=== PATIENT | male | born 1950 | race African-American/Black ===

== ENCOUNTER 2016-12-09 23:00 | Inpatient (IN) | payer MEDICARE, OTHER ==
[~2016-12-09] VITALS: Ht 175.3 cm; Wt 68.0 kg
[~2016-12-09 23:00] MED LIST: ATENOLOL50 MG PO; ATHLETIC FOOT C30 GM TOPIC; CARVEDILOL6.25 MG ORAL; CATAPRES0.1 MG ORAL; CATAPRES0.1 MG PO; CLOTRIMAZOLE15 GM TOP; COREG6.25 MG ORAL; DIOVAN80 MG ORAL; DOCUSATE SODIU100 MG ORAL; FUROSEMIDE40 MG ORAL; FUROSEMIDE40 MG PO; HYDROCODON-ACE1 EA15 ORAL; LISINOPRIL10 MG PO; LORAZEPAM1 MG ORAL; MOM30 ML ORAL; POTASSIUM CHLO10 ME2 PO; POTASSIUM CHLO10 ME3 PO; POTASSIUM CHLO10 MEQ ORAL; PROAIR HFA8.5 GM; VALSARTAN-HCTZ1 EACH ORAL
[2016-12-09] MEDS ORDERED: Albuterol ud Inhalation HHN ONE (23:30)
[2016-12-09 23:39] LABS: BASOPHILS % (AUTO) 1.8 % (0.0-2.0); EOSINOPHILS % (AUTO) 0.1 % (0.0-3.0); LYMPHOCYTES % (AUTO) 12.5 % (20.0-45.0); MEAN CORPUSCULAR HGB CONC 29.8 G/DL (32.0-36.0); MEAN CORPUSCULAR VOLUME 101 FL (80-99); MEAN PLATELET VOLUME 8.7 FL (6.5-10.1); MONOCYTES % (AUTO) 5.6 % (1.0-10.0); NEUTROPHILS % (AUTO) 80.1 % (45.0-75.0); PLATELET COUNT 154 K/UL (150-450); RED BLOOD COUNT 3.88 M/UL (4.70-6.10); RED CELL DISTRIBUTION WIDTH 16.3 % (11.6-14.8)
[2016-12-09 23:47] LABS: INR 1.1 (0.9-1.1); PROTHROMBIN TIME 11.2 SEC (9.30-11.50)
[2016-12-09 23:51] LABS: TROPONIN I < 0.30 ng/mL (<=0.30)
[2016-12-09 23:54] LABS: ALBUMIN/GLOBULIN RATIO 0.6 (1.0-2.7); CALCIUM 8.1 mg/dL (8.6-10.2); CREATININE 1.7 mg/dL (0.7-1.2); GLOMERULAR FILTRATION RATE 49.3 mL/min (>60); POTASSIUM 5.2 mEQ/L (3.4-4.9); TOTAL PROTEIN 7.4 g/dL (6.6-8.7)
[2016-12-10] VITALS (14 sets, daily range): BP systolic 106–153; BP diastolic 59–99
[2016-12-10 00:04] LABS: CKMB 15.4 ng/mL (< 6.7)
--- NOTE | 2016-12-10 00:39 | Emergency Room Report ---
History of Present Illness General Chief Complaint: Dyspnea/Respdistress Source: Patient, Medical Record, EMS Present Illness HPI This is a 66-year-old male coming from [facility]. He has a history of cardiomyopathy, hepatitis, toxic metabolic encephalopathy. He presents with chief complaint of severe rest or distress. Unknown onset. Unable to get history from the patient because of his condition. Denies any fever or chills. No nausea no vomiting. EMS put him on oxygen and brought him here. Allergies: Coded Allergies: No Known Allergies (Unverified , 04/29/13) Patient History Past Medical History: see triage record, old chart reviewed Past Surgical History: other Pertinent Family History: none Social History: Denies: drug use Immunizations: other Reviewed Nursing Documentation: PMH: Agreed, PSxH: Agreed Nursing Documentation-PMH Hx Cardiac Problems: Yes - CHF, CKD stage III, HEP C, thrombocytopenia, Anemia Hx Hypertension: Yes Hx Asthma: Yes Hx Cancer: No Hx Gastrointestinal Problems: Yes - LIVER FAILURE Hx Neurological Problems: No Review of Systems Eye: Denies: blurred vision, eye pain ENT: Denies: ear pain, nose congestion, throat swelling Respiratory: Reports: cough, shortness of breath Cardiovascular: Denies: chest pain, palpitations Gastrointestinal: Denies: abdominal pain, diarrhea, nausea, vomiting Musculoskeletal: Denies: back pain, joint pain Skin: Denies: rash Neurological: Denies: headache, numbness Endocrine: Denies: increased thirst, increased urine Hematologic/Lymphatic: Denies: easy bruising All Other Systems: negative except mentioned in HPI Physical Exam Vital Signs Date Time Temp Pulse Resp B/P Pulse Ox O2 Delivery O2 Flow Rate FiO2 12/09/16 22:54 74 30 160/124 98 12/09/16 23:49 Venturi Mask 12/09/16 23:51 10.0 vitals with hypoxia and hypertension Sp02 EP Interpretation: reviewed, abnormal General Appearance: alert, moderate distress, lethargic, Chronically Ill Head: normocephalic, atraumatic Eyes: bilateral eye EOMI, bilateral eye PERRL ENT: hearing grossly normal, normal pharynx Neck: full range of motion, supple, no meningismus Respiratory: chest non-tender, decreased breath sounds, accessory muscle use, rales Cardiovascular #1: regular rate, rhythm, no murmur Gastrointestinal: normal bowel sounds, non tender, no mass, no organomegaly, no bruit, non-distended Musculoskeletal: back normal, normal range of motion, swelling - 2+ pitting edema Psychiatric: mood/affect normal Skin: warm/dry Procedures Critical Care Time Critical Care Time Critical care is mandated in this patient who presented with respiratory distress secondary to CHF. Patient require my urgent intervention to attenuate the risks of respiratory collapse which may lead to cardiovascular collapse and . Critical care time is 35 minutes excluding any reportable procedure. Critical care time included evaluation, multiple reevaluation, looking at old charts, interpreting laboratory and diagnostic data, discussing case with patient and family and consultants, and charting. Medical Decision Making Diagnostic Impression: Primary Impression: Acute respiratory failure with hypoxia Additional Impressions: Accelerated hypertension CHF exacerbation Qualified Codes: I50.9 - Heart failure, unspecified Pulmonary edema Qualified Codes: J81.0 - Acute pulmonary edema Acute on chronic kidney failure Anemia Qualified Codes: D64.9 - Anemia, unspecified ER Course Patient presents with respiratory distress secondary to vomiting edema from CHF. Lasix given here. Patient has not made any urine so far. Kidney function is worse from couple years ago. He does look more comfortable with oxygen. Troponin negative. Will admit for further workup. I discussed the case with Dr. Capone who will cover for Dr. Hawkins. Lab Results Impression labs with elevated BNP EKG Diagnostic Results Rate: normal Rhythm: NSR ST Segments: no acute changes Rhythm Strip Diag. Results EP Interpretation: yes Rate: 70 Rhythm: NSR, no PVC's, no ectopy Chest X-Ray Diagnostic Results EP Interpretation: Yes Findings: no consolidation, no pneumothorax, other - effusion with chf Number of Views: 1 Last Vital Signs Date Time Temp Pulse Resp B/P Pulse Ox O2 Delivery O2 Flow Rate FiO2 12/09/16 23:51 64 18 98 Venturi Mask 10.0 12/09/16 22:54 160/124 Status: improved Disposition: ADMITTED INPATIENT Condition: Serious Referrals: Wild Hawkins MD (PCP) MELODIE DAIGLE M.D. Dec 10, 2016 00:39
[2016-12-10] MEDS ORDERED: DuoNeb 0.5-3(2.5)mg/3ml neb HHN PRN ×2 (00:45→16:45)
[2016-12-10] MEDS ORDERED: Miralax 17gm pkt ORAL PRN (00:45)
[2016-12-10] MEDS ORDERED: Norco 5mg/325mg tab ORAL PRN (00:45)
[2016-12-10] MEDS ORDERED: AMLODIPINE BESY10 MG ORAL (01:04)
[2016-12-10] MEDS ORDERED: ISORDIL40 MG ORAL (01:04)
[2016-12-10 03:18] LABS: ABG ALLEN TEST POSITIVE; ABG BASE EXCESS 0.3; ABG PCO2 71.7 mmHg (35.0-45.0)
--- NOTE | 2016-12-10 07:44 | Cardiology Progress Note ---
Assessment/Plan Assessment/Plan altered mentation acute on chronic systolic failrue cm er 28% MR mod to severe hx of amphetamin abue hs of hep c with cirrhosis renal insuf repirtory acidossi neeed to repeat abg will need afterload reduction acei vs other meds is nto able to take meds by mouth at thsi time will used ntp diruesis echo at [facility] noted watch crefully [id number] Objective Last 24 Hour Vital Signs Date Time Temp Pulse Resp B/P Pulse Ox O2 Delivery O2 Flow Rate FiO2 12/10/16 05:30 64 18 100 Full Face 100 12/10/16 04:14 97.0 67 24 127/80 100 Non-Rebreather 12/10/16 04:00 100 12/10/16 04:00 67 12/10/16 03:25 69 24 100 Facial 100 12/10/16 02:17 97.0 57 24 153/98 95 Non-Rebreather 12/10/16 01:00 78 29 129/99 100 Venturi Mask 15.0 12/10/16 00:45 78 29 129/99 100 Venturi Mask 15.0 12/09/16 23:51 64 18 98 Venturi Mask 10.0 12/09/16 23:51 61 18 99 Venturi Mask 12/09/16 23:50 79 32 Venturi Mask 15.0 12/09/16 23:49 63 18 Venturi Mask 12/09/16 22:54 74 30 160/124 98 Laboratory Tests Test 12/09/16 23:15 12/10/16 03:09 White Blood Count 5.0 K/UL (4.8-10.8) Red Blood Count 3.88 M/UL (4.70-6.10) L Hemoglobin 11.6 G/DL (14.2-18.0) L Hematocrit 39.1 % (42.0-52.0) L Mean Corpuscular Volume 101 FL (80-99) H Mean Corpuscular Hemoglobin 30.0 PG (27.0-31.0) Mean Corpuscular Hemoglobin Concent 29.8 G/DL (32.0-36.0) L Red Cell Distribution Width 16.3 % (11.6-14.8) H Platelet Count 154 K/UL (150-450) Mean Platelet Volume 8.7 FL (6.5-10.1) Neutrophils (%) (Auto) 80.1 % (45.0-75.0) H Lymphocytes (%) (Auto) 12.5 % (20.0-45.0) L Monocytes (%) (Auto) 5.6 % (1.0-10.0) Eosinophils (%) (Auto) 0.1 % (0.0-3.0) Basophils (%) (Auto) 1.8 % (0.0-2.0) Prothrombin Time 11.2 SEC (9.30-11.50) Prothromb Time International Ratio 1.1 (0.9-1.1) Activated Partial Thromboplast Time 34 SEC (23-33) H Sodium Level 147 mEQ/L (135-145) H Potassium Level 5.2 mEQ/L (3.4-4.9) H Chloride Level 109 mEQ/L (98-107) H Carbon Dioxide Level 25 mEQ/L (20-30) Anion Gap 13 (5-15) Blood Urea Nitrogen 39 mg/dL (7-23) H Creatinine 1.7 mg/dL (0.7-1.2) H Estimat Glomerular Filtration Rate 49.3 mL/min (>60) Glucose Level 141 mg/dL (74-106) H Calcium Level 8.1 mg/dL (8.6-10.2) L Total Bilirubin 0.3 mg/dL (0.0-1.2) Aspartate Amino Transf (AST/SGOT) 49 U/L (5-40) H Alanine Aminotransferase (ALT/SGPT) 45 U/L (3-41) H Alkaline Phosphatase 103 U/L (40-129) Total Creatine Kinase 127 U/L (38-174) Creatine Kinase MB 15.4 ng/mL (< 6.7) H Creatine Kinase MB Relative Index 12.1 Troponin I < 0.30 ng/mL (<=0.30) Pro-B-Type Natriuretic Peptide 37910 pg/mL (0-125) H Total Protein 7.4 g/dL (6.6-8.7) Albumin 2.8 g/dL (3.5-5.2) L Globulin 4.6 g/dL Albumin/Globulin Ratio 0.6 (1.0-2.7) L Arterial Blood pH 7.230 (7.350-7.450) Arterial Blood Partial Pressure CO2 71.7 mmHg (35.0-45.0) *H Arterial Blood Partial Pressure O2 57.1 mmHg (75.0-100.0) L Arterial Blood HCO3 29.4 mmol/L (22.0-26.0) H Arterial Blood Oxygen Saturation 87.0 % (92.0-98.0) L Arterial Blood Base Excess 0.3 Adrian Test Positive STEPHEN LONDON Dec 10, 2016 07:44
[2016-12-10 08:34] LABS: ABG ALLEN TEST POSITIVE; ABG BASE EXCESS -0.5; ABG PCO2 80.9 mmHg (35.0-45.0)
[2016-12-10] MEDS ORDERED: Heparin 5000 units/ml inj SUBQ SCH (09:00)
[2016-12-10] MEDS: Nitroglycerin 2% oint pkt TOPIC SCH ×3 (09:23→18:17)
[2016-12-10 09:39] LABS: TROPONIN I < 0.30 ng/mL (<=0.30)
--- NOTE | 2016-12-10 12:54 | History and Physical ---
History of Present Illness General Date patient seen: Dec 10, 2016 Reason for Hospitalization: Dyspnea/Respdistress Present Illness HPI 66-year-old male coming from [facility] with hx of cardiomyopathy, hepatitis, toxic metabolic encephalopathy. Patient was brought in by paramedics with chief complaint of severe respiratory distress. Patient was unable to give any history. He was diagnosed to have pneumonia and respiratory failure and transferred to telemetry. Currently pt is awake, looks somewhat comfortable on bipap. Looks cachectic and chronically ill. Allergies: Coded Allergies: No Known Allergies (Unverified , 04/29/13) Medication History Scheduled Amlodipine Besylate* (Amlodipine Besylate*), 10 MG ORAL DAILY, (Reported) Atenolol* (Tenormin*), 50 PO DAILY, (Reported) Carvedilol (Coreg), 6.25 MG ORAL EVERY 12 HOURS Clonidine Hcl* (Catapres*), 0.1 MG ORAL TID, (Reported) Furosemide* (Lasix*), 40 MG ORAL DAILY, (Reported) Lisinopril* (Lisinopril*), 10 PO DAILY, (Reported) Potassium Chloride (Potassium Chloride), 10 MEQ PO DAILY, (Reported) Valsartan (Diovan), 80 MG ORAL Q12HR, (Reported) Valsartan/Hydrochlorothiazide 80-12.5MG (Valsartan-Hctz 80-12.5 Mg Tab), 1 TAB ORAL DAILY Scheduled PRN Hydrocodone/Acetaminophen 5-325* (Hydrocodone/Acetaminophen 5-325*), 1 TAB ORAL Q6H PRN, (Reported) Lorazepam* (Lorazepam*), 1 MG ORAL Q6HR PRN, (Reported) Miscellaneous Medications Albuterol Sulfate* (Proair Hfa*), (Reported) Isosorbide Dinitrate (Isordil*), 40 MG ORAL, (Reported) Patient History Healthcare decision maker Resuscitation status Full Code Advanced Directive on File Social History Social History: (1) Hepatitis C (2) Cardiomyopathy (3) Anemia (4) CHF (congestive heart failure) Physical Exam General Appearance: WD/WN Lines, tubes and drains: peripheral, PICC HEENT: normocephalic, atraumatic Neck: non-tender, normal alignment Respiratory/Chest: chest wall non-tender, lungs clear Breasts: no masses Cardiovascular/Chest: normal peripheral pulses, normal rate Abdomen: normal bowel sounds, non tender Genitourinary/Rectal: normal prostate exam Extremities: normal range of motion, non-tender Last 24 Hour Vital Signs Date Time Temp Pulse Resp B/P Pulse Ox O2 Delivery O2 Flow Rate FiO2 12/10/16 12:37 111/61 12/10/16 12:00 96.9 77 21 110/68 99 Bi-pap 100 74 12/10/16 12:00 100 12/10/16 11:29 63 26 100 Full Face 100 12/10/16 09:24 61 39 100 Full Face 100 12/10/16 09:23 106/59 12/10/16 09:00 106/59 12/10/16 08:00 96.9 73 19 106/59 100 Bi-pap 100 80 12/10/16 08:00 100 12/10/16 08:00 82 12/10/16 07:27 63 27 100 Full Face 100 12/10/16 05:30 64 18 100 Full Face 100 12/10/16 04:15 97.0 67 24 127/80 100 Bi-pap 12/10/16 04:14 97.0 67 24 127/80 100 Non-Rebreather 12/10/16 04:00 100 12/10/16 04:00 67 12/10/16 03:25 69 24 100 Facial 100 12/10/16 02:17 97.0 57 24 153/98 95 Non-Rebreather 12/10/16 01:00 78 29 129/99 100 Venturi Mask 15.0 12/10/16 00:45 78 29 129/99 100 Venturi Mask 15.0 12/09/16 23:51 64 18 98 Venturi Mask 10.0 12/09/16 23:51 61 18 99 Venturi Mask 12/09/16 23:50 79 32 Venturi Mask 15.0 12/09/16 23:49 63 18 Venturi Mask 12/09/16 22:54 74 30 160/124 98 Laboratory Tests Test 12/09/16 23:15 12/10/16 03:09 12/10/16 08:10 12/10/16 08:40 White Blood Count 5.0 K/UL (4.8-10.8) Red Blood Count 3.88 M/UL (4.70-6.10) L Hemoglobin 11.6 G/DL (14.2-18.0) L Hematocrit 39.1 % (42.0-52.0) L Mean Corpuscular Volume 101 FL (80-99) H Mean Corpuscular Hemoglobin 30.0 PG (27.0-31.0) Mean Corpuscular Hemoglobin Concent 29.8 G/DL (32.0-36.0) L Red Cell Distribution Width 16.3 % (11.6-14.8) H Platelet Count 154 K/UL (150-450) Mean Platelet Volume 8.7 FL (6.5-10.1) Neutrophils (%) (Auto) 80.1 % (45.0-75.0) H Lymphocytes (%) (Auto) 12.5 % (20.0-45.0) L Monocytes (%) (Auto) 5.6 % (1.0-10.0) Eosinophils (%) (Auto) 0.1 % (0.0-3.0) Basophils (%) (Auto) 1.8 % (0.0-2.0) Prothrombin Time 11.2 SEC (9.30-11.50) Prothromb Time International Ratio 1.1 (0.9-1.1) Activated Partial Thromboplast Time 34 SEC (23-33) H Sodium Level 147 mEQ/L (135-145) H Potassium Level 5.2 mEQ/L (3.4-4.9) H Chloride Level 109 mEQ/L (98-107) H Carbon Dioxide Level 25 mEQ/L (20-30) Anion Gap 13 (5-15) Blood Urea Nitrogen 39 mg/dL (7-23) H Creatinine 1.7 mg/dL (0.7-1.2) H Estimat Glomerular Filtration Rate 49.3 mL/min (>60) Glucose Level 141 mg/dL (74-106) H Calcium Level 8.1 mg/dL (8.6-10.2) L Total Bilirubin 0.3 mg/dL (0.0-1.2) Aspartate Amino Transf (AST/SGOT) 49 U/L (5-40) H Alanine Aminotransferase (ALT/SGPT) 45 U/L (3-41) H Alkaline Phosphatase 103 U/L (40-129) Total Creatine Kinase 127 U/L (38-174) Creatine Kinase MB 15.4 ng/mL (< 6.7) H Creatine Kinase MB Relative Index 12.1 Troponin I < 0.30 ng/mL (<=0.30) < 0.30 ng/mL (<=0.30) Pro-B-Type Natriuretic Peptide 40500 pg/mL (0-125) H Total Protein 7.4 g/dL (6.6-8.7) Albumin 2.8 g/dL (3.5-5.2) L Globulin 4.6 g/dL Albumin/Globulin Ratio 0.6 (1.0-2.7) L Arterial Blood pH 7.230 (7.350-7.450) 7.180 (7.350-7.450) Arterial Blood Partial Pressure CO2 71.7 mmHg (35.0-45.0) *H 80.9 mmHg (35.0-45.0) *H Arterial Blood Partial Pressure O2 57.1 mmHg (75.0-100.0) L 73.5 mmHg (75.0-100.0) L Arterial Blood HCO3 29.4 mmol/L (22.0-26.0) H 29.5 mmol/L (22.0-26.0) H Arterial Blood Oxygen Saturation 87.0 % (92.0-98.0) L 92.8 % (92.0-98.0) Arterial Blood Base Excess 0.3 -0.5 Adrian Test Positive Positive Height (Feet): 5 Height (Inches): 9.00 Weight (Pounds): 150 Medications Current Medications Medications (Trade) Dose Ordered Sig/Melania Route PRN Reason Start Time Stop Time Status Last Admin Dose Admin Acetaminophen (Tylenol) 650 mg Q4H PRN ORAL Fever 12/10/16 00:45 01/09/17 00:44 Acetaminophen/ Hydrocodone Bitart ([place] 5/325) 1 tab Q6H PRN ORAL severe pain 12/10/16 00:45 12/17/16 00:44 Albuterol/ Ipratropium (DuoNeb 0.5-3(2.5)mg/3ml) 3 ml Q4H PRN HHN Shortness of Breath 12/10/16 00:45 12/15/16 00:44 Clonidine HCl (Catapres) 0.1 mg TID ORAL 12/10/16 09:00 01/09/17 08:59 Dextrose (Dextrose 50%) STAT PRN IV Hypoglycemia 12/10/16 00:45 01/09/17 00:44 Furosemide (Lasix) 40 mg EVERY 8 HOURS IV 12/10/16 06:00 01/09/17 05:59 12/10/16 06:19 Heparin Sodium (Porcine) (Heparin 5000 units/ml) 5,000 units EVERY 12 HOURS SUBQ 12/10/16 09:00 01/09/17 08:59 12/10/16 09:24 Nitroglycerin (Nitro-Bid) 1 inch EVERY 6 HOURS TOPIC 12/10/16 08:00 01/09/17 07:59 12/10/16 12:37 Ondansetron HCl (Zofran) 4 mg Q6H PRN IVP Nausea & Vomiting 12/10/16 00:45 01/09/17 00:44 Polyethylene Glycol (Miralax) 17 gm DAILYPRN PRN ORAL Constipation 12/10/16 00:45 01/09/17 00:44 Temazepam (Restoril) 15 mg HSPRN PRN ORAL Insomnia 12/10/16 00:45 12/17/16 00:44 Assessment/Plan Problem List: (1) Acute respiratory failure with hypoxia ICD Codes: J96.01 - Acute respiratory failure with hypoxia SNOMED: 10746784, 543041044 (2) Aspiration pneumonia ICD Codes: J69.0 - Pneumonitis due to inhalation of food and vomit SNOMED: 198546770 (3) Pulmonary edema ICD Codes: J81.1 - Chronic pulmonary edema SNOMED: 71868303, 617392609 Qualifiers: Qualified Codes: J81.0 - Acute pulmonary edema (4) At high risk for aspiration ICD Codes: Z91.89 - Other specified personal risk factors, not elsewhere classified SNOMED: 102745201 Assessment/Plan transfer to [facility] or [facility] titrate bipap IV antibiotics sputum c/s chest pt YAMILET DIOR Dec 10, 2016 12:54
--- NOTE | 2016-12-10 13:24 | Wound Care Consultation ---
Wound Assessment Wound Assessment #1: Wound Present on Admission: Yes New Wound: No Status Change of Wound: No Wound Location Body Site Modif: mid Wound Location Body Site: sacral Wound Type: pressure ulcer Gómez Test: Does not Gómez Pressure Ulcer Stage: IV/unstageable Wound Thickness: Full Thickness Wound Length: 4.0 Wound Width: 3.0 Percent of Wound Bed Yellow/Wh: 100 Wound Drainage Description: Serosanguineous Wound Drainage Amount: Moderate Wound Drainage Odor: None/Absent Tissue Surrounding Wound: Macerated Wound General Appearance: Draining, Necrotic Wound Assessment #2: Wound Number: #2 Wound Present on Admission: Yes New Wound: No Status Change of Wound: No Wound Location Body Site Modif: right Wound Location Body Site: heel Wound Type: pressure ulcer Gómez Test: Does not Gómez Pressure Ulcer Stage: deep tissue injury Wound Thickness: Full Thickness Wound Length: 3.5 Wound Width: 3.5 Wound Depth: utd Percent of Wound Black/Brown: 100 Wound Drainage Amount: None Wound Drainage Odor: None/Absent Tissue Surrounding Wound: Indurated Wound General Appearance: Blackened Wound Assessment #3: Wound Number: #3 Wound Present on Admission: Yes New Wound: No Status Change of Wound: No Wound Location Body Site Modif: right Wound Location Body Site: metatarsal head - 5th Wound Type: pressure ulcer Gómez Test: Does not Gómez Pressure Ulcer Stage: deep tissue injury Wound Thickness: Full Thickness Wound Length: 0.5 Wound Width: 2.5 Wound Depth: utd Percent of Wound Black/Brown: 100 Wound Drainage Amount: None Wound Drainage Odor: None/Absent Tissue Surrounding Wound: Indurated Wound General Appearance: Blackened Wound Assessment #4: Wound Number: #4 Wound Present on Admission: Yes New Wound: No Status Change of Wound: No Wound Location Body Site Modif: right, medial, dorsal Wound Location Body Site: foot Wound Type: scab Gómez Test: Does not Gómez Wound Thickness: Full Thickness Wound Length: 0.5 Wound Width: 2.5 Wound Depth: utd Wound Drainage Amount: None Wound Drainage Odor: None/Absent Tissue Surrounding Wound: Intact Wound General Appearance: Asymptomatic Wound Assessment #5: Wound Number: #5 Wound Present on Admission: Yes New Wound: No Status Change of Wound: No Wound Location Body Site Modif: left Wound Location Body Site: heel Wound Type: pressure ulcer Gómez Test: Does not Gómez Pressure Ulcer Stage: deep tissue injury Wound Thickness: Full Thickness Wound Length: 2.5 Wound Width: 2.5 Wound Depth: utd Percent of Wound Black/Brown: 100 Wound Drainage Amount: None Wound Drainage Odor: None/Absent Tissue Surrounding Wound: Indurated Wound General Appearance: Asymptomatic, Blackened Wound Assessment #6: Wound Number: #6 Wound Present on Admission: Yes New Wound: No Status Change of Wound: No Wound Location Body Site Modif: left, dorsal Wound Location Body Site: foot Wound Type: lesion-etiology unknown Vascular Issues: edema Edema Degree: 2+ indent readily Wound Thickness: Full Thickness Wound Length: 7.0 Wound Width: 5.5 Wound Depth: utd Percent of Wound [place]/Red: 70 Percent of Wound Bed Yellow/Wh: 30 Wound Drainage Description: Serosanguineous Wound Drainage Amount: Moderate Wound Drainage Odor: None/Absent Tissue Surrounding Wound: Macerated Wound General Appearance: Draining Wound Assessment #7: Wound Number: #7 Wound Present on Admission: Yes New Wound: No Status Change of Wound: No Wound Location Body Site Modif: right Wound Location Body Site: knee Wound Type: pressure ulcer Gómez Test: Does not Gómez Pressure Ulcer Stage: IV/unstageable Wound Thickness: Full Thickness Wound Length: 1.0 Wound Width: 1.0 Wound Depth: utd Percent of Wound Bed Yellow/Wh: 100 Wound Drainage Description: Serosanguineous Wound Drainage Amount: Scant Wound Drainage Odor: None/Absent Tissue Surrounding Wound: Macerated Wound General Appearance: Draining Wound Assessment #8: Wound Number: #8 Wound Location Body Site Modif: right Wound Location Body Site: knee Wound Type: scar Gómez Test: Does not Gómez Wound Thickness: Full Thickness Wound Length: 2.0 Wound Width: 0.5 Percent of Wound [place]/Red: 100 Wound Drainage Amount: None Wound Drainage Odor: None/Absent Tissue Surrounding Wound: Intact Wound General Appearance: Asymptomatic, Open to air Wound Comment #1 Sacral stage IV/unstagable pressure ulcer #2 Right heel DTI pressure ulcer #3 Right 5th metatarsal head DTI pressure ulcer #4 Right lateral dorsal foot with dry scab adhered to wound bed #5 Right knee small stage IV/unstageable pressure ulcer #6 Left heel DTI pressure ulcer #7 Left dorsal foot open wound etiology unknown #8 Left knee with full thickness scar tissue Recommendation Right knee and sacral pressure ulcers -Cleanse with saline pat dry apply Therahoney gel to wound bed and cover with bordered gauze daily and PRN soiled/dislodged Right 5th metatarsal head, Right and Left heel DTI -Local wound care per protocol for intact DTI Left dorsal foot -Cleanse with saline pat dry apply hydrogel to wound bed cover with 4x4 wrap with kerlix daily and PRN soiled/dislodged -Turn and reposition -Keep clean and dry -Optimize nutrition -Offload both heels -Heel protector on both heels -Low air loss overlay mattress -Assess and f/u accordingly for any changes LIZETTE HORNER RN Dec 10, 2016 13:24
[2016-12-10 16:25] LABS: TROPONIN I < 0.30 ng/mL (<=0.30)
--- NOTE | 2016-12-10 19:07 | History and Physical Report ---
DATE OF ADMISSION: 12/10/2016 CHIEF COMPLAINT: The patient is a 66-year-old male who presents with complaint of altered mental status and shortness of breath. HISTORY OF PRESENT ILLNESS: The patient is a resident of [facility]. Much of the history and physical was obtained from the patient's chart due to patient's altered mental status. According to staff at [facility], the patient became acutely short of breath. The patient was in respiratory failure. EMS was called. The patient was transported to [facility]. [place] [address]. The patient's respiratory status declined. The patient is currently on BiPAP. The patient is admitted for altered mental status, shortness of breath, acute on chronic congestive heart failure. REVIEW OF SYSTEMS: Unable to assess secondary to patient's altered mental status. PAST MEDICAL HISTORY: Significant. 1. Congestive heart failure. 2. Renal failure. 3. Hypertension. 4. Coronary artery disease, status post myocardial infarction. 5. Hepatitis C. 6. History of gastrointestinal hemorrhage. 7. History of cirrhosis of the liver. PAST SURGICAL HISTORY: Significant for spinal fusion. CURRENT MEDICATIONS: 1. Albuterol metered-dose inhaler two puffs p.o. q.i.d. as needed. 2. Amlodipine 10 mg one tablet p.o. daily. 3. Atenolol 50 mg one tablet p.o. daily. 4. Coreg 6.25 mg one tablet p.o. twice daily. 5. Clonidine 0.1 mg one tablet p.o. three time a day. 6. Lasix 40 mg one tablet p.o. daily. 7. [place] 5/325 mg one tablet p.o. every 6 hours as needed. 8. Isordil 40 mg one tablet p.o. daily. 9. Lisinopril 10 mg one tablet p.o. daily. 10. Ativan 1 mg one tablet p.o. every 6 hours as needed. 11. Potassium chloride 10 mEq one tablet p.o. daily. 12. Diovan 80 mg one tablet p.o. twice daily. 13. Hydrochlorothiazide 12.5 mg one tablet p.o. daily. ALLERGIES: No known drug allergies. SOCIAL HISTORY: The patient is a resident of [facility]. The patient has a history of methamphetamine use in the past. The patient denies current tobacco or alcohol use. PHYSICAL EXAMINATION: VITAL SIGNS: Temperature 96.9, respirations 19, pulse 70 to 80, and blood pressure 106/59, oxygen saturation 100% on BiPAP. GENERAL: The patient is thin-appearing male, who is somnolent but arousable. HEENT: Eyes, pupils are equal and responsive to light and accommodation. Extraocular movements are intact. NECK: Supple without lymphadenopathy. LUNGS: Decreased breath sounds bilateral bases with crackles [address] on each side. Expiratory wheezes heard throughout the bilateral lung [place]. No rhonchi present. CARDIOVASCULAR: Regular rhythm and rate S1-S2 are normal with a 2/6 systolic ejection murmur. ABDOMEN: Soft, nontender, and nondistended. Positive bowel sounds. No evidence of hepatosplenomegaly. Currently no rebound or guarding noted. EXTREMITIES: No clubbing, cyanosis, edema. RECTAL: Refused. GENITAL: Refused. NEUROLOGICAL: The patient is obtunded. LABORATORY STUDIES: WBC 5.0, hemoglobin 11.6, hematocrit 39.1, platelets 154,000. Sodium 147, potassium elevated at 5.2, chloride 109, CO2 25, BUN 39, creatinine 1.7, glucose 141. Troponin less than 0[place] [address]. Chest x-ray is pending. ASSESSMENT: This is a 66-year-old male. 1. Altered mental status. 2. Shortness of breath. 3. Respiratory failure. 4. Congestive heart failure. 5. Renal failure. 6. . 7. Coronary artery disease. 8. Hepatitis C. 9. Chronic anemia. 10. History of gastrointestinal bleed. TREATMENT: 1. Altered mental status is probably secondary to hypoxemia secondary to congestive heart failure and respiratory failure. 2. Shortness of breath/respiratory failure. Pulmonary consultation obtained with Dr. Malathi Capone. The patient is currently on BiPAP. The patient will be transferred to [facility] or intensive care unit for higher level of care. . The patient may require intubation. We will follow recommendations of Pulmonary 3. Congestive heart failure. Cardiology consultation has been obtained with Dr. Tanmay Rizzo. The patient is currently receiving intravenous Lasix. An echocardiogram is pending. We will follow recommendations of Cardiology. 4. Renal failure. This may be secondary to dehydration. The patient is currently receiving intravenous fluids. 5. Hypertension, the patient is currently hypotensive. Suspend antihypertensive medication as above for now. 6. Coronary artery disease. The patient is status post myocardial infarction. We will follow recommendations of Cardiology, Dr. Tanmay Rizzo. 7. Hepatitis C. 8. History of gastrointestinal. 9. History of chronic anemia. Reed Perkins M.D. DR: Reuben JOB#: [id number] CC:
--- NOTE | 2016-12-10 20:27 | Consultation ---
DATE OF CONSULTATION: CARDIOLOGY CONSULTATION CONSULTING PHYSICIAN: Tanmay Rizzo M.D. REFERRING PHYSICIAN: Wild Hawkins M.D. REASON FOR REFERRAL: Congestive heart failure. HISTORY OF PRESENT ILLNESS: This is an elderly gentleman, resident of [facility] who apparently was transferred from the [facility] facility. According to the field superintendent run sheet having been found low oxygen saturation by the nursing staff at the facility, his saturations dropped in the 50s despite being on two liters nasal cannula. The patient was placed on nonrebreather mask with improvement and was felt to be working to breathe using accessory muscles with more dyspnea and diminished breath sounds were noted. Paramedics were summoned and the patient was given albuterol treatment and placed on CPAP. There was some improvement and was transferred to the emergency room at [facility] where he has been admitted. I was asked to see him in conjunction with the diagnosis of congestive heart failure. The patient at this time is on BiPAP and is really is not able to provide much in terms of history at all at the present time. There are some data in the chart indicating that the patient had a history of hospitalization previously at [facility]. PAST MEDICAL HISTORY: He has a past medical history of polysubstance abuse, renal insufficiency acute on chronic with stage 3, history of acute cardiac dysfunction, atherosclerotic disease, history of hepatitis C virus with liver cirrhosis, hematochezia, gastrointestinal bleed secondary to ischemic colitis, hypertension, hypercalemia, paroxysmal episodes atrial fibrillation, metabolic acidosis, anemia, cognitive dysfunction, respiratory failure, hypoxemia, thrombocytopenia, and hypoxic metabolic encephalopathy. PAST SURGICAL HISTORY: Positive for fibular tibial fracture for which he was treated. MEDICATIONS: Medications at the [facility] facility are listed as amlodipine 10 mg on a daily basis, vitamin D2 50,000, 40 mg three times a day, lisinopril 10 mg once a day. He is on multivitamins, Senna, thiamine, [place], clonidine on a p.r.n. basis. ALLERGIES: His allergies are reported to be none. SOCIAL HISTORY: He has a prior history of amphetamine use as much as I could tell. Apparently, he is a former smoker. He quit in July of 2015. REVIEW OF SYSTEMS: Really unable to obtain at present time on BiPAP and really noncommunicative. PHYSICAL EXAMINATION: VITAL SIGNS: Blood pressure pressure initially 160/124 most recently down to 127/82. NECK: Supple. No jugular venous distention. LUNGS: Appeared to have some basilar crackles on the right side. Decreased breath sounds are noted. CARDIAC: Regular rhythm. Holosystolic regurgitant murmur noted at the apex. ABDOMEN: Soft and nontender. Positive bowel sounds. EXTREMITIES: There is edema of the lower extremities bilaterally. NEUROLOGIC: The patient is arousable, but really not communicative or following any commands. LABORATORY AND DIAGNOSTIC DATA: Laboratory values, he had an electrocardiogram that shows a lot of motion artifact appears to have some voltage criteria for left ventricular hypertrophy and direct comparison with his prior EKG at [facility] in April of 2016. He did have at that time biphasic T-waves and T-wave inversion in multiple leads, but he seems to have some indication of biphasic T-waves in V5 and V6. The rest of the EKG needs to be repeated as it is poor quality, but there was some T-wave inversions on the EKG that was performed by the field superintendent staff. Other labs, sodium 147, potassium 5.2, chloride 109, bicarbonate 25, BUN of 39, creatinine 1.7, glucose of 141, and calcium is 8.1. AST and ALT minimally elevated at 49 and 45 respectively. CK of 127. Troponin of less than 0.3. ProBNP of 18,000 with albumin of 2.8. INR is 1.1 and PTT of 34. Chest x-ray, I am unable to pull up the study to review here and no reports in the system, however, our emergency room physician whose interpreted study indicates no no pneumothorax. There is effusion with congestive heart failure being noted on the EKG. His creatinine previously at [facility] as been as high as 2.37 so his level was probably lower than his usual with his hemoglobin at that time of 8.3, as well and at this time his hemoglobin is higher than it has been on prior occasions. His ABG shows a pH is 7.2, pCO2 of 71, pO2 of 57, and bicarbonate of 29. ASSESSMENT AND PLAN: 1. Abnormal mentation. 2. Respiratory acidosis. 3. Congestive heart failure with pleural effusion, 4. Mitral regurgitation. 5. Cardiomyopathy. 6. History of amphetamine abuse. 7. History of paroxysmal episodes of atrial fibrillation per report. 8. Renal insufficiency. 9. Hepatitis C virus with cirrhosis. This patient has been admitted and has been on BiPAP, his mentation is quite abnormal still. We will consider neurological evaluation, blood gases should be probably repeated, he should be continued on course of diuretics to help him with his congestive heart failure. He is already getting 40 mg q.8 hours. His blood pressure appears to be much better controlled. He would be on afterload reduction with possibly some JEANNETTE inhibitors and/or nitrates for the time being. Creatinine to be monitored carefully. Will order an EKG and set of cardiac enzyme as well as BNP. His echocardiogram had shown an ejection fraction in the 20s recently at [facility]. Tanmay Rizzo M.D. DR: Larisa JOB#: [id number] CC:
[2016-12-10] MEDS: Vitamin A&D Oint 2oz Tube TOPIC SCH (20:45)
[2016-12-10] MEDS: Heparin 5000 units/ml inj SUBQ SCH (20:47)
[2016-12-10] MEDS ORDERED: Vitamin A&D Oint 2oz Tube TOPIC SCH (21:00)
[2016-12-11] VITALS (28 sets, daily range): BP systolic 93–170; BP diastolic 66–116
[2016-12-11] MEDS: Nitroglycerin 2% oint pkt TOPIC SCH ×4 (00:32→17:39)
[2016-12-11] MEDS ORDERED: Miralax 17gm pkt ORAL PRN (00:45)
[2016-12-11] MEDS: Norco 5mg/325mg tab ORAL PRN (00:55)
[2016-12-11 05:11] LABS: BASOPHILS % (AUTO) 0.7 % (0.0-2.0); LYMPHOCYTES % (AUTO) 10.2 % (20.0-45.0); MEAN CORPUSCULAR HEMOGLOBIN 29.9 PG (27.0-31.0); MEAN CORPUSCULAR HGB CONC 29.9 G/DL (32.0-36.0); MEAN CORPUSCULAR VOLUME 100 FL (80-99); MEAN PLATELET VOLUME 10.9 FL (6.5-10.1); MONOCYTES % (AUTO) 6.3 % (1.0-10.0); NEUTROPHILS % (AUTO) 82.9 % (45.0-75.0); PLATELET COUNT 104 K/UL (150-450); RED BLOOD COUNT 3.09 M/UL (4.70-6.10); RED CELL DISTRIBUTION WIDTH 16.6 % (11.6-14.8); WHITE BLOOD COUNT 5.6 K/UL (4.8-10.8)
[2016-12-11 05:35] LABS: CALCIUM 8.3 mg/dL (8.6-10.2); CREATININE 2.5 mg/dL (0.7-1.2); GLOMERULAR FILTRATION RATE 31.5 mL/min (>60); PHOSPHORUS 5.9 mg/dL (2.5-4.8)
[2016-12-11 05:37] LABS: POTASSIUM 6.2 mEQ/L (3.4-4.9)
[2016-12-11] MEDS ORDERED: Sodium Polystyrene Sulfonate 15gm Powder ORAL ONE ×2 (06:30→06:45)
[2016-12-11 06:39] LABS: TROPONIN I < 0.30 ng/mL (<=0.30)
[2016-12-11] MEDS ORDERED: Calcium Gluconate 1gm/10ml vial IVP ONE (06:45)
[2016-12-11 07:59] LABS: ABG ALLEN TEST POSITIVE; ABG BASE EXCESS -1.1
--- NOTE | 2016-12-11 08:41 | Diagnostic Imaging Report ---
Indication: SOB Technique: One view of the chest Comparison: 10/09/2013 Findings: There are large bilateral pleural effusions. There is mild interstitial edema. The heart is obscured by the surrounding pleural opacities, size difficult to estimate, suspect slightly enlarged Impression: Bilateral large pleural effusions Suspect mild interstitial congestive changes
--- NOTE | 2016-12-11 08:54 | Emergency Room Report ---
History of Present Illness General Chief Complaint: Dyspnea/Respdistress Source: Medical Record, EMS Present Illness Allergies: Coded Allergies: No Known Allergies (Unverified , 04/29/13) Nursing Documentation-[facility] Past Medical History: No History, Except For Hx Cardiac Problems: Yes - A-Fib Hx Hypertension: Yes Hx Asthma: Yes Hx Cancer: No Hx Gastrointestinal Problems: Yes Hx Neurological Problems: No Physical Exam Vital Signs Date Time Temp Pulse Resp B/P Pulse Ox O2 Delivery O2 Flow Rate FiO2 12/09/16 22:54 74 30 160/124 98 12/09/16 23:49 Venturi Mask 12/09/16 23:50 15.0 12/10/16 02:17 97.0 12/10/16 03:25 100 Procedures Critical Care Time Critical Care Time 30 minutes of CC time for this 66 YOM admitted to ICU for respiratory distress Review of EMR indicates history of CHF Last ABG shows respiratory acidosis pH 7.1 and CO2 80 On exam, patient tachypnic, requiring FiO2 80 to maintain oxygenation Lungs tight, rhoncerous Patient requested to be intubated by Dr Capone Total CC time includes review of chart, labs, discussion with admitting hospitalist. Intubation Intubation : Consent: Emergent Intubation Method: orotracheal Tube Size (cm): 7.5 Medications: Etomidate, Rocuronium Breath Sounds after Intubation: equal Intubation Complications: no complications Post Intubation Xray: Yes Attempts: One Patient Tolerated: Well Complications: None Medical Decision Making Diagnostic Impression: Primary Impression: Acute respiratory failure with hypoxia Additional Impressions: Accelerated hypertension Anemia Pulmonary edema Qualified Codes: J81.0 - Acute pulmonary edema Acute on chronic kidney failure CHF exacerbation Qualified Codes: I50.9 - Heart failure, unspecified ER Course Called to ICU by hospitalist Dr Capone for intubation for impending respiratory arrest. See CC time and procedure note. Last Vital Signs Date Time Temp Pulse Resp B/P Pulse Ox O2 Delivery O2 Flow Rate FiO2 12/11/16 07:11 74 17 82 Full Face 80 12/11/16 06:09 112/72 12/11/16 04:00 97.8 12/10/16 01:00 15.0 Disposition: ADMITTED INPATIENT Condition: Critical Referrals: Wild Hawkins MD (PCP) MELODY NELSON M.D. Dec 11, 2016 08:54
[2016-12-11] MEDS: Vitamin A&D Oint 2oz Tube TOPIC SCH ×2 (09:00→20:58)
[2016-12-11] MEDS: Heparin 5000 units/ml inj SUBQ SCH ×2 (09:03→20:59)
[2016-12-11 09:58] LABS: ABG ALLEN TEST POSITIVE; ABG BASE EXCESS 1.5
--- NOTE | 2016-12-11 10:08 | Pulmonology Progress Note ---
Assessment/Plan Problems: (1) Acute respiratory failure with hypoxia (2) Aspiration pneumonia (3) Pulmonary edema (4) At high risk for aspiration (5) ATN (acute tubular necrosis) (6) Hepatitis C Respiratory: monitor respiratory rate Cardiac: start pressors, continue pressors Renal: F/U I&O, keep IV fluid, check electrolytes Infectious Disease: check cultures, continue antibiotics Gastrointestinal: continue feedings/current rate Endocrine: monitor blood sugar, continue sliding scale insulin Hematologic: monitor H/H, transfuse if hgb<8.5 Neurologic: PRN Ativan, keep patient comfortable Disposition: keep in ICU Notes Reviewed: cardio Discussed with: consultants, manager rn case Subjective ROS Limited/Unobtainable: Yes Interval Events: was in respiratory failure earlier this morning, needed to be intubaed Allergies: Coded Allergies: No Known Allergies (Unverified , 04/29/13) Objective Last 24 Hour Vital Signs Date Time Temp Pulse Resp B/P Pulse Ox O2 Delivery O2 Flow Rate FiO2 12/11/16 10:00 40 12/11/16 10:00 49 21 142/102 100 Mechanical Ventilator 40 12/11/16 09:00 117/73 12/11/16 09:00 51 21 117/73 100 Mechanical Ventilator 100 12/11/16 08:45 100 12/11/16 08:45 53 16 100 12/11/16 08:00 80 12/11/16 08:00 97.4 60 20 117/73 100 Bi-pap 80 12/11/16 07:30 80 12/11/16 07:11 74 17 82 Full Face 80 12/11/16 07:00 60 20 143/87 100 Bi-pap 40 12/11/16 06:09 112/72 12/11/16 06:00 74 29 112/72 100 Bi-pap 40 12/11/16 05:01 89 31 100 Full Face 40 12/11/16 05:00 73 29 124/87 100 Bi-pap 40 12/11/16 04:00 64 12/11/16 04:00 97.8 64 22 126/83 100 Bi-pap 40 12/11/16 03:00 71 24 100/67 100 Bi-pap 40 12/11/16 02:52 75 16 100 Full Face 40 12/11/16 02:00 40 12/11/16 02:00 77 22 93/66 100 Bi-pap 40 12/11/16 01:55 97.4 12/11/16 01:54 97.4 12/11/16 01:30 40 12/11/16 01:22 84 21 99 Full Face 40 12/11/16 01:00 81 33 130/93 96 Bi-pap 40 12/11/16 00:32 116/86 12/11/16 00:00 97.4 79 27 116/86 100 Bi-pap 40 12/11/16 00:00 79 12/10/16 23:11 40 12/10/16 23:09 77 32 100 Full Face 40 12/10/16 23:00 83 21 116/86 100 Bi-pap 50 12/10/16 22:00 71 21 115/82 100 Bi-pap 50 12/10/16 21:24 50 12/10/16 21:19 74 14 100 Full Face 50 12/10/16 21:00 76 17 111/71 100 Bi-pap 50 12/10/16 20:00 60 12/10/16 20:00 78 12/10/16 20:00 97.8 78 21 114/73 100 Bi-pap 60 12/10/16 19:00 78 19 110/68 100 Bi-pap 100 12/10/16 18:52 65 29 100 Full Face 60 12/10/16 18:17 125/69 12/10/16 18:00 125/69 12/10/16 18:00 79 19 126/71 100 Bi-pap 100 12/10/16 17:00 88 22 125/69 100 Bi-pap 100 12/10/16 16:42 74 28 100 Full Face 100 12/10/16 16:27 100 12/10/16 16:25 97.0 77 22 122/70 100 Bi-pap 100 12/10/16 16:07 78 12/10/16 15:19 70 28 100 Full Face 100 12/10/16 14:53 68 12/10/16 13:13 61 24 100 Full Face 100 12/10/16 12:37 111/61 12/10/16 12:00 96.9 77 21 110/68 99 Bi-pap 100 74 12/10/16 12:00 100 12/10/16 11:29 63 26 100 Full Face 100 Intake and Output 12/10/16 12/11/16 19:00 07:00 Intake Total 50 ml Output Total 15 ml 15 ml Balance -15 ml 35 ml Intake Oral 50 ml Output Urine Total 15 ml 15 ml General Appearance: cachetic HEENT: normocephalic, atraumatic Respiratory/Chest: chest wall non-tender, lungs clear Cardiovascular: normal peripheral pulses, normal rate Abdomen: normal bowel sounds, soft, non tender Extremities: no cyanosis Skin: no rash Microbiology Date/Time Source Procedure Growth Status 12/09/16 23:17 Blood Arm Right Blood Culture - Preliminary NO GROWTH AFTER 24 HOURS Resulted 12/09/16 23:11 Blood Arm Right Blood Culture - Preliminary NO GROWTH AFTER 24 HOURS Resulted Laboratory Tests 12/10/16 15:40: Troponin I < 0.30 12/11/16 03:10: Troponin I < 0.30, White Blood Count 5.6, Red Blood Count 3.09L, Hemoglobin 9.2L , Hematocrit 30.9L, Mean Corpuscular Volume 100H, Mean Corpuscular Hemoglobin 29.9, Mean Corpuscular Hemoglobin Concent 29.9L, Red Cell Distribution Width 16.6H, Platelet Count 104L, Mean Platelet Volume 10.9H, Neutrophils (%) (Auto) 82.9H, Lymphocytes (%) (Auto) 10.2L, Monocytes (%) (Auto) 6.3, Eosinophils (%) ( Auto) 0.0, Basophils (%) (Auto) 0.7, Sodium Level 152H, Potassium Level 6.2*H, Chloride Level 114H, Carbon Dioxide Level 30, Anion Gap 8, Blood Urea Nitrogen 47H, Creatinine 2.5H, Estimat Glomerular Filtration Rate 31.5, Glucose Level 101 , Calcium Level 8.3L, Phosphorus Level 5.9H, Pro-B-Type Natriuretic Peptide 13570V, Albumin 2.5L 12/11/16 07:45: Arterial Blood pH 7.180*L, Arterial Blood Partial Pressure CO2 79.0*H, Arterial Blood Partial Pressure O2 68.0L, Arterial Blood HCO3 28.6H, Arterial Blood Oxygen Saturation 91.0L, Arterial Blood Base Excess -1.1, Adrian Test Positive 12/11/16 09:44: Arterial Blood pH 7.420, Arterial Blood Partial Pressure CO2 41.0, Arterial Blood Partial Pressure O2 473.0H, Arterial Blood HCO3 26.0, Arterial Blood Oxygen Saturation 100.0H, Arterial Blood Base Excess 1.5, Adrian Test Positive Current Medications Medications (Trade) Dose Ordered Sig/Melania Route PRN Reason Start Time Stop Time Status Last Admin Dose Admin Acetaminophen (Tylenol) 650 mg Q4H PRN ORAL Fever 12/10/16 16:45 01/09/17 16:44 12/11/16 00:56 Acetaminophen/ Hydrocodone Bitart ([place] 5/325) 1 tab Q6H PRN ORAL severe pain 12/10/16 18:45 12/17/16 18:44 12/11/16 00:55 Albuterol/ Ipratropium (DuoNeb 0.5-3(2.5)mg/3ml) 3 ml Q4H PRN HHN Shortness of Breath 12/10/16 16:45 12/15/16 16:44 Clonidine HCl (Catapres) 0.1 mg TID ORAL 12/10/16 18:00 01/09/17 17:59 Dextrose (Dextrose 50%) STAT PRN IV Hypoglycemia 12/11/16 00:45 01/10/17 00:44 Furosemide (Lasix) 40 mg EVERY 8 HOURS IV 12/10/16 22:00 01/09/17 21:59 12/11/16 06:08 Heparin Sodium (Porcine) (Heparin 5000 units/ml) 5,000 units EVERY 12 HOURS SUBQ 12/10/16 21:00 01/09/17 20:59 12/11/16 09:03 Nitroglycerin (Nitro-Bid) 1 inch EVERY 6 HOURS TOPIC 12/10/16 18:00 01/09/17 17:59 12/11/16 06:09 Ondansetron HCl (Zofran) 4 mg Q6H PRN IVP Nausea & Vomiting 12/10/16 18:45 01/09/17 18:44 Polyethylene Glycol (Miralax) 17 gm DAILYPRN PRN ORAL Constipation 12/11/16 00:45 01/10/17 00:44 Temazepam (Restoril) 15 mg HSPRN PRN ORAL Insomnia 12/11/16 00:45 12/18/16 00:44 12/11/16 00:55 Vitamin A/Vitamin D (A & D Oint) 1 applic EVERY 12 HOURS TOPIC 12/10/16 21:00 01/09/17 20:59 12/11/16 09:00 YAMILET DIOR Dec 11, 2016 10:08
[2016-12-11 11:51] LABS: CALCIUM 8.7 mg/dL (8.6-10.2); CREATININE 2.7 mg/dL (0.7-1.2); GLOMERULAR FILTRATION RATE 28.8 mL/min (>60); POTASSIUM 5.3 mEQ/L (3.4-4.9)
--- NOTE | 2016-12-11 12:33 | Diagnostic Imaging Report ---
APPROVED REPORT CPT Code: 79405 Present Symptoms Lower Extremity Edema: Bilateral Shortness of breath BILATERAL: Imaging reveals a patent deep venous system bilaterally. There is no evidence of thrombus within the femoral, popliteal or tibial segments. The greater saphenous veins are also within normal limits. Doppler indicates normal spontaneous flow within these segments.
--- NOTE | 2016-12-11 14:10 | Consultation ---
Consult Note Consult Note ID Dic # [id number] ERWIN KIMBROUGH M.D. Dec 11, 2016 14:10
--- NOTE | 2016-12-11 14:51 | Consultation ---
Consult Note Consult Note Asked to eval for renal failure- Came to ER for respiratory distress- currentlty intubated in ICU Examined- data reviewed- discussed with RN- PAST MEDICAL HISTORY: He has a past medical history of polysubstance abuse, renal insufficiency acute on chronic with stage 3, history of acute cardiac dysfunction, atherosclerotic disease, history of hepatitis C virus with liver cirrhosis, hematochezia, gastrointestinal bleed secondary to ischemic colitis, hypertension, hypercalemia, paroxysmal episodes atrial fibrillation, metabolic acidosis, anemia, cognitive dysfunction, respiratory failure, hypoxemia, thrombocytopenia, and hypoxic metabolic encephalopathy. PAST SURGICAL HISTORY: Positive for fibular tibial fracture for which he was treated. . Assessment/Plan Status: 1. Abnormal mentation. 2. Respiratory failure, acute with hypoxia-/ Aspiration [place] 3. Congestive heart failure with pleural effusion, 4. Mitral regurgitation. 5. Cardiomyopathy. 6. History of amphetamine abuse. 7. History of paroxysmal episodes of atrial fibrillation per report. 8. Renal insufficiency. ? Acute on Chronic 9. Hepatitis C virus with cirrhosis. Plan: Optimize cardiac and pulmonary status- Keep BP in check- Monitor renal parameters- avoid nephrotoxics- per orders- JUSTIN NESS Dec 11, 2016 14:51
[2016-12-11] MEDS: Pantoprazole Inj IVP SCH (16:00)
[2016-12-11 17:01] LABS: CALCIUM 8.2 mg/dL (8.6-10.2); CREATININE 2.8 mg/dL (0.7-1.2); GLOMERULAR FILTRATION RATE 27.8 mL/min (>60); POTASSIUM 4.9 mEQ/L (3.4-4.9)
[2016-12-11] MEDS: Piperacillin/Tazobactam 2.25 GM in D5W 110 ML IV SCH (17:30)
[2016-12-11] MEDS ORDERED: Piperacillin/Tazobactam 3.375 GM in D5W 110 ML IVPB SCH (18:00)
[2016-12-11] MEDS ORDERED: Piperacillin/Tazobactam 2.25 GM in D5W 110 ML IVPB SCH (18:00)
--- NOTE | 2016-12-11 18:24 | Cardiology Progress Note ---
Assessment/Plan Assessment/Plan 1. Abnormal mentation due to respiratory acidosis . 2. Respiratory acidosis. 3. Congestive heart failure with pleural effusion, 4. Mitral regurgitation. 5. Cardiomyopathy. 6. History of amphetamine abuse. 7. History of paroxysmal episodes of atrial fibrillation per report. 8. Renal insufficiency. 9. Hepatitis C virus with cirrhosis vent support wean as possible diuretics after laod reduction hold acei in light of renal insuf may need to resort to hydralazine and nitrate in light of renla isuf tele noted ekg noted cxr form yest reviwed tele reviewed ekg reviewed Subjective ROS Limited/Unobtainable: Yes Subjective intubated responsive awake Objective Last 24 Hour Vital Signs Date Time Temp Pulse Resp B/P Pulse Ox O2 Delivery O2 Flow Rate FiO2 12/11/16 17:39 145/100 12/11/16 17:06 58 16 40 12/11/16 17:00 58 16 145/100 100 Mechanical Ventilator 40 12/11/16 16:00 97.0 54 16 145/97 99 Mechanical Ventilator 40 12/11/16 16:00 40 12/11/16 15:00 57 16 149/97 99 Mechanical Ventilator 40 12/11/16 14:51 55 16 40 12/11/16 14:46 56 12/11/16 14:00 53 16 143/93 100 Mechanical Ventilator 40 12/11/16 13:57 155/88 12/11/16 13:00 52 16 147/99 100 Mechanical Ventilator 40 12/11/16 12:42 52 16 40 12/11/16 12:30 52 16 148/95 100 Mechanical Ventilator 40 12/11/16 12:00 97.4 54 16 152/116 100 Mechanical Ventilator 80 12/11/16 12:00 53 12/11/16 11:37 143/111 12/11/16 11:30 48 16 143/111 100 Mechanical Ventilator 40 12/11/16 11:00 48 16 170/96 100 Mechanical Ventilator 40 12/11/16 10:39 48 16 40 12/11/16 10:30 48 16 145/97 100 Mechanical Ventilator 40 12/11/16 10:00 40 12/11/16 10:00 49 21 142/102 100 Mechanical Ventilator 40 12/11/16 09:30 50 16 164/99 100 Mechanical Ventilator 100 12/11/16 09:17 49 12/11/16 09:00 117/73 1/26/17 09:00 51 21 117/73 100 Mechanical Ventilator 100 12/11/16 08:45 100 12/11/16 08:45 53 16 100 12/11/16 08:00 80 12/11/16 08:00 69 12/11/16 08:00 97.4 60 20 117/73 100 Bi-pap 80 12/11/16 07:30 80 12/11/16 07:11 74 17 82 Full Face 80 12/11/16 07:00 60 20 143/87 100 Bi-pap 40 12/11/16 06:09 112/72 12/11/16 06:00 74 29 112/72 100 Bi-pap 40 12/11/16 05:01 89 31 100 Full Face 40 12/11/16 05:00 73 29 124/87 100 Bi-pap 40 12/11/16 04:00 64 12/11/16 04:00 97.8 64 22 126/83 100 Bi-pap 40 12/11/16 03:00 71 24 100/67 100 Bi-pap 40 12/11/16 02:52 75 16 100 Full Face 40 12/11/16 02:00 40 12/11/16 02:00 77 22 93/66 100 Bi-pap 40 12/11/16 01:55 97.4 12/11/16 01:54 97.4 12/11/16 01:30 40 12/11/16 01:22 84 21 99 Full Face 40 12/11/16 01:00 81 33 130/93 96 Bi-pap 40 12/11/16 00:32 116/86 12/11/16 00:00 97.4 79 27 116/86 100 Bi-pap 40 12/11/16 00:00 79 12/10/16 23:11 40 12/10/16 23:09 77 32 100 Full Face 40 12/10/16 23:00 83 21 116/86 100 Bi-pap 50 12/10/16 22:00 71 21 115/82 100 Bi-pap 50 12/10/16 21:24 50 12/10/16 21:19 74 14 100 Full Face 50 12/10/16 21:00 76 17 111/71 100 Bi-pap 50 12/10/16 20:00 60 12/10/16 20:00 78 12/10/16 20:00 97.8 78 21 114/73 100 Bi-pap 60 12/10/16 19:00 78 19 110/68 100 Bi-pap 100 12/10/16 18:52 65 29 100 Full Face 60 General Appearance: no apparent distress, alert, patient on isolation Neck: supple Cardiovascular: normal rate, regular rhythm Respiratory/Chest: decreased breath sounds Abdomen: normal bowel sounds, non tender, soft Extremities: moderate edema Intake and Output 12/10/16 12/11/16 19:00 07:00 Intake Total 50 ml Output Total 15 ml 15 ml Balance -15 ml 35 ml Intake Oral 50 ml Output Urine Total 15 ml 15 ml Laboratory Tests Test 12/11/16 03:10 12/11/16 07:45 12/11/16 09:44 12/11/16 10:45 White Blood Count 5.6 K/UL (4.8-10.8) Red Blood Count 3.09 M/UL (4.70-6.10) L Hemoglobin 9.2 G/DL (14.2-18.0) L Hematocrit 30.9 % (42.0-52.0) L Mean Corpuscular Volume 100 FL (80-99) H Mean Corpuscular Hemoglobin 29.9 PG (27.0-31.0) Mean Corpuscular Hemoglobin Concent 29.9 G/DL (32.0-36.0) L Red Cell Distribution Width 16.6 % (11.6-14.8) H Platelet Count 104 K/UL (150-450) L Mean Platelet Volume 10.9 FL (6.5-10.1) H Neutrophils (%) (Auto) 82.9 % (45.0-75.0) H Lymphocytes (%) (Auto) 10.2 % (20.0-45.0) L Monocytes (%) (Auto) 6.3 % (1.0-10.0) Eosinophils (%) (Auto) 0.0 % (0.0-3.0) Basophils (%) (Auto) 0.7 % (0.0-2.0) Sodium Level 152 mEQ/L (135-145) H 149 mEQ/L (135-145) H Potassium Level 6.2 mEQ/L (3.4-4.9) *H 5.3 mEQ/L (3.4-4.9) H Chloride Level 114 mEQ/L (98-107) H 112 mEQ/L (98-107) H Carbon Dioxide Level 30 mEQ/L (20-30) 24 mEQ/L (20-30) Anion Gap 8 (5-15) 13 (5-15) Blood Urea Nitrogen 47 mg/dL (7-23) H 49 mg/dL (7-23) H Creatinine 2.5 mg/dL (0.7-1.2) H 2.7 mg/dL (0.7-1.2) H Estimat Glomerular Filtration Rate 31.5 mL/min (>60) 28.8 mL/min (>60) Glucose Level 101 mg/dL (74-106) 158 mg/dL (74-106) H Calcium Level 8.3 mg/dL (8.6-10.2) L 8.7 mg/dL (8.6-10.2) Phosphorus Level 5.9 mg/dL (2.5-4.8) H Troponin I < 0.30 ng/mL (<=0.30) Pro-B-Type Natriuretic Peptide 83665 pg/mL (0-125) H Albumin 2.5 g/dL (3.5-5.2) L Arterial Blood pH 7.180 (7.350-7.450) 7.420 (7.350-7.450) Arterial Blood Partial Pressure CO2 79.0 mmHg (35.0-45.0) *H 41.0 mmHg (35.0-45.0) Arterial Blood Partial Pressure O2 68.0 mmHg (75.0-100.0) L 473.0 mmHg (75.0-100.0) H Arterial Blood HCO3 28.6 mmol/L (22.0-26.0) H 26.0 mmol/L (22.0-26.0) Arterial Blood Oxygen Saturation 91.0 % (92.0-98.0) L 100.0 % (92.0-98.0) H Arterial Blood Base Excess -1.1 1.5 Adrian Test Positive Positive Test 12/11/16 16:00 Sodium Level 151 mEQ/L (135-145) H Potassium Level 4.9 mEQ/L (3.4-4.9) Chloride Level 112 mEQ/L (98-107) H Carbon Dioxide Level 24 mEQ/L (20-30) Anion Gap 15 (5-15) Blood Urea Nitrogen 52 mg/dL (7-23) H Creatinine 2.8 mg/dL (0.7-1.2) H Estimat Glomerular Filtration Rate 27.8 mL/min (>60) Glucose Level 79 mg/dL (74-106) Calcium Level 8.2 mg/dL (8.6-10.2) L Microbiology Date/Time Source Procedure Growth Status 12/09/16 23:17 Blood Arm Right Blood Culture - Preliminary NO GROWTH AFTER 24 HOURS Resulted 12/09/16 23:11 Blood Arm Right Blood Culture - Preliminary NO GROWTH AFTER 24 HOURS Resulted 12/10/16 01:30 Knee Right Gram Stain - Final Resulted 12/10/16 01:30 Wound Culture - Preliminary Gram Positive Cocci Resulted STEPHEN LONDON Dec 11, 2016 18:24
--- NOTE | 2016-12-11 18:33 | Internal Med Progress Note ---
Subjective Date of Service: Dec 11, 2016 Physician Name MaddieRamya Attending Physician Wild Hawkins MD Current Medications Medications (Trade) Dose Ordered Sig/Melania Route PRN Reason Start Time Stop Time Status Last Admin Dose Admin Acetaminophen (Tylenol) 650 mg Q4H PRN ORAL Fever 12/10/16 16:45 01/09/17 16:44 12/11/16 00:56 Acetaminophen/ Hydrocodone Bitart (Briggs 5/325) 1 tab Q6H PRN ORAL severe pain 12/10/16 18:45 12/17/16 18:44 12/11/16 00:55 Albuterol/ Ipratropium (DuoNeb 0.5-3(2.5)mg/3ml) 3 ml Q4H PRN HHN Shortness of Breath 12/10/16 16:45 12/15/16 16:44 Clonidine HCl (Catapres) 0.1 mg Q8HR ORAL 12/11/16 22:00 01/10/17 21:59 Dextrose (Dextrose 50%) STAT PRN IV Hypoglycemia 12/11/16 00:45 01/10/17 00:44 Heparin Sodium (Porcine) (Heparin 5000 units/ml) 5,000 units EVERY 12 HOURS SUBQ 12/10/16 21:00 01/09/17 20:59 12/11/16 09:03 Levofloxacin (Levaquin 750mg/ D5W) 150 ml @ 100 mls/hr Q48H IVPB 12/11/16 16:00 12/18/16 15:59 12/11/16 15:59 Nitroglycerin (Nitro-Bid) 1 inch EVERY 6 HOURS TOPIC 12/10/16 18:00 01/09/17 17:59 12/11/16 17:39 Ondansetron HCl (Zofran) 4 mg Q6H PRN IVP Nausea & Vomiting 12/10/16 18:45 01/09/17 18:44 Pantoprazole 40 mg 40 mg DAILY IVP 12/11/16 16:00 01/10/17 15:59 12/11/16 16:00 Piperacillin Sod/ Tazobactam Sod/ Dextrose (Zosyn/D5W) 110 ml @ 27.5 mls/hr Q8HR@0200,1000,1800 IV 12/11/16 18:00 12/18/16 17:59 12/11/16 17:30 Polyethylene Glycol (Miralax) 17 gm DAILYPRN PRN ORAL Constipation 12/11/16 00:45 01/10/17 00:44 Temazepam (Restoril) 15 mg HSPRN PRN ORAL Insomnia 12/11/16 00:45 12/18/16 00:44 12/11/16 00:55 Vitamin A/Vitamin D 1 applic 1 applic EVERY 12 HOURS TOPIC 12/10/16 21:00 01/09/17 20:59 12/11/16 09:00 Vitamin B Complex/ Vit C/Folic Acid (Nephrovite) 1 tab DAILY GT 12/12/16 09:00 01/11/17 08:59 Allergies: Coded Allergies: No Known Allergies (Unverified , 04/29/13) ROS Limited/Unobtainable: Yes Subjective 66 YO M admitted with shortness of breath; now respiratory failure. Cover for Int Med-Dr Hawkins. ICU. Intubated earlier today for worsening respiratory failure. Objective Last Vital Signs Date Time Temp Pulse Resp B/P Pulse Ox O2 Delivery O2 Flow Rate FiO2 12/11/16 17:39 145/100 12/11/16 17:06 58 16 40 12/11/16 17:00 100 Mechanical Ventilator 12/11/16 16:00 97.0 12/10/16 01:00 15.0 General Appearance: WD/WN, moderate distress EENT: normal ENT inspection Neck: non-tender, normal alignment, supple Cardiovascular: normal peripheral pulses, normal rate, regular rhythm, no gallop/murmur, no JVD Respiratory/Chest: respiratory distress, crackles/rales, rhonchi - bilaterally , expiratory wheezing Abdomen: normal bowel sounds, non tender, soft, no organomegaly, no mass Extremities: normal range of motion Neurologic: radiology equipment servicer II-XII grossly normal, no motor/sensory deficits Skin: normal pigmentation, warm/dry Laboratory Tests Test 12/11/16 03:10 12/11/16 07:45 12/11/16 09:44 12/11/16 10:45 White Blood Count 5.6 K/UL (4.8-10.8) Red Blood Count 3.09 M/UL (4.70-6.10) L Hemoglobin 9.2 G/DL (14.2-18.0) L Hematocrit 30.9 % (42.0-52.0) L Mean Corpuscular Volume 100 FL (80-99) H Mean Corpuscular Hemoglobin 29.9 PG (27.0-31.0) Mean Corpuscular Hemoglobin Concent 29.9 G/DL (32.0-36.0) L Red Cell Distribution Width 16.6 % (11.6-14.8) H Platelet Count 104 K/UL (150-450) L Mean Platelet Volume 10.9 FL (6.5-10.1) H Neutrophils (%) (Auto) 82.9 % (45.0-75.0) H Lymphocytes (%) (Auto) 10.2 % (20.0-45.0) L Monocytes (%) (Auto) 6.3 % (1.0-10.0) Eosinophils (%) (Auto) 0.0 % (0.0-3.0) Basophils (%) (Auto) 0.7 % (0.0-2.0) Sodium Level 152 mEQ/L (135-145) H 149 mEQ/L (135-145) H Potassium Level 6.2 mEQ/L (3.4-4.9) *H 5.3 mEQ/L (3.4-4.9) H Chloride Level 114 mEQ/L (98-107) H 112 mEQ/L (98-107) H Carbon Dioxide Level 30 mEQ/L (20-30) 24 mEQ/L (20-30) Anion Gap 8 (5-15) 13 (5-15) Blood Urea Nitrogen 47 mg/dL (7-23) H 49 mg/dL (7-23) H Creatinine 2.5 mg/dL (0.7-1.2) H 2.7 mg/dL (0.7-1.2) H Estimat Glomerular Filtration Rate 31.5 mL/min (>60) 28.8 mL/min (>60) Glucose Level 101 mg/dL (74-106) 158 mg/dL (74-106) H Calcium Level 8.3 mg/dL (8.6-10.2) L 8.7 mg/dL (8.6-10.2) Phosphorus Level 5.9 mg/dL (2.5-4.8) H Troponin I < 0.30 ng/mL (<=0.30) Pro-B-Type Natriuretic Peptide 77771 pg/mL (0-125) H Albumin 2.5 g/dL (3.5-5.2) L Arterial Blood pH 7.180 (7.350-7.450) 7.420 (7.350-7.450) Arterial Blood Partial Pressure CO2 79.0 mmHg (35.0-45.0) *H 41.0 mmHg (35.0-45.0) Arterial Blood Partial Pressure O2 68.0 mmHg (75.0-100.0) L 473.0 mmHg (75.0-100.0) H Arterial Blood HCO3 28.6 mmol/L (22.0-26.0) H 26.0 mmol/L (22.0-26.0) Arterial Blood Oxygen Saturation 91.0 % (92.0-98.0) L 100.0 % (92.0-98.0) H Arterial Blood Base Excess -1.1 1.5 Adrian Test Positive Positive Test 12/11/16 16:00 Sodium Level 151 mEQ/L (135-145) H Potassium Level 4.9 mEQ/L (3.4-4.9) Chloride Level 112 mEQ/L (98-107) H Carbon Dioxide Level 24 mEQ/L (20-30) Anion Gap 15 (5-15) Blood Urea Nitrogen 52 mg/dL (7-23) H Creatinine 2.8 mg/dL (0.7-1.2) H Estimat Glomerular Filtration Rate 27.8 mL/min (>60) Glucose Level 79 mg/dL (74-106) Calcium Level 8.2 mg/dL (8.6-10.2) L Microbiology Date/Time Source Procedure Growth Status 12/09/16 23:17 Blood Arm Right Blood Culture - Preliminary NO GROWTH AFTER 24 HOURS Resulted 12/09/16 23:11 Blood Arm Right Blood Culture - Preliminary NO GROWTH AFTER 24 HOURS Resulted 12/10/16 01:30 Knee Right Gram Stain - Final Resulted 12/10/16 01:30 Wound Culture - Preliminary Gram Positive Cocci Resulted Intake and Output 12/10/16 12/11/16 19:00 07:00 Intake Total 50 ml Output Total 15 ml 15 ml Balance -15 ml 35 ml Intake Oral 50 ml Output Urine Total 15 ml 15 ml Assessment/Plan Problem List: (1) SOB (shortness of breath) (2) Respiratory failure Assessment & Plan: Worsening. Now intubated. See pulmonary note. (3) Renal failure (4) HTN (hypertension) (5) CAD (coronary artery disease) (6) CHF (congestive heart failure) Assessment & Plan: See cardiology note. Cont lasix. (7) Anemia (8) Uncontrolled hypertension (9) Pneumonia Assessment & Plan: Cont zosyn and levaquin-see ID note. (10) Pleural effusion Status: deteriorating RAMYA WESLEY Dec 11, 2016 18:33
[2016-12-11] MEDS ORDERED: Nitroglycerin 2% oint pkt TOPIC SCH (19:00)
--- NOTE | 2016-12-11 22:17 | Consultation ---
DATE OF CONSULTATION: INFECTIOUS DISEASE CONSULTATION CONSULTING PHYSICIAN: Theron Lynn M.D REFERRING PHYSICIAN: Malathi Capone M.D. REASON FOR CONSULTATION: Evaluation of the patient for pneumonia. HISTORY OF PRESENT ILLNESS: The patient is a 66-year-old male with multiple medical problems as listed below, who was admitted to this medical center with shortness of breath and altered level of consciousness. The patient's condition worsened, needed to be transferred to ICU, and had to be intubated. The patient has been started on IV antibiotics and infectious disease consultation has been requested for further evaluation of the patient's antibiotic management. PAST MEDICAL HISTORY: 1. CHF. 2. Renal insufficiency. 3. Hypertension. 4. CAD and RI. 5. History of hepatitis C. 6. History of GI bleed. 7. History of cirrhosis. 8. History of spinal fusion. ALLERGIES: No known drug allergies. SOCIAL HISTORY: The patient lives in a halfway. FAMILY HISTORY: Not available. REVIEW OF SYSTEMS: Unobtainable. MEDICATIONS: No antibiotics currently. PHYSICAL EXAMINATION: VITAL SIGNS: Temperature 97, pulse 52, blood pressure 155/88, and respiratory rate 18. HEENT: Mild pale conjunctivae. No icterus. NECK: No lymphadenopathy. CHEST: Coarse breathing sounds. HEART: S1 and S2. ABDOMEN: Soft and nontender. EXTREMITIES: No cyanosis at this time. NEUROLOGIC: Awake. SKIN: Several lower extremity decubitus, however, without any signs of active infection. LABORATORY DATA: White blood cell count 5.6, hemoglobin 9.2, and platelets 104,000. BUN 49 and creatinine 2.7. LFTs - AST mildly elevated. Alkaline phosphatase 103. Total bilirubin normal. Venous lower extremity duplex - no evidence of DVT. Chest x-ray showed bilateral large pleural effusion. ASSESSMENT: The patient is a 66-year-old male with multiple medical problems, who has been admitted to this medical center. The patient may have underlying pneumonia. The patient has bilateral effusion. In view of lack of fever and leukocytosis, empyema is less likely, however, the patient may benefit from thoracocentesis when the patient is more stable. PLAN: 1. Start the patient on Zosyn and Levaquin. 2. Monitor CBC. 3. Monitor BMP. 4. Monitor chest x-ray. 5. We will send sputum culture, blood culture, and urine culture. 6. Based on physical examination and labs, we will do further recommendation. Thank you, Dr. Capone, for allowing me to participate in the care of this patient. I will follow the patient with you. Theron Lynn M.D. DR: MAXWELL JOB#: [id number] CC:
[2016-12-12] VITALS (25 sets, daily range): BP systolic 116–159; BP diastolic 70–96
[2016-12-12] MEDS: Piperacillin/Tazobactam 2.25 GM in D5W 110 ML IV SCH ×2 (02:34→10:08)
[2016-12-12] MEDS: Nitroglycerin 2% oint pkt TOPIC SCH ×3 (05:39→17:46)
[2016-12-12 06:18] LABS: MEAN CORPUSCULAR HEMOGLOBIN 30.3 PG (27.0-31.0); MEAN CORPUSCULAR HGB CONC 30.9 G/DL (32.0-36.0); MEAN CORPUSCULAR VOLUME 98 FL (80-99); MEAN PLATELET VOLUME 9.6 FL (6.5-10.1); PLATELET COUNT 76 K/UL (150-450); WHITE BLOOD COUNT 7.2 K/UL (4.8-10.8)
[2016-12-12 06:46] LABS: ALBUMIN/GLOBULIN RATIO 0.6 (1.0-2.7); CALCIUM 8.1 mg/dL (8.6-10.2); CREATININE 2.8 mg/dL (0.7-1.2); GLOMERULAR FILTRATION RATE 27.8 mL/min (>60); MAGNESIUM 2.2 mg/dL (1.7-2.5); PHOSPHORUS 4.3 mg/dL (2.5-4.8); POTASSIUM 4.9 mEQ/L (3.4-4.9); TOTAL PROTEIN 5.8 g/dL (6.6-8.7)
[2016-12-12 06:58] LABS: HEMOGLOBIN A1C 4.9 % (< 6.0)
[2016-12-12 06:59] LABS: CRP QUANT 0.8 mg/dL (< 0.5); URIC ACID 10.4 mg/dL (3.0-7.5)
[2016-12-12 07:02] LABS: TROPONIN I < 0.30 ng/mL (<=0.30)
[2016-12-12 07:55] LABS: ABG ALLEN TEST POSITIVE; ABG BASE EXCESS 3.3; ABG PCO2 47.9 mmHg (35.0-45.0)
[2016-12-12] MEDS: Heparin 5000 units/ml inj SUBQ SCH ×2 (08:26→20:37)
[2016-12-12] MEDS: Pantoprazole Inj IVP SCH (08:26)
[2016-12-12] MEDS: Nephrovite tab GT SCH (08:26)
--- NOTE | 2016-12-12 08:44 | Cardiology Progress Note ---
Assessment/Plan Assessment/Plan 1. Abnormal mentation due to respiratory acidosis . 2. Respiratory acidosis. 3. Congestive heart failure with pleural effusion, 4. Mitral regurgitation. 5. Cardiomyopathy. 6. History of amphetamine abuse. 7. History of paroxysmal episodes of atrial fibrillation per report. 8. Renal insufficiency. 9. Hepatitis C virus with cirrhosis vent support wean as possible diuretics if ok after laod reduction hold acei in light of renal insuf may need to resort to hydralazine and nitrate in light of renla isuf tele noted ekg noted cxr form yest reviwed tele reviewed ekg reviewed needs ammonia check as is confused agian today Subjective ROS Limited/Unobtainable: Yes Subjective intubated responsive but drowsey Objective Last 24 Hour Vital Signs Date Time Temp Pulse Resp B/P Pulse Ox O2 Delivery O2 Flow Rate FiO2 12/12/16 08:00 40 12/12/16 07:01 72 16 40 12/12/16 07:00 70 16 127/84 100 Mechanical Ventilator 40 12/12/16 06:00 71 16 139/86 100 Mechanical Ventilator 40 12/12/16 05:39 139/86 12/12/16 05:39 139/86 12/12/16 05:00 77 16 138/82 100 Mechanical Ventilator 40 12/12/16 04:51 73 16 40 12/12/16 04:00 97.6 73 16 136/83 100 Mechanical Ventilator 40 12/12/16 04:00 40 12/12/16 04:00 60 12/12/16 03:01 78 16 40 12/12/16 03:00 74 16 135/85 100 Mechanical Ventilator 40 12/12/16 02:00 71 16 138/96 100 Mechanical Ventilator 40 12/12/16 01:20 66 16 40 12/12/16 01:00 65 16 141/90 100 Mechanical Ventilator 40 12/12/16 00:00 57 12/12/16 00:00 40 12/12/16 00:00 97.6 64 16 137/83 100 Mechanical Ventilator 40 12/11/16 23:00 65 16 137/92 100 Mechanical Ventilator 40 12/11/16 22:45 64 16 40 12/11/16 22:00 64 16 134/87 100 Mechanical Ventilator 40 12/11/16 21:40 145/90 12/11/16 21:00 64 16 145/90 100 Mechanical Ventilator 40 12/11/16 20:49 64 19 40 12/11/16 20:00 97.4 62 16 141/97 99 Mechanical Ventilator 40 12/11/16 20:00 62 12/11/16 20:00 40 12/11/16 19:24 62 16 40 12/11/16 19:00 60 16 134/92 100 Mechanical Ventilator 40 12/11/16 18:00 61 16 140/94 100 Mechanical Ventilator 40 12/11/16 17:39 145/100 12/11/16 17:06 58 16 40 12/11/16 17:00 58 16 145/100 100 Mechanical Ventilator 40 12/11/16 16:00 97.0 54 16 145/97 99 Mechanical Ventilator 40 12/11/16 16:00 40 12/11/16 15:00 57 16 149/97 99 Mechanical Ventilator 40 12/11/16 14:51 55 16 40 12/11/16 14:46 56 12/11/16 14:00 53 16 143/93 100 Mechanical Ventilator 40 12/11/16 13:57 155/88 12/11/16 13:00 52 16 147/99 100 Mechanical Ventilator 40 12/11/16 12:42 52 16 40 12/11/16 12:30 52 16 148/95 100 Mechanical Ventilator 40 12/11/16 12:00 97.4 54 16 152/116 100 Mechanical Ventilator 80 12/11/16 12:00 53 12/11/16 11:37 143/111 12/11/16 11:30 48 16 143/111 100 Mechanical Ventilator 40 12/11/16 11:00 48 16 170/96 100 Mechanical Ventilator 40 12/11/16 10:39 48 16 40 12/11/16 10:30 48 16 145/97 100 Mechanical Ventilator 40 12/11/16 10:00 40 12/11/16 10:00 49 21 142/102 100 Mechanical Ventilator 40 12/11/16 09:30 50 16 164/99 100 Mechanical Ventilator 100 12/11/16 09:17 49 12/11/16 09:00 117/73 12/11/16 09:00 51 21 117/73 100 Mechanical Ventilator 100 12/11/16 08:45 100 12/11/16 08:45 53 16 100 General Appearance: no apparent distress, alert Cardiovascular: normal rate, regular rhythm Respiratory/Chest: lungs clear, normal breath sounds Abdomen: normal bowel sounds, non tender Extremities: no swelling Intake and Output 12/11/16 12/12/16 19:00 07:00 Intake Total 237.5 ml 632.5 ml Output Total 30 ml 900 ml Balance 207.5 ml -267.5 ml Free Water 50 ml 100 ml IV Total 177.5 ml 192.5 ml Tube Feeding 10 ml 250 ml Other 90 ml Output Urine Total 30 ml 900 ml Laboratory Tests Test 12/11/16 09:44 12/11/16 10:45 12/11/16 16:00 12/12/16 05:00 Arterial Blood pH 7.420 (7.350-7.450) Arterial Blood Partial Pressure CO2 41.0 mmHg (35.0-45.0) Arterial Blood Partial Pressure O2 473.0 mmHg (75.0-100.0) H Arterial Blood HCO3 26.0 mmol/L (22.0-26.0) Arterial Blood Oxygen Saturation 100.0 % (92.0-98.0) H Arterial Blood Base Excess 1.5 Adrian Test Positive Sodium Level 149 mEQ/L (135-145) H 151 mEQ/L (135-145) H 150 mEQ/L (135-145) H Potassium Level 5.3 mEQ/L (3.4-4.9) H 4.9 mEQ/L (3.4-4.9) 4.9 mEQ/L (3.4-4.9) Chloride Level 112 mEQ/L (98-107) H 112 mEQ/L (98-107) H 111 mEQ/L (98-107) H Carbon Dioxide Level 24 mEQ/L (20-30) 24 mEQ/L (20-30) 28 mEQ/L (20-30) Anion Gap 13 (5-15) 15 (5-15) 11 (5-15) Blood Urea Nitrogen 49 mg/dL (7-23) H 52 mg/dL (7-23) H 51 mg/dL (7-23) H Creatinine 2.7 mg/dL (0.7-1.2) H 2.8 mg/dL (0.7-1.2) H 2.8 mg/dL (0.7-1.2) H Estimat Glomerular Filtration Rate 28.8 mL/min (>60) 27.8 mL/min (>60) 27.8 mL/min (>60) Glucose Level 158 mg/dL (74-106) H 79 mg/dL (74-106) 63 mg/dL (74-106) L Calcium Level 8.7 mg/dL (8.6-10.2) 8.2 mg/dL (8.6-10.2) L 8.1 mg/dL (8.6-10.2) L White Blood Count 7.2 K/UL (4.8-10.8) Red Blood Count 3.20 M/UL (4.70-6.10) L Hemoglobin 9.7 G/DL (14.2-18.0) L Hematocrit 31.5 % (42.0-52.0) L Mean Corpuscular Volume 98 FL (80-99) Mean Corpuscular Hemoglobin 30.3 PG (27.0-31.0) Mean Corpuscular Hemoglobin Concent 30.9 G/DL (32.0-36.0) L Red Cell Distribution Width 17.0 % (11.6-14.8) H Platelet Count 76 K/UL (150-450) L Mean Platelet Volume 9.6 FL (6.5-10.1) Neutrophils (%) (Auto) % (45.0-75.0) Lymphocytes (%) (Auto) % (20.0-45.0) Monocytes (%) (Auto) % (1.0-10.0) Eosinophils (%) (Auto) % (0.0-3.0) Basophils (%) (Auto) % (0.0-2.0) Neutrophils % (Manual) Pending Lymphocytes % (Manual) Pending Platelet Estimate Pending Platelet Morphology Pending Hemoglobin A1c 4.9 % (< 6.0) Uric Acid 10.4 mg/dL (3.0-7.5) H Phosphorus Level 4.3 mg/dL (2.5-4.8) Magnesium Level 2.2 mg/dL (1.7-2.5) Total Bilirubin 0.4 mg/dL (0.0-1.2) Gamma Glutamyl Transpeptidase 57 U/L (8-61) Aspartate Amino Transf (AST/SGOT) 47 U/L (5-40) H Alanine Aminotransferase (ALT/SGPT) 42 U/L (3-41) H Alkaline Phosphatase 82 U/L (40-129) Total Creatine Kinase 79 U/L (38-174) Troponin I < 0.30 ng/mL (<=0.30) C-Reactive Protein, Quantitative 0.8 mg/dL (< 0.5) H Pro-B-Type Natriuretic Peptide 32637 pg/mL (0-125) H Total Protein 5.8 g/dL (6.6-8.7) L Albumin 2.3 g/dL (3.5-5.2) L Globulin 3.5 g/dL Albumin/Globulin Ratio 0.6 (1.0-2.7) L Thyroid Stimulating Hormone (TSH) 1.680 uIU/mL (0.300-4.500) Test 12/12/16 07:48 Arterial Blood pH 7.396 (7.350-7.450) Arterial Blood Partial Pressure CO2 47.9 mmHg (35.0-45.0) H Arterial Blood Partial Pressure O2 92.3 mmHg (75.0-100.0) Arterial Blood HCO3 28.7 mmol/L (22.0-26.0) H Arterial Blood Oxygen Saturation 96.9 % (92.0-98.0) Arterial Blood Base Excess 3.3 Adrian Test Positive Microbiology Date/Time Source Procedure Growth Status 12/09/16 23:17 Blood Arm Right Blood Culture - Preliminary NO GROWTH AFTER 48 HOURS Resulted 12/09/16 23:11 Blood Arm Right Blood Culture - Preliminary NO GROWTH AFTER 48 HOURS Resulted 12/11/16 15:43 Sputum Gram Stain Pending Resulted 12/11/16 15:43 Sputum Sputum Culture - Preliminary NORMAL GOPI PRESENT Resulted 12/10/16 01:00 Nasal Nares MRSA Culture - Final NO METHICILLIN RESISTANT STAPH AUREUS... Complete 12/10/16 01:30 Knee Right Gram Stain - Final Resulted 12/10/16 01:30 Wound Culture - Preliminary Gram Positive Cocci Resulted 12/10/16 01:00 Rectum VRE Culture - Final Enterococcus Faecium - Vre Complete STEPHEN LONDON Dec 12, 2016 08:44
[2016-12-12] MEDS: Vitamin A&D Oint 2oz Tube TOPIC SCH ×2 (09:00→20:43)
[2016-12-12 09:10] LABS: ANISOCYTOSIS 1+; BAND NEUTROPHILS % (MANUAL) 0 % (0-8); BASOPHILS % (MANUAL) 0 % (0-2); EOSINOPHILS % (MANUAL) 0 % (0-3); HYPOCHROMASIA 1+; LYMPHOCYTES % (MANUAL) 10 % (20-45); NEUTROPHILS % (MANUAL) 85 % (45-75); PLATELET ESTIMATE DECREASED; PLATELET MORPHOLOGY NORMAL; TOTAL CELLS COUNTED 100
--- NOTE | 2016-12-12 09:25 | Pulmonolgy Critical Care Note ---
Critical Care - Asmt/Plan Problems: (1) Aspiration pneumonia (2) Respiratory failure (3) Pleural effusion (4) ATN (acute tubular necrosis) (5) Hepatitis C (6) CAD (coronary artery disease) Respiratory: monitor respiratory rate, adjust FIO2 Cardiac: stop pressors, continue to monitor HR/BP Renal: F/U I&O, keep IV fluid, check electrolytes Gastrointestinal: hold feedings Endocrine: check TSH, continue sliding scale insulin Hematologic: monitor H/H, transfuse if hgb<8.5 Neurologic: PRN Ativan, PRN Morphine, keep patient comfortable Affect: PRN ativan Prophylaxis: Protonix, Heparin Notes Reviewed: woodwork teacher, cardio, renal Discussed with: nurses, consultants, case hardenerit applications manager - Objective Last 24 Hour Vital Signs Date Time Temp Pulse Resp B/P Pulse Ox O2 Delivery O2 Flow Rate FiO2 12/12/16 08:00 40 12/12/16 07:01 72 16 40 12/12/16 07:00 70 16 127/84 100 Mechanical Ventilator 40 12/12/16 06:00 71 16 139/86 100 Mechanical Ventilator 40 12/12/16 05:39 139/86 12/12/16 05:39 139/86 12/12/16 05:00 77 16 138/82 100 Mechanical Ventilator 40 12/12/16 04:51 73 16 40 12/12/16 04:00 97.6 73 16 136/83 100 Mechanical Ventilator 40 12/12/16 04:00 40 12/12/16 04:00 60 12/12/16 03:01 78 16 40 12/12/16 03:00 74 16 135/85 100 Mechanical Ventilator 40 12/12/16 02:00 71 16 138/96 100 Mechanical Ventilator 40 12/12/16 01:20 66 16 40 12/12/16 01:00 65 16 141/90 100 Mechanical Ventilator 40 12/12/16 00:00 57 12/12/16 00:00 40 12/12/16 00:00 97.6 64 16 137/83 100 Mechanical Ventilator 40 12/11/16 23:00 65 16 137/92 100 Mechanical Ventilator 40 12/11/16 22:45 64 16 40 12/11/16 22:00 64 16 134/87 100 Mechanical Ventilator 40 12/11/16 21:40 145/90 12/11/16 21:00 64 16 145/90 100 Mechanical Ventilator 40 12/11/16 20:49 64 19 40 12/11/16 20:00 97.4 62 16 141/97 99 Mechanical Ventilator 40 12/11/16 20:00 62 12/11/16 20:00 40 12/11/16 19:24 62 16 40 12/11/16 19:00 60 16 134/92 100 Mechanical Ventilator 40 12/11/16 18:00 61 16 140/94 100 Mechanical Ventilator 40 12/11/16 17:39 145/100 12/11/16 17:06 58 16 40 12/11/16 17:00 58 16 145/100 100 Mechanical Ventilator 40 12/11/16 16:00 97.0 54 16 145/97 99 Mechanical Ventilator 40 12/11/16 16:00 40 12/11/16 15:00 57 16 149/97 99 Mechanical Ventilator 40 12/11/16 14:51 55 16 40 12/11/16 14:46 56 12/11/16 14:00 53 16 143/93 100 Mechanical Ventilator 40 12/11/16 13:57 155/88 12/11/16 13:00 52 16 147/99 100 Mechanical Ventilator 40 12/11/16 12:42 52 16 40 12/11/16 12:30 52 16 148/95 100 Mechanical Ventilator 40 12/11/16 12:00 97.4 54 16 152/116 100 Mechanical Ventilator 80 12/11/16 12:00 53 12/11/16 11:37 143/111 12/11/16 11:30 48 16 143/111 100 Mechanical Ventilator 40 12/11/16 11:00 48 16 170/96 100 Mechanical Ventilator 40 12/11/16 10:39 48 16 40 12/11/16 10:30 48 16 145/97 100 Mechanical Ventilator 40 12/11/16 10:00 40 12/11/16 10:00 49 21 142/102 100 Mechanical Ventilator 40 12/11/16 09:30 50 16 164/99 100 Mechanical Ventilator 100 Status: sedated Condition: critical HEENT: atraumatic Neck: full ROM Lungs: chest wall tender Heart: HR/BP unstable, regular Abdomen: non-tender, active bowel sounds Extremities: no C/C/E, edema Decubiti: location Micro: Microbiology Date/Time Source Procedure Growth Status 12/09/16 23:17 Blood Arm Right Blood Culture - Preliminary NO GROWTH AFTER 48 HOURS Resulted 12/09/16 23:11 Blood Arm Right Blood Culture - Preliminary NO GROWTH AFTER 48 HOURS Resulted 12/11/16 15:43 Sputum Gram Stain Pending Resulted 12/11/16 15:43 Sputum Sputum Culture - Preliminary NORMAL GOPI PRESENT Resulted 12/10/16 01:00 Nasal Nares MRSA Culture - Final NO METHICILLIN RESISTANT STAPH AUREUS... Complete 12/11/16 19:00 Urine,Clean Catch Urine Culture - Preliminary NO GROWTH Resulted 12/10/16 01:30 Knee Right Gram Stain - Final Resulted 12/10/16 01:30 Wound Culture - Preliminary Gram Positive Cocci Resulted 12/10/16 01:00 Rectum VRE Culture - Final Enterococcus Faecium - Vre Complete Accucheck: 128 Critical Care - Subjective ROS Limited/Unobtainable: No ICU Day: 3 Intubation Day: 3 Condition: critical EKG Rhythm: Sinus Rhythm FI02: 40 Vent Support Breath Rate: 16 Vent Support Mode: AC Vent Tidal Volume: 600 Sputum Amount: Small PEEP: 0.0 PIP: 30 Tube Feeding Amount: 40 I&O: Intake and Output 12/11/16 12/12/16 19:00 07:00 Intake Total 237.5 ml 632.5 ml Output Total 30 ml 900 ml Balance 207.5 ml -267.5 ml Free Water 50 ml 100 ml IV Total 177.5 ml 192.5 ml Tube Feeding 10 ml 250 ml Other 90 ml Output Urine Total 30 ml 900 ml CXR: ET in good position ET-Tube: 7.5 ET Position: 23 Labs: Laboratory Tests Test 12/11/16 09:44 12/11/16 10:45 12/11/16 16:00 12/12/16 05:00 Arterial Blood pH 7.420 (7.350-7.450) Arterial Blood Partial Pressure CO2 41.0 mmHg (35.0-45.0) Arterial Blood Partial Pressure O2 473.0 mmHg (75.0-100.0) H Arterial Blood HCO3 26.0 mmol/L (22.0-26.0) Arterial Blood Oxygen Saturation 100.0 % (92.0-98.0) H Arterial Blood Base Excess 1.5 Adrian Test Positive Sodium Level 149 mEQ/L (135-145) H 151 mEQ/L (135-145) H 150 mEQ/L (135-145) H Potassium Level 5.3 mEQ/L (3.4-4.9) H 4.9 mEQ/L (3.4-4.9) 4.9 mEQ/L (3.4-4.9) Chloride Level 112 mEQ/L (98-107) H 112 mEQ/L (98-107) H 111 mEQ/L (98-107) H Carbon Dioxide Level 24 mEQ/L (20-30) 24 mEQ/L (20-30) 28 mEQ/L (20-30) Anion Gap 13 (5-15) 15 (5-15) 11 (5-15) Blood Urea Nitrogen 49 mg/dL (7-23) H 52 mg/dL (7-23) H 51 mg/dL (7-23) H Creatinine 2.7 mg/dL (0.7-1.2) H 2.8 mg/dL (0.7-1.2) H 2.8 mg/dL (0.7-1.2) H Estimat Glomerular Filtration Rate 28.8 mL/min (>60) 27.8 mL/min (>60) 27.8 mL/min (>60) Glucose Level 158 mg/dL (74-106) H 79 mg/dL (74-106) 63 mg/dL (74-106) L Calcium Level 8.7 mg/dL (8.6-10.2) 8.2 mg/dL (8.6-10.2) L 8.1 mg/dL (8.6-10.2) L White Blood Count 7.2 K/UL (4.8-10.8) Red Blood Count 3.20 M/UL (4.70-6.10) L Hemoglobin 9.7 G/DL (14.2-18.0) L Hematocrit 31.5 % (42.0-52.0) L Mean Corpuscular Volume 98 FL (80-99) Mean Corpuscular Hemoglobin 30.3 PG (27.0-31.0) Mean Corpuscular Hemoglobin Concent 30.9 G/DL (32.0-36.0) L Red Cell Distribution Width 17.0 % (11.6-14.8) H Platelet Count 76 K/UL (150-450) L Mean Platelet Volume 9.6 FL (6.5-10.1) Neutrophils (%) (Auto) % (45.0-75.0) Lymphocytes (%) (Auto) % (20.0-45.0) Monocytes (%) (Auto) % (1.0-10.0) Eosinophils (%) (Auto) % (0.0-3.0) Basophils (%) (Auto) % (0.0-2.0) Differential Total Cells Counted 100 Neutrophils % (Manual) 85 % (45-75) H Lymphocytes % (Manual) 10 % (20-45) L Monocytes % (Manual) 5 % (1-10) Eosinophils % (Manual) 0 % (0-3) Basophils % (Manual) 0 % (0-2) Band Neutrophils 0 % (0-8) Platelet Estimate Decreased L Platelet Morphology Normal Hypochromasia 1+ Anisocytosis 1+ Hemoglobin A1c 4.9 % (< 6.0) Uric Acid 10.4 mg/dL (3.0-7.5) H Phosphorus Level 4.3 mg/dL (2.5-4.8) Magnesium Level 2.2 mg/dL (1.7-2.5) Total Bilirubin 0.4 mg/dL (0.0-1.2) Gamma Glutamyl Transpeptidase 57 U/L (8-61) Aspartate Amino Transf (AST/SGOT) 47 U/L (5-40) H Alanine Aminotransferase (ALT/SGPT) 42 U/L (3-41) H Alkaline Phosphatase 82 U/L (40-129) Total Creatine Kinase 79 U/L (38-174) Troponin I < 0.30 ng/mL (<=0.30) C-Reactive Protein, Quantitative 0.8 mg/dL (< 0.5) H Pro-B-Type Natriuretic Peptide 22437 pg/mL (0-125) H Total Protein 5.8 g/dL (6.6-8.7) L Albumin 2.3 g/dL (3.5-5.2) L Globulin 3.5 g/dL Albumin/Globulin Ratio 0.6 (1.0-2.7) L Thyroid Stimulating Hormone (TSH) 1.680 uIU/mL (0.300-4.500) Test 12/12/16 07:48 Arterial Blood pH 7.396 (7.350-7.450) Arterial Blood Partial Pressure CO2 47.9 mmHg (35.0-45.0) H Arterial Blood Partial Pressure O2 92.3 mmHg (75.0-100.0) Arterial Blood HCO3 28.7 mmol/L (22.0-26.0) H Arterial Blood Oxygen Saturation 96.9 % (92.0-98.0) Arterial Blood Base Excess 3.3 Adrian Test Positive YAMILET DIOR Dec 12, 2016 09:25
--- NOTE | 2016-12-12 10:01 | General Progress Note ---
Assessment/Plan Status: unchanged Status Narrative anemia, stable SCr Assessment/Plan -Renal insufficiency. ? Acute on Chronic Cr stable- Urine output improved Other: -Abnormal mentation. -Respiratory failure, acute with hypoxia-/ Aspiration [place] -Congestive heart failure with pleural effusion, -Mitral regurgitation. -Cardiomyopathy. -History of amphetamine abuse. -History of paroxysmal episodes of atrial fibrillation per report. -Hepatitis C virus with cirrhosis. Plan: Optimize cardiac and pulmonary status- Keep BP in check- Monitor renal parameters- avoid nephrotoxics- per orders- no UA ! Subjective ROS Limited/Unobtainable: Yes Constitutional: Reports: other - intubated on vent Allergies: Coded Allergies: No Known Allergies (Unverified , 04/29/13) Objective Last 24 Hour Vital Signs Date Time Temp Pulse Resp B/P Pulse Ox O2 Delivery O2 Flow Rate FiO2 12/12/16 08:00 40 12/12/16 07:01 72 16 40 12/12/16 07:00 70 16 127/84 100 Mechanical Ventilator 40 12/12/16 06:00 71 16 139/86 100 Mechanical Ventilator 40 12/12/16 05:39 139/86 12/12/16 05:39 139/86 12/12/16 05:00 77 16 138/82 100 Mechanical Ventilator 40 12/12/16 04:51 73 16 40 12/12/16 04:00 97.6 73 16 136/83 100 Mechanical Ventilator 40 12/12/16 04:00 40 12/12/16 04:00 60 12/12/16 03:01 78 16 40 12/12/16 03:00 74 16 135/85 100 Mechanical Ventilator 40 12/12/16 02:00 71 16 138/96 100 Mechanical Ventilator 40 12/12/16 01:20 66 16 40 12/12/16 01:00 65 16 141/90 100 Mechanical Ventilator 40 12/12/16 00:00 57 12/12/16 00:00 40 12/12/16 00:00 97.6 64 16 137/83 100 Mechanical Ventilator 40 12/11/16 23:00 65 16 137/92 100 Mechanical Ventilator 40 12/11/16 22:45 64 16 40 12/11/16 22:00 64 16 134/87 100 Mechanical Ventilator 40 12/11/16 21:40 145/90 12/11/16 21:00 64 16 145/90 100 Mechanical Ventilator 40 12/11/16 20:49 64 19 40 12/11/16 20:00 97.4 62 16 141/97 99 Mechanical Ventilator 40 12/11/16 20:00 62 12/11/16 20:00 40 12/11/16 19:24 62 16 40 12/11/16 19:00 60 16 134/92 100 Mechanical Ventilator 40 12/11/16 18:00 61 16 140/94 100 Mechanical Ventilator 40 12/11/16 17:39 145/100 12/11/16 17:06 58 16 40 12/11/16 17:00 58 16 145/100 100 Mechanical Ventilator 40 12/11/16 16:00 97.0 54 16 145/97 99 Mechanical Ventilator 40 12/11/16 16:00 40 12/11/16 15:00 57 16 149/97 99 Mechanical Ventilator 40 12/11/16 14:51 55 16 40 12/11/16 14:46 56 12/11/16 14:00 53 16 143/93 100 Mechanical Ventilator 40 12/11/16 13:57 155/88 12/11/16 13:00 52 16 147/99 100 Mechanical Ventilator 40 12/11/16 12:42 52 16 40 12/11/16 12:30 52 16 148/95 100 Mechanical Ventilator 40 12/11/16 12:00 97.4 54 16 152/116 100 Mechanical Ventilator 80 12/11/16 12:00 53 12/11/16 11:37 143/111 12/11/16 11:30 48 16 143/111 100 Mechanical Ventilator 40 12/11/16 11:00 48 16 170/96 100 Mechanical Ventilator 40 12/11/16 10:39 48 16 40 12/11/16 10:30 48 16 145/97 100 Mechanical Ventilator 40 12/11/16 10:00 40 12/11/16 10:00 49 21 142/102 100 Mechanical Ventilator 40 Intake and Output 12/11/16 12/12/16 19:00 07:00 Intake Total 237.5 ml 632.5 ml Output Total 30 ml 900 ml Balance 207.5 ml -267.5 ml Free Water 50 ml 100 ml IV Total 177.5 ml 192.5 ml Tube Feeding 10 ml 250 ml Other 90 ml Output Urine Total 30 ml 900 ml Laboratory Tests 12/11/16 10:45: Sodium Level 149H, Potassium Level 5.3H, Chloride Level 112H, Carbon Dioxide Level 24, Anion Gap 13, Blood Urea Nitrogen 49H, Creatinine 2.7H, Estimat Glomerular Filtration Rate 28.8, Glucose Level 158H, Calcium Level 8.7 12/11/16 16:00: Sodium Level 151H, Potassium Level 4.9, Chloride Level 112H, Carbon Dioxide Level 24, Anion Gap 15, Blood Urea Nitrogen 52H, Creatinine 2.8H, Estimat Glomerular Filtration Rate 27.8, Glucose Level 79, Calcium Level 8.2L 12/12/16 05:00: Sodium Level 150H, Potassium Level 4.9, Chloride Level 111H, Carbon Dioxide Level 28, Anion Gap 11, Blood Urea Nitrogen 51H, Creatinine 2.8H, Estimat Glomerular Filtration Rate 27.8, Glucose Level 63L, Calcium Level 8.1L, White Blood Count 7.2, Red Blood Count 3.20L, Hemoglobin 9.7L, Hematocrit 31.5L, Mean Corpuscular Volume 98, Mean Corpuscular Hemoglobin 30.3, Mean Corpuscular Hemoglobin Concent 30.9L, Red Cell Distribution Width 17.0H, Platelet Count 76L , Mean Platelet Volume 9.6, Neutrophils (%) (Auto) , Lymphocytes (%) (Auto) , Monocytes (%) (Auto) , Eosinophils (%) (Auto) , Basophils (%) (Auto) , Differential Total Cells Counted 100, Neutrophils % (Manual) 85H, Lymphocytes % (Manual) 10L, Monocytes % (Manual) 5, Eosinophils % (Manual) 0, Basophils % ( Manual) 0, Band Neutrophils 0, Platelet Estimate DecreasedL, Platelet Morphology Normal, Hypochromasia 1+, Anisocytosis 1+, Hemoglobin A1c 4.9, Uric Acid 10.4H, Phosphorus Level 4.3, Magnesium Level 2.2, Total Bilirubin 0.4, Gamma Glutamyl Transpeptidase 57, Aspartate Amino Transf (AST/SGOT) 47H, Alanine Aminotransferase (ALT/SGPT) 42H, Alkaline Phosphatase 82, Total Creatine Kinase 79, Troponin I < 0.30, C-Reactive Protein, Quantitative 0.8H, Pro-B-Type Natriuretic Peptide [id number], Total Protein 5.8L, Albumin 2.3L, Globulin 3.5, Albumin/Globulin Ratio 0.6L, Thyroid Stimulating Hormone (TSH) 1.680 12/12/16 07:48: Arterial Blood pH 7.396, Arterial Blood Partial Pressure CO2 47.9H, Arterial Blood Partial Pressure O2 92.3, Arterial Blood HCO3 28.7H, Arterial Blood Oxygen Saturation 96.9, Arterial Blood Base Excess 3.3, Adrian Test Positive Height (Feet): 5 Height (Inches): 9.00 Weight (Pounds): 150 General Appearance: no apparent distress Cardiovascular: regular rhythm Respiratory/Chest: decreased breath sounds Abdomen: soft, distended JUSTIN NESS Dec 12, 2016 10:01
--- NOTE | 2016-12-12 10:03 | Cardiology Report ---
APPROVED REPORT EKG Measurement Heart [id number] Atrial fibrillation Septal infarct, age undetermined Abnormal ECG
[2016-12-12 10:27] LABS: APPEARANCE,URINE CLEAR; KETONES,URINE NEGATIVE (NEGATIVE); LEUKOCYTE ESTERASE ,URINE 1+ (NEGATIVE); NITRITE,URINE NEGATIVE (NEGATIVE); PH,URINE 5 (4.5-8.0); PROTEIN,URINE 3+ (NEGATIVE); UROBILINOGEN,URINE NORMAL MG/DL (0.0-1.0)
[2016-12-12 10:40] LABS: BACTERIA,URINE FEW /HPF; MUCUS,URINE OCCASIONAL /LPF (NONE/OCC); SQUAMOUS EPITHELIAL CELL,UR OCCASIONAL /LPF (NONE/OCC)
--- NOTE | 2016-12-12 10:57 | Infectious Diseases Prog Note ---
Assessment/Plan Assessment/Plan A: The patient is a 66-year-old male with Pneumonia. Chest x-ray showed bilateral large pleural effusion History of hepatitis C ALOC VDRF SP intubated. CHF. Renal insufficiency. Hypertension. CAD and NC. History of GI bleed. History of cirrhosis. History of spinal fusion PLAN: cont on Zosyn and Levaquin. d# 2 Monitor CBC. Monitor BMP. Monitor chest x-ray. Monitor sputum culture, blood culture, and urine culture. Subjective Allergies: Coded Allergies: No Known Allergies (Unverified , 04/29/13) Subjective on vent Objective Vital Signs Last 24 Hour Vital Signs Date Time Temp Pulse Resp B/P Pulse Ox O2 Delivery O2 Flow Rate FiO2 12/12/16 09:00 75 16 40 12/12/16 08:00 40 12/12/16 07:01 72 16 40 12/12/16 07:00 70 16 127/84 100 Mechanical Ventilator 40 12/12/16 06:00 71 16 139/86 100 Mechanical Ventilator 40 12/12/16 05:39 139/86 12/12/16 05:39 139/86 12/12/16 05:00 77 16 138/82 100 Mechanical Ventilator 40 12/12/16 04:51 73 16 40 12/12/16 04:00 97.6 73 16 136/83 100 Mechanical Ventilator 40 12/12/16 04:00 40 12/12/16 04:00 60 12/12/16 03:01 78 16 40 12/12/16 03:00 74 16 135/85 100 Mechanical Ventilator 40 12/12/16 02:00 71 16 138/96 100 Mechanical Ventilator 40 12/12/16 01:20 66 16 40 12/12/16 01:00 65 16 141/90 100 Mechanical Ventilator 40 12/12/16 00:00 57 12/12/16 00:00 40 12/12/16 00:00 97.6 64 16 137/83 100 Mechanical Ventilator 40 12/11/16 23:00 65 16 137/92 100 Mechanical Ventilator 40 12/11/16 22:45 64 16 40 12/11/16 22:00 64 16 134/87 100 Mechanical Ventilator 40 12/11/16 21:40 145/90 12/11/16 21:00 64 16 145/90 100 Mechanical Ventilator 40 12/11/16 20:49 64 19 40 12/11/16 20:00 97.4 62 16 141/97 99 Mechanical Ventilator 40 12/11/16 20:00 62 12/11/16 20:00 40 12/11/16 19:24 62 16 40 12/11/16 19:00 60 16 134/92 100 Mechanical Ventilator 40 12/11/16 18:00 61 16 140/94 100 Mechanical Ventilator 40 12/11/16 17:39 145/100 12/11/16 17:06 58 16 40 12/11/16 17:00 58 16 145/100 100 Mechanical Ventilator 40 12/11/16 16:00 97.0 54 16 145/97 99 Mechanical Ventilator 40 12/11/16 16:00 40 12/11/16 15:00 57 16 149/97 99 Mechanical Ventilator 40 12/11/16 14:51 55 16 40 12/11/16 14:46 56 12/11/16 14:00 53 16 143/93 100 Mechanical Ventilator 40 12/11/16 13:57 155/88 12/11/16 13:00 52 16 147/99 100 Mechanical Ventilator 40 12/11/16 12:42 52 16 40 12/11/16 12:30 52 16 148/95 100 Mechanical Ventilator 40 12/11/16 12:00 97.4 54 16 152/116 100 Mechanical Ventilator 80 12/11/16 12:00 53 12/11/16 11:37 143/111 12/11/16 11:30 48 16 143/111 100 Mechanical Ventilator 40 12/11/16 11:00 48 16 170/96 100 Mechanical Ventilator 40 Height (Feet): 5 Height (Inches): 9.00 Weight (Pounds): 150 HEENT: atraumatic Respiratory/Chest: lungs clear Cardiovascular: normal rate Abdomen: soft, non tender, no organomegaly Microbiology Date/Time Source Procedure Growth Status 12/09/16 23:17 Blood Arm Right Blood Culture - Preliminary NO GROWTH AFTER 48 HOURS Resulted 12/09/16 23:11 Blood Arm Right Blood Culture - Preliminary NO GROWTH AFTER 48 HOURS Resulted 12/11/16 15:43 Sputum Gram Stain Pending Resulted 12/11/16 15:43 Sputum Sputum Culture - Preliminary NORMAL GOPI PRESENT Resulted 12/10/16 01:00 Nasal Nares MRSA Culture - Final NO METHICILLIN RESISTANT STAPH AUREUS... Complete 12/11/16 19:00 Urine,Clean Catch Urine Culture - Preliminary NO GROWTH Resulted 12/10/16 01:30 Knee Right Gram Stain - Final Resulted 12/10/16 01:30 Wound Culture - Preliminary Staphylococcus Aureus Resulted 12/10/16 01:00 Rectum VRE Culture - Final Enterococcus Faecium - Vre Complete Laboratory Tests Test 12/11/16 16:00 12/12/16 05:00 12/12/16 07:48 12/12/16 10:00 Sodium Level 151 mEQ/L (135-145) H 150 mEQ/L (135-145) H Potassium Level 4.9 mEQ/L (3.4-4.9) 4.9 mEQ/L (3.4-4.9) Chloride Level 112 mEQ/L (98-107) H 111 mEQ/L (98-107) H Carbon Dioxide Level 24 mEQ/L (20-30) 28 mEQ/L (20-30) Anion Gap 15 (5-15) 11 (5-15) Blood Urea Nitrogen 52 mg/dL (7-23) H 51 mg/dL (7-23) H Creatinine 2.8 mg/dL (0.7-1.2) H 2.8 mg/dL (0.7-1.2) H Estimat Glomerular Filtration Rate 27.8 mL/min (>60) 27.8 mL/min (>60) Glucose Level 79 mg/dL (74-106) 63 mg/dL (74-106) L Calcium Level 8.2 mg/dL (8.6-10.2) L 8.1 mg/dL (8.6-10.2) L White Blood Count 7.2 K/UL (4.8-10.8) Red Blood Count 3.20 M/UL (4.70-6.10) L Hemoglobin 9.7 G/DL (14.2-18.0) L Hematocrit 31.5 % (42.0-52.0) L Mean Corpuscular Volume 98 FL (80-99) Mean Corpuscular Hemoglobin 30.3 PG (27.0-31.0) Mean Corpuscular Hemoglobin Concent 30.9 G/DL (32.0-36.0) L Red Cell Distribution Width 17.0 % (11.6-14.8) H Platelet Count 76 K/UL (150-450) L Mean Platelet Volume 9.6 FL (6.5-10.1) Neutrophils (%) (Auto) % (45.0-75.0) Lymphocytes (%) (Auto) % (20.0-45.0) Monocytes (%) (Auto) % (1.0-10.0) Eosinophils (%) (Auto) % (0.0-3.0) Basophils (%) (Auto) % (0.0-2.0) Differential Total Cells Counted 100 Neutrophils % (Manual) 85 % (45-75) H Lymphocytes % (Manual) 10 % (20-45) L Monocytes % (Manual) 5 % (1-10) Eosinophils % (Manual) 0 % (0-3) Basophils % (Manual) 0 % (0-2) Band Neutrophils 0 % (0-8) Platelet Estimate Decreased L Platelet Morphology Normal Hypochromasia 1+ Anisocytosis 1+ Hemoglobin A1c 4.9 % (< 6.0) Uric Acid 10.4 mg/dL (3.0-7.5) H Phosphorus Level 4.3 mg/dL (2.5-4.8) Magnesium Level 2.2 mg/dL (1.7-2.5) Total Bilirubin 0.4 mg/dL (0.0-1.2) Gamma Glutamyl Transpeptidase 57 U/L (8-61) Aspartate Amino Transf (AST/SGOT) 47 U/L (5-40) H Alanine Aminotransferase (ALT/SGPT) 42 U/L (3-41) H Alkaline Phosphatase 82 U/L (40-129) Total Creatine Kinase 79 U/L (38-174) Troponin I < 0.30 ng/mL (<=0.30) C-Reactive Protein, Quantitative 0.8 mg/dL (< 0.5) H Pro-B-Type Natriuretic Peptide 83790 pg/mL (0-125) H Total Protein 5.8 g/dL (6.6-8.7) L Albumin 2.3 g/dL (3.5-5.2) L Globulin 3.5 g/dL Albumin/Globulin Ratio 0.6 (1.0-2.7) L Thyroid Stimulating Hormone (TSH) 1.680 uIU/mL (0.300-4.500) Arterial Blood pH 7.396 (7.350-7.450) Arterial Blood Partial Pressure CO2 47.9 mmHg (35.0-45.0) H Arterial Blood Partial Pressure O2 92.3 mmHg (75.0-100.0) Arterial Blood HCO3 28.7 mmol/L (22.0-26.0) H Arterial Blood Oxygen Saturation 96.9 % (92.0-98.0) Arterial Blood Base Excess 3.3 Adrian Test Positive Ammonia 37 umol/L (16-60) Test 12/12/16 10:07 Urine Color Pale yellow Urine Appearance Clear Urine pH 5 (4.5-8.0) Urine Specific Baldwin 1.010 (1.005-1.035) Urine Protein 3+ (NEGATIVE) H Urine Glucose (UA) Negative (NEGATIVE) Urine Ketones Negative (NEGATIVE) Urine Occult Blood 3+ (NEGATIVE) H Urine Nitrite Negative (NEGATIVE) Urine Bilirubin Negative (NEGATIVE) Urine Urobilinogen Normal MG/DL (0.0-1.0) Urine Leukocyte Esterase 1+ (NEGATIVE) H Urine RBC 5-10 /HPF (0 - 0) H Urine WBC 2-4 /HPF (0 - 0) Urine Squamous Epithelial Cells Occasional /LPF Urine Bacteria Few /HPF (NONE) Urine Mucus Occasional /LPF Urine Random Sodium 88 mmol/L Current Medications Medications (Trade) Dose Ordered Sig/Melania Route PRN Reason Start Time Stop Time Status Last Admin Dose Admin Acetaminophen (Tylenol) 650 mg Q4H PRN ORAL Fever 12/10/16 16:45 01/09/17 16:44 12/11/16 00:56 Acetaminophen/ Hydrocodone Bitart (Hurley 5/325) 1 tab Q6H PRN ORAL severe pain 12/10/16 18:45 12/17/16 18:44 12/11/16 00:55 Albuterol/ Ipratropium (DuoNeb 0.5-3(2.5)mg/3ml) 3 ml Q4H PRN HHN Shortness of Breath 12/10/16 16:45 12/15/16 16:44 Clonidine HCl (Catapres) 0.1 mg Q8HR ORAL 12/12/16 14:00 01/11/17 13:59 Dextrose (Dextrose 50%) STAT PRN IV Hypoglycemia 12/11/16 00:45 01/10/17 00:44 Heparin Sodium (Porcine) (Heparin 5000 units/ml) 5,000 units EVERY 12 HOURS SUBQ 12/10/16 21:00 01/09/17 20:59 12/11/16 09:03 Levofloxacin (Levaquin 750mg/ D5W) 150 ml @ 100 mls/hr Q48H IVPB 12/11/16 16:00 12/18/16 15:59 12/11/16 15:59 Nitroglycerin (Nitro-Bid) 1 inch TID@0600,1200,1800 TOPIC 12/12/16 06:00 01/11/17 05:59 12/12/16 05:39 Ondansetron HCl (Zofran) 4 mg Q6H PRN IVP Nausea & Vomiting 12/10/16 18:45 01/09/17 18:44 Pantoprazole 40 mg 40 mg DAILY IVP 12/11/16 16:00 01/10/17 15:59 12/12/16 08:26 Piperacillin Sod/ Tazobactam Sod/ Dextrose (Zosyn/D5W) 110 ml @ 27.5 mls/hr Q8HR@0200,1000,1800 IV 12/11/16 18:00 12/18/16 17:59 12/12/16 10:08 Polyethylene Glycol (Miralax) 17 gm DAILYPRN PRN ORAL Constipation 12/11/16 00:45 01/10/17 00:44 Temazepam (Restoril) 15 mg HSPRN PRN ORAL Insomnia 12/11/16 00:45 12/18/16 00:44 12/11/16 00:55 Vitamin A/Vitamin D 1 applic 1 applic EVERY 12 HOURS TOPIC 12/10/16 21:00 01/09/17 20:59 12/11/16 20:58 Vitamin B Complex/ Vit C/Folic Acid (Nephrovite) 1 tab DAILY GT 12/12/16 09:00 01/11/17 08:59 12/12/16 08:26 ERWIN KIMBROUGH M.D. Dec 12, 2016 10:57
--- NOTE | 2016-12-12 13:36 | Diagnostic Imaging Report ---
Indication: Dyspnea Comparison: 12/11/2016 A single view chest radiograph was obtained. Findings: Bilateral pleural effusion, cardiomegaly, mild to moderate congestion again noted. Lines are stable. Impression: No change from the prior day
--- NOTE | 2016-12-12 14:21 | Physician Query ---
PLEASE COMPLETE DOCUMENT BEFORE SIGNING Dear Dr. Pearson Date: 12/12/2016 [employer] Name: HoaSayra Villafuerte MD [employer] Phone #[phone] _ Exercise your independent professional judgment when responding to query. Question asked do not imply a particular answer is desired/expected. Clinical Documentation States: "Altered Mental Status" documented in Dr. Perkins's History & Physical Has a history of toxic metabolic encephalopathy as per ED Provider Note Please indicate the nature and chronicity of the condition below: [X] Metabolic Encephalopathy [] Toxic Encephalopathy [] Toxic - Metabolic Encephalopathy [] Progressive Encephalopathy [] Encephalopathy, Other [] Other: [] Not Applicable Severity [X] Acute [] Chronic [] Acute on Chronic [] Unable to determine Condition Present on Admission: [X] Yes [] No []Clinically Undeterminable Please also document in your Progress Notes and/or Discharge Summary and indicate if the condition was present on admission. Reed Perkins MD [facility]
--- NOTE | 2016-12-12 15:01 | Internal Med Progress Note ---
Subjective Physician Name Wild Hawkins Attending Physician Wild Hawkins MD Current Medications Medications (Trade) Dose Ordered Sig/Melania Route PRN Reason Start Time Stop Time Status Last Admin Dose Admin Acetaminophen (Tylenol) 650 mg Q4H PRN ORAL Fever 12/10/16 16:45 01/09/17 16:44 12/11/16 00:56 Acetaminophen/ Hydrocodone Bitart ([place] 5/325) 1 tab Q6H PRN ORAL severe pain 12/10/16 18:45 12/17/16 18:44 12/11/16 00:55 Albuterol/ Ipratropium (DuoNeb 0.5-3(2.5)mg/3ml) 3 ml Q4H PRN HHN Shortness of Breath 12/10/16 16:45 12/15/16 16:44 Clonidine HCl (Catapres) 0.1 mg Q8HR ORAL 12/12/16 14:00 01/11/17 13:59 12/12/16 13:22 Dextrose (Dextrose 50%) STAT PRN IV Hypoglycemia 12/11/16 00:45 01/10/17 00:44 Heparin Sodium (Porcine) (Heparin 5000 units/ml) 5,000 units EVERY 12 HOURS SUBQ 12/10/16 21:00 01/09/17 20:59 12/11/16 09:03 Levofloxacin (Levaquin 750mg/ D5W) 150 ml @ 100 mls/hr Q48H IVPB 12/11/16 16:00 12/18/16 15:59 12/11/16 15:59 Nitroglycerin (Nitro-Bid) 1 inch TID@0600,1200,1800 TOPIC 12/12/16 06:00 01/11/17 05:59 12/12/16 11:23 Ondansetron HCl (Zofran) 4 mg Q6H PRN IVP Nausea & Vomiting 12/10/16 18:45 01/09/17 18:44 Pantoprazole 40 mg 40 mg DAILY IVP 12/11/16 16:00 01/10/17 15:59 12/12/16 08:26 Piperacillin Sod/ Tazobactam Sod/ Dextrose (Zosyn/D5W) 110 ml @ 27.5 mls/hr Q8HR@0200,1000,1800 IV 12/11/16 18:00 12/18/16 17:59 12/12/16 10:08 Polyethylene Glycol (Miralax) 17 gm DAILYPRN PRN ORAL Constipation 12/11/16 00:45 01/10/17 00:44 Temazepam (Restoril) 15 mg HSPRN PRN ORAL Insomnia 12/11/16 00:45 12/18/16 00:44 12/11/16 00:55 Vitamin A/Vitamin D 1 applic 1 applic EVERY 12 HOURS TOPIC 12/10/16 21:00 01/09/17 20:59 12/11/16 20:58 Vitamin B Complex/ Vit C/Folic Acid (Nephrovite) 1 tab DAILY GT 12/12/16 09:00 01/11/17 08:59 12/12/16 08:26 Allergies: Coded Allergies: No Known Allergies (Unverified , 04/29/13) Subjective in ICU, Sedated, intubated on ventilation Objective Last Vital Signs Date Time Temp Pulse Resp B/P Pulse Ox O2 Delivery O2 Flow Rate FiO2 12/12/16 13:22 130/73 12/12/16 13:00 74 16 40 12/12/16 12:00 98.6 98 Mechanical Ventilator 12/10/16 01:00 15.0 Laboratory Tests Test 12/11/16 16:00 12/12/16 05:00 12/12/16 07:48 12/12/16 10:00 Sodium Level 151 mEQ/L (135-145) H 150 mEQ/L (135-145) H Potassium Level 4.9 mEQ/L (3.4-4.9) 4.9 mEQ/L (3.4-4.9) Chloride Level 112 mEQ/L (98-107) H 111 mEQ/L (98-107) H Carbon Dioxide Level 24 mEQ/L (20-30) 28 mEQ/L (20-30) Anion Gap 15 (5-15) 11 (5-15) Blood Urea Nitrogen 52 mg/dL (7-23) H 51 mg/dL (7-23) H Creatinine 2.8 mg/dL (0.7-1.2) H 2.8 mg/dL (0.7-1.2) H Estimat Glomerular Filtration Rate 27.8 mL/min (>60) 27.8 mL/min (>60) Glucose Level 79 mg/dL (74-106) 63 mg/dL (74-106) L Calcium Level 8.2 mg/dL (8.6-10.2) L 8.1 mg/dL (8.6-10.2) L White Blood Count 7.2 K/UL (4.8-10.8) Red Blood Count 3.20 M/UL (4.70-6.10) L Hemoglobin 9.7 G/DL (14.2-18.0) L Hematocrit 31.5 % (42.0-52.0) L Mean Corpuscular Volume 98 FL (80-99) Mean Corpuscular Hemoglobin 30.3 PG (27.0-31.0) Mean Corpuscular Hemoglobin Concent 30.9 G/DL (32.0-36.0) L Red Cell Distribution Width 17.0 % (11.6-14.8) H Platelet Count 76 K/UL (150-450) L Mean Platelet Volume 9.6 FL (6.5-10.1) Neutrophils (%) (Auto) % (45.0-75.0) Lymphocytes (%) (Auto) % (20.0-45.0) Monocytes (%) (Auto) % (1.0-10.0) Eosinophils (%) (Auto) % (0.0-3.0) Basophils (%) (Auto) % (0.0-2.0) Differential Total Cells Counted 100 Neutrophils % (Manual) 85 % (45-75) H Lymphocytes % (Manual) 10 % (20-45) L Monocytes % (Manual) 5 % (1-10) Eosinophils % (Manual) 0 % (0-3) Basophils % (Manual) 0 % (0-2) Band Neutrophils 0 % (0-8) Platelet Estimate Decreased L Platelet Morphology Normal Hypochromasia 1+ Anisocytosis 1+ Hemoglobin A1c 4.9 % (< 6.0) Uric Acid 10.4 mg/dL (3.0-7.5) H Phosphorus Level 4.3 mg/dL (2.5-4.8) Magnesium Level 2.2 mg/dL (1.7-2.5) Total Bilirubin 0.4 mg/dL (0.0-1.2) Gamma Glutamyl Transpeptidase 57 U/L (8-61) Aspartate Amino Transf (AST/SGOT) 47 U/L (5-40) H Alanine Aminotransferase (ALT/SGPT) 42 U/L (3-41) H Alkaline Phosphatase 82 U/L (40-129) Total Creatine Kinase 79 U/L (38-174) Troponin I < 0.30 ng/mL (<=0.30) C-Reactive Protein, Quantitative 0.8 mg/dL (< 0.5) H Pro-B-Type Natriuretic Peptide 56607 pg/mL (0-125) H Total Protein 5.8 g/dL (6.6-8.7) L Albumin 2.3 g/dL (3.5-5.2) L Globulin 3.5 g/dL Albumin/Globulin Ratio 0.6 (1.0-2.7) L Thyroid Stimulating Hormone (TSH) 1.680 uIU/mL (0.300-4.500) Arterial Blood pH 7.396 (7.350-7.450) Arterial Blood Partial Pressure CO2 47.9 mmHg (35.0-45.0) H Arterial Blood Partial Pressure O2 92.3 mmHg (75.0-100.0) Arterial Blood HCO3 28.7 mmol/L (22.0-26.0) H Arterial Blood Oxygen Saturation 96.9 % (92.0-98.0) Arterial Blood Base Excess 3.3 Adrian Test Positive Ammonia 37 umol/L (16-60) Test 12/12/16 10:07 Urine Color Pale yellow Urine Appearance Clear Urine pH 5 (4.5-8.0) Urine Specific [place] 1.010 (1.005-1.035) Urine Protein 3+ (NEGATIVE) H Urine Glucose (UA) Negative (NEGATIVE) Urine Ketones Negative (NEGATIVE) Urine Occult Blood 3+ (NEGATIVE) H Urine Nitrite Negative (NEGATIVE) Urine Bilirubin Negative (NEGATIVE) Urine Urobilinogen Normal MG/DL (0.0-1.0) Urine Leukocyte Esterase 1+ (NEGATIVE) H Urine RBC 5-10 /HPF (0 - 0) H Urine WBC 2-4 /HPF (0 - 0) Urine Squamous Epithelial Cells Occasional /LPF Urine Bacteria Few /HPF (NONE) Urine Mucus Occasional /LPF Urine Random Sodium 88 mmol/L Microbiology Date/Time Source Procedure Growth Status 12/09/16 23:17 Blood Arm Right Blood Culture - Preliminary NO GROWTH AFTER 48 HOURS Resulted 12/09/16 23:11 Blood Arm Right Blood Culture - Preliminary NO GROWTH AFTER 48 HOURS Resulted 12/11/16 15:43 Sputum Gram Stain - Final Resulted 12/11/16 15:43 Sputum Sputum Culture - Preliminary NORMAL GOPI PRESENT Resulted 12/10/16 01:00 Nasal Nares MRSA Culture - Final NO METHICILLIN RESISTANT STAPH AUREUS... Complete 12/11/16 19:00 Urine,Clean Catch Urine Culture - Preliminary NO GROWTH Resulted 12/10/16 01:30 Knee Right Gram Stain - Final Resulted 12/10/16 01:30 Wound Culture - Preliminary Staphylococcus Aureus Resulted 12/10/16 01:00 Rectum VRE Culture - Final Enterococcus Faecium - Vre Complete Intake and Output 12/11/16 12/12/16 19:00 07:00 Intake Total 237.5 ml 660.0 ml Output Total 30 ml 900 ml Balance 207.5 ml -240.0 ml Free Water 50 ml 100 ml IV Total 177.5 ml 220.0 ml Tube Feeding 10 ml 250 ml Other 90 ml Output Urine Total 30 ml 900 ml Objective General Appearance: sedated, intubated EENT: normal ENT inspection, ET Tube. Neck: non-tender, normal alignment, supple, Right IJ IV access. Cardiovascular: normal peripheral pulses, normal rate, regular rhythm, no Murmur Respiratory/Chest: ventilatory breath sound, No wheezes Abdomen: normal bowel sounds, non tender, soft, Extremities: normal range of motion, No edema, bilateral feet dressing Neurologic: shank taper II-XII grossly normal, Skin: normal pigmentation, warm/dry Assessment/Plan Assessment/Plan (1) Acute Respiratory failure (2) YVONNE on CKD (3) Hypernatremia. (4) HTN (hypertension) (5) CAD (coronary artery disease) (6) CHF (congestive heart failure) Assessment & Plan: See cardiology note. Cont lasix. (7) Anemia (8) Uncontrolled hypertension (9) Pneumonia Assessment & Plan: Cont Zosyn and Levaquin- (10) Pleural effusion Status: Plan: Abx Monitor Labs and Cultures. Wild Hawkins MD Dec 12, 2016 15:01
[2016-12-12] MEDS: Piperacillin/Tazobactam 2.25 GM in D5W 55 ML IV SCH (18:06)
[2016-12-13] VITALS (24 sets, daily range): BP systolic 137–160; BP diastolic 63–108
[2016-12-13] MEDS: Piperacillin/Tazobactam 2.25 GM in D5W 55 ML IV SCH ×3 (02:43→18:31)
[2016-12-13 05:32] LABS: MEAN CORPUSCULAR HEMOGLOBIN 30.5 PG (27.0-31.0); MEAN CORPUSCULAR HGB CONC 32.2 G/DL (32.0-36.0); MEAN CORPUSCULAR VOLUME 95 FL (80-99); MEAN PLATELET VOLUME 10.2 FL (6.5-10.1); PLATELET COUNT 67 K/UL (150-450); RED BLOOD COUNT 2.99 M/UL (4.70-6.10); RED CELL DISTRIBUTION WIDTH 16.5 % (11.6-14.8); WHITE BLOOD COUNT 7.4 K/UL (4.8-10.8)
[2016-12-13 05:46] LABS: INR 1.3 (0.9-1.1); PROTHROMBIN TIME 12.9 SEC (9.30-11.50)
[2016-12-13 05:54] LABS: ALBUMIN/GLOBULIN RATIO 0.6 (1.0-2.7); CALCIUM 7.8 mg/dL (8.6-10.2); CREATININE 3.1 mg/dL (0.7-1.2); GLOMERULAR FILTRATION RATE 24.6 mL/min (>60); MAGNESIUM 2.1 mg/dL (1.7-2.5); PHOSPHORUS 3.4 mg/dL (2.5-4.8); POTASSIUM 4.4 mEQ/L (3.4-4.9); TOTAL PROTEIN 5.5 g/dL (6.6-8.7)
[2016-12-13 05:56] LABS: CRP QUANT 2.7 mg/dL (< 0.5); URIC ACID 10.4 mg/dL (3.0-7.5)
[2016-12-13 05:58] LABS: TROPONIN I < 0.30 ng/mL (<=0.30)
[2016-12-13] MEDS: Nitroglycerin 2% oint pkt TOPIC SCH ×3 (06:07→17:15)
[2016-12-13 07:25] LABS: ERYTHROCYTE SEDIMENTATION RATE 73 MM/HR (0-20)
[2016-12-13] MEDS: Nephrovite tab GT SCH (08:31)
[2016-12-13] MEDS: Pantoprazole Inj IVP SCH (08:31)
[2016-12-13] MEDS: Heparin 5000 units/ml inj SUBQ SCH ×2 (08:32→20:42)
[2016-12-13] MEDS: Vitamin A&D Oint 2oz Tube TOPIC SCH ×2 (08:34→20:48)
[2016-12-13 08:41] LABS: BAND NEUTROPHILS % (MANUAL) 1 % (0-8); EOSINOPHILS % (MANUAL) 1 % (0-3); LYMPHOCYTES % (MANUAL) 15 % (20-45); NEUTROPHILS % (MANUAL) 80 % (45-75); TOTAL CELLS COUNTED 100
[2016-12-13 08:42] LABS: BASOPHILS % (MANUAL) 0 % (0-2); PLATELET ESTIMATE DECREASED; PLATELET MORPHOLOGY NORMAL
--- NOTE | 2016-12-13 10:30 | Pulmonolgy Critical Care Note ---
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: 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, 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 Discussed with: nurses, consultants, piano case makermanager diabetes - Objective Last 24 Hour Vital Signs Date Time Temp Pulse Resp B/P Pulse Ox O2 Delivery O2 Flow Rate FiO2 12/13/16 10:00 70 18 156/75 100 Mechanical Ventilator 40 12/13/16 09:30 68 16 40 12/13/16 09:00 61 18 147/78 100 Mechanical Ventilator 40 12/13/16 08:32 100.0 12/13/16 08:23 40 12/13/16 08:00 58 12/13/16 08:00 100.0 58 16 150/79 100 Mechanical Ventilator 40 12/13/16 07:01 61 16 40 12/13/16 07:00 99.8 60 18 154/78 100 Mechanical Ventilator 40 12/13/16 06:08 151/72 12/13/16 06:07 151/72 12/13/16 06:00 65 17 154/78 100 Mechanical Ventilator 40 12/13/16 05:37 77 16 40 12/13/16 05:00 100.5 69 17 137/63 100 Mechanical Ventilator 40 12/13/16 04:00 65 12/13/16 04:00 40 12/13/16 04:00 100.0 65 16 156/79 100 Mechanical Ventilator 40 12/13/16 03:27 63 16 40 12/13/16 03:00 64 16 157/83 100 Mechanical Ventilator 40 12/13/16 02:00 65 16 157/78 100 Mechanical Ventilator 40 12/13/16 01:16 74 16 40 12/13/16 01:00 65 16 157/79 100 Mechanical Ventilator 40 12/13/16 00:00 40 12/13/16 00:00 65 12/13/16 00:00 99.8 65 16 159/85 100 Mechanical Ventilator 40 12/12/16 23:51 69 16 40 12/12/16 23:00 65 16 159/78 100 Mechanical Ventilator 40 12/12/16 22:16 149/77 12/12/16 22:00 99.0 79 16 149/77 100 Mechanical Ventilator 40 12/12/16 21:17 72 20 40 12/12/16 21:00 79 16 147/70 97 Mechanical Ventilator 40 12/12/16 20:00 40 12/12/16 20:00 100.0 80 16 138/79 97 Mechanical Ventilator 40 12/12/16 20:00 74 12/12/16 19:00 80 16 140/79 97 Mechanical Ventilator 40 12/12/16 18:40 71 16 40 12/12/16 18:00 74 16 137/75 97 Mechanical Ventilator 40 12/12/16 17:46 133/77 12/12/16 17:00 73 16 134/72 98 Mechanical Ventilator 40 12/12/16 17:00 72 16 40 12/12/16 16:00 40 12/12/16 16:00 98.1 76 16 132/76 98 Mechanical Ventilator 40 12/12/16 16:00 70 12/12/16 15:00 69 16 40 12/12/16 15:00 73 16 132/71 98 Mechanical Ventilator 40 12/12/16 14:00 72 16 132/72 98 Mechanical Ventilator 40 12/12/16 13:22 130/73 12/12/16 13:00 74 16 40 12/12/16 13:00 75 16 134/79 99 Mechanical Ventilator 40 12/12/16 12:00 98.6 76 16 131/74 98 Mechanical Ventilator 40 12/12/16 12:00 40 12/12/16 12:00 68 12/12/16 11:23 132/76 12/12/16 11:00 77 17 132/76 100 Mechanical Ventilator 40 12/12/16 11:00 79 16 40 Status: awake Condition: critical Neck: full ROM Lungs: chest wall tender Heart: HR/BP stable, HR/BP unstable Abdomen: soft, non-tender, feeding tube Extremities: no C/C/E, edema Micro: Microbiology Date/Time Source Procedure Growth Status 12/11/16 16:10 Blood Blood Culture - Preliminary NO GROWTH AFTER 24 HOURS Resulted 12/11/16 16:00 Blood Blood Culture - Preliminary NO GROWTH AFTER 24 HOURS Resulted 12/11/16 15:43 Sputum Gram Stain - Final Complete 12/11/16 15:43 Sputum Sputum Culture - Final NORMAL UPPER RESPIRATORY GOPI PRESENT Complete 12/11/16 19:00 Urine,Clean Catch Urine Culture - Final NO GROWTH AFTER 48 HOURS Complete Accucheck: 128 Critical Care - Subjective ROS Limited/Unobtainable: No ICU Day: 3 Intubation Day: 3 EKG Rhythm: Sinus Rhythm FI02: 40 Vent Support Breath Rate: 16 Vent Support Mode: AC Vent Tidal Volume: 600 Sputum Amount: Small PEEP: 0.0 PIP: 34 Tube Feeding Amount: 30 I&O: Intake and Output 12/12/16 12/13/16 19:00 07:00 Intake Total 790 ml 580 ml Output Total 620 ml 730 ml Balance 170 ml -150 ml Free Water 100 ml IV Total 110 ml Tube Feeding 440 ml 370 ml Other 350 ml Output Urine Total 620 ml 730 ml # Bowel Movements 1 ET-Tube: 7.5 ET Position: 24 Labs: Laboratory Tests Test 12/13/16 04:25 12/13/16 05:00 White Blood Count 7.4 K/UL (4.8-10.8) Red Blood Count 2.99 M/UL (4.70-6.10) L Hemoglobin 9.1 G/DL (14.2-18.0) L Hematocrit 28.4 % (42.0-52.0) L Mean Corpuscular Volume 95 FL (80-99) Mean Corpuscular Hemoglobin 30.5 PG (27.0-31.0) Mean Corpuscular Hemoglobin Concent 32.2 G/DL (32.0-36.0) Red Cell Distribution Width 16.5 % (11.6-14.8) H Platelet Count 67 K/UL (150-450) L Mean Platelet Volume 10.2 FL (6.5-10.1) H Neutrophils (%) (Auto) % (45.0-75.0) Lymphocytes (%) (Auto) % (20.0-45.0) Monocytes (%) (Auto) % (1.0-10.0) Eosinophils (%) (Auto) % (0.0-3.0) Basophils (%) (Auto) % (0.0-2.0) Differential Total Cells Counted 100 Neutrophils % (Manual) 80 % (45-75) H Lymphocytes % (Manual) 15 % (20-45) L Monocytes % (Manual) 3 % (1-10) Eosinophils % (Manual) 1 % (0-3) Basophils % (Manual) 0 % (0-2) Band Neutrophils 1 % (0-8) Platelet Estimate Decreased L Platelet Morphology Normal Red Blood Cell Morphology Normal Erythrocyte Sedimentation Rate 73 MM/HR (0-20) H Prothrombin Time 12.9 SEC (9.30-11.50) H Prothromb Time International Ratio 1.3 (0.9-1.1) H Activated Partial Thromboplast Time 42 SEC (23-33) H Sodium Level 150 mEQ/L (135-145) H Potassium Level 4.4 mEQ/L (3.4-4.9) Chloride Level 110 mEQ/L (98-107) H Carbon Dioxide Level 29 mEQ/L (20-30) Anion Gap 11 (5-15) Blood Urea Nitrogen 60 mg/dL (7-23) H Creatinine 3.1 mg/dL (0.7-1.2) H Estimat Glomerular Filtration Rate 24.6 mL/min (>60) Glucose Level 94 mg/dL (74-106) Uric Acid 10.4 mg/dL (3.0-7.5) H Calcium Level 7.8 mg/dL (8.6-10.2) L Phosphorus Level 3.4 mg/dL (2.5-4.8) Magnesium Level 2.1 mg/dL (1.7-2.5) Total Bilirubin 0.2 mg/dL (0.0-1.2) Gamma Glutamyl Transpeptidase 48 U/L (8-61) Aspartate Amino Transf (AST/SGOT) 33 U/L (5-40) Alanine Aminotransferase (ALT/SGPT) 34 U/L (3-41) Alkaline Phosphatase 75 U/L (40-129) Total Creatine Kinase 46 U/L (38-174) Troponin I < 0.30 ng/mL (<=0.30) C-Reactive Protein, Quantitative 2.7 mg/dL (< 0.5) H Pro-B-Type Natriuretic Peptide 82011 pg/mL (0-125) H Total Protein 5.5 g/dL (6.6-8.7) L Albumin 2.1 g/dL (3.5-5.2) L Globulin 3.4 g/dL Albumin/Globulin Ratio 0.6 (1.0-2.7) L Urine Eosinophils None seen YAMILET DIOR Dec 13, 2016 10:30
[2016-12-13 11:06] LABS: ABG PCO2 37.7 mmHg (35.0-45.0)
[2016-12-13 11:07] LABS: ABG ALLEN TEST POSITIVE; ABG BASE EXCESS 2.9
[2016-12-13] MEDS: Norco 5mg/325mg tab ORAL PRN ×2 (11:24→19:43)
--- NOTE | 2016-12-13 12:04 | General Progress Note ---
Assessment/Plan Status: unchanged Assessment/Plan -Renal insufficiency. ? Acute on Chronic Cr stable, and slow rising ! Urine output improved Other: -Abnormal mentation. -Respiratory failure, acute with hypoxia-/ Aspiration [place] -Congestive heart failure with pleural effusion, -Mitral regurgitation. -Cardiomyopathy. -History of amphetamine abuse. -History of paroxysmal episodes of atrial fibrillation per report. -Hepatitis C virus with cirrhosis. Plan: Optimize cardiac and pulmonary status- Keep BP in check- Monitor renal parameters- avoid nephrotoxics- per orders- UA 3+ protein Subjective ROS Limited/Unobtainable: Yes Allergies: Coded Allergies: No Known Allergies (Unverified , 04/29/13) Objective Last 24 Hour Vital Signs Date Time Temp Pulse Resp B/P Pulse Ox O2 Delivery O2 Flow Rate FiO2 12/13/16 11:00 71 20 40 12/13/16 11:00 65 18 156/79 100 Mechanical Ventilator 40 12/13/16 10:00 70 18 156/75 100 Mechanical Ventilator 40 12/13/16 09:30 68 16 40 12/13/16 09:00 61 18 147/78 100 Mechanical Ventilator 40 12/13/16 08:32 100.0 12/13/16 08:23 40 12/13/16 08:00 58 12/13/16 08:00 100.0 58 16 150/79 100 Mechanical Ventilator 40 12/13/16 07:01 61 16 40 12/13/16 07:00 99.8 60 18 154/78 100 Mechanical Ventilator 40 12/13/16 06:08 151/72 12/13/16 06:07 151/72 12/13/16 06:00 65 17 154/78 100 Mechanical Ventilator 40 12/13/16 05:37 77 16 40 12/13/16 05:00 100.5 69 17 137/63 100 Mechanical Ventilator 40 12/13/16 04:00 65 12/13/16 04:00 40 12/13/16 04:00 100.0 65 16 156/79 100 Mechanical Ventilator 40 12/13/16 03:27 63 16 40 12/13/16 03:00 64 16 157/83 100 Mechanical Ventilator 40 12/13/16 02:00 65 16 157/78 100 Mechanical Ventilator 40 12/13/16 01:16 74 16 40 12/13/16 01:00 65 16 157/79 100 Mechanical Ventilator 40 12/13/16 00:00 40 12/13/16 00:00 65 12/13/16 00:00 99.8 65 16 159/85 100 Mechanical Ventilator 40 12/12/16 23:51 69 16 40 12/12/16 23:00 65 16 159/78 100 Mechanical Ventilator 40 12/12/16 22:16 149/77 12/12/16 22:00 99.0 79 16 149/77 100 Mechanical Ventilator 40 12/12/16 21:17 72 20 40 12/12/16 21:00 79 16 147/70 97 Mechanical Ventilator 40 12/12/16 20:00 40 12/12/16 20:00 100.0 80 16 138/79 97 Mechanical Ventilator 40 12/12/16 20:00 74 12/12/16 19:00 80 16 140/79 97 Mechanical Ventilator 40 12/12/16 18:40 71 16 40 12/12/16 18:00 74 16 137/75 97 Mechanical Ventilator 40 12/12/16 17:46 133/77 12/12/16 17:00 73 16 134/72 98 Mechanical Ventilator 40 12/12/16 17:00 72 16 40 12/12/16 16:00 40 12/12/16 16:00 98.1 76 16 132/76 98 Mechanical Ventilator 40 12/12/16 16:00 70 12/12/16 15:00 69 16 40 12/12/16 15:00 73 16 132/71 98 Mechanical Ventilator 40 12/12/16 14:00 72 16 132/72 98 Mechanical Ventilator 40 12/12/16 13:22 130/73 12/12/16 13:00 74 16 40 12/12/16 13:00 75 16 134/79 99 Mechanical Ventilator 40 12/12/16 12:00 98.6 76 16 131/74 98 Mechanical Ventilator 40 12/12/16 12:00 40 12/12/16 12:00 68 Intake and Output 12/12/16 12/13/16 19:00 07:00 Intake Total 790 ml 580 ml Output Total 620 ml 730 ml Balance 170 ml -150 ml Free Water 100 ml IV Total 110 ml Tube Feeding 440 ml 370 ml Other 350 ml Output Urine Total 620 ml 730 ml # Bowel Movements 1 Laboratory Tests 12/13/16 04:25: White Blood Count 7.4, Red Blood Count 2.99L, Hemoglobin 9.1L, Hematocrit 28.4L , Mean Corpuscular Volume 95, Mean Corpuscular Hemoglobin 30.5, Mean Corpuscular Hemoglobin Concent 32.2, Red Cell Distribution Width 16.5H, Platelet Count 67L, Mean Platelet Volume 10.2H, Neutrophils (%) (Auto) , Lymphocytes (%) (Auto) , Monocytes (%) (Auto) , Eosinophils (%) (Auto) , Basophils (%) (Auto) , Differential Total Cells Counted 100, Neutrophils % ( Manual) 80H, Lymphocytes % (Manual) 15L, Monocytes % (Manual) 3, Eosinophils % ( Manual) 1, Basophils % (Manual) 0, Band Neutrophils 1, Platelet Estimate DecreasedL, Platelet Morphology Normal, Red Blood Cell Morphology Normal, Erythrocyte Sedimentation Rate 73H, Prothrombin Time 12.9H, Prothromb Time International Ratio 1.3H, Activated Partial Thromboplast Time 42H, Sodium Level 150H, Potassium Level 4.4, Chloride Level 110H, Carbon Dioxide Level 29, Anion Gap 11, Blood Urea Nitrogen 60H, Creatinine 3.1H, Estimat Glomerular Filtration Rate 24.6, Glucose Level 94, Uric Acid 10.4H, Calcium Level 7.8L, Phosphorus Level 3.4, Magnesium Level 2.1, Total Bilirubin 0.2, Gamma Glutamyl Transpeptidase 48, Aspartate Amino Transf (AST/SGOT) 33, Alanine Aminotransferase (ALT/SGPT) 34, Alkaline Phosphatase 75, Total Creatine Kinase 46, Troponin I < 0.30, C-Reactive Protein, Quantitative 2.7H, Pro-B-Type Natriuretic Peptide 47860P, Total Protein 5.5L, Albumin 2.1L, Globulin 3.4, Albumin/Globulin Ratio 0.6L 12/13/16 05:00: Urine Eosinophils None seen 12/13/16 10:58: Arterial Blood pH 7.468H, Arterial Blood Partial Pressure CO2 37.7, Arterial Blood Partial Pressure O2 89.7, Arterial Blood HCO3 26.7H, Arterial Blood Oxygen Saturation 96.6, Arterial Blood Base Excess 2.9, Adrian Test Positive Height (Feet): 5 Height (Inches): 9.00 Weight (Pounds): 150 General Appearance: no apparent distress Neck: stiff neck Cardiovascular: normal rate Respiratory/Chest: decreased breath sounds Abdomen: soft Objective other PE not changed JUSTIN NESS Dec 13, 2016 12:04
[2016-12-13] MEDS ORDERED: NS 275ml ONE ×2 (13:37→17:23)
[2016-12-13] MEDS ORDERED: Tubing IV Secondary IV ONE ×2 (13:37→17:23)
--- NOTE | 2016-12-13 13:47 | Internal Med Progress Note ---
Subjective Date of Service: Dec 13, 2016 Physician Name Ramya Wesley Attending Physician Wild Hawkins MD Current Medications Medications (Trade) Dose Ordered Sig/Melania Route PRN Reason Start Time Stop Time Status Last Admin Dose Admin Acetaminophen (Tylenol) 650 mg Q4H PRN ORAL Fever 12/10/16 16:45 01/09/17 16:44 12/13/16 06:09 Acetaminophen/ Hydrocodone Bitart ([place] 5/325) 1 tab Q6H PRN ORAL severe pain 12/10/16 18:45 12/17/16 18:44 12/13/16 11:24 Albuterol/ Ipratropium (DuoNeb 0.5-3(2.5)mg/3ml) 3 ml Q4H PRN HHN Shortness of Breath 12/10/16 16:45 12/15/16 16:44 Clonidine HCl 0.1 mg 0.1 mg Q8HR ORAL 12/12/16 14:00 01/11/17 13:59 12/13/16 06:08 Dextrose (Dextrose 50%) STAT PRN IV Hypoglycemia 12/11/16 00:45 01/10/17 00:44 Heparin Sodium (Porcine) (Heparin 5000 units/ml) 5,000 units EVERY 12 HOURS SUBQ 12/10/16 21:00 01/09/17 20:59 12/12/16 20:37 Levofloxacin (Levaquin 750mg/ D5W) 150 ml @ 100 mls/hr Q48H IVPB 12/11/16 16:00 12/18/16 15:59 12/11/16 15:59 Nitroglycerin (Nitro-Bid) 1 inch TID@0600,1200,1800 TOPIC 12/12/16 06:00 01/11/17 05:59 12/13/16 12:14 Ondansetron HCl (Zofran) 4 mg Q6H PRN IVP Nausea & Vomiting 12/10/16 18:45 01/09/17 18:44 Pantoprazole (Protonix) 40 mg DAILY IVP 12/11/16 16:00 01/10/17 15:59 12/13/16 08:31 Piperacillin Sod/ Tazobactam Sod/ Dextrose (Zosyn/D5W) 55 ml @ 110 mls/hr Q8HR@0200,1000,1800 IV 12/12/16 18:00 12/18/16 17:59 12/13/16 08:34 Polyethylene Glycol (Miralax) 17 gm DAILYPRN PRN ORAL Constipation 12/11/16 00:45 01/10/17 00:44 Temazepam (Restoril) 15 mg HSPRN PRN ORAL Insomnia 12/11/16 00:45 12/18/16 00:44 12/11/16 00:55 Vitamin A/Vitamin D 1 applic 1 applic EVERY 12 HOURS TOPIC 12/10/16 21:00 01/09/17 20:59 12/13/16 08:34 Vitamin B Complex/ Vit C/Folic Acid (Nephrovite) 1 tab DAILY GT 12/12/16 09:00 01/11/17 08:59 12/13/16 08:31 Allergies: Coded Allergies: No Known Allergies (Unverified , 04/29/13) Subjective 66 YO M admitted with shortness of breath; now respiratory failure. Cover for Int Ochoa-Dr Hawkins. ICU. Intubated and sedated. Objective Last Vital Signs Date Time Temp Pulse Resp B/P Pulse Ox O2 Delivery O2 Flow Rate FiO2 12/13/16 13:03 57 16 144/76 100 Mechanical Ventilator 40 12/13/16 12:00 99.1 12/10/16 01:00 15.0 Laboratory Tests Test 12/13/16 04:25 12/13/16 05:00 12/13/16 10:58 White Blood Count 7.4 K/UL (4.8-10.8) Red Blood Count 2.99 M/UL (4.70-6.10) L Hemoglobin 9.1 G/DL (14.2-18.0) L Hematocrit 28.4 % (42.0-52.0) L Mean Corpuscular Volume 95 FL (80-99) Mean Corpuscular Hemoglobin 30.5 PG (27.0-31.0) Mean Corpuscular Hemoglobin Concent 32.2 G/DL (32.0-36.0) Red Cell Distribution Width 16.5 % (11.6-14.8) H Platelet Count 67 K/UL (150-450) L Mean Platelet Volume 10.2 FL (6.5-10.1) H Neutrophils (%) (Auto) % (45.0-75.0) Lymphocytes (%) (Auto) % (20.0-45.0) Monocytes (%) (Auto) % (1.0-10.0) Eosinophils (%) (Auto) % (0.0-3.0) Basophils (%) (Auto) % (0.0-2.0) Differential Total Cells Counted 100 Neutrophils % (Manual) 80 % (45-75) H Lymphocytes % (Manual) 15 % (20-45) L Monocytes % (Manual) 3 % (1-10) Eosinophils % (Manual) 1 % (0-3) Basophils % (Manual) 0 % (0-2) Band Neutrophils 1 % (0-8) Platelet Estimate Decreased L Platelet Morphology Normal Red Blood Cell Morphology Normal Erythrocyte Sedimentation Rate 73 MM/HR (0-20) H Prothrombin Time 12.9 SEC (9.30-11.50) H Prothromb Time International Ratio 1.3 (0.9-1.1) H Activated Partial Thromboplast Time 42 SEC (23-33) H Sodium Level 150 mEQ/L (135-145) H Potassium Level 4.4 mEQ/L (3.4-4.9) Chloride Level 110 mEQ/L (98-107) H Carbon Dioxide Level 29 mEQ/L (20-30) Anion Gap 11 (5-15) Blood Urea Nitrogen 60 mg/dL (7-23) H Creatinine 3.1 mg/dL (0.7-1.2) H Estimat Glomerular Filtration Rate 24.6 mL/min (>60) Glucose Level 94 mg/dL (74-106) Uric Acid 10.4 mg/dL (3.0-7.5) H Calcium Level 7.8 mg/dL (8.6-10.2) L Phosphorus Level 3.4 mg/dL (2.5-4.8) Magnesium Level 2.1 mg/dL (1.7-2.5) Total Bilirubin 0.2 mg/dL (0.0-1.2) Gamma Glutamyl Transpeptidase 48 U/L (8-61) Aspartate Amino Transf (AST/SGOT) 33 U/L (5-40) Alanine Aminotransferase (ALT/SGPT) 34 U/L (3-41) Alkaline Phosphatase 75 U/L (40-129) Total Creatine Kinase 46 U/L (38-174) Troponin I < 0.30 ng/mL (<=0.30) C-Reactive Protein, Quantitative 2.7 mg/dL (< 0.5) H Pro-B-Type Natriuretic Peptide 60111 pg/mL (0-125) H Total Protein 5.5 g/dL (6.6-8.7) L Albumin 2.1 g/dL (3.5-5.2) L Globulin 3.4 g/dL Albumin/Globulin Ratio 0.6 (1.0-2.7) L Urine Eosinophils None seen Arterial Blood pH 7.468 (7.350-7.450) Arterial Blood Partial Pressure CO2 37.7 mmHg (35.0-45.0) Arterial Blood Partial Pressure O2 89.7 mmHg (75.0-100.0) Arterial Blood HCO3 26.7 mmol/L (22.0-26.0) H Arterial Blood Oxygen Saturation 96.6 % (92.0-98.0) Arterial Blood Base Excess 2.9 Adrian Test Positive Microbiology Date/Time Source Procedure Growth Status 12/11/16 16:10 Blood Blood Culture - Preliminary NO GROWTH AFTER 24 HOURS Resulted 12/11/16 16:00 Blood Blood Culture - Preliminary NO GROWTH AFTER 24 HOURS Resulted 12/11/16 15:43 Sputum Gram Stain - Final Complete 12/11/16 15:43 Sputum Sputum Culture - Final NORMAL UPPER RESPIRATORY GOPI PRESENT Complete 12/11/16 19:00 Urine,Clean Catch Urine Culture - Final NO GROWTH AFTER 48 HOURS Complete Intake and Output 12/12/16 12/13/16 19:00 07:00 Intake Total 790 ml 580 ml Output Total 620 ml 730 ml Balance 170 ml -150 ml Free Water 100 ml IV Total 110 ml Tube Feeding 440 ml 370 ml Other 350 ml Output Urine Total 620 ml 730 ml # Bowel Movements 1 Objective General Appearance: WD/WN, moderate distress EENT: normal ENT inspection Neck: non-tender, normal alignment, supple Cardiovascular: normal peripheral pulses, normal rate, regular rhythm, no gallop/murmur, no JVD Respiratory/Chest: Mechanical vent; crackles/rales, rhonchi - bilaterally, expiratory wheezing Abdomen: normal bowel sounds, non tender, soft, no organomegaly, no mass Extremities: normal range of motion Neurologic: cardiology rn II-XII grossly normal, no motor/sensory deficits Skin: normal pigmentation, warm/dry Assessment/Plan Problem List: (1) SOB (shortness of breath) (2) Respiratory failure Assessment & Plan: Worsening. Now intubated. See pulmonary note. (3) Renal failure Assessment & Plan: See nephrology note. (4) HTN (hypertension) (5) CAD (coronary artery disease) (6) CHF (congestive heart failure) Assessment & Plan: See cardiology note. Cont lasix. (7) Anemia (8) Uncontrolled hypertension (9) Pneumonia Assessment & Plan: Cont zosyn and levaquin-see ID note. (10) Pleural effusion Status: not improved RAMYA WESLEY Dec 13, 2016 13:47
[2016-12-13] MEDS: LORazepam Inj 2mg/ml 1ml IV PRN ×2 (16:12→20:22)
--- NOTE | 2016-12-13 18:17 | Cardiology Progress Note ---
Assessment/Plan Status: stable, unchanged Status Narrative Pt w/ respiratory failure, pleural effusions, possible pneumonia, and diastolic chf He is hypertensive . Assessment/Plan Will give one dose iv lasix today, for pulm congestion. May eventually benefit from thoracentesis. Followup labs in am Weaning from vent per pulm. Subjective ROS Limited/Unobtainable: Yes Subjective Intubated/ awake Objective Last 24 Hour Vital Signs Date Time Temp Pulse Resp B/P Pulse Ox O2 Delivery O2 Flow Rate FiO2 12/13/16 18:01 60 18 158/86 100 Mechanical Ventilator 40 12/13/16 17:15 61 16 40 12/13/16 17:15 157/91 12/13/16 17:02 99.4 67 18 157/91 100 Mechanical Ventilator 40 12/13/16 16:02 65 16 155/78 100 Mechanical Ventilator 40 12/13/16 16:00 40 12/13/16 16:00 71 12/13/16 15:20 61 16 40 12/13/16 15:00 64 16 152/71 100 Mechanical Ventilator 40 12/13/16 14:00 62 18 151/72 100 Mechanical Ventilator 40 12/13/16 13:54 150/78 12/13/16 13:03 57 16 144/76 100 Mechanical Ventilator 40 12/13/16 13:00 61 16 40 12/13/16 12:14 139/78 12/13/16 12:00 40 12/13/16 12:00 99.1 58 16 139/78 100 Mechanical Ventilator 40 12/13/16 12:00 58 12/13/16 11:00 71 20 40 12/13/16 11:00 65 18 156/79 100 Mechanical Ventilator 40 12/13/16 10:00 70 18 156/75 100 Mechanical Ventilator 40 12/13/16 09:30 68 16 40 12/13/16 09:00 61 18 147/78 100 Mechanical Ventilator 40 12/13/16 08:32 100.0 12/13/16 08:23 40 12/13/16 08:00 58 12/13/16 08:00 100.0 58 16 150/79 100 Mechanical Ventilator 40 12/13/16 07:01 61 16 40 12/13/16 07:00 99.8 60 18 154/78 100 Mechanical Ventilator 40 12/13/16 06:08 151/72 1/28/17 06:07 151/72 12/13/16 06:00 65 17 154/78 100 Mechanical Ventilator 40 12/13/16 05:37 77 16 40 12/13/16 05:00 100.5 69 17 137/63 100 Mechanical Ventilator 40 12/13/16 04:00 65 12/13/16 04:00 40 12/13/16 04:00 100.0 65 16 156/79 100 Mechanical Ventilator 40 12/13/16 03:27 63 16 40 12/13/16 03:00 64 16 157/83 100 Mechanical Ventilator 40 12/13/16 02:00 65 16 157/78 100 Mechanical Ventilator 40 12/13/16 01:16 74 16 40 12/13/16 01:00 65 16 157/79 100 Mechanical Ventilator 40 12/13/16 00:00 40 12/13/16 00:00 65 12/13/16 00:00 99.8 65 16 159/85 100 Mechanical Ventilator 40 12/12/16 23:51 69 16 40 12/12/16 23:00 65 16 159/78 100 Mechanical Ventilator 40 12/12/16 22:16 149/77 12/12/16 22:00 99.0 79 16 149/77 100 Mechanical Ventilator 40 12/12/16 21:17 72 20 40 12/12/16 21:00 79 16 147/70 97 Mechanical Ventilator 40 12/12/16 20:00 40 12/12/16 20:00 100.0 80 16 138/79 97 Mechanical Ventilator 40 12/12/16 20:00 74 12/12/16 19:00 80 16 140/79 97 Mechanical Ventilator 40 12/12/16 18:40 71 16 40 General Appearance: WD/WN, alert, mild distress, on vent Neck: supple, no JVD Rhythm: NSR Cardiovascular: normal rate, regular rhythm, no gallop/murmur Respiratory/Chest: rhonchi - bilaterally Abdomen: normal bowel sounds, non tender, soft Extremities: no swelling Intake and Output 12/12/16 12/13/16 19:00 07:00 Intake Total 790 ml 580 ml Output Total 620 ml 730 ml Balance 170 ml -150 ml Free Water 100 ml IV Total 110 ml Tube Feeding 440 ml 370 ml Other 350 ml Output Urine Total 620 ml 730 ml # Bowel Movements 1 Laboratory Tests Test 12/13/16 04:25 12/13/16 05:00 12/13/16 10:58 White Blood Count 7.4 K/UL (4.8-10.8) Red Blood Count 2.99 M/UL (4.70-6.10) L Hemoglobin 9.1 G/DL (14.2-18.0) L Hematocrit 28.4 % (42.0-52.0) L Mean Corpuscular Volume 95 FL (80-99) Mean Corpuscular Hemoglobin 30.5 PG (27.0-31.0) Mean Corpuscular Hemoglobin Concent 32.2 G/DL (32.0-36.0) Red Cell Distribution Width 16.5 % (11.6-14.8) H Platelet Count 67 K/UL (150-450) L Mean Platelet Volume 10.2 FL (6.5-10.1) H Neutrophils (%) (Auto) % (45.0-75.0) Lymphocytes (%) (Auto) % (20.0-45.0) Monocytes (%) (Auto) % (1.0-10.0) Eosinophils (%) (Auto) % (0.0-3.0) Basophils (%) (Auto) % (0.0-2.0) Differential Total Cells Counted 100 Neutrophils % (Manual) 80 % (45-75) H Lymphocytes % (Manual) 15 % (20-45) L Monocytes % (Manual) 3 % (1-10) Eosinophils % (Manual) 1 % (0-3) Basophils % (Manual) 0 % (0-2) Band Neutrophils 1 % (0-8) Platelet Estimate Decreased L Platelet Morphology Normal Red Blood Cell Morphology Normal Erythrocyte Sedimentation Rate 73 MM/HR (0-20) H Prothrombin Time 12.9 SEC (9.30-11.50) H Prothromb Time International Ratio 1.3 (0.9-1.1) H Activated Partial Thromboplast Time 42 SEC (23-33) H Sodium Level 150 mEQ/L (135-145) H Potassium Level 4.4 mEQ/L (3.4-4.9) Chloride Level 110 mEQ/L (98-107) H Carbon Dioxide Level 29 mEQ/L (20-30) Anion Gap 11 (5-15) Blood Urea Nitrogen 60 mg/dL (7-23) H Creatinine 3.1 mg/dL (0.7-1.2) H Estimat Glomerular Filtration Rate 24.6 mL/min (>60) Glucose Level 94 mg/dL (74-106) Uric Acid 10.4 mg/dL (3.0-7.5) H Calcium Level 7.8 mg/dL (8.6-10.2) L Phosphorus Level 3.4 mg/dL (2.5-4.8) Magnesium Level 2.1 mg/dL (1.7-2.5) Total Bilirubin 0.2 mg/dL (0.0-1.2) Gamma Glutamyl Transpeptidase 48 U/L (8-61) Aspartate Amino Transf (AST/SGOT) 33 U/L (5-40) Alanine Aminotransferase (ALT/SGPT) 34 U/L (3-41) Alkaline Phosphatase 75 U/L (40-129) Total Creatine Kinase 46 U/L (38-174) Troponin I < 0.30 ng/mL (<=0.30) C-Reactive Protein, Quantitative 2.7 mg/dL (< 0.5) H Pro-B-Type Natriuretic Peptide 59000 pg/mL (0-125) H Total Protein 5.5 g/dL (6.6-8.7) L Albumin 2.1 g/dL (3.5-5.2) L Globulin 3.4 g/dL Albumin/Globulin Ratio 0.6 (1.0-2.7) L Urine Eosinophils None seen Arterial Blood pH 7.468 (7.350-7.450) Arterial Blood Partial Pressure CO2 37.7 mmHg (35.0-45.0) Arterial Blood Partial Pressure O2 89.7 mmHg (75.0-100.0) Arterial Blood HCO3 26.7 mmol/L (22.0-26.0) H Arterial Blood Oxygen Saturation 96.6 % (92.0-98.0) Arterial Blood Base Excess 2.9 Adrian Test Positive Microbiology Date/Time Source Procedure Growth Status 12/11/16 16:10 Blood Blood Culture - Preliminary NO GROWTH AFTER 24 HOURS Resulted 12/11/16 16:00 Blood Blood Culture - Preliminary NO GROWTH AFTER 24 HOURS Resulted 12/11/16 15:43 Sputum Gram Stain - Final Complete 12/11/16 15:43 Sputum Sputum Culture - Final NORMAL UPPER RESPIRATORY GOPI PRESENT Complete 12/11/16 19:00 Urine,Clean Catch Urine Culture - Final NO GROWTH AFTER 48 HOURS Complete SARA GREENE Dec 13, 2016 18:17
[2016-12-14] VITALS (24 sets, daily range): BP systolic 153–169; BP diastolic 86–101
[2016-12-14] MEDS: LORazepam Inj 2mg/ml 1ml IV PRN ×4 (00:43→16:18)
[2016-12-14] MEDS: Piperacillin/Tazobactam 2.25 GM in D5W 55 ML IV SCH ×3 (02:08→17:34)
[2016-12-14] MEDS: Nitroglycerin 2% oint pkt TOPIC SCH ×3 (05:32→17:34)
[2016-12-14 05:35] LABS: MEAN CORPUSCULAR HEMOGLOBIN 30.5 PG (27.0-31.0); MEAN CORPUSCULAR VOLUME 95 FL (80-99); MEAN PLATELET VOLUME 10.7 FL (6.5-10.1); PLATELET COUNT 49 K/UL (150-450); RED CELL DISTRIBUTION WIDTH 16.1 % (11.6-14.8); WHITE BLOOD COUNT 7.4 K/UL (4.8-10.8)
[2016-12-14 06:10] LABS: ALBUMIN/GLOBULIN RATIO 0.6 (1.0-2.7); CALCIUM 7.6 mg/dL (8.6-10.2); CREATININE 3.1 mg/dL (0.7-1.2); GLOMERULAR FILTRATION RATE 24.6 mL/min (>60); MAGNESIUM 2.1 mg/dL (1.7-2.5); PHOSPHORUS 3.8 mg/dL (2.5-4.8); POTASSIUM 4.3 mEQ/L (3.4-4.9); TOTAL PROTEIN 5.9 g/dL (6.6-8.7)
[2016-12-14] MEDS: Heparin 5000 units/ml inj SUBQ SCH (07:54)
[2016-12-14 08:26] LABS: ABG ALLEN TEST POSITIVE; ABG BASE EXCESS 3.6; ABG PCO2 44.6 mmHg (35.0-45.0)
[2016-12-14 08:35] LABS: BAND NEUTROPHILS % (MANUAL) 3 % (0-8); BASOPHILS % (MANUAL) 0 % (0-2); EOSINOPHILS % (MANUAL) 2 % (0-3); LYMPHOCYTES % (MANUAL) 14 % (20-45); NEUTROPHILS % (MANUAL) 73 % (45-75); PLATELET ESTIMATE DECREASED; PLATELET MORPHOLOGY NORMAL; TOTAL CELLS COUNTED 100
[2016-12-14] MEDS: Nephrovite tab GT SCH (09:39)
[2016-12-14] MEDS: Pantoprazole Inj IVP SCH (09:40)
[2016-12-14] MEDS: Vitamin A&D Oint 2oz Tube TOPIC SCH ×2 (09:40→21:08)
--- NOTE | 2016-12-14 11:06 | Pulmonolgy Critical Care Note ---
Critical Care - Asmt/Plan Problems: (1) Aspiration pneumonia (2) Respiratory failure (3) Pleural effusion (4) ATN (acute tubular necrosis) (5) Hepatitis C (6) CAD (coronary artery disease) Respiratory: monitor respiratory rate, adjust FIO2, CXR Cardiac: continue to monitor HR/BP Renal: F/U I&O, keep IV fluid, check electrolytes Infectious Disease: check cultures, continue antibiotics Gastrointestinal: continue feedings/current rate Endocrine: monitor blood sugar, check HgA1C, continue sliding scale insulin Hematologic: monitor H/H, transfuse if hgb<8.5 Neurologic: PRN Ativan, keep patient comfortable Affect: PRN ativan Prophylaxis: Protonix, Heparin Notes Reviewed: handcrew foreman, renal Discussed with: nurses, case management managersurgical manager - Objective Last 24 Hour Vital Signs Date Time Temp Pulse Resp B/P Pulse Ox O2 Delivery O2 Flow Rate FiO2 12/14/16 10:00 67 16 160/93 98 Mechanical Ventilator 40 12/14/16 09:15 74 20 60 12/14/16 09:08 100 12/14/16 09:00 76 16 166/99 100 Mechanical Ventilator 40 12/14/16 08:09 65 12/14/16 08:07 97.5 65 16 160/86 100 Mechanical Ventilator 40 12/14/16 08:00 40 12/14/16 07:00 61 13 160/93 100 Mechanical Ventilator 40 12/14/16 06:40 61 16 40 12/14/16 06:00 63 16 160/92 100 Mechanical Ventilator 40 12/14/16 05:32 159/99 12/14/16 05:32 159/99 12/14/16 05:00 81 19 159/99 100 Mechanical Ventilator 40 12/14/16 05:00 74 16 40 12/14/16 04:00 40 12/14/16 04:00 97.6 62 16 163/92 100 Mechanical Ventilator 40 12/14/16 04:00 63 12/14/16 03:00 67 17 159/97 99 Mechanical Ventilator 40 12/14/16 02:35 64 16 40 12/14/16 02:00 76 25 162/94 96 Mechanical Ventilator 40 12/14/16 01:00 60 16 169/92 100 Mechanical Ventilator 40 12/14/16 00:35 60 16 40 12/14/16 00:00 97.2 54 16 156/91 100 Mechanical Ventilator 40 12/14/16 00:00 54 12/14/16 00:00 40 12/13/16 23:00 62 14 160/108 100 Mechanical Ventilator 40 12/13/16 22:45 64 16 40 12/13/16 22:11 158/100 12/13/16 22:00 60 16 158/100 100 Mechanical Ventilator 40 12/13/16 21:10 55 16 40 12/13/16 21:00 55 16 159/97 100 Mechanical Ventilator 40 12/13/16 20:25 97.8 12/13/16 20:00 40 12/13/16 20:00 58 12/13/16 20:00 97.8 58 16 141/96 100 Mechanical Ventilator 40 12/13/16 19:00 63 16 160/97 100 Mechanical Ventilator 40 12/13/16 18:53 56 16 40 12/13/16 18:01 60 18 158/86 100 Mechanical Ventilator 40 12/13/16 17:15 61 16 40 12/13/16 17:15 157/91 12/13/16 17:02 99.4 67 18 157/91 100 Mechanical Ventilator 40 12/13/16 16:02 65 16 155/78 100 Mechanical Ventilator 40 12/13/16 16:00 40 12/13/16 16:00 71 12/13/16 15:20 61 16 40 12/13/16 15:00 64 16 152/71 100 Mechanical Ventilator 40 12/13/16 14:00 62 18 151/72 100 Mechanical Ventilator 40 12/13/16 13:54 150/78 12/13/16 13:03 57 16 144/76 100 Mechanical Ventilator 40 12/13/16 13:00 61 16 40 12/13/16 12:14 139/78 12/13/16 12:00 40 12/13/16 12:00 99.1 58 16 139/78 100 Mechanical Ventilator 40 12/13/16 12:00 58 Status: sedated Condition: critical HEENT: atraumatic Neck: full ROM Lungs: clear, chest wall tender Heart: HR/BP stable, HR/BP unstable, regular Abdomen: soft, non-tender, active bowel sounds, feeding tube Extremities: no C/C/E, edema Decubiti: location, stage Micro: Microbiology Date/Time Source Procedure Growth Status 12/11/16 16:10 Blood Blood Culture - Preliminary NO GROWTH AFTER 48 HOURS Resulted 12/11/16 16:00 Blood Blood Culture - Preliminary NO GROWTH AFTER 48 HOURS Resulted 12/11/16 15:43 Sputum Gram Stain - Final Complete 12/11/16 15:43 Sputum Sputum Culture - Final NORMAL UPPER RESPIRATORY GOPI PRESENT Complete 12/11/16 19:00 Urine,Clean Catch Urine Culture - Final NO GROWTH AFTER 48 HOURS Complete Accucheck: 128 Critical Care - Subjective ROS Limited/Unobtainable: Yes ICU Day: 4 Intubation Day: 4 Condition: critical EKG Rhythm: Sinus Rhythm FI02: 40 Vent Support Breath Rate: 16 Vent Support Mode: CPAP Vent Tidal Volume: 600 Sputum Amount: Small PEEP: 0.0 PIP: 25 Tube Feeding Amount: 30 I&O: Intake and Output 12/13/16 12/14/16 19:00 07:00 Intake Total 670 ml 465 ml Output Total 575 ml 680 ml Balance 95 ml -215 ml Free Water 50 ml 50 ml IV Total 260 ml 55 ml Tube Feeding 360 ml 360 ml Output Urine Total 575 ml 680 ml # Bowel Movements 5 CXR: ET in good position, bilateral effusion ET-Tube: 7.5 ET Position: 22 Labs: Laboratory Tests Test 12/14/16 04:00 12/14/16 05:00 12/14/16 08:22 Urine Eosinophils None seen White Blood Count 7.4 K/UL (4.8-10.8) Red Blood Count 2.90 M/UL (4.70-6.10) L Hemoglobin 8.8 G/DL (14.2-18.0) L Hematocrit 27.6 % (42.0-52.0) L Mean Corpuscular Volume 95 FL (80-99) Mean Corpuscular Hemoglobin 30.5 PG (27.0-31.0) Mean Corpuscular Hemoglobin Concent 32.0 G/DL (32.0-36.0) Red Cell Distribution Width 16.1 % (11.6-14.8) H Platelet Count 49 K/UL (150-450) L Mean Platelet Volume 10.7 FL (6.5-10.1) H Neutrophils (%) (Auto) % (45.0-75.0) Lymphocytes (%) (Auto) % (20.0-45.0) Monocytes (%) (Auto) % (1.0-10.0) Eosinophils (%) (Auto) % (0.0-3.0) Basophils (%) (Auto) % (0.0-2.0) Differential Total Cells Counted 100 Neutrophils % (Manual) 73 % (45-75) Lymphocytes % (Manual) 14 % (20-45) L Monocytes % (Manual) 8 % (1-10) Eosinophils % (Manual) 2 % (0-3) Basophils % (Manual) 0 % (0-2) Band Neutrophils 3 % (0-8) Platelet Estimate Decreased L Platelet Morphology Normal Red Blood Cell Morphology Normal Sodium Level 149 mEQ/L (135-145) H Potassium Level 4.3 mEQ/L (3.4-4.9) Chloride Level 110 mEQ/L (98-107) H Carbon Dioxide Level 27 mEQ/L (20-30) Anion Gap 12 (5-15) Blood Urea Nitrogen 59 mg/dL (7-23) H Creatinine 3.1 mg/dL (0.7-1.2) H Estimat Glomerular Filtration Rate 24.6 mL/min (>60) Glucose Level 101 mg/dL (74-106) Calcium Level 7.6 mg/dL (8.6-10.2) L Phosphorus Level 3.8 mg/dL (2.5-4.8) Magnesium Level 2.1 mg/dL (1.7-2.5) Total Bilirubin 0.4 mg/dL (0.0-1.2) Aspartate Amino Transf (AST/SGOT) 33 U/L (5-40) Alanine Aminotransferase (ALT/SGPT) 31 U/L (3-41) Alkaline Phosphatase 65 U/L (40-129) Pro-B-Type Natriuretic Peptide 54399 pg/mL (0-125) H Total Protein 5.9 g/dL (6.6-8.7) L Albumin 2.4 g/dL (3.5-5.2) L Globulin 3.5 g/dL Albumin/Globulin Ratio 0.6 (1.0-2.7) L Arterial Blood pH 7.423 (7.350-7.450) Arterial Blood Partial Pressure CO2 44.6 mmHg (35.0-45.0) Arterial Blood Partial Pressure O2 124.3 mmHg (75.0-100.0) H Arterial Blood HCO3 28.5 mmol/L (22.0-26.0) H Arterial Blood Oxygen Saturation 97.5 % (92.0-98.0) Arterial Blood Base Excess 3.6 Adrian Test Positive YAMILET DIOR Dec 14, 2016 11:06
--- NOTE | 2016-12-14 13:01 | General Progress Note ---
Assessment/Plan Status: unchanged Assessment/Plan -Renal insufficiency. ? Acute on Chronic Cr stable, and slow rising ! Urine output improved Other: -Abnormal mentation. -Respiratory failure, acute with hypoxia-/ Aspiration [place] -Congestive heart failure with pleural effusion, -Mitral regurgitation. -Cardiomyopathy. -History of amphetamine abuse. -History of paroxysmal episodes of atrial fibrillation per report. -Hepatitis C virus with cirrhosis. Plan: Optimize cardiac and pulmonary status- Keep BP in check- Monitor renal parameters- avoid nephrotoxics- per orders- UA 3+ protein Subjective ROS Limited/Unobtainable: Yes Allergies: Coded Allergies: No Known Allergies (Unverified , 04/29/13) Objective Last 24 Hour Vital Signs Date Time Temp Pulse Resp B/P Pulse Ox O2 Delivery O2 Flow Rate FiO2 12/14/16 12:00 40 12/14/16 12:00 64 12/14/16 12:00 158/95 12/14/16 12:00 97.6 64 16 158/95 99 Mechanical Ventilator 40 12/14/16 11:00 64 16 162/90 99 Mechanical Ventilator 40 12/14/16 10:40 71 16 40 12/14/16 10:00 67 16 160/93 98 Mechanical Ventilator 40 12/14/16 09:15 74 20 60 12/14/16 09:08 100 12/14/16 09:00 76 16 166/99 100 Mechanical Ventilator 40 12/14/16 08:09 65 12/14/16 08:07 97.5 65 16 160/86 100 Mechanical Ventilator 40 12/14/16 08:00 40 12/14/16 07:00 61 13 160/93 100 Mechanical Ventilator 40 12/14/16 06:40 61 16 40 12/14/16 06:00 63 16 160/92 100 Mechanical Ventilator 40 12/14/16 05:32 159/99 12/14/16 05:32 159/99 12/14/16 05:00 81 19 159/99 100 Mechanical Ventilator 40 12/14/16 05:00 74 16 40 12/14/16 04:00 40 12/14/16 04:00 97.6 62 16 163/92 100 Mechanical Ventilator 40 12/14/16 04:00 63 12/14/16 03:00 67 17 159/97 99 Mechanical Ventilator 40 12/14/16 02:35 64 16 40 12/14/16 02:00 76 25 162/94 96 Mechanical Ventilator 40 12/14/16 01:00 60 16 169/92 100 Mechanical Ventilator 40 12/14/16 00:35 60 16 40 12/14/16 00:00 97.2 54 16 156/91 100 Mechanical Ventilator 40 12/14/16 00:00 54 12/14/16 00:00 40 12/13/16 23:00 62 14 160/108 100 Mechanical Ventilator 40 12/13/16 22:45 64 16 40 12/13/16 22:11 158/100 12/13/16 22:00 60 16 158/100 100 Mechanical Ventilator 40 12/13/16 21:10 55 16 40 12/13/16 21:00 55 16 159/97 100 Mechanical Ventilator 40 12/13/16 20:25 97.8 12/13/16 20:00 40 12/13/16 20:00 58 12/13/16 20:00 97.8 58 16 141/96 100 Mechanical Ventilator 40 12/13/16 19:00 63 16 160/97 100 Mechanical Ventilator 40 12/13/16 18:53 56 16 40 12/13/16 18:01 60 18 158/86 100 Mechanical Ventilator 40 12/13/16 17:15 61 16 40 12/13/16 17:15 157/91 12/13/16 17:02 99.4 67 18 157/91 100 Mechanical Ventilator 40 12/13/16 16:02 65 16 155/78 100 Mechanical Ventilator 40 12/13/16 16:00 40 12/13/16 16:00 71 12/13/16 15:20 61 16 40 12/13/16 15:00 64 16 152/71 100 Mechanical Ventilator 40 12/13/16 14:00 62 18 151/72 100 Mechanical Ventilator 40 12/13/16 13:54 150/78 12/13/16 13:03 57 16 144/76 100 Mechanical Ventilator 40 Intake and Output 12/13/16 12/14/16 19:00 07:00 Intake Total 670 ml 465 ml Output Total 575 ml 680 ml Balance 95 ml -215 ml Free Water 50 ml 50 ml IV Total 260 ml 55 ml Tube Feeding 360 ml 360 ml Output Urine Total 575 ml 680 ml # Bowel Movements 5 Laboratory Tests 12/14/16 04:00: Urine Eosinophils None seen 12/14/16 05:00: White Blood Count 7.4, Red Blood Count 2.90L, Hemoglobin 8.8L, Hematocrit 27.6L , Mean Corpuscular Volume 95, Mean Corpuscular Hemoglobin 30.5, Mean Corpuscular Hemoglobin Concent 32.0, Red Cell Distribution Width 16.1H, Platelet Count 49L, Mean Platelet Volume 10.7H, Neutrophils (%) (Auto) , Lymphocytes (%) (Auto) , Monocytes (%) (Auto) , Eosinophils (%) (Auto) , Basophils (%) (Auto) , Differential Total Cells Counted 100, Neutrophils % ( Manual) 73, Lymphocytes % (Manual) 14L, Monocytes % (Manual) 8, Eosinophils % ( Manual) 2, Basophils % (Manual) 0, Band Neutrophils 3, Platelet Estimate DecreasedL, Platelet Morphology Normal, Red Blood Cell Morphology Normal, Sodium Level 149H, Potassium Level 4.3, Chloride Level 110H, Carbon Dioxide Level 27, Anion Gap 12, Blood Urea Nitrogen 59H, Creatinine 3.1H, Estimat Glomerular Filtration Rate 24.6, Glucose Level 101, Calcium Level 7.6L, Phosphorus Level 3.8, Magnesium Level 2.1, Total Bilirubin 0.4, Aspartate Amino Transf (AST/SGOT) 33, Alanine Aminotransferase (ALT/SGPT) 31, Alkaline Phosphatase 65, Pro-B-Type Natriuretic Peptide 80839L, Total Protein 5.9L, Albumin 2.4L, Globulin 3.5, Albumin/Globulin Ratio 0.6L 12/14/16 08:22: Arterial Blood pH 7.423, Arterial Blood Partial Pressure CO2 44.6, Arterial Blood Partial Pressure O2 124.3H, Arterial Blood HCO3 28.5H, Arterial Blood Oxygen Saturation 97.5, Arterial Blood Base Excess 3.6, Adrian Test Positive Height (Feet): 5 Height (Inches): 9.00 Weight (Pounds): 150 EENT: other - on Vent Cardiovascular: normal rate Respiratory/Chest: decreased breath sounds Abdomen: distended Objective other PE not changed JUSTIN NESS Dec 14, 2016 13:01
--- NOTE | 2016-12-14 14:19 | Internal Med Progress Note ---
Subjective Date of Service: Dec 14, 2016 Physician Name aRmya Wesley Attending Physician Wild Hawkins MD Current Medications Medications (Trade) Dose Ordered Sig/Melania Route PRN Reason Start Time Stop Time Status Last Admin Dose Admin Acetaminophen (Tylenol) 650 mg Q4H PRN ORAL Fever 12/10/16 16:45 01/09/17 16:44 12/13/16 06:09 Acetaminophen/ Hydrocodone Bitart ([place] 5/325) 1 tab Q6H PRN ORAL severe pain 12/10/16 18:45 12/17/16 18:44 12/13/16 19:43 Albuterol/ Ipratropium (DuoNeb 0.5-3(2.5)mg/3ml) 3 ml Q4H PRN HHN Shortness of Breath 12/10/16 16:45 12/15/16 16:44 Clonidine HCl 0.1 mg 0.1 mg Q8HR ORAL 12/12/16 14:00 01/11/17 13:59 12/14/16 05:32 Dextrose (Dextrose 50%) STAT PRN IV Hypoglycemia 12/11/16 00:45 01/10/17 00:44 Levofloxacin (Levaquin 750mg/ D5W) 150 ml @ 100 mls/hr Q48H IVPB 12/11/16 16:00 12/18/16 15:59 12/13/16 16:13 Lorazepam (Ativan 2mg/ml 1ml) 1 mg Q4H PRN IV For Anxiety 12/13/16 15:45 12/20/16 15:44 12/14/16 09:45 Nitroglycerin (Nitro-Bid) 1 inch TID@0600,1200,1800 TOPIC 12/12/16 06:00 01/11/17 05:59 12/14/16 12:00 Ondansetron HCl (Zofran) 4 mg Q6H PRN IVP Nausea & Vomiting 12/10/16 18:45 01/09/17 18:44 Pantoprazole (Protonix) 40 mg DAILY IVP 12/11/16 16:00 01/10/17 15:59 12/14/16 09:40 Piperacillin Sod/ Tazobactam Sod/ Dextrose (Zosyn/D5W) 55 ml @ 110 mls/hr Q8HR@0200,1000,1800 IV 12/12/16 18:00 12/18/16 17:59 12/14/16 09:41 Polyethylene Glycol (Miralax) 17 gm DAILYPRN PRN ORAL Constipation 12/11/16 00:45 01/10/17 00:44 Temazepam (Restoril) 15 mg HSPRN PRN ORAL Insomnia 12/11/16 00:45 12/18/16 00:44 12/13/16 19:43 Vitamin A/Vitamin D 1 applic 1 applic EVERY 12 HOURS TOPIC 12/10/16 21:00 01/09/17 20:59 12/14/16 09:40 Vitamin B Complex/ Vit C/Folic Acid (Nephrovite) 1 tab DAILY GT 12/12/16 09:00 01/11/17 08:59 12/14/16 09:39 Allergies: Coded Allergies: No Known Allergies (Unverified , 04/29/13) ROS Limited/Unobtainable: Yes Subjective 66 YO M admitted with shortness of breath; now respiratory failure. Cover for Int Med-Dr Hawkins. ICU. Intubated and sedated. Objective Last Vital Signs Date Time Temp Pulse Resp B/P Pulse Ox O2 Delivery O2 Flow Rate FiO2 12/14/16 14:00 66 16 167/93 100 Mechanical Ventilator 40 12/14/16 12:00 97.6 12/10/16 01:00 15.0 Laboratory Tests Test 12/14/16 04:00 12/14/16 05:00 12/14/16 08:22 Urine Eosinophils None seen White Blood Count 7.4 K/UL (4.8-10.8) Red Blood Count 2.90 M/UL (4.70-6.10) L Hemoglobin 8.8 G/DL (14.2-18.0) L Hematocrit 27.6 % (42.0-52.0) L Mean Corpuscular Volume 95 FL (80-99) Mean Corpuscular Hemoglobin 30.5 PG (27.0-31.0) Mean Corpuscular Hemoglobin Concent 32.0 G/DL (32.0-36.0) Red Cell Distribution Width 16.1 % (11.6-14.8) H Platelet Count 49 K/UL (150-450) L Mean Platelet Volume 10.7 FL (6.5-10.1) H Neutrophils (%) (Auto) % (45.0-75.0) Lymphocytes (%) (Auto) % (20.0-45.0) Monocytes (%) (Auto) % (1.0-10.0) Eosinophils (%) (Auto) % (0.0-3.0) Basophils (%) (Auto) % (0.0-2.0) Differential Total Cells Counted 100 Neutrophils % (Manual) 73 % (45-75) Lymphocytes % (Manual) 14 % (20-45) L Monocytes % (Manual) 8 % (1-10) Eosinophils % (Manual) 2 % (0-3) Basophils % (Manual) 0 % (0-2) Band Neutrophils 3 % (0-8) Platelet Estimate Decreased L Platelet Morphology Normal Red Blood Cell Morphology Normal Sodium Level 149 mEQ/L (135-145) H Potassium Level 4.3 mEQ/L (3.4-4.9) Chloride Level 110 mEQ/L (98-107) H Carbon Dioxide Level 27 mEQ/L (20-30) Anion Gap 12 (5-15) Blood Urea Nitrogen 59 mg/dL (7-23) H Creatinine 3.1 mg/dL (0.7-1.2) H Estimat Glomerular Filtration Rate 24.6 mL/min (>60) Glucose Level 101 mg/dL (74-106) Calcium Level 7.6 mg/dL (8.6-10.2) L Phosphorus Level 3.8 mg/dL (2.5-4.8) Magnesium Level 2.1 mg/dL (1.7-2.5) Total Bilirubin 0.4 mg/dL (0.0-1.2) Aspartate Amino Transf (AST/SGOT) 33 U/L (5-40) Alanine Aminotransferase (ALT/SGPT) 31 U/L (3-41) Alkaline Phosphatase 65 U/L (40-129) Pro-B-Type Natriuretic Peptide 59143 pg/mL (0-125) H Total Protein 5.9 g/dL (6.6-8.7) L Albumin 2.4 g/dL (3.5-5.2) L Globulin 3.5 g/dL Albumin/Globulin Ratio 0.6 (1.0-2.7) L Arterial Blood pH 7.423 (7.350-7.450) Arterial Blood Partial Pressure CO2 44.6 mmHg (35.0-45.0) Arterial Blood Partial Pressure O2 124.3 mmHg (75.0-100.0) H Arterial Blood HCO3 28.5 mmol/L (22.0-26.0) H Arterial Blood Oxygen Saturation 97.5 % (92.0-98.0) Arterial Blood Base Excess 3.6 Adrian Test Positive Microbiology Date/Time Source Procedure Growth Status 12/11/16 16:10 Blood Blood Culture - Preliminary NO GROWTH AFTER 48 HOURS Resulted 12/11/16 16:00 Blood Blood Culture - Preliminary NO GROWTH AFTER 48 HOURS Resulted 12/11/16 15:43 Sputum Gram Stain - Final Complete 12/11/16 15:43 Sputum Sputum Culture - Final NORMAL UPPER RESPIRATORY GOPI PRESENT Complete 12/11/16 19:00 Urine,Clean Catch Urine Culture - Final NO GROWTH AFTER 48 HOURS Complete Intake and Output 12/13/16 12/14/16 19:00 07:00 Intake Total 670 ml 465 ml Output Total 575 ml 680 ml Balance 95 ml -215 ml Free Water 50 ml 50 ml IV Total 260 ml 55 ml Tube Feeding 360 ml 360 ml Output Urine Total 575 ml 680 ml # Bowel Movements 5 Objective General Appearance: WD/WN, moderate distress EENT: normal ENT inspection Neck: non-tender, normal alignment, supple Cardiovascular: normal peripheral pulses, normal rate, regular rhythm, no gallop/murmur, no JVD Respiratory/Chest: Mechanical vent; crackles/rales, rhonchi - bilaterally, expiratory wheezing Abdomen: normal bowel sounds, non tender, soft, no organomegaly, no mass Extremities: normal range of motion Neurologic: asparagus cutter II-XII grossly normal, no motor/sensory deficits Skin: normal pigmentation, warm/dry Assessment/Plan Problem List: (1) SOB (shortness of breath) (2) Respiratory failure Assessment & Plan: Worsening. Now intubated. See pulmonary note. (3) Renal failure Assessment & Plan: See nephrology note. (4) HTN (hypertension) (5) CAD (coronary artery disease) (6) CHF (congestive heart failure) Assessment & Plan: See cardiology note. Cont lasix. (7) Anemia (8) Uncontrolled hypertension (9) Pneumonia Assessment & Plan: Cont zosyn and levaquin-see ID note. (10) Pleural effusion Status: unchanged RAMYA WESLEY Dec 14, 2016 14:19
--- NOTE | 2016-12-14 17:20 | Cardiology Progress Note ---
Assessment/Plan Status: stable, unchanged Status Narrative Pt w/ respiratory failure, on vent. CXR /w pulm vasc congestion, pleural effusions, possible pneumonia Assessment/Plan Will give additional lasix iv today. Start norvasc per ngt for hypertension followup labs in am. Subjective ROS Limited/Unobtainable: Yes Subjective Cardiology for Dr. Rizzo Pt intubated/ sedated Objective Last 24 Hour Vital Signs Date Time Temp Pulse Resp B/P Pulse Ox O2 Delivery O2 Flow Rate FiO2 12/14/16 17:00 62 16 162/94 100 Mechanical Ventilator 40 12/14/16 16:50 63 16 40 12/14/16 16:00 98.2 62 16 162/95 100 Mechanical Ventilator 40 12/14/16 16:00 62 12/14/16 16:00 40 12/14/16 15:00 62 16 157/93 100 Mechanical Ventilator 40 12/14/16 14:40 70 16 40 12/14/16 14:21 167/93 12/14/16 14:00 66 16 167/93 100 Mechanical Ventilator 40 12/14/16 13:00 71 16 161/98 100 Mechanical Ventilator 40 12/14/16 13:00 76 16 40 12/14/16 12:00 40 12/14/16 12:00 64 12/14/16 12:00 158/95 12/14/16 12:00 97.6 64 16 158/95 99 Mechanical Ventilator 40 12/14/16 11:00 64 16 162/90 99 Mechanical Ventilator 40 12/14/16 10:40 71 16 40 12/14/16 10:00 67 16 160/93 98 Mechanical Ventilator 40 12/14/16 09:15 74 20 60 12/14/16 09:08 100 12/14/16 09:00 76 16 166/99 100 Mechanical Ventilator 40 12/14/16 08:09 65 12/14/16 08:07 97.5 65 16 160/86 100 Mechanical Ventilator 40 12/14/16 08:00 40 12/14/16 07:00 61 13 160/93 100 Mechanical Ventilator 40 12/14/16 06:40 61 16 40 12/14/16 06:00 63 16 160/92 100 Mechanical Ventilator 40 12/14/16 05:32 159/99 12/14/16 05:32 159/99 12/14/16 05:00 81 19 159/99 100 Mechanical Ventilator 40 12/14/16 05:00 74 16 40 12/14/16 04:00 40 12/14/16 04:00 97.6 62 16 163/92 100 Mechanical Ventilator 40 12/14/16 04:00 63 12/14/16 03:00 67 17 159/97 99 Mechanical Ventilator 40 12/14/16 02:35 64 16 40 12/14/16 02:00 76 25 162/94 96 Mechanical Ventilator 40 12/14/16 01:00 60 16 169/92 100 Mechanical Ventilator 40 12/14/16 00:35 60 16 40 12/14/16 00:00 97.2 54 16 156/91 100 Mechanical Ventilator 40 12/14/16 00:00 54 12/14/16 00:00 40 12/13/16 23:00 62 14 160/108 100 Mechanical Ventilator 40 12/13/16 22:45 64 16 40 12/13/16 22:11 158/100 12/13/16 22:00 60 16 158/100 100 Mechanical Ventilator 40 12/13/16 21:10 55 16 40 12/13/16 21:00 55 16 159/97 100 Mechanical Ventilator 40 12/13/16 20:25 97.8 12/13/16 20:00 40 12/13/16 20:00 58 12/13/16 20:00 97.8 58 16 141/96 100 Mechanical Ventilator 40 12/13/16 19:00 63 16 160/97 100 Mechanical Ventilator 40 12/13/16 18:53 56 16 40 12/13/16 18:01 60 18 158/86 100 Mechanical Ventilator 40 12/13/16 17:15 61 16 40 12/13/16 17:15 157/91 General Appearance: thin, on vent EENT: other - et tube Neck: no JVD Rhythm: NSR Cardiovascular: normal rate, regular rhythm, no gallop/murmur Respiratory/Chest: other - few rhonchi bilat Abdomen: non tender, soft Extremities: no swelling Intake and Output 12/13/16 12/14/16 19:00 07:00 Intake Total 670 ml 465 ml Output Total 575 ml 680 ml Balance 95 ml -215 ml Free Water 50 ml 50 ml IV Total 260 ml 55 ml Tube Feeding 360 ml 360 ml Output Urine Total 575 ml 680 ml # Bowel Movements 5 Laboratory Tests Test 12/14/16 04:00 12/14/16 05:00 12/14/16 08:22 Urine Eosinophils None seen White Blood Count 7.4 K/UL (4.8-10.8) Red Blood Count 2.90 M/UL (4.70-6.10) L Hemoglobin 8.8 G/DL (14.2-18.0) L Hematocrit 27.6 % (42.0-52.0) L Mean Corpuscular Volume 95 FL (80-99) Mean Corpuscular Hemoglobin 30.5 PG (27.0-31.0) Mean Corpuscular Hemoglobin Concent 32.0 G/DL (32.0-36.0) Red Cell Distribution Width 16.1 % (11.6-14.8) H Platelet Count 49 K/UL (150-450) L Mean Platelet Volume 10.7 FL (6.5-10.1) H Neutrophils (%) (Auto) % (45.0-75.0) Lymphocytes (%) (Auto) % (20.0-45.0) Monocytes (%) (Auto) % (1.0-10.0) Eosinophils (%) (Auto) % (0.0-3.0) Basophils (%) (Auto) % (0.0-2.0) Differential Total Cells Counted 100 Neutrophils % (Manual) 73 % (45-75) Lymphocytes % (Manual) 14 % (20-45) L Monocytes % (Manual) 8 % (1-10) Eosinophils % (Manual) 2 % (0-3) Basophils % (Manual) 0 % (0-2) Band Neutrophils 3 % (0-8) Platelet Estimate Decreased L Platelet Morphology Normal Red Blood Cell Morphology Normal Sodium Level 149 mEQ/L (135-145) H Potassium Level 4.3 mEQ/L (3.4-4.9) Chloride Level 110 mEQ/L (98-107) H Carbon Dioxide Level 27 mEQ/L (20-30) Anion Gap 12 (5-15) Blood Urea Nitrogen 59 mg/dL (7-23) H Creatinine 3.1 mg/dL (0.7-1.2) H Estimat Glomerular Filtration Rate 24.6 mL/min (>60) Glucose Level 101 mg/dL (74-106) Calcium Level 7.6 mg/dL (8.6-10.2) L Phosphorus Level 3.8 mg/dL (2.5-4.8) Magnesium Level 2.1 mg/dL (1.7-2.5) Total Bilirubin 0.4 mg/dL (0.0-1.2) Aspartate Amino Transf (AST/SGOT) 33 U/L (5-40) Alanine Aminotransferase (ALT/SGPT) 31 U/L (3-41) Alkaline Phosphatase 65 U/L (40-129) Pro-B-Type Natriuretic Peptide 63004 pg/mL (0-125) H Total Protein 5.9 g/dL (6.6-8.7) L Albumin 2.4 g/dL (3.5-5.2) L Globulin 3.5 g/dL Albumin/Globulin Ratio 0.6 (1.0-2.7) L Arterial Blood pH 7.423 (7.350-7.450) Arterial Blood Partial Pressure CO2 44.6 mmHg (35.0-45.0) Arterial Blood Partial Pressure O2 124.3 mmHg (75.0-100.0) H Arterial Blood HCO3 28.5 mmol/L (22.0-26.0) H Arterial Blood Oxygen Saturation 97.5 % (92.0-98.0) Arterial Blood Base Excess 3.6 Adrian Test Positive Microbiology Date/Time Source Procedure Growth Status 12/11/16 19:00 Urine,Clean Catch Urine Culture - Final NO GROWTH AFTER 48 HOURS Complete SARA GREENE Dec 14, 2016 17:20
--- NOTE | 2016-12-14 22:14 | Infectious Diseases Prog Note ---
Assessment/Plan Assessment/Plan A: The patient is a 66-year-old male with Pneumonia. Chest x-ray showed bilateral large pleural effusion History of hepatitis C ALOC VDRF SP intubated. CHF. Renal insufficiency. Hypertension. CAD and NC. History of GI bleed. History of cirrhosis. History of spinal fusion PLAN: cont on Zosyn and Levaquin. d# 4 Monitor CBC. Monitor BMP. Monitor chest x-ray. Monitor sputum culture, blood culture, and urine culture. Subjective Allergies: Coded Allergies: No Known Allergies (Unverified , 04/29/13) Subjective on vent Objective Vital Signs Last 24 Hour Vital Signs Date Time Temp Pulse Resp B/P Pulse Ox O2 Delivery O2 Flow Rate FiO2 12/14/16 21:50 153/91 12/14/16 21:00 75 16 153/91 100 Mechanical Ventilator 40 12/14/16 20:52 66 16 40 12/14/16 20:00 40 12/14/16 20:00 61 12/14/16 20:00 97.8 63 16 169/96 100 Mechanical Ventilator 40 12/14/16 19:00 63 16 167/95 98 Mechanical Ventilator 40 12/14/16 18:40 77 16 40 12/14/16 18:00 65 16 169/101 100 Mechanical Ventilator 40 12/14/16 17:34 162/92 12/14/16 17:00 62 16 162/94 100 Mechanical Ventilator 40 12/14/16 16:50 63 16 40 12/14/16 16:00 98.2 62 16 162/95 100 Mechanical Ventilator 40 12/14/16 16:00 62 12/14/16 16:00 40 12/14/16 15:00 62 16 157/93 100 Mechanical Ventilator 40 12/14/16 14:40 70 16 40 12/14/16 14:21 167/93 12/14/16 14:00 66 16 167/93 100 Mechanical Ventilator 40 12/14/16 13:00 71 16 161/98 100 Mechanical Ventilator 40 12/14/16 13:00 76 16 40 12/14/16 12:00 40 12/14/16 12:00 64 12/14/16 12:00 158/95 12/14/16 12:00 97.6 64 16 158/95 99 Mechanical Ventilator 40 12/14/16 11:00 64 16 162/90 99 Mechanical Ventilator 40 12/14/16 10:40 71 16 40 12/14/16 10:00 67 16 160/93 98 Mechanical Ventilator 40 12/14/16 09:15 74 20 60 12/14/16 09:08 100 12/14/16 09:00 76 16 166/99 100 Mechanical Ventilator 40 12/14/16 08:09 65 12/14/16 08:07 97.5 65 16 160/86 100 Mechanical Ventilator 40 12/14/16 08:00 40 12/14/16 07:00 61 13 160/93 100 Mechanical Ventilator 40 12/14/16 06:40 61 16 40 12/14/16 06:00 63 16 160/92 100 Mechanical Ventilator 40 12/14/16 05:32 159/99 12/14/16 05:32 159/99 12/14/16 05:00 81 19 159/99 100 Mechanical Ventilator 40 12/14/16 05:00 74 16 40 12/14/16 04:00 40 12/14/16 04:00 97.6 62 16 163/92 100 Mechanical Ventilator 40 12/14/16 04:00 63 12/14/16 03:00 67 17 159/97 99 Mechanical Ventilator 40 12/14/16 02:35 64 16 40 12/14/16 02:00 76 25 162/94 96 Mechanical Ventilator 40 12/14/16 01:00 60 16 169/92 100 Mechanical Ventilator 40 12/14/16 00:35 60 16 40 12/14/16 00:00 97.2 54 16 156/91 100 Mechanical Ventilator 40 12/14/16 00:00 54 12/14/16 00:00 40 12/13/16 23:00 62 14 160/108 100 Mechanical Ventilator 40 12/13/16 22:45 64 16 40 Height (Feet): 5 Height (Inches): 9.00 Weight (Pounds): 150 HEENT: anicteric Respiratory/Chest: lungs clear Cardiovascular: regularly irregular Abdomen: no organomegaly Laboratory Tests Test 12/14/16 04:00 12/14/16 05:00 12/14/16 08:22 Urine Eosinophils None seen White Blood Count 7.4 K/UL (4.8-10.8) Red Blood Count 2.90 M/UL (4.70-6.10) L Hemoglobin 8.8 G/DL (14.2-18.0) L Hematocrit 27.6 % (42.0-52.0) L Mean Corpuscular Volume 95 FL (80-99) Mean Corpuscular Hemoglobin 30.5 PG (27.0-31.0) Mean Corpuscular Hemoglobin Concent 32.0 G/DL (32.0-36.0) Red Cell Distribution Width 16.1 % (11.6-14.8) H Platelet Count 49 K/UL (150-450) L Mean Platelet Volume 10.7 FL (6.5-10.1) H Neutrophils (%) (Auto) % (45.0-75.0) Lymphocytes (%) (Auto) % (20.0-45.0) Monocytes (%) (Auto) % (1.0-10.0) Eosinophils (%) (Auto) % (0.0-3.0) Basophils (%) (Auto) % (0.0-2.0) Differential Total Cells Counted 100 Neutrophils % (Manual) 73 % (45-75) Lymphocytes % (Manual) 14 % (20-45) L Monocytes % (Manual) 8 % (1-10) Eosinophils % (Manual) 2 % (0-3) Basophils % (Manual) 0 % (0-2) Band Neutrophils 3 % (0-8) Platelet Estimate Decreased L Platelet Morphology Normal Red Blood Cell Morphology Normal Sodium Level 149 mEQ/L (135-145) H Potassium Level 4.3 mEQ/L (3.4-4.9) Chloride Level 110 mEQ/L (98-107) H Carbon Dioxide Level 27 mEQ/L (20-30) Anion Gap 12 (5-15) Blood Urea Nitrogen 59 mg/dL (7-23) H Creatinine 3.1 mg/dL (0.7-1.2) H Estimat Glomerular Filtration Rate 24.6 mL/min (>60) Glucose Level 101 mg/dL (74-106) Calcium Level 7.6 mg/dL (8.6-10.2) L Phosphorus Level 3.8 mg/dL (2.5-4.8) Magnesium Level 2.1 mg/dL (1.7-2.5) Total Bilirubin 0.4 mg/dL (0.0-1.2) Aspartate Amino Transf (AST/SGOT) 33 U/L (5-40) Alanine Aminotransferase (ALT/SGPT) 31 U/L (3-41) Alkaline Phosphatase 65 U/L (40-129) Pro-B-Type Natriuretic Peptide 07537 pg/mL (0-125) H Total Protein 5.9 g/dL (6.6-8.7) L Albumin 2.4 g/dL (3.5-5.2) L Globulin 3.5 g/dL Albumin/Globulin Ratio 0.6 (1.0-2.7) L Arterial Blood pH 7.423 (7.350-7.450) Arterial Blood Partial Pressure CO2 44.6 mmHg (35.0-45.0) Arterial Blood Partial Pressure O2 124.3 mmHg (75.0-100.0) H Arterial Blood HCO3 28.5 mmol/L (22.0-26.0) H Arterial Blood Oxygen Saturation 97.5 % (92.0-98.0) Arterial Blood Base Excess 3.6 Adrian Test Positive Current Medications Medications (Trade) Dose Ordered Sig/Melania Route PRN Reason Start Time Stop Time Status Last Admin Dose Admin Acetaminophen (Tylenol) 650 mg Q4H PRN ORAL Fever 12/10/16 16:45 01/09/17 16:44 12/13/16 06:09 Acetaminophen/ Hydrocodone Bitart ([place] 5/325) 1 tab Q6H PRN ORAL severe pain 12/10/16 18:45 12/17/16 18:44 12/13/16 19:43 Albuterol/ Ipratropium (DuoNeb 0.5-3(2.5)mg/3ml) 3 ml Q4H PRN HHN Shortness of Breath 12/10/16 16:45 12/15/16 16:44 Amlodipine Besylate (Norvasc) 5 mg DAILY NG 12/15/16 09:00 01/14/17 08:59 Clonidine HCl 0.1 mg 0.1 mg Q8HR ORAL 12/12/16 14:00 01/11/17 13:59 12/14/16 21:50 Dextrose (Dextrose 50%) STAT PRN IV Hypoglycemia 12/11/16 00:45 01/10/17 00:44 Levofloxacin (Levaquin 750mg/ D5W) 150 ml @ 100 mls/hr Q48H IVPB 12/11/16 16:00 12/18/16 15:59 12/13/16 16:13 Lorazepam (Ativan 2mg/ml 1ml) 1 mg Q4H PRN IV For Anxiety 12/13/16 15:45 12/20/16 15:44 12/14/16 16:18 Nitroglycerin (Nitro-Bid) 1 inch TID@0600,1200,1800 TOPIC 12/12/16 06:00 01/11/17 05:59 12/14/16 17:34 Ondansetron HCl (Zofran) 4 mg Q6H PRN IVP Nausea & Vomiting 12/10/16 18:45 01/09/17 18:44 Pantoprazole (Protonix) 40 mg DAILY IVP 12/11/16 16:00 01/10/17 15:59 12/14/16 09:40 Piperacillin Sod/ Tazobactam Sod/ Dextrose (Zosyn/D5W) 55 ml @ 110 mls/hr Q8HR@0200,1000,1800 IV 12/12/16 18:00 12/18/16 17:59 12/14/16 17:34 Polyethylene Glycol (Miralax) 17 gm DAILYPRN PRN ORAL Constipation 12/11/16 00:45 01/10/17 00:44 Temazepam (Restoril) 15 mg HSPRN PRN ORAL Insomnia 12/11/16 00:45 12/18/16 00:44 12/13/16 19:43 Vitamin A/Vitamin D 1 applic 1 applic EVERY 12 HOURS TOPIC 12/10/16 21:00 01/09/17 20:59 12/14/16 21:08 Vitamin B Complex/ Vit C/Folic Acid (Nephrovite) 1 tab DAILY GT 12/12/16 09:00 01/11/17 08:59 12/14/16 09:39 ERWIN KIMBROUGH M.D. Dec 14, 2016 22:13
[2016-12-15] VITALS (24 sets, daily range): BP systolic 140–177; BP diastolic 73–98
[2016-12-15] MEDS: Piperacillin/Tazobactam 2.25 GM in D5W 55 ML IV SCH ×3 (01:18→17:47)
[2016-12-15 04:07] LABS: MEAN CORPUSCULAR HEMOGLOBIN 29.8 PG (27.0-31.0); MEAN CORPUSCULAR HGB CONC 31.2 G/DL (32.0-36.0); MEAN CORPUSCULAR VOLUME 95 FL (80-99); MEAN PLATELET VOLUME 11.5 FL (6.5-10.1); PLATELET COUNT 56 K/UL (150-450); RED BLOOD COUNT 3.26 M/UL (4.70-6.10); WHITE BLOOD COUNT 7.3 K/UL (4.8-10.8)
[2016-12-15 04:27] LABS: ALBUMIN/GLOBULIN RATIO 0.6 (1.0-2.7); CALCIUM 7.8 mg/dL (8.6-10.2); GLOMERULAR FILTRATION RATE 25.6 mL/min (>60); MAGNESIUM 2.2 mg/dL (1.7-2.5); PHOSPHORUS 4.2 mg/dL (2.5-4.8); POTASSIUM 4.1 mEQ/L (3.4-4.9); TOTAL PROTEIN 6.3 g/dL (6.6-8.7)
[2016-12-15] MEDS: Nitroglycerin 2% oint pkt TOPIC SCH ×3 (06:02→17:31)
--- NOTE | 2016-12-15 08:01 | Pulmonolgy Critical Care Note ---
Critical Care - Asmt/Plan Problems: (1) Aspiration pneumonia (2) Respiratory failure (3) Pleural effusion (4) ATN (acute tubular necrosis) (5) Hepatitis C (6) CAD (coronary artery disease) Respiratory: monitor respiratory rate Cardiac: continue pressors Renal: F/U I&O Infectious Disease: check cultures Gastrointestinal: continue feedings/current rate Endocrine: monitor blood sugar, check HgA1C, continue sliding scale insulin Hematologic: monitor H/H, transfuse if hgb<8.5 Neurologic: PRN Ativan, PRN Morphine, keep patient comfortable Affect: PRN ativan Notes Reviewed: cardio, renal Discussed with: nurses, consultants, skilled nursing case managermanager [employer] - Objective Last 24 Hour Vital Signs Date Time Temp Pulse Resp B/P Pulse Ox O2 Delivery O2 Flow Rate FiO2 12/15/16 06:55 67 16 169/96 100 Mechanical Ventilator 40 12/15/16 06:46 65 16 40 12/15/16 06:02 171/96 12/15/16 06:02 171/96 12/15/16 06:00 66 16 172/94 100 Mechanical Ventilator 40 12/15/16 05:25 90 16 40 12/15/16 05:00 82 16 170/90 100 Mechanical Ventilator 40 12/15/16 04:00 40 12/15/16 04:00 98.0 69 16 172/92 100 Mechanical Ventilator 40 12/15/16 04:00 67 12/15/16 03:14 67 16 40 12/15/16 03:02 70 16 171/98 100 Mechanical Ventilator 40 12/15/16 02:00 69 16 172/94 100 Mechanical Ventilator 40 12/15/16 01:20 66 16 40 12/15/16 01:00 67 16 161/92 100 Mechanical Ventilator 40 12/15/16 00:00 98.1 65 16 169/92 100 Mechanical Ventilator 40 12/15/16 00:00 40 12/15/16 00:00 65 12/14/16 23:16 67 16 40 12/14/16 23:00 63 16 168/94 100 Mechanical Ventilator 40 12/14/16 22:00 60 16 168/100 99 Mechanical Ventilator 40 12/14/16 21:50 153/91 12/14/16 21:00 75 16 153/91 100 Mechanical Ventilator 40 12/14/16 20:52 66 16 40 12/14/16 20:00 40 12/14/16 20:00 61 12/14/16 20:00 97.8 63 16 169/96 100 Mechanical Ventilator 40 12/14/16 19:00 63 16 167/95 98 Mechanical Ventilator 40 12/14/16 18:40 77 16 40 12/14/16 18:00 65 16 169/101 100 Mechanical Ventilator 40 12/14/16 17:34 162/92 12/14/16 17:00 62 16 162/94 100 Mechanical Ventilator 40 12/14/16 16:50 63 16 40 12/14/16 16:00 98.2 62 16 162/95 100 Mechanical Ventilator 40 12/14/16 16:00 62 12/14/16 16:00 40 12/14/16 15:00 62 16 157/93 100 Mechanical Ventilator 40 12/14/16 14:40 70 16 40 12/14/16 14:21 167/93 12/14/16 14:00 66 16 167/93 100 Mechanical Ventilator 40 12/14/16 13:00 71 16 161/98 100 Mechanical Ventilator 40 12/14/16 13:00 76 16 40 12/14/16 12:00 40 12/14/16 12:00 64 12/14/16 12:00 158/95 12/14/16 12:00 97.6 64 16 158/95 99 Mechanical Ventilator 40 12/14/16 11:00 64 16 162/90 99 Mechanical Ventilator 40 12/14/16 10:40 71 16 40 12/14/16 10:00 67 16 160/93 98 Mechanical Ventilator 40 12/14/16 09:15 74 20 60 12/14/16 09:08 100 12/14/16 09:00 76 16 166/99 100 Mechanical Ventilator 40 12/14/16 08:09 65 12/14/16 08:07 97.5 65 16 160/86 100 Mechanical Ventilator 40 Status: awake Condition: critical HEENT: atraumatic, normocephalic Neck: full ROM Lungs: clear Heart: HR/BP stable, HR/BP unstable, regular Abdomen: non-tender, active bowel sounds, feeding tube Extremities: no C/C/E, edema Accucheck: 128 Critical Care - Subjective ROS Limited/Unobtainable: No ICU Day: 6 Intubation Day: 6 Condition: critical EKG Rhythm: Sinus Rhythm FI02: 40 Vent Support Breath Rate: 16 Vent Support Mode: AC Vent Tidal Volume: 600 Sputum Amount: Small PEEP: 0.0 PIP: 24 Tube Feeding Amount: 30 I&O: Intake and Output 12/14/16 12/15/16 19:00 07:00 Intake Total 615 ml 565 ml Output Total 1085 ml 2190 ml Balance -470 ml -1625 ml Free Water 200 ml 100 ml IV Total 55 ml 55 ml Tube Feeding 360 ml 360 ml Other 50 ml Output Urine Total 1085 ml 2190 ml # Bowel Movements 2 2 CXR: bilateral pleural effusion ET-Tube: 7.5 ET Position: 22 Labs: Laboratory Tests Test 12/14/16 08:22 12/15/16 03:30 12/15/16 06:00 Arterial Blood pH 7.423 (7.350-7.450) Arterial Blood Partial Pressure CO2 44.6 mmHg (35.0-45.0) Arterial Blood Partial Pressure O2 124.3 mmHg (75.0-100.0) H Arterial Blood HCO3 28.5 mmol/L (22.0-26.0) H Arterial Blood Oxygen Saturation 97.5 % (92.0-98.0) Arterial Blood Base Excess 3.6 Adrian Test Positive White Blood Count 7.3 K/UL (4.8-10.8) Red Blood Count 3.26 M/UL (4.70-6.10) L Hemoglobin 9.7 G/DL (14.2-18.0) L Hematocrit 31.1 % (42.0-52.0) L Mean Corpuscular Volume 95 FL (80-99) Mean Corpuscular Hemoglobin 29.8 PG (27.0-31.0) Mean Corpuscular Hemoglobin Concent 31.2 G/DL (32.0-36.0) L Red Cell Distribution Width 16.0 % (11.6-14.8) H Platelet Count 56 K/UL (150-450) L Mean Platelet Volume 11.5 FL (6.5-10.1) H Neutrophils (%) (Auto) % (45.0-75.0) Lymphocytes (%) (Auto) % (20.0-45.0) Monocytes (%) (Auto) % (1.0-10.0) Eosinophils (%) (Auto) % (0.0-3.0) Basophils (%) (Auto) % (0.0-2.0) Neutrophils % (Manual) Pending Lymphocytes % (Manual) Pending Platelet Estimate Pending Platelet Morphology Pending Sodium Level 151 mEQ/L (135-145) H Potassium Level 4.1 mEQ/L (3.4-4.9) Chloride Level 109 mEQ/L (98-107) H Carbon Dioxide Level 27 mEQ/L (20-30) Anion Gap 15 (5-15) Blood Urea Nitrogen 56 mg/dL (7-23) H Creatinine 3.0 mg/dL (0.7-1.2) H Estimat Glomerular Filtration Rate 25.6 mL/min (>60) Glucose Level 107 mg/dL (74-106) H Calcium Level 7.8 mg/dL (8.6-10.2) L Phosphorus Level 4.2 mg/dL (2.5-4.8) Magnesium Level 2.2 mg/dL (1.7-2.5) Total Bilirubin 0.4 mg/dL (0.0-1.2) Aspartate Amino Transf (AST/SGOT) 38 U/L (5-40) Alanine Aminotransferase (ALT/SGPT) 33 U/L (3-41) Alkaline Phosphatase 63 U/L (40-129) Total Protein 6.3 g/dL (6.6-8.7) L Albumin 2.4 g/dL (3.5-5.2) L Globulin 3.9 g/dL Albumin/Globulin Ratio 0.6 (1.0-2.7) L Urine Eosinophils Pending YAMILET DIOR Dec 15, 2016 08:01
[2016-12-15 08:12] LABS: BAND NEUTROPHILS % (MANUAL) 0 % (0-8); BASOPHILS % (MANUAL) 0 % (0-2); EOSINOPHILS % (MANUAL) 2 % (0-3); LYMPHOCYTES % (MANUAL) 8 % (20-45); NEUTROPHILS % (MANUAL) 81 % (45-75); PLATELET ESTIMATE DECREASED; PLATELET MORPHOLOGY NORMAL; TOTAL CELLS COUNTED 100
[2016-12-15 08:13] LABS: ANISOCYTOSIS 1+; HYPOCHROMASIA 1+
[2016-12-15 08:43] LABS: ABG PCO2 40.6 mmHg (35.0-45.0)
[2016-12-15 08:44] LABS: ABG ALLEN TEST POSITIVE; ABG BASE EXCESS 2.5
[2016-12-15] MEDS: Vitamin A&D Oint 2oz Tube TOPIC SCH ×2 (08:44→20:50)
[2016-12-15] MEDS: Nephrovite tab GT SCH (08:44)
[2016-12-15] MEDS: Pantoprazole Inj IVP SCH (08:44)
[2016-12-15] MEDS: Norco 5mg/325mg tab ORAL PRN (09:08)
--- NOTE | 2016-12-15 10:56 | Internal Med Progress Note ---
Subjective Date of Service: Dec 15, 2016 Physician Name MaddieRamya Attending Physician Wild Hawkins MD Current Medications Medications (Trade) Dose Ordered Sig/Melania Route PRN Reason Start Time Stop Time Status Last Admin Dose Admin Acetaminophen (Tylenol) 650 mg Q4H PRN ORAL Fever 12/10/16 16:45 01/09/17 16:44 12/13/16 06:09 Acetaminophen/ Hydrocodone Bitart ([place] 5/325) 1 tab Q6H PRN ORAL severe pain 12/10/16 18:45 12/17/16 18:44 12/15/16 09:08 Albuterol/ Ipratropium (DuoNeb 0.5-3(2.5)mg/3ml) 3 ml Q4H PRN HHN Shortness of Breath 12/10/16 16:45 12/15/16 16:44 Amlodipine Besylate (Norvasc) 5 mg DAILY NG 12/15/16 09:00 01/14/17 08:59 12/15/16 08:44 Clonidine HCl 0.1 mg 0.1 mg Q8HR ORAL 12/12/16 14:00 01/11/17 13:59 12/15/16 06:02 Dextrose (Dextrose 50%) STAT PRN IV Hypoglycemia 12/11/16 00:45 01/10/17 00:44 Levofloxacin (Levaquin 750mg/ D5W) 150 ml @ 100 mls/hr Q48H IVPB 12/11/16 16:00 12/18/16 15:59 12/13/16 16:13 Lorazepam (Ativan 2mg/ml 1ml) 1 mg Q4H PRN IV For Anxiety 12/13/16 15:45 12/20/16 15:44 12/14/16 16:18 Nitroglycerin (Nitro-Bid) 1 inch TID@0600,1200,1800 TOPIC 12/12/16 06:00 01/11/17 05:59 12/15/16 06:02 Ondansetron HCl (Zofran) 4 mg Q6H PRN IVP Nausea & Vomiting 12/10/16 18:45 01/09/17 18:44 Pantoprazole (Protonix) 40 mg DAILY IVP 12/11/16 16:00 01/10/17 15:59 12/15/16 08:44 Piperacillin Sod/ Tazobactam Sod/ Dextrose (Zosyn/D5W) 55 ml @ 110 mls/hr Q8HR@0200,1000,1800 IV 12/12/16 18:00 12/18/16 17:59 12/15/16 08:57 Polyethylene Glycol (Miralax) 17 gm DAILYPRN PRN ORAL Constipation 12/11/16 00:45 01/10/17 00:44 Temazepam (Restoril) 15 mg HSPRN PRN ORAL Insomnia 12/11/16 00:45 12/18/16 00:44 12/13/16 19:43 Vitamin A/Vitamin D 1 applic 1 applic EVERY 12 HOURS TOPIC 12/10/16 21:00 01/09/17 20:59 12/15/16 08:44 Vitamin B Complex/ Vit C/Folic Acid (Nephrovite) 1 tab DAILY GT 12/12/16 09:00 01/11/17 08:59 12/15/16 08:44 Allergies: Coded Allergies: No Known Allergies (Unverified , 04/29/13) ROS Limited/Unobtainable: Yes Subjective 66 YO M admitted with shortness of breath; now respiratory failure. Cover for Int Ochoa-Dr Hawkins. ICU. Intubated and sedated. Objective Last Vital Signs Date Time Temp Pulse Resp B/P Pulse Ox O2 Delivery O2 Flow Rate FiO2 12/15/16 10:00 67 16 173/91 100 Mechanical Ventilator 40 12/15/16 08:10 99.6 12/10/16 01:00 15.0 Laboratory Tests Test 12/15/16 03:30 12/15/16 06:00 12/15/16 08:20 White Blood Count 7.3 K/UL (4.8-10.8) Red Blood Count 3.26 M/UL (4.70-6.10) L Hemoglobin 9.7 G/DL (14.2-18.0) L Hematocrit 31.1 % (42.0-52.0) L Mean Corpuscular Volume 95 FL (80-99) Mean Corpuscular Hemoglobin 29.8 PG (27.0-31.0) Mean Corpuscular Hemoglobin Concent 31.2 G/DL (32.0-36.0) L Red Cell Distribution Width 16.0 % (11.6-14.8) H Platelet Count 56 K/UL (150-450) L Mean Platelet Volume 11.5 FL (6.5-10.1) H Neutrophils (%) (Auto) % (45.0-75.0) Lymphocytes (%) (Auto) % (20.0-45.0) Monocytes (%) (Auto) % (1.0-10.0) Eosinophils (%) (Auto) % (0.0-3.0) Basophils (%) (Auto) % (0.0-2.0) Differential Total Cells Counted 100 Neutrophils % (Manual) 81 % (45-75) H Lymphocytes % (Manual) 8 % (20-45) L Monocytes % (Manual) 9 % (1-10) Eosinophils % (Manual) 2 % (0-3) Basophils % (Manual) 0 % (0-2) Band Neutrophils 0 % (0-8) Platelet Estimate Decreased L Platelet Morphology Normal Hypochromasia 1+ Anisocytosis 1+ Sodium Level 151 mEQ/L (135-145) H Potassium Level 4.1 mEQ/L (3.4-4.9) Chloride Level 109 mEQ/L (98-107) H Carbon Dioxide Level 27 mEQ/L (20-30) Anion Gap 15 (5-15) Blood Urea Nitrogen 56 mg/dL (7-23) H Creatinine 3.0 mg/dL (0.7-1.2) H Estimat Glomerular Filtration Rate 25.6 mL/min (>60) Glucose Level 107 mg/dL (74-106) H Calcium Level 7.8 mg/dL (8.6-10.2) L Phosphorus Level 4.2 mg/dL (2.5-4.8) Magnesium Level 2.2 mg/dL (1.7-2.5) Total Bilirubin 0.4 mg/dL (0.0-1.2) Aspartate Amino Transf (AST/SGOT) 38 U/L (5-40) Alanine Aminotransferase (ALT/SGPT) 33 U/L (3-41) Alkaline Phosphatase 63 U/L (40-129) Total Protein 6.3 g/dL (6.6-8.7) L Albumin 2.4 g/dL (3.5-5.2) L Globulin 3.9 g/dL Albumin/Globulin Ratio 0.6 (1.0-2.7) L Urine Eosinophils None seen Arterial Blood pH 7.438 (7.350-7.450) Arterial Blood Partial Pressure CO2 40.6 mmHg (35.0-45.0) Arterial Blood Partial Pressure O2 120.6 mmHg (75.0-100.0) H Arterial Blood HCO3 26.8 mmol/L (22.0-26.0) H Arterial Blood Oxygen Saturation 98.0 % (92.0-98.0) Arterial Blood Base Excess 2.5 Adrian Test Positive Intake and Output 12/14/16 12/15/16 19:00 07:00 Intake Total 615 ml 565 ml Output Total 1085 ml 2190 ml Balance -470 ml -1625 ml Free Water 200 ml 100 ml IV Total 55 ml 55 ml Tube Feeding 360 ml 360 ml Other 50 ml Output Urine Total 1085 ml 2190 ml # Bowel Movements 2 2 Objective General Appearance: WD/WN, moderate distress EENT: normal ENT inspection Neck: non-tender, normal alignment, supple Cardiovascular: normal peripheral pulses, normal rate, regular rhythm, no gallop/murmur, no JVD Respiratory/Chest: Mechanical vent; crackles/rales, rhonchi - bilaterally, expiratory wheezing Abdomen: normal bowel sounds, non tender, soft, no organomegaly, no mass Extremities: normal range of motion Neurologic: erp engineer II-XII grossly normal, no motor/sensory deficits Skin: normal pigmentation, warm/dry Assessment/Plan Problem List: (1) SOB (shortness of breath) (2) Respiratory failure Assessment & Plan: Worsening. Now intubated. See pulmonary note. (3) Renal failure Assessment & Plan: See nephrology note. (4) HTN (hypertension) (5) CAD (coronary artery disease) (6) CHF (congestive heart failure) Assessment & Plan: See cardiology note. Cont lasix. (7) Anemia (8) Uncontrolled hypertension Assessment & Plan: Start norvasc per cardiology (9) Pneumonia Assessment & Plan: Cont zosyn and levaquin-see ID note. (10) Pleural effusion Assessment & Plan: Bilateral. See pulmonary note. Status: not improved RAMYA WESLEY Dec 15, 2016 10:56
--- NOTE | 2016-12-15 11:43 | Diagnostic Imaging Report ---
Indication: DYSPNEA Technique: One view of the chest Comparison: 12/14/2016 Findings: Stable satisfactory positions of endotracheal and nasogastric tubes. Extensive consolidation in the right lung persists. Consolidation in the left lung may be slightly improved. Bilateral pleural effusions persist, unchanged Impression: Over one day, slight improvement of parenchymal disease in the left lung. Otherwise, little change
[2016-12-15] MEDS: LORazepam Inj 2mg/ml 1ml IV PRN ×2 (12:21→17:53)
--- NOTE | 2016-12-15 12:39 | General Progress Note ---
Assessment/Plan Status: unchanged Assessment/Plan -Renal insufficiency. ? Acute on Chronic Cr stable, and slow rising ! Urine output improved Other: -Abnormal mentation. -Respiratory failure, acute with hypoxia-/ Aspiration Pnumonia -Congestive heart failure with pleural effusion, -Mitral regurgitation. -Cardiomyopathy. -History of amphetamine abuse. -History of paroxysmal episodes of atrial fibrillation per report. -Hepatitis C virus with cirrhosis. Plan: Optimize cardiac and pulmonary status- Keep BP in check- Monitor renal parameters- avoid nephrotoxics- per orders- UA 3+ protein Subjective ROS Limited/Unobtainable: Yes Allergies: Coded Allergies: No Known Allergies (Unverified , 04/29/13) Objective Last 24 Hour Vital Signs Date Time Temp Pulse Resp B/P Pulse Ox O2 Delivery O2 Flow Rate FiO2 12/15/16 12:35 64 12/15/16 12:28 40 12/15/16 12:21 166/89 12/15/16 12:20 166/89 12/15/16 12:00 98.8 66 16 166/89 99 Mechanical Ventilator 40 12/15/16 11:04 73 16 40 12/15/16 11:00 66 16 165/90 100 Mechanical Ventilator 40 12/15/16 10:00 16 173/91 100 Mechanical Ventilator 40 67 12/15/16 09:02 67 16 40 12/15/16 09:02 100 12/15/16 09:00 16 173/92 100 Mechanical Ventilator 40 68 12/15/16 08:44 71 177/94 12/15/16 08:12 40 12/15/16 08:10 99.6 67 16 177/94 100 Mechanical Ventilator 40 12/15/16 08:10 68 12/15/16 06:55 67 16 169/96 100 Mechanical Ventilator 40 12/15/16 06:46 65 16 40 12/15/16 06:02 171/96 12/15/16 06:02 171/96 12/15/16 06:00 66 16 172/94 100 Mechanical Ventilator 40 12/15/16 05:25 90 16 40 12/15/16 05:00 82 16 170/90 100 Mechanical Ventilator 40 12/15/16 04:00 40 12/15/16 04:00 98.0 69 16 172/92 100 Mechanical Ventilator 40 12/15/16 04:00 67 12/15/16 03:14 67 16 40 12/15/16 03:02 70 16 171/98 100 Mechanical Ventilator 40 12/15/16 02:00 69 16 172/94 100 Mechanical Ventilator 40 12/15/16 01:20 66 16 40 12/15/16 01:00 67 16 161/92 100 Mechanical Ventilator 40 12/15/16 00:00 98.1 65 16 169/92 100 Mechanical Ventilator 40 12/15/16 00:00 40 12/15/16 00:00 65 12/14/16 23:16 67 16 40 12/14/16 23:00 63 16 168/94 100 Mechanical Ventilator 40 12/14/16 22:00 60 16 168/100 99 Mechanical Ventilator 40 12/14/16 21:50 153/91 12/14/16 21:00 75 16 153/91 100 Mechanical Ventilator 40 12/14/16 20:52 66 16 40 12/14/16 20:00 40 12/14/16 20:00 61 12/14/16 20:00 97.8 63 16 169/96 100 Mechanical Ventilator 40 12/14/16 19:00 63 16 167/95 98 Mechanical Ventilator 40 12/14/16 18:40 77 16 40 12/14/16 18:00 65 16 169/101 100 Mechanical Ventilator 40 12/14/16 17:34 162/92 12/14/16 17:00 62 16 162/94 100 Mechanical Ventilator 40 12/14/16 16:50 63 16 40 12/14/16 16:00 98.2 62 16 162/95 100 Mechanical Ventilator 40 12/14/16 16:00 62 12/14/16 16:00 40 12/14/16 15:00 62 16 157/93 100 Mechanical Ventilator 40 12/14/16 14:40 70 16 40 12/14/16 14:21 167/93 12/14/16 14:00 66 16 167/93 100 Mechanical Ventilator 40 12/14/16 13:00 71 16 161/98 100 Mechanical Ventilator 40 12/14/16 13:00 76 16 40 Intake and Output 12/14/16 12/15/16 19:00 07:00 Intake Total 615 ml 565 ml Output Total 1085 ml 2190 ml Balance -470 ml -1625 ml Free Water 200 ml 100 ml IV Total 55 ml 55 ml Tube Feeding 360 ml 360 ml Other 50 ml Output Urine Total 1085 ml 2190 ml # Bowel Movements 2 2 Laboratory Tests 12/15/16 03:30: White Blood Count 7.3, Red Blood Count 3.26L, Hemoglobin 9.7L, Hematocrit 31.1L , Mean Corpuscular Volume 95, Mean Corpuscular Hemoglobin 29.8, Mean Corpuscular Hemoglobin Concent 31.2L, Red Cell Distribution Width 16.0H, Platelet Count 56L, Mean Platelet Volume 11.5H, Neutrophils (%) (Auto) , Lymphocytes (%) (Auto) , Monocytes (%) (Auto) , Eosinophils (%) (Auto) , Basophils (%) (Auto) , Differential Total Cells Counted 100, Neutrophils % ( Manual) 81H, Lymphocytes % (Manual) 8L, Monocytes % (Manual) 9, Eosinophils % ( Manual) 2, Basophils % (Manual) 0, Band Neutrophils 0, Platelet Estimate DecreasedL, Platelet Morphology Normal, Hypochromasia 1+, Anisocytosis 1+, Sodium Level 151H, Potassium Level 4.1, Chloride Level 109H, Carbon Dioxide Level 27, Anion Gap 15, Blood Urea Nitrogen 56H, Creatinine 3.0H, Estimat Glomerular Filtration Rate 25.6, Glucose Level 107H, Calcium Level 7.8L, Phosphorus Level 4.2, Magnesium Level 2.2, Total Bilirubin 0.4, Aspartate Amino Transf (AST/SGOT) 38, Alanine Aminotransferase (ALT/SGPT) 33, Alkaline Phosphatase 63, Total Protein 6.3L, Albumin 2.4L, Globulin 3.9, Albumin/ Globulin Ratio 0.6L 12/15/16 06:00: Urine Eosinophils None seen 12/15/16 08:20: Arterial Blood pH 7.438, Arterial Blood Partial Pressure CO2 40.6, Arterial Blood Partial Pressure O2 120.6H, Arterial Blood HCO3 26.8H, Arterial Blood Oxygen Saturation 98.0, Arterial Blood Base Excess 2.5, Adrian Test Positive Height (Feet): 5 Height (Inches): 9.00 Weight (Pounds): 150 General Appearance: no apparent distress Cardiovascular: regular rhythm Respiratory/Chest: decreased breath sounds Abdomen: distended Objective other PE not changed JUSTIN NESS Dec 15, 2016 12:39
--- NOTE | 2016-12-15 19:59 | Cardiology Progress Note ---
Assessment/Plan Assessment/Plan 1. Abnormal mentation due to respiratory acidosis . 2. Respiratory acidosis. 3. Congestive heart failure with pleural effusion, 4. Mitral regurgitation. 5. Cardiomyopathy. 6. History of amphetamine abuse. 7. History of paroxysmal episodes of atrial fibrillation per report. 8. Renal insufficiency. 9. Hepatitis C virus with cirrhosis vent support wean as possible diuretics again today after laod reduction hold acei in light of renal insuf start hydralazine and nitrate in light of renla isuf tele noted ekg noted cxr form yest reviwed tele reviewed ekg reviewed Subjective Cardiovascular: Denies: chest pain, lightheadedness Respiratory: Denies: cough, shortness of breath Gastrointestinal/Abdominal: Denies: abdominal pain Subjective on ramona vent Objective Last 24 Hour Vital Signs Date Time Temp Pulse Resp B/P Pulse Ox O2 Delivery O2 Flow Rate FiO2 12/15/16 19:16 63 16 40 12/15/16 19:00 74 16 168/96 100 Mechanical Ventilator 40 12/15/16 18:00 64 16 173/96 100 Mechanical Ventilator 40 12/15/16 17:32 162/98 12/15/16 17:31 162/98 12/15/16 17:13 76 16 40 12/15/16 17:00 68 16 162/98 100 Mechanical Ventilator 40 12/15/16 16:00 64 12/15/16 16:00 98.6 65 16 167/94 99 Mechanical Ventilator 40 12/15/16 16:00 40 12/15/16 15:14 78 16 40 12/15/16 15:05 73 16 176/98 100 Mechanical Ventilator 40 12/15/16 14:07 64 16 169/94 100 Mechanical Ventilator 40 12/15/16 13:16 61 16 40 12/15/16 13:00 61 16 174/92 100 Mechanical Ventilator 40 12/15/16 12:35 64 12/15/16 12:28 40 12/15/16 12:21 166/89 12/15/16 12:20 166/89 12/15/16 12:00 98.8 66 16 166/89 99 Mechanical Ventilator 40 12/15/16 11:04 73 16 40 12/15/16 11:00 66 16 165/90 100 Mechanical Ventilator 40 12/15/16 10:00 16 173/91 100 Mechanical Ventilator 40 67 12/15/16 09:02 67 16 40 12/15/16 09:02 100 12/15/16 09:00 16 173/92 100 Mechanical Ventilator 40 68 12/15/16 08:44 71 177/94 12/15/16 08:12 40 12/15/16 08:10 99.6 67 16 177/94 100 Mechanical Ventilator 40 12/15/16 08:10 68 12/15/16 06:55 67 16 169/96 100 Mechanical Ventilator 40 12/15/16 06:46 65 16 40 12/15/16 06:02 171/96 12/15/16 06:02 171/96 12/15/16 06:00 66 16 172/94 100 Mechanical Ventilator 40 12/15/16 05:25 90 16 40 12/15/16 05:00 82 16 170/90 100 Mechanical Ventilator 40 12/15/16 04:00 40 12/15/16 04:00 98.0 69 16 172/92 100 Mechanical Ventilator 40 12/15/16 04:00 67 12/15/16 03:14 67 16 40 12/15/16 03:02 70 16 171/98 100 Mechanical Ventilator 40 12/15/16 02:00 69 16 172/94 100 Mechanical Ventilator 40 12/15/16 01:20 66 16 40 12/15/16 01:00 67 16 161/92 100 Mechanical Ventilator 40 12/15/16 00:00 98.1 65 16 169/92 100 Mechanical Ventilator 40 12/15/16 00:00 40 12/15/16 00:00 65 12/14/16 23:16 67 16 40 12/14/16 23:00 63 16 168/94 100 Mechanical Ventilator 40 12/14/16 22:00 60 16 168/100 99 Mechanical Ventilator 40 12/14/16 21:50 153/91 12/14/16 21:00 75 16 153/91 100 Mechanical Ventilator 40 12/14/16 20:52 66 16 40 12/14/16 20:00 40 12/14/16 20:00 61 12/14/16 20:00 97.8 63 16 169/96 100 Mechanical Ventilator 40 General Appearance: alert, on vent, patient on isolation Neck: no JVD Cardiovascular: normal rate, regular rhythm Respiratory/Chest: lungs clear - ant Abdomen: non tender, soft Extremities: non-tender, no swelling Intake and Output 12/14/16 12/15/16 19:00 07:00 Intake Total 615 ml 565 ml Output Total 1085 ml 2190 ml Balance -470 ml -1625 ml Free Water 200 ml 100 ml IV Total 55 ml 55 ml Tube Feeding 360 ml 360 ml Other 50 ml Output Urine Total 1085 ml 2190 ml # Bowel Movements 2 2 Laboratory Tests Test 12/15/16 03:30 12/15/16 06:00 12/15/16 08:20 White Blood Count 7.3 K/UL (4.8-10.8) Red Blood Count 3.26 M/UL (4.70-6.10) L Hemoglobin 9.7 G/DL (14.2-18.0) L Hematocrit 31.1 % (42.0-52.0) L Mean Corpuscular Volume 95 FL (80-99) Mean Corpuscular Hemoglobin 29.8 PG (27.0-31.0) Mean Corpuscular Hemoglobin Concent 31.2 G/DL (32.0-36.0) L Red Cell Distribution Width 16.0 % (11.6-14.8) H Platelet Count 56 K/UL (150-450) L Mean Platelet Volume 11.5 FL (6.5-10.1) H Neutrophils (%) (Auto) % (45.0-75.0) Lymphocytes (%) (Auto) % (20.0-45.0) Monocytes (%) (Auto) % (1.0-10.0) Eosinophils (%) (Auto) % (0.0-3.0) Basophils (%) (Auto) % (0.0-2.0) Differential Total Cells Counted 100 Neutrophils % (Manual) 81 % (45-75) H Lymphocytes % (Manual) 8 % (20-45) L Monocytes % (Manual) 9 % (1-10) Eosinophils % (Manual) 2 % (0-3) Basophils % (Manual) 0 % (0-2) Band Neutrophils 0 % (0-8) Platelet Estimate Decreased L Platelet Morphology Normal Hypochromasia 1+ Anisocytosis 1+ Sodium Level 151 mEQ/L (135-145) H Potassium Level 4.1 mEQ/L (3.4-4.9) Chloride Level 109 mEQ/L (98-107) H Carbon Dioxide Level 27 mEQ/L (20-30) Anion Gap 15 (5-15) Blood Urea Nitrogen 56 mg/dL (7-23) H Creatinine 3.0 mg/dL (0.7-1.2) H Estimat Glomerular Filtration Rate 25.6 mL/min (>60) Glucose Level 107 mg/dL (74-106) H Calcium Level 7.8 mg/dL (8.6-10.2) L Phosphorus Level 4.2 mg/dL (2.5-4.8) Magnesium Level 2.2 mg/dL (1.7-2.5) Total Bilirubin 0.4 mg/dL (0.0-1.2) Aspartate Amino Transf (AST/SGOT) 38 U/L (5-40) Alanine Aminotransferase (ALT/SGPT) 33 U/L (3-41) Alkaline Phosphatase 63 U/L (40-129) Total Protein 6.3 g/dL (6.6-8.7) L Albumin 2.4 g/dL (3.5-5.2) L Globulin 3.9 g/dL Albumin/Globulin Ratio 0.6 (1.0-2.7) L Urine Eosinophils None seen Arterial Blood pH 7.438 (7.350-7.450) Arterial Blood Partial Pressure CO2 40.6 mmHg (35.0-45.0) Arterial Blood Partial Pressure O2 120.6 mmHg (75.0-100.0) H Arterial Blood HCO3 26.8 mmol/L (22.0-26.0) H Arterial Blood Oxygen Saturation 98.0 % (92.0-98.0) Arterial Blood Base Excess 2.5 Adrian Test Positive STEPHEN LONDON Dec 15, 2016 19:59
[2016-12-15] MEDS: HydrALAZINE 50mg tab NG SCH (21:34)
--- NOTE | 2016-12-15 21:54 | Infectious Diseases Prog Note ---
Assessment/Plan Assessment/Plan A: The patient is a 66-year-old male with Pneumonia, SCx : Nl Daisy Chest x-ray showed bilateral large pleural effusion History of hepatitis C Fever improved ALOC VDRF SP intubated. CHF. Renal insufficiency. Hypertension. CAD and KS. History of GI bleed. History of cirrhosis. History of spinal fusion PLAN: cont on Zosyn and Levaquin. d# 5/ 7 Monitor CBC. Monitor BMP. Monitor chest x-ray. Monitor , blood culture, . Subjective Allergies: Coded Allergies: No Known Allergies (Unverified , 04/29/13) Subjective on vent Objective Vital Signs Last 24 Hour Vital Signs Date Time Temp Pulse Resp B/P Pulse Ox O2 Delivery O2 Flow Rate FiO2 12/15/16 21:34 168/92 12/15/16 21:18 64 16 40 12/15/16 21:00 98.2 72 16 168/92 100 Mechanical Ventilator 40 12/15/16 20:00 69 16 162/89 100 Mechanical Ventilator 40 12/15/16 20:00 40 12/15/16 20:00 64 12/15/16 19:16 63 16 40 12/15/16 19:00 74 16 168/96 100 Mechanical Ventilator 40 12/15/16 18:00 64 16 173/96 100 Mechanical Ventilator 40 12/15/16 17:32 162/98 12/15/16 17:31 162/98 12/15/16 17:13 76 16 40 12/15/16 17:00 68 16 162/98 100 Mechanical Ventilator 40 12/15/16 16:00 64 12/15/16 16:00 98.6 65 16 167/94 99 Mechanical Ventilator 40 12/15/16 16:00 40 12/15/16 15:14 78 16 40 12/15/16 15:05 73 16 176/98 100 Mechanical Ventilator 40 12/15/16 14:07 64 16 169/94 100 Mechanical Ventilator 40 12/15/16 13:16 61 16 40 12/15/16 13:00 61 16 174/92 100 Mechanical Ventilator 40 12/15/16 12:35 64 12/15/16 12:28 40 12/15/16 12:21 166/89 12/15/16 12:20 166/89 12/15/16 12:00 98.8 66 16 166/89 99 Mechanical Ventilator 40 12/15/16 11:04 73 16 40 12/15/16 11:00 66 16 165/90 100 Mechanical Ventilator 40 12/15/16 10:00 16 173/91 100 Mechanical Ventilator 40 67 12/15/16 09:02 67 16 40 12/15/16 09:02 100 12/15/16 09:00 16 173/92 100 Mechanical Ventilator 40 68 12/15/16 08:44 71 177/94 12/15/16 08:12 40 12/15/16 08:10 99.6 67 16 177/94 100 Mechanical Ventilator 40 12/15/16 08:10 68 12/15/16 06:55 67 16 169/96 100 Mechanical Ventilator 40 12/15/16 06:46 65 16 40 12/15/16 06:02 171/96 12/15/16 06:02 171/96 12/15/16 06:00 66 16 172/94 100 Mechanical Ventilator 40 12/15/16 05:25 90 16 40 12/15/16 05:00 82 16 170/90 100 Mechanical Ventilator 40 12/15/16 04:00 40 12/15/16 04:00 98.0 69 16 172/92 100 Mechanical Ventilator 40 12/15/16 04:00 67 12/15/16 03:14 67 16 40 12/15/16 03:02 70 16 171/98 100 Mechanical Ventilator 40 12/15/16 02:00 69 16 172/94 100 Mechanical Ventilator 40 12/15/16 01:20 66 16 40 12/15/16 01:00 67 16 161/92 100 Mechanical Ventilator 40 12/15/16 00:00 98.1 65 16 169/92 100 Mechanical Ventilator 40 12/15/16 00:00 40 12/15/16 00:00 65 12/14/16 23:16 67 16 40 12/14/16 23:00 63 16 168/94 100 Mechanical Ventilator 40 12/14/16 22:00 60 16 168/100 99 Mechanical Ventilator 40 12/14/16 21:50 153/91 Height (Feet): 5 Height (Inches): 9.00 Weight (Pounds): 150 HEENT: atraumatic Respiratory/Chest: lungs clear, normal breath sounds Cardiovascular: normal rate Abdomen: soft, non tender, no organomegaly Laboratory Tests Test 12/15/16 03:30 12/15/16 06:00 12/15/16 08:20 White Blood Count 7.3 K/UL (4.8-10.8) Red Blood Count 3.26 M/UL (4.70-6.10) L Hemoglobin 9.7 G/DL (14.2-18.0) L Hematocrit 31.1 % (42.0-52.0) L Mean Corpuscular Volume 95 FL (80-99) Mean Corpuscular Hemoglobin 29.8 PG (27.0-31.0) Mean Corpuscular Hemoglobin Concent 31.2 G/DL (32.0-36.0) L Red Cell Distribution Width 16.0 % (11.6-14.8) H Platelet Count 56 K/UL (150-450) L Mean Platelet Volume 11.5 FL (6.5-10.1) H Neutrophils (%) (Auto) % (45.0-75.0) Lymphocytes (%) (Auto) % (20.0-45.0) Monocytes (%) (Auto) % (1.0-10.0) Eosinophils (%) (Auto) % (0.0-3.0) Basophils (%) (Auto) % (0.0-2.0) Differential Total Cells Counted 100 Neutrophils % (Manual) 81 % (45-75) H Lymphocytes % (Manual) 8 % (20-45) L Monocytes % (Manual) 9 % (1-10) Eosinophils % (Manual) 2 % (0-3) Basophils % (Manual) 0 % (0-2) Band Neutrophils 0 % (0-8) Platelet Estimate Decreased L Platelet Morphology Normal Hypochromasia 1+ Anisocytosis 1+ Sodium Level 151 mEQ/L (135-145) H Potassium Level 4.1 mEQ/L (3.4-4.9) Chloride Level 109 mEQ/L (98-107) H Carbon Dioxide Level 27 mEQ/L (20-30) Anion Gap 15 (5-15) Blood Urea Nitrogen 56 mg/dL (7-23) H Creatinine 3.0 mg/dL (0.7-1.2) H Estimat Glomerular Filtration Rate 25.6 mL/min (>60) Glucose Level 107 mg/dL (74-106) H Calcium Level 7.8 mg/dL (8.6-10.2) L Phosphorus Level 4.2 mg/dL (2.5-4.8) Magnesium Level 2.2 mg/dL (1.7-2.5) Total Bilirubin 0.4 mg/dL (0.0-1.2) Aspartate Amino Transf (AST/SGOT) 38 U/L (5-40) Alanine Aminotransferase (ALT/SGPT) 33 U/L (3-41) Alkaline Phosphatase 63 U/L (40-129) Total Protein 6.3 g/dL (6.6-8.7) L Albumin 2.4 g/dL (3.5-5.2) L Globulin 3.9 g/dL Albumin/Globulin Ratio 0.6 (1.0-2.7) L Urine Eosinophils None seen Arterial Blood pH 7.438 (7.350-7.450) Arterial Blood Partial Pressure CO2 40.6 mmHg (35.0-45.0) Arterial Blood Partial Pressure O2 120.6 mmHg (75.0-100.0) H Arterial Blood HCO3 26.8 mmol/L (22.0-26.0) H Arterial Blood Oxygen Saturation 98.0 % (92.0-98.0) Arterial Blood Base Excess 2.5 Adrian Test Positive Current Medications Medications (Trade) Dose Ordered Sig/Melania Route PRN Reason Start Time Stop Time Status Last Admin Dose Admin Acetaminophen (Tylenol) 650 mg Q4H PRN ORAL Fever 12/10/16 16:45 01/09/17 16:44 12/13/16 06:09 Acetaminophen/ Hydrocodone Bitart ([place] 5/325) 1 tab Q6H PRN ORAL severe pain 12/10/16 18:45 12/17/16 18:44 12/15/16 09:08 Amlodipine Besylate (Norvasc) 10 mg DAILY NG 12/16/16 09:00 01/15/17 08:59 Clonidine HCl (Catapres) 0.1 mg EVERY 6 HOURS ORAL 12/15/16 12:00 01/14/17 11:59 12/15/16 17:32 Dextrose (Dextrose 50%) STAT PRN IV Hypoglycemia 12/11/16 00:45 01/10/17 00:44 Hydralazine HCl (Apresoline) 50 mg Q8HR NG 12/15/16 22:00 01/14/17 21:59 12/15/16 21:34 Levofloxacin (Levaquin 750mg/ D5W) 150 ml @ 100 mls/hr Q48H IVPB 12/11/16 16:00 12/18/16 15:59 12/15/16 15:43 Lorazepam (Ativan 2mg/ml 1ml) 1 mg Q4H PRN IV For Anxiety 12/13/16 15:45 12/20/16 15:44 12/15/16 17:53 Nitroglycerin 1 inch 1 inch TID@0600,1200,1800 TOPIC 12/12/16 06:00 01/11/17 05:59 12/15/16 17:31 Ondansetron HCl (Zofran) 4 mg Q6H PRN IVP Nausea & Vomiting 12/10/16 18:45 01/09/17 18:44 Pantoprazole (Protonix) 40 mg DAILY IVP 12/11/16 16:00 01/10/17 15:59 12/15/16 08:44 Piperacillin Sod/ Tazobactam Sod/ Dextrose (Zosyn/D5W) 55 ml @ 110 mls/hr Q8HR@0200,1000,1800 IV 12/12/16 18:00 12/18/16 17:59 12/15/16 17:47 Polyethylene Glycol (Miralax) 17 gm DAILYPRN PRN ORAL Constipation 12/11/16 00:45 01/10/17 00:44 Temazepam (Restoril) 15 mg HSPRN PRN ORAL Insomnia 12/11/16 00:45 12/18/16 00:44 12/13/16 19:43 Vitamin A/Vitamin D 1 applic 1 applic EVERY 12 HOURS TOPIC 12/10/16 21:00 01/09/17 20:59 12/15/16 20:50 Vitamin B Complex/ Vit C/Folic Acid (Nephrovite) 1 tab DAILY GT 12/12/16 09:00 01/11/17 08:59 12/15/16 08:44 ERWIN KIMBROUGH M.D. Dec 15, 2016 21:54
[2016-12-16] VITALS (24 sets, daily range): BP systolic 115–161; BP diastolic 65–90
[2016-12-16] MEDS ORDERED: Zosyn 2.25gm inj ONE (01:53)
[2016-12-16] MEDS: Piperacillin/Tazobactam 2.25 GM in D5W 55 ML IV SCH ×3 (01:58→17:59)
[2016-12-16] MEDS: LORazepam Inj 2mg/ml 1ml IV PRN ×2 (04:36→22:29)
[2016-12-16] MEDS: Nitroglycerin 2% oint pkt TOPIC SCH ×3 (05:45→18:00)
[2016-12-16] MEDS: HydrALAZINE 50mg tab NG SCH ×3 (05:45→21:46)
[2016-12-16 06:28] LABS: MEAN CORPUSCULAR HEMOGLOBIN 30.6 PG (27.0-31.0); MEAN CORPUSCULAR HGB CONC 32.2 G/DL (32.0-36.0); MEAN CORPUSCULAR VOLUME 95 FL (80-99); MEAN PLATELET VOLUME 10.9 FL (6.5-10.1); PLATELET COUNT 52 K/UL (150-450); RED BLOOD COUNT 3.02 M/UL (4.70-6.10); RED CELL DISTRIBUTION WIDTH 16.4 % (11.6-14.8); WHITE BLOOD COUNT 5.8 K/UL (4.8-10.8)
[2016-12-16 07:55] LABS: ALBUMIN/GLOBULIN RATIO 0.5 (1.0-2.7); CALCIUM 7.6 mg/dL (8.6-10.2); CREATININE 2.7 mg/dL (0.7-1.2); GLOMERULAR FILTRATION RATE 28.8 mL/min (>60); PHOSPHORUS 3.8 mg/dL (2.5-4.8)
[2016-12-16 08:01] LABS: BAND NEUTROPHILS % (MANUAL) 0 % (0-8); BASOPHILS % (MANUAL) 0 % (0-2); EOSINOPHILS % (MANUAL) 2 % (0-3); LYMPHOCYTES % (MANUAL) 18 % (20-45); NEUTROPHILS % (MANUAL) 76 % (45-75); PLATELET ESTIMATE DECREASED; PLATELET MORPHOLOGY NORMAL; TOTAL CELLS COUNTED 100
[2016-12-16 08:03] LABS: ANISOCYTOSIS 1+; HYPOCHROMASIA 1+
[2016-12-16] MEDS: Pantoprazole Inj IVP SCH (08:19)
[2016-12-16] MEDS: Norco 5mg/325mg tab ORAL PRN (08:20)
[2016-12-16] MEDS: Nephrovite tab GT SCH (08:20)
[2016-12-16] MEDS: Vitamin A&D Oint 2oz Tube TOPIC SCH ×2 (08:21→21:01)
[2016-12-16 08:44] LABS: ABG BASE EXCESS 2.1; ABG PCO2 36.4 mmHg (35.0-45.0)
--- NOTE | 2016-12-16 08:57 | Cardiology Report ---
APPROVED REPORT EXAM: Two-dimensional and M-mode echocardiogram with Doppler and color Doppler. INDICATION Left ventricular function M-Mode DIMENSIONS IVSd0.9 (0.7-1.1cm)Left Atrium (MM)4.4 (1.6-4.0cm) LVDd5.3 (3.5-5.6cm)Aortic Root3.5 (2.0-3.7cm) PWd1.6 (0.7-1.1cm)Aortic Cusp Exc.1.7 (1.5-2.0cm) LVDs4.5 (2.5-4.0cm) PWs1.5 cm Normal left ventricular chamber size, systolic function and wall motion. Left ventricular ejection fraction estimated to be 55 %. Mild left ventricular hypertrophy. Small posterior pericardial effusion.Large posterior pleural effusion. Mild bi-atrial enlargement by 2D. Focal aortic valve sclerosis with adequate cusp excursion Thickened mitral valve leaflets with normal excursion. Mitral annulus and aortic root calcification. Pulmonic valve is well visualized. Normal tricuspid valve structure. IVC dilated at 2.3cm with no physiologic collapse. RA pressure of 20mmHg. A color flow and spectral Doppler study was performed and revealed: Trace aortic regurgitation. Severe mitral regurgitation. Left ventricular diastolic dysfunction not obtainable due to arrhythmia. Mild tricuspid regurgitation. Tricuspid systolic velocities suggests peak right ventricular systolic pressure of 50 mmHg Consistent with moderate pulmonary hypertension.
--- NOTE | 2016-12-16 09:30 | Pulmonolgy Critical Care Note ---
Critical Care - Asmt/Plan Problems: (1) Aspiration pneumonia (2) Respiratory failure (3) Pleural effusion (4) ATN (acute tubular necrosis) (5) Hepatitis C (6) CAD (coronary artery disease) Respiratory: monitor respiratory rate, adjust FIO2, CXR Cardiac: continue pressors, continue to monitor HR/BP Renal: F/U I&O, keep IV fluid Infectious Disease: continue antibiotics Gastrointestinal: continue feedings/current rate Endocrine: monitor blood sugar, continue sliding scale insulin Hematologic: monitor H/H, transfuse if hgb<8.5 Neurologic: PRN Ativan, PRN Morphine, keep patient comfortable Affect: PRN ativan Notes Reviewed: pbx technician, cardio, renal Discussed with: nurses, consultants, rehabilitation case coordinatorassistant manager trainee - Objective Last 24 Hour Vital Signs Date Time Temp Pulse Resp B/P Pulse Ox O2 Delivery O2 Flow Rate FiO2 12/16/16 08:55 77 16 40 12/16/16 08:51 100 12/16/16 08:21 77 145/72 12/16/16 07:30 76 16 40 12/16/16 07:00 80 16 135/66 100 Mechanical Ventilator 40 12/16/16 06:00 74 16 139/68 100 Mechanical Ventilator 40 12/16/16 05:45 160/87 12/16/16 05:45 160/87 12/16/16 05:45 160/87 12/16/16 05:00 72 16 160/87 100 Mechanical Ventilator 40 12/16/16 04:55 79 16 40 12/16/16 04:00 70 12/16/16 04:00 40 12/16/16 04:00 98.8 71 16 159/90 100 Mechanical Ventilator 40 12/16/16 03:00 69 16 161/88 100 Mechanical Ventilator 40 12/16/16 02:46 69 16 40 12/16/16 02:00 73 16 148/84 100 Mechanical Ventilator 40 12/16/16 01:20 73 16 40 12/16/16 01:00 78 16 160/83 100 Mechanical Ventilator 40 12/16/16 00:01 156/86 12/16/16 00:00 98.8 79 16 156/86 100 Mechanical Ventilator 40 12/16/16 00:00 75 12/16/16 00:00 40 12/15/16 23:41 76 16 40 12/15/16 23:00 83 16 143/76 100 Mechanical Ventilator 40 12/15/16 22:00 79 16 140/73 100 Mechanical Ventilator 40 12/15/16 21:34 168/92 12/15/16 21:18 64 16 40 12/15/16 21:00 98.2 72 16 168/92 100 Mechanical Ventilator 40 12/15/16 20:00 69 16 162/89 100 Mechanical Ventilator 40 12/15/16 20:00 40 12/15/16 20:00 64 12/15/16 19:16 63 16 40 12/15/16 19:00 74 16 168/96 100 Mechanical Ventilator 40 12/15/16 18:00 64 16 173/96 100 Mechanical Ventilator 40 12/15/16 17:32 162/98 12/15/16 17:31 162/98 12/15/16 17:13 76 16 40 12/15/16 17:00 68 16 162/98 100 Mechanical Ventilator 40 12/15/16 16:00 64 12/15/16 16:00 98.6 65 16 167/94 99 Mechanical Ventilator 40 12/15/16 16:00 40 12/15/16 15:14 78 16 40 12/15/16 15:05 73 16 176/98 100 Mechanical Ventilator 40 12/15/16 14:07 64 16 169/94 100 Mechanical Ventilator 40 12/15/16 13:16 61 16 40 12/15/16 13:00 61 16 174/92 100 Mechanical Ventilator 40 12/15/16 12:35 64 12/15/16 12:28 40 12/15/16 12:21 166/89 12/15/16 12:20 166/89 12/15/16 12:00 98.8 66 16 166/89 99 Mechanical Ventilator 40 12/15/16 11:04 73 16 40 12/15/16 11:00 66 16 165/90 100 Mechanical Ventilator 40 12/15/16 10:00 16 173/91 100 Mechanical Ventilator 40 67 Status: sedated Condition: critical HEENT: atraumatic Lungs: clear Heart: HR/BP stable, regular Abdomen: soft, active bowel sounds, feeding tube Extremities: no C/C/E Decubiti: location Accucheck: 128 Critical Care - Subjective ROS Limited/Unobtainable: Yes ICU Day: 6 Intubation Day: 6 Condition: critical EKG Rhythm: Sinus Rhythm FI02: 40 Vent Support Breath Rate: 16 Vent Support Mode: AC Vent Tidal Volume: 600 Sputum Amount: Scant PEEP: 0.0 PIP: 25 Tube Feeding Amount: 30 I&O: Intake and Output 12/15/16 12/16/16 19:00 07:00 Intake Total 950 ml 830 ml Output Total 1240 ml 1105 ml Balance -290 ml -275 ml Free Water 300 ml 300 ml IV Total 260 ml 110 ml Tube Feeding 360 ml 360 ml Other 30 ml 60 ml Output Urine Total 1240 ml 1105 ml CXR: right effuion, ET tube in place ET-Tube: 7.5 ET Position: 22 Labs: Laboratory Tests Test 12/16/16 05:30 12/16/16 08:20 White Blood Count 5.8 K/UL (4.8-10.8) Red Blood Count 3.02 M/UL (4.70-6.10) L Hemoglobin 9.2 G/DL (14.2-18.0) L Hematocrit 28.6 % (42.0-52.0) L Mean Corpuscular Volume 95 FL (80-99) Mean Corpuscular Hemoglobin 30.6 PG (27.0-31.0) Mean Corpuscular Hemoglobin Concent 32.2 G/DL (32.0-36.0) Red Cell Distribution Width 16.4 % (11.6-14.8) H Platelet Count 52 K/UL (150-450) L Mean Platelet Volume 10.9 FL (6.5-10.1) H Neutrophils (%) (Auto) % (45.0-75.0) Lymphocytes (%) (Auto) % (20.0-45.0) Monocytes (%) (Auto) % (1.0-10.0) Eosinophils (%) (Auto) % (0.0-3.0) Basophils (%) (Auto) % (0.0-2.0) Differential Total Cells Counted 100 Neutrophils % (Manual) 76 % (45-75) H Lymphocytes % (Manual) 18 % (20-45) L Monocytes % (Manual) 4 % (1-10) Eosinophils % (Manual) 2 % (0-3) Basophils % (Manual) 0 % (0-2) Band Neutrophils 0 % (0-8) Platelet Estimate Decreased L Platelet Morphology Normal Hypochromasia 1+ Anisocytosis 1+ Sodium Level 150 mEQ/L (135-145) H Potassium Level 4.0 mEQ/L (3.4-4.9) Chloride Level 112 mEQ/L (98-107) H Carbon Dioxide Level 25 mEQ/L (20-30) Anion Gap 13 (5-15) Blood Urea Nitrogen 48 mg/dL (7-23) H Creatinine 2.7 mg/dL (0.7-1.2) H Estimat Glomerular Filtration Rate 28.8 mL/min (>60) Glucose Level 101 mg/dL (74-106) Calcium Level 7.6 mg/dL (8.6-10.2) L Phosphorus Level 3.8 mg/dL (2.5-4.8) Magnesium Level 2.0 mg/dL (1.7-2.5) Total Bilirubin 0.4 mg/dL (0.0-1.2) Aspartate Amino Transf (AST/SGOT) 34 U/L (5-40) Alanine Aminotransferase (ALT/SGPT) 29 U/L (3-41) Alkaline Phosphatase 60 U/L (40-129) Total Protein 6.0 g/dL (6.6-8.7) L Albumin 2.1 g/dL (3.5-5.2) L Globulin 3.9 g/dL Albumin/Globulin Ratio 0.5 (1.0-2.7) L Arterial Blood pH 7.468 (7.350-7.450) Arterial Blood Partial Pressure CO2 36.4 mmHg (35.0-45.0) Arterial Blood Partial Pressure O2 105.9 mmHg (75.0-100.0) H Arterial Blood HCO3 25.8 mmol/L (22.0-26.0) Arterial Blood Oxygen Saturation 97.6 % (92.0-98.0) Arterial Blood Base Excess 2.1 Adrian Test N/a YAMILET DIOR Dec 16, 2016 09:30
--- NOTE | 2016-12-16 11:58 | Infectious Diseases Prog Note ---
Assessment/Plan Assessment/Plan A: The patient is a 66-year-old male with Pneumonia, SCx : Nl Daisy Chest x-ray showed bilateral large pleural effusion History of hepatitis C Fever improved ALOC VDRF SP intubated. CHF. Renal insufficiency. Hypertension. CAD and AK. History of GI bleed. History of cirrhosis. History of spinal fusion PLAN: cont on Zosyn and Levaquin. d# / Monitor CBC. Monitor BMP. Monitor chest x-ray. Monitor blood culture, . Subjective Allergies: Coded Allergies: No Known Allergies (Unverified , 04/29/13) Subjective on vent Objective Vital Signs Last 24 Hour Vital Signs Date Time Temp Pulse Resp B/P Pulse Ox O2 Delivery O2 Flow Rate FiO2 12/16/16 11:30 40 12/16/16 11:00 75 16 134/72 99 Mechanical Ventilator 40 12/16/16 11:00 87 16 40 12/16/16 10:00 78 16 146/76 99 Mechanical Ventilator 40 12/16/16 09:00 76 16 147/75 100 Mechanical Ventilator 40 12/16/16 08:55 77 16 40 12/16/16 08:51 100 12/16/16 08:21 77 145/72 12/16/16 08:00 78 12/16/16 08:00 98.1 80 20 145/72 100 Mechanical Ventilator 40 12/16/16 08:00 40 12/16/16 07:30 76 16 40 12/16/16 07:00 80 16 135/66 100 Mechanical Ventilator 40 12/16/16 06:00 74 16 139/68 100 Mechanical Ventilator 40 12/16/16 05:45 160/87 12/16/16 05:45 160/87 12/16/16 05:45 160/87 12/16/16 05:00 72 16 160/87 100 Mechanical Ventilator 40 12/16/16 04:55 79 16 40 12/16/16 04:00 70 12/16/16 04:00 40 12/16/16 04:00 98.8 71 16 159/90 100 Mechanical Ventilator 40 12/16/16 03:00 69 16 161/88 100 Mechanical Ventilator 40 12/16/16 02:46 69 16 40 12/16/16 02:00 73 16 148/84 100 Mechanical Ventilator 40 12/16/16 01:20 73 16 40 12/16/16 01:00 78 16 160/83 100 Mechanical Ventilator 40 12/16/16 00:01 156/86 12/16/16 00:00 98.8 79 16 156/86 100 Mechanical Ventilator 40 12/16/16 00:00 75 12/16/16 00:00 40 12/15/16 23:41 76 16 40 12/15/16 23:00 83 16 143/76 100 Mechanical Ventilator 40 12/15/16 22:00 79 16 140/73 100 Mechanical Ventilator 40 12/15/16 21:34 168/92 12/15/16 21:18 64 16 40 12/15/16 21:00 98.2 72 16 168/92 100 Mechanical Ventilator 40 12/15/16 20:00 69 16 162/89 100 Mechanical Ventilator 40 12/15/16 20:00 40 12/15/16 20:00 64 12/15/16 19:16 63 16 40 12/15/16 19:00 74 16 168/96 100 Mechanical Ventilator 40 12/15/16 18:00 64 16 173/96 100 Mechanical Ventilator 40 12/15/16 17:32 162/98 12/15/16 17:31 162/98 12/15/16 17:13 76 16 40 12/15/16 17:00 68 16 162/98 100 Mechanical Ventilator 40 12/15/16 16:00 64 12/15/16 16:00 98.6 65 16 167/94 99 Mechanical Ventilator 40 12/15/16 16:00 40 12/15/16 15:14 78 16 40 12/15/16 15:05 73 16 176/98 100 Mechanical Ventilator 40 12/15/16 14:07 64 16 169/94 100 Mechanical Ventilator 40 12/15/16 13:16 61 16 40 12/15/16 13:00 61 16 174/92 100 Mechanical Ventilator 40 12/15/16 12:35 64 12/15/16 12:28 40 12/15/16 12:21 166/89 12/15/16 12:20 166/89 12/15/16 12:00 98.8 66 16 166/89 99 Mechanical Ventilator 40 Height (Feet): 5 Height (Inches): 9.00 Weight (Pounds): 150 HEENT: atraumatic Respiratory/Chest: lungs clear, no accessory muscle use Cardiovascular: regular rhythm Abdomen: soft, non tender, no organomegaly Laboratory Tests Test 12/16/16 05:30 12/16/16 08:20 White Blood Count 5.8 K/UL (4.8-10.8) Red Blood Count 3.02 M/UL (4.70-6.10) L Hemoglobin 9.2 G/DL (14.2-18.0) L Hematocrit 28.6 % (42.0-52.0) L Mean Corpuscular Volume 95 FL (80-99) Mean Corpuscular Hemoglobin 30.6 PG (27.0-31.0) Mean Corpuscular Hemoglobin Concent 32.2 G/DL (32.0-36.0) Red Cell Distribution Width 16.4 % (11.6-14.8) H Platelet Count 52 K/UL (150-450) L Mean Platelet Volume 10.9 FL (6.5-10.1) H Neutrophils (%) (Auto) % (45.0-75.0) Lymphocytes (%) (Auto) % (20.0-45.0) Monocytes (%) (Auto) % (1.0-10.0) Eosinophils (%) (Auto) % (0.0-3.0) Basophils (%) (Auto) % (0.0-2.0) Differential Total Cells Counted 100 Neutrophils % (Manual) 76 % (45-75) H Lymphocytes % (Manual) 18 % (20-45) L Monocytes % (Manual) 4 % (1-10) Eosinophils % (Manual) 2 % (0-3) Basophils % (Manual) 0 % (0-2) Band Neutrophils 0 % (0-8) Platelet Estimate Decreased L Platelet Morphology Normal Hypochromasia 1+ Anisocytosis 1+ Sodium Level 150 mEQ/L (135-145) H Potassium Level 4.0 mEQ/L (3.4-4.9) Chloride Level 112 mEQ/L (98-107) H Carbon Dioxide Level 25 mEQ/L (20-30) Anion Gap 13 (5-15) Blood Urea Nitrogen 48 mg/dL (7-23) H Creatinine 2.7 mg/dL (0.7-1.2) H Estimat Glomerular Filtration Rate 28.8 mL/min (>60) Glucose Level 101 mg/dL (74-106) Calcium Level 7.6 mg/dL (8.6-10.2) L Phosphorus Level 3.8 mg/dL (2.5-4.8) Magnesium Level 2.0 mg/dL (1.7-2.5) Total Bilirubin 0.4 mg/dL (0.0-1.2) Aspartate Amino Transf (AST/SGOT) 34 U/L (5-40) Alanine Aminotransferase (ALT/SGPT) 29 U/L (3-41) Alkaline Phosphatase 60 U/L (40-129) Total Protein 6.0 g/dL (6.6-8.7) L Albumin 2.1 g/dL (3.5-5.2) L Globulin 3.9 g/dL Albumin/Globulin Ratio 0.5 (1.0-2.7) L Arterial Blood pH 7.468 (7.350-7.450) Arterial Blood Partial Pressure CO2 36.4 mmHg (35.0-45.0) Arterial Blood Partial Pressure O2 105.9 mmHg (75.0-100.0) H Arterial Blood HCO3 25.8 mmol/L (22.0-26.0) Arterial Blood Oxygen Saturation 97.6 % (92.0-98.0) Arterial Blood Base Excess 2.1 Adrian Test N/a Current Medications Medications (Trade) Dose Ordered Sig/Melania Route PRN Reason Start Time Stop Time Status Last Admin Dose Admin Acetaminophen (Tylenol) 650 mg Q4H PRN ORAL Fever 12/10/16 16:45 01/09/17 16:44 12/13/16 06:09 Acetaminophen/ Hydrocodone Bitart ([place] 5/325) 1 tab Q6H PRN ORAL severe pain 12/10/16 18:45 12/17/16 18:44 12/16/16 08:20 Amlodipine Besylate (Norvasc) 10 mg DAILY NG 12/16/16 09:00 01/15/17 08:59 12/16/16 08:21 Clonidine HCl (Catapres) 0.1 mg EVERY 6 HOURS ORAL 12/15/16 12:00 01/14/17 11:59 12/16/16 05:45 Dextrose (Dextrose 50%) STAT PRN IV Hypoglycemia 12/11/16 00:45 01/10/17 00:44 Hydralazine HCl (Apresoline) 50 mg Q8HR NG 12/15/16 22:00 01/14/17 21:59 12/16/16 05:45 Levofloxacin (Levaquin 750mg/ D5W) 150 ml @ 100 mls/hr Q48H IVPB 12/11/16 16:00 12/18/16 15:59 12/15/16 15:43 Lorazepam (Ativan 2mg/ml 1ml) 1 mg Q4H PRN IV For Anxiety 12/13/16 15:45 12/20/16 15:44 12/16/16 04:36 Nitroglycerin 1 inch 1 inch TID@0600,1200,1800 TOPIC 12/12/16 06:00 01/11/17 05:59 12/16/16 05:45 Ondansetron HCl (Zofran) 4 mg Q6H PRN IVP Nausea & Vomiting 12/10/16 18:45 01/09/17 18:44 Pantoprazole (Protonix) 40 mg DAILY IVP 12/11/16 16:00 01/10/17 15:59 12/16/16 08:19 Piperacillin Sod/ Tazobactam Sod/ Dextrose (Zosyn/D5W) 55 ml @ 110 mls/hr Q8HR@0200,1000,1800 IV 12/12/16 18:00 12/18/16 17:59 12/16/16 09:21 Polyethylene Glycol (Miralax) 17 gm DAILYPRN PRN ORAL Constipation 12/11/16 00:45 01/10/17 00:44 Temazepam (Restoril) 15 mg HSPRN PRN ORAL Insomnia 12/11/16 00:45 12/18/16 00:44 12/13/16 19:43 Vitamin A/Vitamin D 1 applic 1 applic EVERY 12 HOURS TOPIC 12/10/16 21:00 01/09/17 20:59 12/16/16 08:21 Vitamin B Complex/ Vit C/Folic Acid (Nephrovite) 1 tab DAILY GT 12/12/16 09:00 01/11/17 08:59 12/16/16 08:20 ERWIN KIMBROUGH M.D. Dec 16, 2016 11:58
--- NOTE | 2016-12-16 12:22 | Diagnostic Imaging Report ---
Indication: DYSPNEA Technique: One view of the chest Comparison: 12/15/2016 Findings: Bilateral right greater than left parenchymal infiltrates, bilateral pleural effusions persists, unchanged. Stable satisfactory positions of endotracheal and nasogastric tubes. The heart remains enlarged. Findings are unchanged Impression: Unchanged, over one day, findings as above.
--- NOTE | 2016-12-16 13:56 | Cardiology Progress Note ---
Assessment/Plan Assessment/Plan 1. Abnormal mentation due to respiratory acidosis . 2. Respiratory acidosis. 3. Congestive heart failure with pleural effusion, 4. Mitral regurgitation. 5. Cardiomyopathy. 6. History of amphetamine abuse. 7. History of paroxysmal episodes of atrial fibrillation per report. 8. Renal insufficiency. 9. Hepatitis C virus with cirrhosis vent support wean as possible diuretics zoroxolyna dn lasix today after laod reduction hold acei in light of renal insuf start hydralazine and nitrate in light of renla isuf tele noted ekg noted cxr form today reviwed tele reviewed ekg reviewed Subjective ROS Limited/Unobtainable: Yes Subjective on ramona vent Objective Last 24 Hour Vital Signs Date Time Temp Pulse Resp B/P Pulse Ox O2 Delivery O2 Flow Rate FiO2 12/16/16 13:30 72 16 40 12/16/16 13:00 67 16 153/81 100 Mechanical Ventilator 40 12/16/16 12:10 97.2 79 16 134/80 100 Mechanical Ventilator 40 12/16/16 12:06 134/80 12/16/16 12:06 134/80 12/16/16 12:00 71 12/16/16 11:30 40 12/16/16 11:00 75 16 134/72 99 Mechanical Ventilator 40 12/16/16 11:00 87 16 40 12/16/16 10:00 78 16 146/76 99 Mechanical Ventilator 40 12/16/16 09:00 76 16 147/75 100 Mechanical Ventilator 40 12/16/16 08:55 77 16 40 12/16/16 08:51 100 12/16/16 08:21 77 145/72 12/16/16 08:00 78 12/16/16 08:00 98.1 80 20 145/72 100 Mechanical Ventilator 40 12/16/16 08:00 40 12/16/16 07:30 76 16 40 12/16/16 07:00 80 16 135/66 100 Mechanical Ventilator 40 12/16/16 06:00 74 16 139/68 100 Mechanical Ventilator 40 12/16/16 05:45 160/87 12/16/16 05:45 160/87 12/16/16 05:45 160/87 12/16/16 05:00 72 16 160/87 100 Mechanical Ventilator 40 12/16/16 04:55 79 16 40 12/16/16 04:00 70 12/16/16 04:00 40 12/16/16 04:00 98.8 71 16 159/90 100 Mechanical Ventilator 40 12/16/16 03:00 69 16 161/88 100 Mechanical Ventilator 40 12/16/16 02:46 69 16 40 12/16/16 02:00 73 16 148/84 100 Mechanical Ventilator 40 12/16/16 01:20 73 16 40 12/16/16 01:00 78 16 160/83 100 Mechanical Ventilator 40 12/16/16 00:01 156/86 12/16/16 00:00 98.8 79 16 156/86 100 Mechanical Ventilator 40 12/16/16 00:00 75 12/16/16 00:00 40 12/15/16 23:41 76 16 40 12/15/16 23:00 83 16 143/76 100 Mechanical Ventilator 40 12/15/16 22:00 79 16 140/73 100 Mechanical Ventilator 40 12/15/16 21:34 168/92 12/15/16 21:18 64 16 40 12/15/16 21:00 98.2 72 16 168/92 100 Mechanical Ventilator 40 12/15/16 20:00 69 16 162/89 100 Mechanical Ventilator 40 12/15/16 20:00 40 12/15/16 20:00 64 12/15/16 19:16 63 16 40 12/15/16 19:00 74 16 168/96 100 Mechanical Ventilator 40 12/15/16 18:00 64 16 173/96 100 Mechanical Ventilator 40 12/15/16 17:32 162/98 12/15/16 17:31 162/98 12/15/16 17:13 76 16 40 12/15/16 17:00 68 16 162/98 100 Mechanical Ventilator 40 12/15/16 16:00 64 12/15/16 16:00 98.6 65 16 167/94 99 Mechanical Ventilator 40 12/15/16 16:00 40 12/15/16 15:14 78 16 40 12/15/16 15:05 73 16 176/98 100 Mechanical Ventilator 40 12/15/16 14:07 64 16 169/94 100 Mechanical Ventilator 40 General Appearance: on vent, patient on isolation Neck: supple Cardiovascular: normal rate, regular rhythm Respiratory/Chest: lungs clear - anter Abdomen: normal bowel sounds, non tender, soft Extremities: moderate edema Intake and Output 12/15/16 12/16/16 19:00 07:00 Intake Total 950 ml 830 ml Output Total 1240 ml 1105 ml Balance -290 ml -275 ml Free Water 300 ml 300 ml IV Total 260 ml 110 ml Tube Feeding 360 ml 360 ml Other 30 ml 60 ml Output Urine Total 1240 ml 1105 ml Laboratory Tests Test 12/16/16 05:30 12/16/16 08:20 White Blood Count 5.8 K/UL (4.8-10.8) Red Blood Count 3.02 M/UL (4.70-6.10) L Hemoglobin 9.2 G/DL (14.2-18.0) L Hematocrit 28.6 % (42.0-52.0) L Mean Corpuscular Volume 95 FL (80-99) Mean Corpuscular Hemoglobin 30.6 PG (27.0-31.0) Mean Corpuscular Hemoglobin Concent 32.2 G/DL (32.0-36.0) Red Cell Distribution Width 16.4 % (11.6-14.8) H Platelet Count 52 K/UL (150-450) L Mean Platelet Volume 10.9 FL (6.5-10.1) H Neutrophils (%) (Auto) % (45.0-75.0) Lymphocytes (%) (Auto) % (20.0-45.0) Monocytes (%) (Auto) % (1.0-10.0) Eosinophils (%) (Auto) % (0.0-3.0) Basophils (%) (Auto) % (0.0-2.0) Differential Total Cells Counted 100 Neutrophils % (Manual) 76 % (45-75) H Lymphocytes % (Manual) 18 % (20-45) L Monocytes % (Manual) 4 % (1-10) Eosinophils % (Manual) 2 % (0-3) Basophils % (Manual) 0 % (0-2) Band Neutrophils 0 % (0-8) Platelet Estimate Decreased L Platelet Morphology Normal Hypochromasia 1+ Anisocytosis 1+ Sodium Level 150 mEQ/L (135-145) H Potassium Level 4.0 mEQ/L (3.4-4.9) Chloride Level 112 mEQ/L (98-107) H Carbon Dioxide Level 25 mEQ/L (20-30) Anion Gap 13 (5-15) Blood Urea Nitrogen 48 mg/dL (7-23) H Creatinine 2.7 mg/dL (0.7-1.2) H Estimat Glomerular Filtration Rate 28.8 mL/min (>60) Glucose Level 101 mg/dL (74-106) Calcium Level 7.6 mg/dL (8.6-10.2) L Phosphorus Level 3.8 mg/dL (2.5-4.8) Magnesium Level 2.0 mg/dL (1.7-2.5) Total Bilirubin 0.4 mg/dL (0.0-1.2) Aspartate Amino Transf (AST/SGOT) 34 U/L (5-40) Alanine Aminotransferase (ALT/SGPT) 29 U/L (3-41) Alkaline Phosphatase 60 U/L (40-129) Total Protein 6.0 g/dL (6.6-8.7) L Albumin 2.1 g/dL (3.5-5.2) L Globulin 3.9 g/dL Albumin/Globulin Ratio 0.5 (1.0-2.7) L Arterial Blood pH 7.468 (7.350-7.450) Arterial Blood Partial Pressure CO2 36.4 mmHg (35.0-45.0) Arterial Blood Partial Pressure O2 105.9 mmHg (75.0-100.0) H Arterial Blood HCO3 25.8 mmol/L (22.0-26.0) Arterial Blood Oxygen Saturation 97.6 % (92.0-98.0) Arterial Blood Base Excess 2.1 Adrian Test N/a STEPHEN LONDON Dec 16, 2016 13:56
--- NOTE | 2016-12-16 14:04 | Diagnostic Imaging Report ---
Indication: Dyspnea Comparison: 12/12/2016 A single view chest radiograph was obtained. Findings: Hazy groundglass opacities are present at the lung bases. Consolidation noted diffusely with increased vascular markings and cardiomegaly. Impression: CHF and bilateral pleural effusions. No change
[2016-12-16] MEDS ORDERED: Metolazone 5mg tab ORAL ONE (14:30)
--- NOTE | 2016-12-16 15:22 | General Progress Note ---
Assessment/Plan Status: unchanged Status Narrative Cr lower Assessment/Plan -Renal insufficiency. ? Acute on Chronic Cr stable, and slow rising ! Urine output improved Other: -Abnormal mentation. -Respiratory failure, acute with hypoxia-/ Aspiration [place] -Congestive heart failure with pleural effusion, -Mitral regurgitation. -Cardiomyopathy. -History of amphetamine abuse. -History of paroxysmal episodes of atrial fibrillation per report. -Hepatitis C virus with cirrhosis. Plan: one liter D5w Optimize cardiac and pulmonary status- Keep BP in check- Monitor renal parameters- avoid nephrotoxics- per orders- UA 3+ protein Subjective ROS Limited/Unobtainable: No Constitutional: Reports: malaise Allergies: Coded Allergies: No Known Allergies (Unverified , 04/29/13) Objective Last 24 Hour Vital Signs Date Time Temp Pulse Resp B/P Pulse Ox O2 Delivery O2 Flow Rate FiO2 12/16/16 14:59 75 16 40 12/16/16 14:15 149/76 12/16/16 14:00 69 16 149/76 100 Mechanical Ventilator 40 12/16/16 13:30 72 16 40 12/16/16 13:00 67 16 153/81 100 Mechanical Ventilator 40 12/16/16 12:10 97.2 79 16 134/80 100 Mechanical Ventilator 40 12/16/16 12:06 134/80 12/16/16 12:06 134/80 12/16/16 12:00 71 12/16/16 11:30 40 12/16/16 11:00 75 16 134/72 99 Mechanical Ventilator 40 12/16/16 11:00 87 16 40 12/16/16 10:00 78 16 146/76 99 Mechanical Ventilator 40 12/16/16 09:00 76 16 147/75 100 Mechanical Ventilator 40 12/16/16 08:55 77 16 40 12/16/16 08:51 100 12/16/16 08:21 77 145/72 12/16/16 08:00 78 12/16/16 08:00 98.1 80 20 145/72 100 Mechanical Ventilator 40 12/16/16 08:00 40 12/16/16 07:30 76 16 40 12/16/16 07:00 80 16 135/66 100 Mechanical Ventilator 40 12/16/16 06:00 74 16 139/68 100 Mechanical Ventilator 40 12/16/16 05:45 160/87 12/16/16 05:45 160/87 1/31/17 05:45 160/87 12/16/16 05:00 72 16 160/87 100 Mechanical Ventilator 40 12/16/16 04:55 79 16 40 12/16/16 04:00 70 12/16/16 04:00 40 12/16/16 04:00 98.8 71 16 159/90 100 Mechanical Ventilator 40 12/16/16 03:00 69 16 161/88 100 Mechanical Ventilator 40 12/16/16 02:46 69 16 40 12/16/16 02:00 73 16 148/84 100 Mechanical Ventilator 40 12/16/16 01:20 73 16 40 12/16/16 01:00 78 16 160/83 100 Mechanical Ventilator 40 12/16/16 00:01 156/86 12/16/16 00:00 98.8 79 16 156/86 100 Mechanical Ventilator 40 12/16/16 00:00 75 12/16/16 00:00 40 12/15/16 23:41 76 16 40 12/15/16 23:00 83 16 143/76 100 Mechanical Ventilator 40 12/15/16 22:00 79 16 140/73 100 Mechanical Ventilator 40 12/15/16 21:34 168/92 12/15/16 21:18 64 16 40 12/15/16 21:00 98.2 72 16 168/92 100 Mechanical Ventilator 40 12/15/16 20:00 69 16 162/89 100 Mechanical Ventilator 40 12/15/16 20:00 40 12/15/16 20:00 64 12/15/16 19:16 63 16 40 12/15/16 19:00 74 16 168/96 100 Mechanical Ventilator 40 12/15/16 18:00 64 16 173/96 100 Mechanical Ventilator 40 12/15/16 17:32 162/98 12/15/16 17:31 162/98 12/15/16 17:13 76 16 40 12/15/16 17:00 68 16 162/98 100 Mechanical Ventilator 40 12/15/16 16:00 64 12/15/16 16:00 98.6 65 16 167/94 99 Mechanical Ventilator 40 12/15/16 16:00 40 Intake and Output 12/15/16 12/16/16 19:00 07:00 Intake Total 950 ml 830 ml Output Total 1240 ml 1105 ml Balance -290 ml -275 ml Free Water 300 ml 300 ml IV Total 260 ml 110 ml Tube Feeding 360 ml 360 ml Other 30 ml 60 ml Output Urine Total 1240 ml 1105 ml Laboratory Tests 12/16/16 05:30: White Blood Count 5.8, Red Blood Count 3.02L, Hemoglobin 9.2L, Hematocrit 28.6L , Mean Corpuscular Volume 95, Mean Corpuscular Hemoglobin 30.6, Mean Corpuscular Hemoglobin Concent 32.2, Red Cell Distribution Width 16.4H, Platelet Count 52L, Mean Platelet Volume 10.9H, Neutrophils (%) (Auto) , Lymphocytes (%) (Auto) , Monocytes (%) (Auto) , Eosinophils (%) (Auto) , Basophils (%) (Auto) , Differential Total Cells Counted 100, Neutrophils % ( Manual) 76H, Lymphocytes % (Manual) 18L, Monocytes % (Manual) 4, Eosinophils % ( Manual) 2, Basophils % (Manual) 0, Band Neutrophils 0, Platelet Estimate DecreasedL, Platelet Morphology Normal, Hypochromasia 1+, Anisocytosis 1+, Sodium Level 150H, Potassium Level 4.0, Chloride Level 112H, Carbon Dioxide Level 25, Anion Gap 13, Blood Urea Nitrogen 48H, Creatinine 2.7H, Estimat Glomerular Filtration Rate 28.8, Glucose Level 101, Calcium Level 7.6L, Phosphorus Level 3.8, Magnesium Level 2.0, Total Bilirubin 0.4, Aspartate Amino Transf (AST/SGOT) 34, Alanine Aminotransferase (ALT/SGPT) 29, Alkaline Phosphatase 60, Total Protein 6.0L, Albumin 2.1L, Globulin 3.9, Albumin/ Globulin Ratio 0.5L 12/16/16 08:20: Arterial Blood pH 7.468H, Arterial Blood Partial Pressure CO2 36.4, Arterial Blood Partial Pressure O2 105.9H, Arterial Blood HCO3 25.8, Arterial Blood Oxygen Saturation 97.6, Arterial Blood Base Excess 2.1, Adrian Test N/a Height (Feet): 5 Height (Inches): 9.00 Weight (Pounds): 150 General Appearance: no apparent distress Cardiovascular: normal rate Respiratory/Chest: decreased breath sounds Objective other PE not changed JUSTIN NESS Dec 16, 2016 15:22
--- NOTE | 2016-12-16 15:59 | Internal Med Progress Note ---
Subjective Date of Service: Dec 16, 2016 Physician Name Ramya Wesley Attending Physician Wild Hawkins MD Current Medications Medications (Trade) Dose Ordered Sig/Melania Route PRN Reason Start Time Stop Time Status Last Admin Dose Admin Acetaminophen (Tylenol) 650 mg Q4H PRN ORAL Fever 12/10/16 16:45 01/09/17 16:44 12/13/16 06:09 Acetaminophen/ Hydrocodone Bitart (Cable 5/325) 1 tab Q6H PRN ORAL severe pain 12/10/16 18:45 12/17/16 18:44 12/16/16 08:20 Amlodipine Besylate (Norvasc) 10 mg DAILY NG 12/16/16 09:00 01/15/17 08:59 12/16/16 08:21 Clonidine HCl (Catapres) 0.1 mg EVERY 6 HOURS ORAL 12/15/16 12:00 01/14/17 11:59 12/16/16 12:06 Dextrose (D5W 1000ml) 1,000 ml @ 100 mls/hr Q10H IV 12/16/16 15:30 12/17/16 01:29 12/16/16 15:35 Dextrose (Dextrose 50%) STAT PRN IV Hypoglycemia 12/11/16 00:45 01/10/17 00:44 Hydralazine HCl 50 mg 50 mg Q8HR NG 12/15/16 22:00 01/14/17 21:59 12/16/16 14:15 Levofloxacin (Levaquin 750mg/ D5W) 150 ml @ 100 mls/hr Q48H IVPB 12/11/16 16:00 12/18/16 15:59 12/15/16 15:43 Lorazepam (Ativan 2mg/ml 1ml) 1 mg Q4H PRN IV For Anxiety 12/13/16 15:45 12/20/16 15:44 12/16/16 04:36 Nitroglycerin 1 inch 1 inch TID@0600,1200,1800 TOPIC 12/12/16 06:00 01/11/17 05:59 12/16/16 12:06 Ondansetron HCl (Zofran) 4 mg Q6H PRN IVP Nausea & Vomiting 12/10/16 18:45 01/09/17 18:44 Pantoprazole (Protonix) 40 mg DAILY IVP 12/11/16 16:00 01/10/17 15:59 12/16/16 08:19 Piperacillin Sod/ Tazobactam Sod/ Dextrose (Zosyn/D5W) 55 ml @ 110 mls/hr Q8HR@0200,1000,1800 IV 12/12/16 18:00 12/18/16 17:59 12/16/16 09:21 Polyethylene Glycol (Miralax) 17 gm DAILYPRN PRN ORAL Constipation 12/11/16 00:45 01/10/17 00:44 Temazepam (Restoril) 15 mg HSPRN PRN ORAL Insomnia 12/11/16 00:45 12/18/16 00:44 12/13/16 19:43 Vitamin A/Vitamin D 1 applic 1 applic EVERY 12 HOURS TOPIC 12/10/16 21:00 01/09/17 20:59 12/16/16 08:21 Vitamin B Complex/ Vit C/Folic Acid (Nephrovite) 1 tab DAILY GT 12/12/16 09:00 01/11/17 08:59 12/16/16 08:20 Allergies: Coded Allergies: No Known Allergies (Unverified , 04/29/13) ROS Limited/Unobtainable: Yes Subjective 66 YO M admitted with shortness of breath; now respiratory failure. Cover for Int Ochoa-Dr Hawkins. ICU. Intubated and sedated. Objective Last Vital Signs Date Time Temp Pulse Resp B/P Pulse Ox O2 Delivery O2 Flow Rate FiO2 12/16/16 15:00 77 16 115/65 99 Mechanical Ventilator 40 12/16/16 12:10 97.2 12/10/16 01:00 15.0 Laboratory Tests Test 12/16/16 05:30 12/16/16 08:20 White Blood Count 5.8 K/UL (4.8-10.8) Red Blood Count 3.02 M/UL (4.70-6.10) L Hemoglobin 9.2 G/DL (14.2-18.0) L Hematocrit 28.6 % (42.0-52.0) L Mean Corpuscular Volume 95 FL (80-99) Mean Corpuscular Hemoglobin 30.6 PG (27.0-31.0) Mean Corpuscular Hemoglobin Concent 32.2 G/DL (32.0-36.0) Red Cell Distribution Width 16.4 % (11.6-14.8) H Platelet Count 52 K/UL (150-450) L Mean Platelet Volume 10.9 FL (6.5-10.1) H Neutrophils (%) (Auto) % (45.0-75.0) Lymphocytes (%) (Auto) % (20.0-45.0) Monocytes (%) (Auto) % (1.0-10.0) Eosinophils (%) (Auto) % (0.0-3.0) Basophils (%) (Auto) % (0.0-2.0) Differential Total Cells Counted 100 Neutrophils % (Manual) 76 % (45-75) H Lymphocytes % (Manual) 18 % (20-45) L Monocytes % (Manual) 4 % (1-10) Eosinophils % (Manual) 2 % (0-3) Basophils % (Manual) 0 % (0-2) Band Neutrophils 0 % (0-8) Platelet Estimate Decreased L Platelet Morphology Normal Hypochromasia 1+ Anisocytosis 1+ Sodium Level 150 mEQ/L (135-145) H Potassium Level 4.0 mEQ/L (3.4-4.9) Chloride Level 112 mEQ/L (98-107) H Carbon Dioxide Level 25 mEQ/L (20-30) Anion Gap 13 (5-15) Blood Urea Nitrogen 48 mg/dL (7-23) H Creatinine 2.7 mg/dL (0.7-1.2) H Estimat Glomerular Filtration Rate 28.8 mL/min (>60) Glucose Level 101 mg/dL (74-106) Calcium Level 7.6 mg/dL (8.6-10.2) L Phosphorus Level 3.8 mg/dL (2.5-4.8) Magnesium Level 2.0 mg/dL (1.7-2.5) Total Bilirubin 0.4 mg/dL (0.0-1.2) Aspartate Amino Transf (AST/SGOT) 34 U/L (5-40) Alanine Aminotransferase (ALT/SGPT) 29 U/L (3-41) Alkaline Phosphatase 60 U/L (40-129) Total Protein 6.0 g/dL (6.6-8.7) L Albumin 2.1 g/dL (3.5-5.2) L Globulin 3.9 g/dL Albumin/Globulin Ratio 0.5 (1.0-2.7) L Arterial Blood pH 7.468 (7.350-7.450) Arterial Blood Partial Pressure CO2 36.4 mmHg (35.0-45.0) Arterial Blood Partial Pressure O2 105.9 mmHg (75.0-100.0) H Arterial Blood HCO3 25.8 mmol/L (22.0-26.0) Arterial Blood Oxygen Saturation 97.6 % (92.0-98.0) Arterial Blood Base Excess 2.1 Adrian Test N/a Intake and Output 12/15/16 12/16/16 19:00 07:00 Intake Total 950 ml 830 ml Output Total 1240 ml 1105 ml Balance -290 ml -275 ml Free Water 300 ml 300 ml IV Total 260 ml 110 ml Tube Feeding 360 ml 360 ml Other 30 ml 60 ml Output Urine Total 1240 ml 1105 ml Objective General Appearance: WD/WN, moderate distress EENT: normal ENT inspection Neck: non-tender, normal alignment, supple Cardiovascular: normal peripheral pulses, normal rate, regular rhythm, no gallop/murmur, no JVD Respiratory/Chest: Mechanical vent; crackles/rales, rhonchi - bilaterally, expiratory wheezing Abdomen: normal bowel sounds, non tender, soft, no organomegaly, no mass Extremities: normal range of motion Neurologic: communications maintainer II-XII grossly normal, no motor/sensory deficits Skin: normal pigmentation, warm/dry Assessment/Plan Problem List: (1) SOB (shortness of breath) (2) Respiratory failure Assessment & Plan: Worsening. Now intubated. See pulmonary note. (3) Renal failure Assessment & Plan: See nephrology note. (4) HTN (hypertension) (5) CAD (coronary artery disease) (6) CHF (congestive heart failure) Assessment & Plan: See cardiology note. Cont lasix. (7) Anemia (8) Uncontrolled hypertension Assessment & Plan: Start norvasc per cardiology (9) Pneumonia Assessment & Plan: Cont zosyn and levaquin-see ID note. (10) Pleural effusion Assessment & Plan: Bilateral. See pulmonary note. Status: not improved RAMYA WESLEY Dec 16, 2016 15:59
[2016-12-17] VITALS (23 sets, daily range): BP systolic 125–162; BP diastolic 57–81
[2016-12-17] MEDS: Piperacillin/Tazobactam 2.25 GM in D5W 55 ML IV SCH ×3 (02:10→17:43)
[2016-12-17] MEDS: HydrALAZINE 50mg tab NG SCH ×3 (05:52→21:38)
[2016-12-17] MEDS: Norco 5mg/325mg tab ORAL PRN (05:53)
[2016-12-17] MEDS: Nitroglycerin 2% oint pkt TOPIC SCH ×3 (05:54→17:44)
[2016-12-17 07:08] LABS: MEAN CORPUSCULAR HEMOGLOBIN 30.9 PG (27.0-31.0); MEAN CORPUSCULAR HGB CONC 32.8 G/DL (32.0-36.0); MEAN CORPUSCULAR VOLUME 94 FL (80-99); MEAN PLATELET VOLUME 11.4 FL (6.5-10.1); PLATELET COUNT 57 K/UL (150-450); RED BLOOD COUNT 2.89 M/UL (4.70-6.10); RED CELL DISTRIBUTION WIDTH 16.1 % (11.6-14.8); WHITE BLOOD COUNT 7.4 K/UL (4.8-10.8)
[2016-12-17 07:23] LABS: ALBUMIN/GLOBULIN RATIO 0.5 (1.0-2.7); CALCIUM 7.8 mg/dL (8.6-10.2); CREATININE 2.7 mg/dL (0.7-1.2); GLOMERULAR FILTRATION RATE 28.8 mL/min (>60); MAGNESIUM 1.9 mg/dL (1.7-2.5); PHOSPHORUS 3.8 mg/dL (2.5-4.8); POTASSIUM 3.5 mEQ/L (3.4-4.9); TOTAL PROTEIN 6.1 g/dL (6.6-8.7)
--- NOTE | 2016-12-17 07:46 | Cardiology Progress Note ---
Assessment/Plan Assessment/Plan 1. Abnormal mentation due to respiratory acidosis . 2. Respiratory acidosis. 3. Congestive heart failure with pleural effusion, 4. Mitral regurgitation. 5. Cardiomyopathy. 6. History of amphetamine abuse. 7. History of paroxysmal episodes of atrial fibrillation per report. 8. Renal insufficiency. 9. Hepatitis C virus with cirrhosis vent support wean as possible anotehr diuretics zoroxolyna dn lasix today after load reduction hold acei in light of renal insuf start hydralazine and nitrate tele noted ekg noted cxr form krzysztof reviewed tele reviewed ekg reviewed cr stable Subjective Cardiovascular: Denies: chest pain Respiratory: Denies: shortness of breath Gastrointestinal/Abdominal: Reports: abdominal pain Genitourinary: Denies: burning Subjective on ramona vent Objective Last 24 Hour Vital Signs Date Time Temp Pulse Resp B/P Pulse Ox O2 Delivery O2 Flow Rate FiO2 12/17/16 07:08 86 16 30 12/17/16 07:00 97.8 12/17/16 05:54 162/81 12/17/16 05:54 162/81 12/17/16 05:52 162/81 12/17/16 05:19 85 16 30 12/17/16 05:00 88 16 162/81 100 Mechanical Ventilator 30 12/17/16 04:00 97.8 83 16 144/80 100 Mechanical Ventilator 30 12/17/16 04:00 83 12/17/16 04:00 40 12/17/16 03:26 86 16 30 12/17/16 03:00 85 16 146/81 100 Mechanical Ventilator 30 12/17/16 02:00 84 16 146/80 100 Mechanical Ventilator 30 12/17/16 01:21 82 16 30 12/17/16 01:00 85 16 142/72 99 Mechanical Ventilator 30 12/17/16 00:00 93 12/17/16 00:00 97.7 99 16 142/74 99 Mechanical Ventilator 30 12/17/16 00:00 40 12/16/16 23:58 126/73 12/16/16 23:30 92 16 30 12/16/16 23:00 99 16 126/73 99 Mechanical Ventilator 30 12/16/16 22:00 77 16 149/72 99 Mechanical Ventilator 30 12/16/16 21:46 153/79 12/16/16 21:09 69 16 30 12/16/16 21:00 70 16 153/79 99 Mechanical Ventilator 30 12/16/16 20:00 97.6 75 17 148/77 99 Mechanical Ventilator 40 12/16/16 20:00 71 12/16/16 20:00 40 12/16/16 19:18 70 16 30 12/16/16 19:00 66 17 152/75 100 Mechanical Ventilator 40 12/16/16 18:00 142/74 12/16/16 18:00 76 17 144/76 100 Mechanical Ventilator 40 12/16/16 17:59 142/74 12/16/16 17:09 72 16 40 12/16/16 17:00 77 17 142/74 100 Mechanical Ventilator 40 12/16/16 16:00 72 12/16/16 16:00 40 12/16/16 16:00 97.8 72 16 139/69 99 Mechanical Ventilator 40 12/16/16 15:00 77 16 115/65 99 Mechanical Ventilator 40 12/16/16 14:59 75 16 40 12/16/16 14:15 149/76 12/16/16 14:00 69 16 149/76 100 Mechanical Ventilator 40 12/16/16 13:30 72 16 40 12/16/16 13:00 67 16 153/81 100 Mechanical Ventilator 40 12/16/16 12:10 97.2 79 16 134/80 100 Mechanical Ventilator 40 12/16/16 12:06 134/80 12/16/16 12:06 134/80 12/16/16 12:00 71 12/16/16 11:30 40 12/16/16 11:00 75 16 134/72 99 Mechanical Ventilator 40 12/16/16 11:00 87 16 40 12/16/16 10:00 78 16 146/76 99 Mechanical Ventilator 40 12/16/16 09:00 76 16 147/75 100 Mechanical Ventilator 40 12/16/16 08:55 77 16 40 12/16/16 08:51 100 12/16/16 08:21 77 145/72 12/16/16 08:00 78 12/16/16 08:00 98.1 80 20 145/72 100 Mechanical Ventilator 40 12/16/16 08:00 40 General Appearance: on vent, patient on isolation Neck: supple Cardiovascular: normal rate, regular rhythm Respiratory/Chest: crackles/rales Abdomen: non tender, soft Extremities: moderate edema Intake and Output 12/16/16 12/17/16 19:00 07:00 Intake Total 1090 ml 1065 ml Output Total 1515 ml 1375 ml Balance -425 ml -310 ml Free Water 200 ml 80 ml IV Total 410 ml 555 ml Tube Feeding 360 ml 330 ml Other 120 ml 100 ml Output Urine Total 1515 ml 1375 ml Laboratory Tests Test 12/16/16 08:20 12/17/16 05:00 Arterial Blood pH 7.468 (7.350-7.450) Arterial Blood Partial Pressure CO2 36.4 mmHg (35.0-45.0) Arterial Blood Partial Pressure O2 105.9 mmHg (75.0-100.0) H Arterial Blood HCO3 25.8 mmol/L (22.0-26.0) Arterial Blood Oxygen Saturation 97.6 % (92.0-98.0) Arterial Blood Base Excess 2.1 Adrian Test N/a White Blood Count 7.4 K/UL (4.8-10.8) Red Blood Count 2.89 M/UL (4.70-6.10) L Hemoglobin 8.9 G/DL (14.2-18.0) L Hematocrit 27.3 % (42.0-52.0) L Mean Corpuscular Volume 94 FL (80-99) Mean Corpuscular Hemoglobin 30.9 PG (27.0-31.0) Mean Corpuscular Hemoglobin Concent 32.8 G/DL (32.0-36.0) Red Cell Distribution Width 16.1 % (11.6-14.8) H Platelet Count 57 K/UL (150-450) L Mean Platelet Volume 11.4 FL (6.5-10.1) H Neutrophils (%) (Auto) % (45.0-75.0) Lymphocytes (%) (Auto) % (20.0-45.0) Monocytes (%) (Auto) % (1.0-10.0) Eosinophils (%) (Auto) % (0.0-3.0) Basophils (%) (Auto) % (0.0-2.0) Neutrophils % (Manual) Pending Lymphocytes % (Manual) Pending Platelet Estimate Pending Platelet Morphology Pending Sodium Level 148 mEQ/L (135-145) H Potassium Level 3.5 mEQ/L (3.4-4.9) Chloride Level 108 mEQ/L (98-107) H Carbon Dioxide Level 26 mEQ/L (20-30) Anion Gap 14 (5-15) Blood Urea Nitrogen 45 mg/dL (7-23) H Creatinine 2.7 mg/dL (0.7-1.2) H Estimat Glomerular Filtration Rate 28.8 mL/min (>60) Glucose Level 120 mg/dL (74-106) H Uric Acid Pending Calcium Level 7.8 mg/dL (8.6-10.2) L Phosphorus Level 3.8 mg/dL (2.5-4.8) Magnesium Level 1.9 mg/dL (1.7-2.5) Total Bilirubin 0.4 mg/dL (0.0-1.2) Aspartate Amino Transf (AST/SGOT) 26 U/L (5-40) Alanine Aminotransferase (ALT/SGPT) 23 U/L (3-41) Alkaline Phosphatase 61 U/L (40-129) C-Reactive Protein, Quantitative Pending Pro-B-Type Natriuretic Peptide Pending Total Protein 6.1 g/dL (6.6-8.7) L Albumin 2.1 g/dL (3.5-5.2) L Globulin 4.0 g/dL Albumin/Globulin Ratio 0.5 (1.0-2.7) L STEPHEN LONDON Dec 17, 2016 07:46
[2016-12-17] MEDS ORDERED: Metolazone 5mg tab ORAL ONE (08:00)
[2016-12-17 08:27] LABS: ANISOCYTOSIS 1+; BAND NEUTROPHILS % (MANUAL) 0 % (0-8); BASOPHILS % (MANUAL) 0 % (0-2); EOSINOPHILS % (MANUAL) 1 % (0-3); LYMPHOCYTES % (MANUAL) 18 % (20-45); NEUTROPHILS % (MANUAL) 73 % (45-75); PLATELET ESTIMATE DECREASED; PLATELET MORPHOLOGY NORMAL; TOTAL CELLS COUNTED 100
--- NOTE | 2016-12-17 08:47 | Wound Care Consultation ---
Wound Assessment Wound Assessment #1: Wound Number: 31 Wound Present on Admission: Yes New Wound: No Status Change of Wound: No Wound Location Body Site Modif: mid Wound Location Body Site: sacral Wound Type: pressure ulcer Gómez Test: Does not Gómez Pressure Ulcer Stage: IV/unstageable Wound Thickness: Full Thickness Wound Length: 4.0 Wound Width: 3.0 Wound Depth: UTD Percent of Wound Lorena/Red: 30 Percent of Wound Bed Yellow/Wh: 70 Wound Drainage Description: Serosanguineous Wound Drainage Amount: Moderate Wound Drainage Odor: None/Absent Tissue Surrounding Wound: Macerated Wound General Appearance: Reddened, Draining, Necrotic Wound Assessment #2: Wound Number: #2 Wound Present on Admission: Yes New Wound: No Status Change of Wound: No Wound Location Body Site Modif: right Wound Location Body Site: heel Wound Type: pressure ulcer Gómez Test: Does not Gómez Pressure Ulcer Stage: deep tissue injury Wound Thickness: Full Thickness Wound Length: 3.0 Wound Width: 3.0 Wound Depth: UTD Percent of Wound Purple/Maroon: 100 Wound Drainage Amount: None Wound Drainage Odor: None/Absent Tissue Surrounding Wound: Intact Wound General Appearance: Clean/Dry - skin intact noted dry ,no redness , noted dark maroon color Wound Assessment #3: Wound Number: #3 Wound Present on Admission: Yes New Wound: No Status Change of Wound: No Wound Location Body Site Modif: right Wound Location Body Site: metatarsal head - 5th Wound Type: pressure ulcer Gómez Test: Does not Gómez Pressure Ulcer Stage: deep tissue injury Wound Thickness: Full Thickness Wound Length: 0.5 Wound Width: 2.0 Wound Depth: utd Percent of Wound Purple/Maroon: 100 Wound Drainage Amount: None Wound Drainage Odor: None/Absent Tissue Surrounding Wound: Intact Wound General Appearance: Clean/Dry - dry maroon color present. Wound Assessment #4: Wound Number: #4 Wound Present on Admission: Yes New Wound: No Status Change of Wound: No Wound Location Body Site Modif: right, medial, dorsal Wound Location Body Site: foot Wound Type: scab Gómez Test: Does not Gómez Wound Thickness: Full Thickness Wound Length: 0.5 Wound Width: 2.0 Wound Depth: utd Percent of Wound Black/Brown: 100 - dry scab. Wound Drainage Amount: None Wound Drainage Odor: None/Absent Tissue Surrounding Wound: Intact Wound General Appearance: Clean/Dry - dry scab intact. Wound Assessment #5: Wound Number: #5 Wound Present on Admission: Yes New Wound: No Status Change of Wound: No Wound Location Body Site Modif: left Wound Location Body Site: heel Wound Type: pressure ulcer Gómez Test: Does not Gómez Pressure Ulcer Stage: deep tissue injury Wound Thickness: Full Thickness Wound Length: 2.5 Wound Width: 2.5 Wound Depth: utd Percent of Wound Purple/Maroon: 100 Wound Drainage Amount: None Wound Drainage Odor: None/Absent Tissue Surrounding Wound: Intact Wound General Appearance: Clean/Dry - dry maroon color intact. Wound Assessment #6: Wound Number: #6 Wound Present on Admission: Yes New Wound: No Status Change of Wound: No Wound Location Body Site Modif: left, dorsal Wound Location Body Site: foot Wound Type: lesion-etiology unknown Gómez Test: Does not Gómez Wound Thickness: Full Thickness Wound Length: 7.0 Wound Width: 5.5 Wound Depth: 0.3 Percent of Wound Lorena/Red: 90 Percent of Wound Bed Yellow/Wh: 10 Wound Drainage Amount: None Wound Drainage Odor: None/Absent Tissue Surrounding Wound: Macerated Wound General Appearance: Reddened, Draining Wound Assessment #7: Wound Number: #7 Wound Present on Admission: Yes New Wound: No Status Change of Wound: No Wound Location Body Site Modif: right Wound Location Body Site: knee Wound Type: pressure ulcer - resolving stage IV,noted scab intact. Gómez Test: Does not Gómez Pressure Ulcer Stage: IV/unstageable Wound Thickness: Full Thickness Wound Length: 0.5 Wound Width: 0.5 Wound Depth: utd Percent of Wound Lorena/Red: 90 Percent of Wound Bed Yellow/Wh: 10 - yellow dry scab. Wound Drainage Amount: None Wound Drainage Odor: None/Absent Tissue Surrounding Wound: Intact Wound General Appearance: Open to air, Clean/Dry Wound Comment #1 Mid Sacral stage IV/Unstageable pressure injury. #2 Right heel Deep tissue injury. #3 Right 5th Metatarsal head Deep tissue injury. #4 Right medial dorsal foot scab. #5 Left heel Deep tissue injury. #6 Left dorsal foot lesion. #7 Right knee Stage IV/Unstageable.- resolving , noted scab intact. #8 Right knee scar. Upon reassessment noted good progress to all admitted wound sites, no further deterioration present, current treatment remains effective.No s/s of infection present to wound sites, no malodor present. Recommendation -Continue local wound care as ordered. -Low air loss mattress with Alternating pressure. -Turn and reposition. -Keep clean and dry. -Optimize nutrition. -Heel protectors. -Offload affected sites , feet and heels. -Avoid shear and friction. -Assess and follow up with MD for any changes of condition noted. SWETA FIGUEROA Dec 17, 2016 08:47
[2016-12-17 09:11] LABS: ABG ALLEN TEST POSITIVE; ABG BASE EXCESS 1.8; ABG PCO2 34.7 mmHg (35.0-45.0)
[2016-12-17] MEDS: Nephrovite tab GT SCH (09:15)
[2016-12-17] MEDS: Pantoprazole Inj IVP SCH (09:16)
[2016-12-17] MEDS: Vitamin A&D Oint 2oz Tube TOPIC SCH ×2 (09:16→21:12)
--- NOTE | 2016-12-17 10:21 | Pulmonolgy Critical Care Note ---
Critical Care - Asmt/Plan Problems: (1) Aspiration pneumonia (2) Respiratory failure (3) Pleural effusion (4) ATN (acute tubular necrosis) (5) Hepatitis C (6) CAD (coronary artery disease) Respiratory: monitor respiratory rate, adjust FIO2, CXR, weaning trial Cardiac: continue to monitor HR/BP Renal: F/U I&O, keep IV fluid Infectious Disease: check cultures, continue antibiotics, other - no sputum yet Gastrointestinal: continue feedings/current rate Endocrine: monitor blood sugar, check HgA1C, continue sliding scale insulin Hematologic: transfuse if hgb<8.5 Neurologic: PRN Ativan, PRN Morphine, keep patient comfortable Affect: PRN ativan Prophylaxis: Protonix, Heparin Disposition: keep in ICU Notes Reviewed: butt maker, cardio, renal Discussed with: nurses, consultants, human services case managerpublic affairs manager - Objective Last 24 Hour Vital Signs Date Time Temp Pulse Resp B/P Pulse Ox O2 Delivery O2 Flow Rate FiO2 12/17/16 09:15 80 135/77 12/17/16 09:00 80 16 135/77 100 Mechanical Ventilator 30 12/17/16 08:42 77 16 30 12/17/16 08:00 40 12/17/16 08:00 81 12/17/16 08:00 82 16 133/67 98 Mechanical Ventilator 30 12/17/16 07:08 86 16 30 12/17/16 07:00 97.8 12/17/16 07:00 99.8 85 15 141/69 98 Mechanical Ventilator 30 12/17/16 05:54 162/81 12/17/16 05:54 162/81 12/17/16 05:52 162/81 12/17/16 05:19 85 16 30 12/17/16 05:00 88 16 162/81 100 Mechanical Ventilator 30 12/17/16 04:00 97.8 83 16 144/80 100 Mechanical Ventilator 30 12/17/16 04:00 83 12/17/16 04:00 40 12/17/16 03:26 86 16 30 12/17/16 03:00 85 16 146/81 100 Mechanical Ventilator 30 12/17/16 02:00 84 16 146/80 100 Mechanical Ventilator 30 12/17/16 01:21 82 16 30 12/17/16 01:00 85 16 142/72 99 Mechanical Ventilator 30 12/17/16 00:00 93 12/17/16 00:00 97.7 99 16 142/74 99 Mechanical Ventilator 30 12/17/16 00:00 40 12/16/16 23:58 126/73 12/16/16 23:30 92 16 30 12/16/16 23:00 99 16 126/73 99 Mechanical Ventilator 30 12/16/16 22:00 77 16 149/72 99 Mechanical Ventilator 30 12/16/16 21:46 153/79 12/16/16 21:09 69 16 30 12/16/16 21:00 70 16 153/79 99 Mechanical Ventilator 30 12/16/16 20:00 97.6 75 17 148/77 99 Mechanical Ventilator 40 12/16/16 20:00 71 12/16/16 20:00 40 12/16/16 19:18 70 16 30 12/16/16 19:00 66 17 152/75 100 Mechanical Ventilator 40 12/16/16 18:00 142/74 12/16/16 18:00 76 17 144/76 100 Mechanical Ventilator 40 12/16/16 17:59 142/74 12/16/16 17:09 72 16 40 12/16/16 17:00 77 17 142/74 100 Mechanical Ventilator 40 12/16/16 16:00 72 12/16/16 16:00 40 12/16/16 16:00 97.8 72 16 139/69 99 Mechanical Ventilator 40 12/16/16 15:00 77 16 115/65 99 Mechanical Ventilator 40 12/16/16 14:59 75 16 40 12/16/16 14:15 149/76 12/16/16 14:00 69 16 149/76 100 Mechanical Ventilator 40 12/16/16 13:30 72 16 40 12/16/16 13:00 67 16 153/81 100 Mechanical Ventilator 40 12/16/16 12:10 97.2 79 16 134/80 100 Mechanical Ventilator 40 12/16/16 12:06 134/80 12/16/16 12:06 134/80 12/16/16 12:00 71 12/16/16 11:30 40 12/16/16 11:00 75 16 134/72 99 Mechanical Ventilator 40 12/16/16 11:00 87 16 40 Status: awake, sedated HEENT: atraumatic Lungs: clear Heart: HR/BP stable, HR/BP unstable Abdomen: active bowel sounds Extremities: no C/C/E, edema Decubiti: location Accucheck: 128 Critical Care - Subjective ROS Limited/Unobtainable: Yes ICU Day: 7 Intubation Day: 7 Condition: critical EKG Rhythm: Sinus Rhythm FI02: 30 Vent Support Breath Rate: 16 Vent Support Mode: AC Vent Tidal Volume: 600 Sputum Amount: Moderate PEEP: 0.0 PIP: 23 Tube Feeding Amount: 30 I&O: Intake and Output 12/16/16 12/17/16 19:00 07:00 Intake Total 1090 ml 1095 ml Output Total 1515 ml 1435 ml Balance -425 ml -340 ml Free Water 200 ml 80 ml IV Total 410 ml 555 ml Tube Feeding 360 ml 360 ml Other 120 ml 100 ml Output Urine Total 1515 ml 1435 ml CXR: no change, R effusion unchanged ET-Tube: 7.5 ET Position: 22 Labs: Laboratory Tests Test 12/17/16 05:00 12/17/16 08:45 White Blood Count 7.4 K/UL (4.8-10.8) Red Blood Count 2.89 M/UL (4.70-6.10) L Hemoglobin 8.9 G/DL (14.2-18.0) L Hematocrit 27.3 % (42.0-52.0) L Mean Corpuscular Volume 94 FL (80-99) Mean Corpuscular Hemoglobin 30.9 PG (27.0-31.0) Mean Corpuscular Hemoglobin Concent 32.8 G/DL (32.0-36.0) Red Cell Distribution Width 16.1 % (11.6-14.8) H Platelet Count 57 K/UL (150-450) L Mean Platelet Volume 11.4 FL (6.5-10.1) H Neutrophils (%) (Auto) % (45.0-75.0) Lymphocytes (%) (Auto) % (20.0-45.0) Monocytes (%) (Auto) % (1.0-10.0) Eosinophils (%) (Auto) % (0.0-3.0) Basophils (%) (Auto) % (0.0-2.0) Differential Total Cells Counted 100 Neutrophils % (Manual) 73 % (45-75) Lymphocytes % (Manual) 18 % (20-45) L Monocytes % (Manual) 8 % (1-10) Eosinophils % (Manual) 1 % (0-3) Basophils % (Manual) 0 % (0-2) Band Neutrophils 0 % (0-8) Platelet Estimate Decreased L Platelet Morphology Normal Anisocytosis 1+ Sodium Level 148 mEQ/L (135-145) H Potassium Level 3.5 mEQ/L (3.4-4.9) Chloride Level 108 mEQ/L (98-107) H Carbon Dioxide Level 26 mEQ/L (20-30) Anion Gap 14 (5-15) Blood Urea Nitrogen 45 mg/dL (7-23) H Creatinine 2.7 mg/dL (0.7-1.2) H Estimat Glomerular Filtration Rate 28.8 mL/min (>60) Glucose Level 120 mg/dL (74-106) H Uric Acid Pending Calcium Level 7.8 mg/dL (8.6-10.2) L Phosphorus Level 3.8 mg/dL (2.5-4.8) Magnesium Level 1.9 mg/dL (1.7-2.5) Total Bilirubin 0.4 mg/dL (0.0-1.2) Aspartate Amino Transf (AST/SGOT) 26 U/L (5-40) Alanine Aminotransferase (ALT/SGPT) 23 U/L (3-41) Alkaline Phosphatase 61 U/L (40-129) C-Reactive Protein, Quantitative Pending Pro-B-Type Natriuretic Peptide Pending Total Protein 6.1 g/dL (6.6-8.7) L Albumin 2.1 g/dL (3.5-5.2) L Globulin 4.0 g/dL Albumin/Globulin Ratio 0.5 (1.0-2.7) L Arterial Blood pH 7.479 (7.350-7.450) Arterial Blood Partial Pressure CO2 34.7 mmHg (35.0-45.0) L Arterial Blood Partial Pressure O2 97.8 mmHg (75.0-100.0) Arterial Blood HCO3 25.8 mmol/L (22.0-26.0) Arterial Blood Oxygen Saturation 97.3 % (92.0-98.0) Arterial Blood Base Excess 1.8 Adrian Test Positive YAMILET DIOR Dec 17, 2016 10:21
--- NOTE | 2016-12-17 11:19 | Infectious Diseases Prog Note ---
Assessment/Plan Assessment/Plan A: The patient is a 66-year-old male with Pneumonia, SCx : Nl Daisy Chest x-ray showed bilateral large pleural effusion History of hepatitis C Low grade fever ALOC VDRF SP intubated. CHF. Renal insufficiency. Hypertension. CAD and NH. History of GI bleed. History of cirrhosis. History of spinal fusion PLAN: cont Zosyn and Levaquin. d# 7/ 10 Monitor CBC. Monitor BMP. Monitor chest x-ray. Monitor blood culture, . Subjective Constitutional: Denies: anorexia, chills, drenching sweats, fatigue, fever, no symptoms, other Allergies: Coded Allergies: No Known Allergies (Unverified , 04/29/13) Subjective on vent Objective Vital Signs Last 24 Hour Vital Signs Date Time Temp Pulse Resp B/P Pulse Ox O2 Delivery O2 Flow Rate FiO2 12/17/16 10:00 74 16 129/69 100 Mechanical Ventilator 30 12/17/16 09:15 80 135/77 12/17/16 09:00 80 16 135/77 100 Mechanical Ventilator 30 12/17/16 08:42 77 16 30 12/17/16 08:00 40 12/17/16 08:00 81 12/17/16 08:00 82 16 133/67 98 Mechanical Ventilator 30 12/17/16 07:08 86 16 30 12/17/16 07:00 97.8 12/17/16 07:00 99.8 85 15 141/69 98 Mechanical Ventilator 30 12/17/16 05:54 162/81 12/17/16 05:54 162/81 12/17/16 05:52 162/81 12/17/16 05:19 85 16 30 12/17/16 05:00 88 16 162/81 100 Mechanical Ventilator 30 12/17/16 04:00 97.8 83 16 144/80 100 Mechanical Ventilator 30 12/17/16 04:00 83 12/17/16 04:00 40 12/17/16 03:26 86 16 30 12/17/16 03:00 85 16 146/81 100 Mechanical Ventilator 30 12/17/16 02:00 84 16 146/80 100 Mechanical Ventilator 30 12/17/16 01:21 82 16 30 12/17/16 01:00 85 16 142/72 99 Mechanical Ventilator 30 12/17/16 00:00 93 12/17/16 00:00 97.7 99 16 142/74 99 Mechanical Ventilator 30 12/17/16 00:00 40 12/16/16 23:58 126/73 12/16/16 23:30 92 16 30 12/16/16 23:00 99 16 126/73 99 Mechanical Ventilator 30 12/16/16 22:00 77 16 149/72 99 Mechanical Ventilator 30 12/16/16 21:46 153/79 12/16/16 21:09 69 16 30 12/16/16 21:00 70 16 153/79 99 Mechanical Ventilator 30 12/16/16 20:00 97.6 75 17 148/77 99 Mechanical Ventilator 40 12/16/16 20:00 71 12/16/16 20:00 40 12/16/16 19:18 70 16 30 12/16/16 19:00 66 17 152/75 100 Mechanical Ventilator 40 12/16/16 18:00 142/74 12/16/16 18:00 76 17 144/76 100 Mechanical Ventilator 40 12/16/16 17:59 142/74 12/16/16 17:09 72 16 40 12/16/16 17:00 77 17 142/74 100 Mechanical Ventilator 40 12/16/16 16:00 72 12/16/16 16:00 40 12/16/16 16:00 97.8 72 16 139/69 99 Mechanical Ventilator 40 12/16/16 15:00 77 16 115/65 99 Mechanical Ventilator 40 12/16/16 14:59 75 16 40 12/16/16 14:15 149/76 12/16/16 14:00 69 16 149/76 100 Mechanical Ventilator 40 12/16/16 13:30 72 16 40 12/16/16 13:00 67 16 153/81 100 Mechanical Ventilator 40 12/16/16 12:10 97.2 79 16 134/80 100 Mechanical Ventilator 40 12/16/16 12:06 134/80 12/16/16 12:06 134/80 12/16/16 12:00 71 12/16/16 11:30 40 Height (Feet): 5 Height (Inches): 9.00 Weight (Pounds): 150 HEENT: anicteric Respiratory/Chest: normal breath sounds Cardiovascular: regular rhythm Abdomen: non distended Laboratory Tests Test 12/17/16 05:00 12/17/16 08:45 White Blood Count 7.4 K/UL (4.8-10.8) Red Blood Count 2.89 M/UL (4.70-6.10) L Hemoglobin 8.9 G/DL (14.2-18.0) L Hematocrit 27.3 % (42.0-52.0) L Mean Corpuscular Volume 94 FL (80-99) Mean Corpuscular Hemoglobin 30.9 PG (27.0-31.0) Mean Corpuscular Hemoglobin Concent 32.8 G/DL (32.0-36.0) Red Cell Distribution Width 16.1 % (11.6-14.8) H Platelet Count 57 K/UL (150-450) L Mean Platelet Volume 11.4 FL (6.5-10.1) H Neutrophils (%) (Auto) % (45.0-75.0) Lymphocytes (%) (Auto) % (20.0-45.0) Monocytes (%) (Auto) % (1.0-10.0) Eosinophils (%) (Auto) % (0.0-3.0) Basophils (%) (Auto) % (0.0-2.0) Differential Total Cells Counted 100 Neutrophils % (Manual) 73 % (45-75) Lymphocytes % (Manual) 18 % (20-45) L Monocytes % (Manual) 8 % (1-10) Eosinophils % (Manual) 1 % (0-3) Basophils % (Manual) 0 % (0-2) Band Neutrophils 0 % (0-8) Platelet Estimate Decreased L Platelet Morphology Normal Anisocytosis 1+ Sodium Level 148 mEQ/L (135-145) H Potassium Level 3.5 mEQ/L (3.4-4.9) Chloride Level 108 mEQ/L (98-107) H Carbon Dioxide Level 26 mEQ/L (20-30) Anion Gap 14 (5-15) Blood Urea Nitrogen 45 mg/dL (7-23) H Creatinine 2.7 mg/dL (0.7-1.2) H Estimat Glomerular Filtration Rate 28.8 mL/min (>60) Glucose Level 120 mg/dL (74-106) H Uric Acid Pending Calcium Level 7.8 mg/dL (8.6-10.2) L Phosphorus Level 3.8 mg/dL (2.5-4.8) Magnesium Level 1.9 mg/dL (1.7-2.5) Total Bilirubin 0.4 mg/dL (0.0-1.2) Aspartate Amino Transf (AST/SGOT) 26 U/L (5-40) Alanine Aminotransferase (ALT/SGPT) 23 U/L (3-41) Alkaline Phosphatase 61 U/L (40-129) C-Reactive Protein, Quantitative Pending Pro-B-Type Natriuretic Peptide 12878 pg/mL (0-125) H Total Protein 6.1 g/dL (6.6-8.7) L Albumin 2.1 g/dL (3.5-5.2) L Globulin 4.0 g/dL Albumin/Globulin Ratio 0.5 (1.0-2.7) L Arterial Blood pH 7.479 (7.350-7.450) Arterial Blood Partial Pressure CO2 34.7 mmHg (35.0-45.0) L Arterial Blood Partial Pressure O2 97.8 mmHg (75.0-100.0) Arterial Blood HCO3 25.8 mmol/L (22.0-26.0) Arterial Blood Oxygen Saturation 97.3 % (92.0-98.0) Arterial Blood Base Excess 1.8 Adrian Test Positive Current Medications Medications (Trade) Dose Ordered Sig/Melania Route PRN Reason Start Time Stop Time Status Last Admin Dose Admin Acetaminophen (Tylenol) 650 mg Q4H PRN ORAL Fever 12/10/16 16:45 01/09/17 16:44 12/13/16 06:09 Acetaminophen/ Hydrocodone Bitart ([place] 5/325) 1 tab Q6H PRN ORAL severe pain 12/10/16 18:45 12/17/16 18:44 12/17/16 05:53 Amlodipine Besylate (Norvasc) 10 mg DAILY NG 12/16/16 09:00 01/15/17 08:59 12/17/16 09:15 Clonidine HCl (Catapres) 0.1 mg EVERY 6 HOURS ORAL 12/15/16 12:00 01/14/17 11:59 12/17/16 05:54 Dextrose (Dextrose 50%) STAT PRN IV Hypoglycemia 12/11/16 00:45 01/10/17 00:44 Hydralazine HCl (Apresoline) 50 mg Q8HR NG 12/15/16 22:00 01/14/17 21:59 12/17/16 05:52 Levofloxacin (Levaquin 750mg/ D5W) 150 ml @ 100 mls/hr Q48H IVPB 12/11/16 16:00 12/18/16 15:59 12/15/16 15:43 Lorazepam (Ativan 2mg/ml 1ml) 1 mg Q4H PRN IV For Anxiety 12/13/16 15:45 12/20/16 15:44 12/16/16 22:29 Nitroglycerin 1 inch 1 inch TID@0600,1200,1800 TOPIC 12/12/16 06:00 01/11/17 05:59 12/17/16 05:54 Ondansetron HCl (Zofran) 4 mg Q6H PRN IVP Nausea & Vomiting 12/10/16 18:45 01/09/17 18:44 Pantoprazole (Protonix) 40 mg DAILY IVP 12/11/16 16:00 01/10/17 15:59 12/17/16 09:16 Piperacillin Sod/ Tazobactam Sod/ Dextrose (Zosyn/D5W) 55 ml @ 110 mls/hr Q8HR@0200,1000,1800 IV 12/12/16 18:00 12/18/16 17:59 12/17/16 10:25 Polyethylene Glycol (Miralax) 17 gm DAILYPRN PRN ORAL Constipation 12/11/16 00:45 01/10/17 00:44 Temazepam (Restoril) 15 mg HSPRN PRN ORAL Insomnia 12/11/16 00:45 12/18/16 00:44 12/13/16 19:43 Vitamin A/Vitamin D 1 applic 1 applic EVERY 12 HOURS TOPIC 12/10/16 21:00 01/09/17 20:59 12/17/16 09:16 Vitamin B Complex/ Vit C/Folic Acid (Nephrovite) 1 tab DAILY GT 12/12/16 09:00 01/11/17 08:59 12/17/16 09:15 ERWIN KIMBROUGH M.D. Dec 17, 2016 11:19
--- NOTE | 2016-12-17 11:55 | Internal Med Progress Note ---
Subjective Date of Service: Dec 17, 2016 Physician Name Ramya Wesley Attending Physician Wild Hawkins MD Current Medications Medications (Trade) Dose Ordered Sig/Melania Route PRN Reason Start Time Stop Time Status Last Admin Dose Admin Acetaminophen (Tylenol) 650 mg Q4H PRN ORAL Fever 12/10/16 16:45 01/09/17 16:44 12/13/16 06:09 Acetaminophen/ Hydrocodone Bitart ([place] 5/325) 1 tab Q6H PRN ORAL severe pain 12/10/16 18:45 12/17/16 18:44 12/17/16 05:53 Amlodipine Besylate (Norvasc) 10 mg DAILY NG 12/16/16 09:00 01/15/17 08:59 12/17/16 09:15 Clonidine HCl (Catapres) 0.1 mg EVERY 6 HOURS ORAL 12/15/16 12:00 01/14/17 11:59 12/17/16 05:54 Dextrose (Dextrose 50%) STAT PRN IV Hypoglycemia 12/11/16 00:45 01/10/17 00:44 Hydralazine HCl (Apresoline) 50 mg Q8HR NG 12/15/16 22:00 01/14/17 21:59 12/17/16 05:52 Levofloxacin (Levaquin 750mg/ D5W) 150 ml @ 100 mls/hr Q48H IVPB 12/11/16 16:00 12/18/16 15:59 12/15/16 15:43 Lorazepam (Ativan 2mg/ml 1ml) 1 mg Q4H PRN IV For Anxiety 12/13/16 15:45 12/20/16 15:44 12/16/16 22:29 Nitroglycerin 1 inch 1 inch TID@0600,1200,1800 TOPIC 12/12/16 06:00 01/11/17 05:59 12/17/16 05:54 Ondansetron HCl (Zofran) 4 mg Q6H PRN IVP Nausea & Vomiting 12/10/16 18:45 01/09/17 18:44 Pantoprazole (Protonix) 40 mg DAILY IVP 12/11/16 16:00 01/10/17 15:59 12/17/16 09:16 Piperacillin Sod/ Tazobactam Sod/ Dextrose (Zosyn/D5W) 55 ml @ 110 mls/hr Q8HR@0200,1000,1800 IV 12/12/16 18:00 12/18/16 17:59 12/17/16 10:25 Polyethylene Glycol (Miralax) 17 gm DAILYPRN PRN ORAL Constipation 12/11/16 00:45 01/10/17 00:44 Temazepam (Restoril) 15 mg HSPRN PRN ORAL Insomnia 12/11/16 00:45 12/18/16 00:44 12/13/16 19:43 Vitamin A/Vitamin D 1 applic 1 applic EVERY 12 HOURS TOPIC 12/10/16 21:00 01/09/17 20:59 12/17/16 09:16 Vitamin B Complex/ Vit C/Folic Acid (Nephrovite) 1 tab DAILY GT 12/12/16 09:00 01/11/17 08:59 12/17/16 09:15 Allergies: Coded Allergies: No Known Allergies (Unverified , 04/29/13) ROS Limited/Unobtainable: Yes Subjective 66 YO M admitted with shortness of breath; now respiratory failure. Cover for Int Med-Dr Hawkins. ICU. Intubated and sedated. Failed weaning trial today. Objective Last Vital Signs Date Time Temp Pulse Resp B/P Pulse Ox O2 Delivery O2 Flow Rate FiO2 12/17/16 11:00 89 16 133/66 100 Mechanical Ventilator 30 12/17/16 07:00 97.8 12/10/16 01:00 15.0 Laboratory Tests Test 12/17/16 05:00 12/17/16 08:45 12/17/16 11:00 White Blood Count 7.4 K/UL (4.8-10.8) Red Blood Count 2.89 M/UL (4.70-6.10) L Hemoglobin 8.9 G/DL (14.2-18.0) L Hematocrit 27.3 % (42.0-52.0) L Mean Corpuscular Volume 94 FL (80-99) Mean Corpuscular Hemoglobin 30.9 PG (27.0-31.0) Mean Corpuscular Hemoglobin Concent 32.8 G/DL (32.0-36.0) Red Cell Distribution Width 16.1 % (11.6-14.8) H Platelet Count 57 K/UL (150-450) L Mean Platelet Volume 11.4 FL (6.5-10.1) H Neutrophils (%) (Auto) % (45.0-75.0) Lymphocytes (%) (Auto) % (20.0-45.0) Monocytes (%) (Auto) % (1.0-10.0) Eosinophils (%) (Auto) % (0.0-3.0) Basophils (%) (Auto) % (0.0-2.0) Differential Total Cells Counted 100 Neutrophils % (Manual) 73 % (45-75) Lymphocytes % (Manual) 18 % (20-45) L Monocytes % (Manual) 8 % (1-10) Eosinophils % (Manual) 1 % (0-3) Basophils % (Manual) 0 % (0-2) Band Neutrophils 0 % (0-8) Platelet Estimate Decreased L Platelet Morphology Normal Anisocytosis 1+ Sodium Level 148 mEQ/L (135-145) H Potassium Level 3.5 mEQ/L (3.4-4.9) Chloride Level 108 mEQ/L (98-107) H Carbon Dioxide Level 26 mEQ/L (20-30) Anion Gap 14 (5-15) Blood Urea Nitrogen 45 mg/dL (7-23) H Creatinine 2.7 mg/dL (0.7-1.2) H Estimat Glomerular Filtration Rate 28.8 mL/min (>60) Glucose Level 120 mg/dL (74-106) H Uric Acid Pending Calcium Level 7.8 mg/dL (8.6-10.2) L Phosphorus Level 3.8 mg/dL (2.5-4.8) Magnesium Level 1.9 mg/dL (1.7-2.5) Total Bilirubin 0.4 mg/dL (0.0-1.2) Aspartate Amino Transf (AST/SGOT) 26 U/L (5-40) Alanine Aminotransferase (ALT/SGPT) 23 U/L (3-41) Alkaline Phosphatase 61 U/L (40-129) C-Reactive Protein, Quantitative Pending Pro-B-Type Natriuretic Peptide 48879 pg/mL (0-125) H Total Protein 6.1 g/dL (6.6-8.7) L Albumin 2.1 g/dL (3.5-5.2) L Globulin 4.0 g/dL Albumin/Globulin Ratio 0.5 (1.0-2.7) L Arterial Blood pH 7.479 (7.350-7.450) Arterial Blood Partial Pressure CO2 34.7 mmHg (35.0-45.0) L Arterial Blood Partial Pressure O2 97.8 mmHg (75.0-100.0) Arterial Blood HCO3 25.8 mmol/L (22.0-26.0) Arterial Blood Oxygen Saturation 97.3 % (92.0-98.0) Arterial Blood Base Excess 1.8 Adrian Test Positive Prothrombin Time Pending Prothromb Time International Ratio Pending Activated Partial Thromboplast Time Pending Intake and Output 12/16/16 12/17/16 19:00 07:00 Intake Total 1090 ml 1095 ml Output Total 1515 ml 1435 ml Balance -425 ml -340 ml Free Water 200 ml 80 ml IV Total 410 ml 555 ml Tube Feeding 360 ml 360 ml Other 120 ml 100 ml Output Urine Total 1515 ml 1435 ml Objective General Appearance: WD/WN, moderate distress EENT: normal ENT inspection Neck: non-tender, normal alignment, supple Cardiovascular: normal peripheral pulses, normal rate, regular rhythm, no gallop/murmur, no JVD Respiratory/Chest: Mechanical vent; crackles/rales, rhonchi - bilaterally, expiratory wheezing Abdomen: normal bowel sounds, non tender, soft, no organomegaly, no mass Extremities: normal range of motion Neurologic: radiographer mammographer II-XII grossly normal, no motor/sensory deficits Skin: normal pigmentation, warm/dry Assessment/Plan Problem List: (1) SOB (shortness of breath) (2) Respiratory failure Assessment & Plan: Intubated; failed weaning trial. See pulmonary note. (3) Renal failure Assessment & Plan: See nephrology note. (4) HTN (hypertension) (5) CAD (coronary artery disease) (6) CHF (congestive heart failure) Assessment & Plan: See cardiology note. Cont lasix. (7) Anemia (8) Uncontrolled hypertension Assessment & Plan: Start norvasc per cardiology (9) Pneumonia Assessment & Plan: Cont zosyn and levaquin-see ID note. (10) Pleural effusion Assessment & Plan: Bilateral. See pulmonary note. Status: not improved RAMYA WESLEY Dec 17, 2016 11:55
[2016-12-17 12:03] LABS: INR 1.2 (0.9-1.1); PROTHROMBIN TIME 11.9 SEC (9.30-11.50)
[2016-12-17 12:57] LABS: CRP QUANT 4.6 mg/dL (< 0.5); URIC ACID 8.3 mg/dL (3.0-7.5)
--- NOTE | 2016-12-17 15:24 | Diagnostic Imaging Report ---
Indication: DYSPNEA Technique: One view of the chest Comparison: 12/16/2016 Findings: Stable satisfactory positions of endotracheal and nasogastric tubes. Bilateral pulmonary residual alveolar edema, bilateral pleural effusions persists, unchanged Impression: Unchanged, over one day, findings as above.
--- NOTE | 2016-12-17 15:29 | General Progress Note ---
Assessment/Plan Status: stable Status Narrative Cr stable Assessment/Plan -Renal insufficiency. ? Acute on Chronic Cr stable, and slow rising ! Urine output improved Other: -Abnormal mentation. -Respiratory failure, acute with hypoxia-/ Aspiration Pnumonia -Congestive heart failure with pleural effusion, -Mitral regurgitation. -Cardiomyopathy. -History of amphetamine abuse. -History of paroxysmal episodes of atrial fibrillation per report. -Hepatitis C virus with cirrhosis. Plan: one liter D5w Optimize cardiac and pulmonary status- Keep BP in check- Monitor renal parameters- avoid nephrotoxics- per orders- UA 3+ protein Subjective ROS Limited/Unobtainable: Yes Allergies: Coded Allergies: No Known Allergies (Unverified , 04/29/13) Objective Last 24 Hour Vital Signs Date Time Temp Pulse Resp B/P Pulse Ox O2 Delivery O2 Flow Rate FiO2 12/17/16 15:01 92 18 30 12/17/16 15:00 77 16 142/66 100 Mechanical Ventilator 30 12/17/16 14:00 69 16 139/69 100 Mechanical Ventilator 30 12/17/16 14:00 142/66 12/17/16 13:19 132/68 12/17/16 13:18 132/68 12/17/16 13:00 76 16 132/68 100 Mechanical Ventilator 30 12/17/16 12:36 88 18 30 12/17/16 12:00 100.0 75 16 132/66 100 Mechanical Ventilator 30 12/17/16 12:00 40 12/17/16 12:00 75 12/17/16 11:00 89 16 133/66 100 Mechanical Ventilator 30 12/17/16 10:35 87 18 30 12/17/16 10:00 74 16 129/69 100 Mechanical Ventilator 30 12/17/16 09:15 80 135/77 12/17/16 09:00 80 16 135/77 100 Mechanical Ventilator 30 12/17/16 08:42 77 16 30 12/17/16 08:00 40 12/17/16 08:00 81 12/17/16 08:00 82 16 133/67 98 Mechanical Ventilator 30 12/17/16 07:08 86 16 30 12/17/16 07:00 97.8 12/17/16 07:00 99.8 85 15 141/69 98 Mechanical Ventilator 30 12/17/16 05:54 162/81 12/17/16 05:54 162/81 12/17/16 05:52 162/81 12/17/16 05:19 85 16 30 12/17/16 05:00 88 16 162/81 100 Mechanical Ventilator 30 12/17/16 04:00 97.8 83 16 144/80 100 Mechanical Ventilator 30 12/17/16 04:00 83 12/17/16 04:00 40 12/17/16 03:26 86 16 30 12/17/16 03:00 85 16 146/81 100 Mechanical Ventilator 30 12/17/16 02:00 84 16 146/80 100 Mechanical Ventilator 30 12/17/16 01:21 82 16 30 12/17/16 01:00 85 16 142/72 99 Mechanical Ventilator 30 12/17/16 00:00 93 12/17/16 00:00 97.7 99 16 142/74 99 Mechanical Ventilator 30 12/17/16 00:00 40 12/16/16 23:58 126/73 12/16/16 23:30 92 16 30 12/16/16 23:00 99 16 126/73 99 Mechanical Ventilator 30 12/16/16 22:00 77 16 149/72 99 Mechanical Ventilator 30 12/16/16 21:46 153/79 12/16/16 21:09 69 16 30 12/16/16 21:00 70 16 153/79 99 Mechanical Ventilator 30 12/16/16 20:00 97.6 75 17 148/77 99 Mechanical Ventilator 40 12/16/16 20:00 71 12/16/16 20:00 40 12/16/16 19:18 70 16 30 12/16/16 19:00 66 17 152/75 100 Mechanical Ventilator 40 12/16/16 18:00 142/74 12/16/16 18:00 76 17 144/76 100 Mechanical Ventilator 40 12/16/16 17:59 142/74 12/16/16 17:09 72 16 40 12/16/16 17:00 77 17 142/74 100 Mechanical Ventilator 40 12/16/16 16:00 72 12/16/16 16:00 40 12/16/16 16:00 97.8 72 16 139/69 99 Mechanical Ventilator 40 Intake and Output 12/16/16 12/17/16 19:00 07:00 Intake Total 1090 ml 1095 ml Output Total 1515 ml 1435 ml Balance -425 ml -340 ml Free Water 200 ml 80 ml IV Total 410 ml 555 ml Tube Feeding 360 ml 360 ml Other 120 ml 100 ml Output Urine Total 1515 ml 1435 ml Laboratory Tests 12/17/16 05:00: White Blood Count 7.4, Red Blood Count 2.89L, Hemoglobin 8.9L, Hematocrit 27.3L , Mean Corpuscular Volume 94, Mean Corpuscular Hemoglobin 30.9, Mean Corpuscular Hemoglobin Concent 32.8, Red Cell Distribution Width 16.1H, Platelet Count 57L, Mean Platelet Volume 11.4H, Neutrophils (%) (Auto) , Lymphocytes (%) (Auto) , Monocytes (%) (Auto) , Eosinophils (%) (Auto) , Basophils (%) (Auto) , Differential Total Cells Counted 100, Neutrophils % ( Manual) 73, Lymphocytes % (Manual) 18L, Monocytes % (Manual) 8, Eosinophils % ( Manual) 1, Basophils % (Manual) 0, Band Neutrophils 0, Platelet Estimate DecreasedL, Platelet Morphology Normal, Anisocytosis 1+, Sodium Level 148H, Potassium Level 3.5, Chloride Level 108H, Carbon Dioxide Level 26, Anion Gap 14 , Blood Urea Nitrogen 45H, Creatinine 2.7H, Estimat Glomerular Filtration Rate 28.8, Glucose Level 120H, Uric Acid 8.3H, Calcium Level 7.8L, Phosphorus Level 3.8, Magnesium Level 1.9, Total Bilirubin 0.4, Aspartate Amino Transf (AST/SGOT ) 26, Alanine Aminotransferase (ALT/SGPT) 23, Alkaline Phosphatase 61, C- Reactive Protein, Quantitative 4.6H, Pro-B-Type Natriuretic Peptide [id number], Total Protein 6.1L, Albumin 2.1L, Globulin 4.0, Albumin/Globulin Ratio 0.5L 12/17/16 08:45: Arterial Blood pH 7.479H, Arterial Blood Partial Pressure CO2 34.7L, Arterial Blood Partial Pressure O2 97.8, Arterial Blood HCO3 25.8, Arterial Blood Oxygen Saturation 97.3, Arterial Blood Base Excess 1.8, Adrian Test Positive 12/17/16 11:00: Prothrombin Time 11.9H, Prothromb Time International Ratio 1.2H, Activated Partial Thromboplast Time 39H Height (Feet): 5 Height (Inches): 9.00 Weight (Pounds): 150 General Appearance: no apparent distress Objective other PE not changed JUSTIN NESS Dec 17, 2016 15:29
[2016-12-17 16:07] LABS: TROPONIN I < 0.30 ng/mL (<=0.30)
[2016-12-17] MEDS: LORazepam Inj 2mg/ml 1ml IV PRN ×2 (17:07→22:50)
[2016-12-18] VITALS (24 sets, daily range): BP systolic 121–150; BP diastolic 50–79
[2016-12-18] MEDS: Piperacillin/Tazobactam 2.25 GM in D5W 55 ML IV SCH ×3 (02:14→18:06)
[2016-12-18] MEDS: LORazepam Inj 2mg/ml 1ml IV PRN ×3 (04:40→21:40)
[2016-12-18] MEDS: HydrALAZINE 50mg tab NG SCH ×3 (06:16→21:31)
[2016-12-18] MEDS: Nitroglycerin 2% oint pkt TOPIC SCH ×3 (06:17→18:07)
[2016-12-18 06:38] LABS: MEAN CORPUSCULAR HEMOGLOBIN 30.2 PG (27.0-31.0); MEAN CORPUSCULAR HGB CONC 32.5 G/DL (32.0-36.0); MEAN CORPUSCULAR VOLUME 93 FL (80-99); MEAN PLATELET VOLUME 9.8 FL (6.5-10.1); PLATELET COUNT 63 K/UL (150-450); RED BLOOD COUNT 2.76 M/UL (4.70-6.10); RED CELL DISTRIBUTION WIDTH 15.4 % (11.6-14.8); WHITE BLOOD COUNT 9.2 K/UL (4.8-10.8)
[2016-12-18 07:05] LABS: TROPONIN I < 0.30 ng/mL (<=0.30)
[2016-12-18 07:06] LABS: ALBUMIN/GLOBULIN RATIO 0.7 (1.0-2.7); CALCIUM 7.7 mg/dL (8.6-10.2); CREATININE 2.9 mg/dL (0.7-1.2); GLOMERULAR FILTRATION RATE 26.5 mL/min (>60); PHOSPHORUS 4.3 mg/dL (2.5-4.8); POTASSIUM 3.6 mEQ/L (3.4-4.9); TOTAL PROTEIN 5.8 g/dL (6.6-8.7)
[2016-12-18 08:10] LABS: ABG BASE EXCESS 3; ABG PCO2 34.2 mmHg (35.0-45.0)
[2016-12-18] MEDS: Pantoprazole Inj IVP SCH (09:15)
[2016-12-18] MEDS: Nephrovite tab GT SCH (09:15)
[2016-12-18] MEDS: Vitamin A&D Oint 2oz Tube TOPIC SCH ×2 (09:16→20:51)
--- NOTE | 2016-12-18 09:57 | Infectious Diseases Prog Note ---
Assessment/Plan Assessment/Plan A: The patient is a 66-year-old male with Pneumonia, SCx : Nl Daisy Chest x-ray showed bilateral large pleural effusion History of hepatitis C Low grade fever CRI ALOC VDRF SP intubated. CHF. Renal insufficiency. Hypertension. CAD and MD. History of GI bleed. History of cirrhosis. History of spinal fusion PLAN: cont Zosyn and Levaquin. d# 8 / 10 Monitor CBC. Monitor BMP. Monitor chest x-ray. Subjective Constitutional: Denies: anorexia, chills, drenching sweats, fatigue, fever, no symptoms, other Allergies: Coded Allergies: No Known Allergies (Unverified , 04/29/13) Subjective on vent Objective Vital Signs Last 24 Hour Vital Signs Date Time Temp Pulse Resp B/P Pulse Ox O2 Delivery O2 Flow Rate FiO2 12/18/16 09:16 80 132/67 12/18/16 09:00 98.1 82 18 132/67 100 Mechanical Ventilator 30 12/18/16 08:48 71 12 30 12/18/16 08:00 30 12/18/16 08:00 80 12/18/16 08:00 98.0 71 18 143/69 100 Mechanical Ventilator 30 12/18/16 07:00 80 18 129/66 100 Mechanical Ventilator 30 12/18/16 06:56 74 16 30 12/18/16 06:17 146/79 12/18/16 06:16 146/79 12/18/16 06:16 146/79 12/18/16 06:00 79 18 133/69 100 Mechanical Ventilator 30 12/18/16 05:29 82 16 30 12/18/16 05:00 80 17 150/79 100 Mechanical Ventilator 30 12/18/16 04:00 80 12/18/16 04:00 98.0 80 17 138/75 100 Mechanical Ventilator 30 12/18/16 04:00 30 12/18/16 03:25 76 16 30 12/18/16 03:00 85 17 140/75 100 Mechanical Ventilator 30 12/18/16 02:00 75 16 146/75 100 Mechanical Ventilator 30 12/18/16 01:01 80 16 30 12/18/16 01:00 90 16 130/65 100 Mechanical Ventilator 30 12/18/16 00:10 134/80 12/18/16 00:00 98.0 90 16 132/66 100 Mechanical Ventilator 30 12/18/16 00:00 90 12/18/16 00:00 30 12/17/16 23:00 90 18 136/69 99 Mechanical Ventilator 30 12/17/16 22:53 93 16 30 12/17/16 22:00 81 16 132/69 100 Mechanical Ventilator 30 12/17/16 21:38 136/71 12/17/16 21:00 74 16 136/71 100 Mechanical Ventilator 30 12/17/16 20:50 74 16 30 12/17/16 20:00 97.9 73 16 132/65 100 Mechanical Ventilator 30 12/17/16 20:00 73 12/17/16 20:00 30 12/17/16 19:03 74 16 30 12/17/16 19:00 71 16 132/66 100 Mechanical Ventilator 30 12/17/16 18:00 72 16 133/65 100 Mechanical Ventilator 30 12/17/16 17:44 126/64 12/17/16 17:43 126/64 12/17/16 17:00 80 16 126/64 99 Mechanical Ventilator 30 12/17/16 16:35 88 16 30 12/17/16 16:00 77 12/17/16 16:00 30 12/17/16 16:00 98.1 76 16 125/57 99 Mechanical Ventilator 30 12/17/16 15:01 92 18 30 12/17/16 15:00 77 16 142/66 100 Mechanical Ventilator 30 12/17/16 14:00 69 16 139/69 100 Mechanical Ventilator 30 12/17/16 14:00 142/66 12/17/16 13:19 132/68 12/17/16 13:18 132/68 12/17/16 13:00 76 16 132/68 100 Mechanical Ventilator 30 12/17/16 12:36 88 18 30 12/17/16 12:00 100.0 75 16 132/66 100 Mechanical Ventilator 30 12/17/16 12:00 40 12/17/16 12:00 75 12/17/16 11:00 89 16 133/66 100 Mechanical Ventilator 30 12/17/16 10:35 87 18 30 12/17/16 10:00 74 16 129/69 100 Mechanical Ventilator 30 Height (Feet): 5 Height (Inches): 9.00 Weight (Pounds): 150 HEENT: normocephalic Respiratory/Chest: normal breath sounds Cardiovascular: regularly irregular Abdomen: no organomegaly Laboratory Tests Test 12/17/16 11:00 12/17/16 15:40 12/18/16 06:00 12/18/16 07:57 Prothrombin Time 11.9 SEC (9.30-11.50) H Prothromb Time International Ratio 1.2 (0.9-1.1) H Activated Partial Thromboplast Time 39 SEC (23-33) H Troponin I < 0.30 ng/mL (<=0.30) < 0.30 ng/mL (<=0.30) White Blood Count 9.2 K/UL (4.8-10.8) Red Blood Count 2.76 M/UL (4.70-6.10) L Hemoglobin 8.3 G/DL (14.2-18.0) L Hematocrit 25.7 % (42.0-52.0) L Mean Corpuscular Volume 93 FL (80-99) Mean Corpuscular Hemoglobin 30.2 PG (27.0-31.0) Mean Corpuscular Hemoglobin Concent 32.5 G/DL (32.0-36.0) Red Cell Distribution Width 15.4 % (11.6-14.8) H Platelet Count 63 K/UL (150-450) L Mean Platelet Volume 9.8 FL (6.5-10.1) Neutrophils (%) (Auto) % (45.0-75.0) Lymphocytes (%) (Auto) % (20.0-45.0) Monocytes (%) (Auto) % (1.0-10.0) Eosinophils (%) (Auto) % (0.0-3.0) Basophils (%) (Auto) % (0.0-2.0) Neutrophils % (Manual) Pending Lymphocytes % (Manual) Pending Platelet Estimate Pending Platelet Morphology Pending Sodium Level 144 mEQ/L (135-145) Potassium Level 3.6 mEQ/L (3.4-4.9) Chloride Level 103 mEQ/L (98-107) Carbon Dioxide Level 25 mEQ/L (20-30) Anion Gap 16 (5-15) H Blood Urea Nitrogen 48 mg/dL (7-23) H Creatinine 2.9 mg/dL (0.7-1.2) H Estimat Glomerular Filtration Rate 26.5 mL/min (>60) Glucose Level 95 mg/dL (74-106) Calcium Level 7.7 mg/dL (8.6-10.2) L Phosphorus Level 4.3 mg/dL (2.5-4.8) Magnesium Level 2.0 mg/dL (1.7-2.5) Total Bilirubin 0.4 mg/dL (0.0-1.2) Aspartate Amino Transf (AST/SGOT) 21 U/L (5-40) Alanine Aminotransferase (ALT/SGPT) 20 U/L (3-41) Alkaline Phosphatase 52 U/L (40-129) Total Protein 5.8 g/dL (6.6-8.7) L Albumin 2.4 g/dL (3.5-5.2) L Globulin 3.4 g/dL Albumin/Globulin Ratio 0.7 (1.0-2.7) L Arterial Blood pH 7.500 (7.350-7.450) Arterial Blood Partial Pressure CO2 34.2 mmHg (35.0-45.0) L Arterial Blood Partial Pressure O2 86.0 mmHg (75.0-100.0) Arterial Blood HCO3 26.0 mmol/L (22.0-26.0) Arterial Blood Oxygen Saturation 96.0 % (92.0-98.0) Arterial Blood Base Excess 3 Adrian Test Current Medications Medications (Trade) Dose Ordered Sig/Melania Route PRN Reason Start Time Stop Time Status Last Admin Dose Admin Acetaminophen (Tylenol) 650 mg Q4H PRN ORAL Fever 12/10/16 16:45 01/09/17 16:44 12/13/16 06:09 Amlodipine Besylate (Norvasc) 10 mg DAILY NG 12/16/16 09:00 01/15/17 08:59 12/18/16 09:16 Clonidine HCl (Catapres) 0.1 mg EVERY 6 HOURS ORAL 12/15/16 12:00 01/14/17 11:59 12/18/16 06:16 Dextrose (Dextrose 50%) STAT PRN IV Hypoglycemia 12/11/16 00:45 01/10/17 00:44 Hydralazine HCl (Apresoline) 50 mg Q8HR NG 12/15/16 22:00 01/14/17 21:59 12/18/16 06:16 Levofloxacin (Levaquin 750mg/ D5W) 150 ml @ 100 mls/hr Q48H IVPB 12/11/16 16:00 12/18/16 15:59 12/17/16 16:09 Lorazepam (Ativan 2mg/ml 1ml) 1 mg Q4H PRN IV For Anxiety 12/13/16 15:45 12/20/16 15:44 12/18/16 04:40 Nitroglycerin 1 inch 1 inch TID@0600,1200,1800 TOPIC 12/12/16 06:00 01/11/17 05:59 12/18/16 06:17 Ondansetron HCl (Zofran) 4 mg Q6H PRN IVP Nausea & Vomiting 12/10/16 18:45 01/09/17 18:44 Pantoprazole (Protonix) 40 mg DAILY IVP 12/11/16 16:00 01/10/17 15:59 12/18/16 09:15 Piperacillin Sod/ Tazobactam Sod/ Dextrose (Zosyn/D5W) 55 ml @ 110 mls/hr Q8HR@0200,1000,1800 IV 12/12/16 18:00 12/18/16 17:59 12/18/16 02:14 Polyethylene Glycol (Miralax) 17 gm DAILYPRN PRN ORAL Constipation 12/11/16 00:45 01/10/17 00:44 Vitamin A/Vitamin D 1 applic 1 applic EVERY 12 HOURS TOPIC 12/10/16 21:00 01/09/17 20:59 12/18/16 09:16 Vitamin B Complex/ Vit C/Folic Acid (Nephrovite) 1 tab DAILY GT 12/12/16 09:00 01/11/17 08:59 12/18/16 09:15 ERWIN KIMBROUGH M.D. Dec 18, 2016 09:57
[2016-12-18 10:03] LABS: ANISOCYTOSIS 1+; BAND NEUTROPHILS % (MANUAL) 0 % (0-8); BASOPHILS % (MANUAL) 0 % (0-2); EOSINOPHILS % (MANUAL) 1 % (0-3); HYPOCHROMASIA 1+; LYMPHOCYTES % (MANUAL) 15 % (20-45); NEUTROPHILS % (MANUAL) 77 % (45-75); PLATELET ESTIMATE DECREASED; PLATELET MORPHOLOGY NORMAL; TOTAL CELLS COUNTED 100
--- NOTE | 2016-12-18 10:33 | Diagnostic Imaging Report ---
Indications: DYSPNEA Technique: Portable AP chest Findings: Comparison: 12/17/2016 Cardiomegaly, bilateral mixed interstitial and alveolar opacities, apparent left retrocardiac opacification, bilateral pleural effusions unchanged. Lines and tubes remain in place. No new abnormality identified. IMPRESSION: No change from one day prior
--- NOTE | 2016-12-18 12:58 | Diagnostic Imaging Report ---
Indication: DYSPNEA Technique: One view of the chest Comparison: 12/09/2016 Findings: Large bilateral pleural effusions persists, may be slightly improved since prior study. Diffuse bilateral interstitial and alveolar edema persists, unchanged. Heart remains enlarged. Impression: Stable to slightly improved large bilateral pleural effusions. Persistent cardiomegaly and bilateral interstitial and alveolar edema versus infiltrates, over 2 days
--- NOTE | 2016-12-18 12:59 | Diagnostic Imaging Report ---
Indication: Status post endotracheal tube placement Technique: One view of the chest Comparison: One hour earlier Findings: Interim endotracheal intubation, endotracheal tube tip approximately 4 cm above the lawanda. There are bilateral pleural effusions again demonstrated. Bilateral right lung infiltrates versus edema are again demonstrated. The heart is borderline enlarged. Impression: Satisfactory endotracheal intubation Stable bilateral pleural effusions and parenchymal disease, over one hour, as described
--- NOTE | 2016-12-18 12:59 | Diagnostic Imaging Report ---
Indication: Dyspnea Comparison: 12/13/2016 A single view chest radiograph was obtained. Findings: Bilateral pleural effusions are present. Patchy airspace disease noted bilaterally. Cardiomegaly is present. Tubes and lines are stable. Impression: Congestive heart failure bilateral pleural effusions. No significant change
--- NOTE | 2016-12-18 13:14 | General Progress Note ---
Assessment/Plan Status: unchanged Status Narrative Cr 2.9 Assessment/Plan -Renal insufficiency. ? Acute on Chronic Cr stable, and slow rising ! Urine output improved Other: -Abnormal mentation. -Respiratory failure, acute with hypoxia-/ Aspiration Pnumonia -Congestive heart failure with pleural effusion, -Mitral regurgitation. -Cardiomyopathy. -History of amphetamine abuse. -History of paroxysmal episodes of atrial fibrillation per report. -Hepatitis C virus with cirrhosis. Plan: one liter D5w Optimize cardiac and pulmonary status- Keep BP in check- Monitor renal parameters- avoid nephrotoxics- per orders- UA 3+ protein Subjective ROS Limited/Unobtainable: Yes Allergies: Coded Allergies: No Known Allergies (Unverified , 04/29/13) Objective Last 24 Hour Vital Signs Date Time Temp Pulse Resp B/P Pulse Ox O2 Delivery O2 Flow Rate FiO2 12/18/16 13:00 71 12 130/63 100 Mechanical Ventilator 30 12/18/16 12:37 76 14 30 12/18/16 12:00 98.0 78 20 130/65 100 Mechanical Ventilator 30 12/18/16 12:00 73 12/18/16 12:00 30 12/18/16 11:44 131/64 12/18/16 11:44 131/64 12/18/16 11:18 72 12 30 12/18/16 11:00 98.1 78 20 131/64 100 Mechanical Ventilator 30 12/18/16 10:00 98.0 75 18 128/62 100 Mechanical Ventilator 30 12/18/16 09:16 80 132/67 12/18/16 09:00 98.1 82 18 132/67 100 Mechanical Ventilator 30 12/18/16 08:48 100 12/18/16 08:48 71 12 30 12/18/16 08:00 30 12/18/16 08:00 80 12/18/16 08:00 98.0 71 18 143/69 100 Mechanical Ventilator 30 12/18/16 07:00 80 18 129/66 100 Mechanical Ventilator 30 12/18/16 06:56 74 16 30 12/18/16 06:17 146/79 12/18/16 06:16 146/79 12/18/16 06:16 146/79 12/18/16 06:00 79 18 133/69 100 Mechanical Ventilator 30 12/18/16 05:29 82 16 30 12/18/16 05:00 80 17 150/79 100 Mechanical Ventilator 30 12/18/16 04:00 80 12/18/16 04:00 98.0 80 17 138/75 100 Mechanical Ventilator 30 12/18/16 04:00 30 12/18/16 03:25 76 16 30 12/18/16 03:00 85 17 140/75 100 Mechanical Ventilator 30 12/18/16 02:00 75 16 146/75 100 Mechanical Ventilator 30 12/18/16 01:01 80 16 30 12/18/16 01:00 90 16 130/65 100 Mechanical Ventilator 30 12/18/16 00:10 134/80 12/18/16 00:00 98.0 90 16 132/66 100 Mechanical Ventilator 30 12/18/16 00:00 90 12/18/16 00:00 30 12/17/16 23:00 90 18 136/69 99 Mechanical Ventilator 30 12/17/16 22:53 93 16 30 12/17/16 22:00 81 16 132/69 100 Mechanical Ventilator 30 12/17/16 21:38 136/71 12/17/16 21:00 74 16 136/71 100 Mechanical Ventilator 30 12/17/16 20:50 74 16 30 12/17/16 20:00 97.9 73 16 132/65 100 Mechanical Ventilator 30 12/17/16 20:00 73 12/17/16 20:00 30 12/17/16 19:03 74 16 30 12/17/16 19:00 71 16 132/66 100 Mechanical Ventilator 30 12/17/16 18:00 72 16 133/65 100 Mechanical Ventilator 30 12/17/16 17:44 126/64 12/17/16 17:43 126/64 12/17/16 17:00 80 16 126/64 99 Mechanical Ventilator 30 12/17/16 16:35 88 16 30 12/17/16 16:00 77 12/17/16 16:00 30 12/17/16 16:00 98.1 76 16 125/57 99 Mechanical Ventilator 30 12/17/16 15:01 92 18 30 12/17/16 15:00 77 16 142/66 100 Mechanical Ventilator 30 12/17/16 14:00 69 16 139/69 100 Mechanical Ventilator 30 12/17/16 14:00 142/66 12/17/16 13:19 132/68 12/17/16 13:18 132/68 Intake and Output 12/17/16 12/18/16 19:00 07:00 Intake Total 975 ml 610 ml Output Total 2045 ml 1175 ml Balance -1070 ml -565 ml Free Water 200 ml 150 ml IV Total 315 ml Tube Feeding 360 ml 360 ml Other 100 ml 100 ml Output Urine Total 2045 ml 1175 ml # Bowel Movements 1 Laboratory Tests 12/17/16 15:40: Troponin I < 0.30 12/18/16 06:00: Troponin I < 0.30, White Blood Count 9.2, Red Blood Count 2.76L, Hemoglobin 8.3L , Hematocrit 25.7L, Mean Corpuscular Volume 93, Mean Corpuscular Hemoglobin 30.2 , Mean Corpuscular Hemoglobin Concent 32.5, Red Cell Distribution Width 15.4H, Platelet Count 63L, Mean Platelet Volume 9.8, Neutrophils (%) (Auto) , Lymphocytes (%) (Auto) , Monocytes (%) (Auto) , Eosinophils (%) (Auto) , Basophils (%) (Auto) , Differential Total Cells Counted 100, Neutrophils % ( Manual) 77H, Lymphocytes % (Manual) 15L, Monocytes % (Manual) 7, Eosinophils % ( Manual) 1, Basophils % (Manual) 0, Band Neutrophils 0, Platelet Estimate DecreasedL, Platelet Morphology Normal, Hypochromasia 1+, Anisocytosis 1+, Sodium Level 144, Potassium Level 3.6, Chloride Level 103, Carbon Dioxide Level 25, Anion Gap 16H, Blood Urea Nitrogen 48H, Creatinine 2.9H, Estimat Glomerular Filtration Rate 26.5, Glucose Level 95, Calcium Level 7.7L, Phosphorus Level 4.3 , Magnesium Level 2.0, Total Bilirubin 0.4, Aspartate Amino Transf (AST/SGOT) 21 , Alanine Aminotransferase (ALT/SGPT) 20, Alkaline Phosphatase 52, Total Protein 5.8L, Albumin 2.4L, Globulin 3.4, Albumin/Globulin Ratio 0.7L 12/18/16 07:57: Arterial Blood pH 7.500H, Arterial Blood Partial Pressure CO2 34.2L, Arterial Blood Partial Pressure O2 86.0, Arterial Blood HCO3 26.0, Arterial Blood Oxygen Saturation 96.0, Arterial Blood Base Excess 3, Adrian Test Height (Feet): 5 Height (Inches): 9.00 Weight (Pounds): 150 General Appearance: no apparent distress Objective other PE not changed JUSTIN NESS Dec 18, 2016 13:14
--- NOTE | 2016-12-18 17:35 | Cardiology Progress Note ---
Assessment/Plan Assessment/Plan 1. Abnormal mentation due to respiratory acidosis . 2. Respiratory acidosis. 3. Congestive heart failure with pleural effusion, 4. Mitral regurgitation. 5. Cardiomyopathy. 6. History of amphetamine abuse. 7. History of paroxysmal episodes of atrial fibrillation per report. 8. Renal insufficiency. 9. Hepatitis C virus with cirrhosis vent support wean as possible anotehr diuretics zoroxolyna dn lasix today 12/18/16 after load reduction hold acei in light of renal insuf start hydralazine and nitrate tele noted ekg noted tele reviewed ekg reviewed jodi douglas Subjective Cardiovascular: Denies: chest pain, lightheadedness, palpitations Respiratory: Denies: shortness of breath Gastrointestinal/Abdominal: Denies: abdomen distended Subjective on ramona vent Objective Last 24 Hour Vital Signs Date Time Temp Pulse Resp B/P Pulse Ox O2 Delivery O2 Flow Rate FiO2 12/18/16 17:00 74 12 125/64 100 Mechanical Ventilator 12/18/16 16:47 73 14 30 12/18/16 16:00 98.4 74 12 125/64 100 Mechanical Ventilator 12/18/16 16:00 75 12/18/16 16:00 30 12/18/16 15:00 76 14 121/50 100 Mechanical Ventilator 12/18/16 14:44 74 13 30 12/18/16 14:12 129/65 12/18/16 14:00 98.1 72 12 129/65 100 Mechanical Ventilator 12/18/16 13:00 71 12 130/63 100 Mechanical Ventilator 12/18/16 12:37 76 14 30 12/18/16 12:00 98.0 78 20 130/65 100 Mechanical Ventilator 12/18/16 12:00 73 12/18/16 12:00 30 12/18/16 11:44 131/64 12/18/16 11:44 131/64 12/18/16 11:18 72 12 30 12/18/16 11:00 98.1 78 20 131/64 100 Mechanical Ventilator 12/18/16 10:00 98.0 75 18 128/62 100 Mechanical Ventilator 30 12/18/16 09:16 80 132/67 12/18/16 09:00 98.1 82 18 132/67 100 Mechanical Ventilator 12/18/16 08:48 100 12/18/16 08:48 71 12 30 12/18/16 08:00 30 12/18/16 08:00 80 12/18/16 08:00 98.0 71 18 143/69 100 Mechanical Ventilator 30 12/18/16 07:00 80 18 129/66 100 Mechanical Ventilator 30 12/18/16 06:56 74 16 30 12/18/16 06:17 146/79 12/18/16 06:16 146/79 12/18/16 06:16 146/79 12/18/16 06:00 79 18 133/69 100 Mechanical Ventilator 30 12/18/16 05:29 82 16 30 12/18/16 05:00 80 17 150/79 100 Mechanical Ventilator 30 12/18/16 04:00 80 12/18/16 04:00 98.0 80 17 138/75 100 Mechanical Ventilator 30 12/18/16 04:00 30 12/18/16 03:25 76 16 30 12/18/16 03:00 85 17 140/75 100 Mechanical Ventilator 30 12/18/16 02:00 75 16 146/75 100 Mechanical Ventilator 30 12/18/16 01:01 80 16 30 12/18/16 01:00 90 16 130/65 100 Mechanical Ventilator 30 12/18/16 00:10 134/80 12/18/16 00:00 98.0 90 16 132/66 100 Mechanical Ventilator 30 12/18/16 00:00 90 12/18/16 00:00 30 12/17/16 23:00 90 18 136/69 99 Mechanical Ventilator 30 12/17/16 22:53 93 16 30 12/17/16 22:00 81 16 132/69 100 Mechanical Ventilator 30 12/17/16 21:38 136/71 12/17/16 21:00 74 16 136/71 100 Mechanical Ventilator 30 12/17/16 20:50 74 16 30 12/17/16 20:00 97.9 73 16 132/65 100 Mechanical Ventilator 30 12/17/16 20:00 73 12/17/16 20:00 30 12/17/16 19:03 74 16 30 12/17/16 19:00 71 16 132/66 100 Mechanical Ventilator 30 12/17/16 18:00 72 16 133/65 100 Mechanical Ventilator 30 12/17/16 17:44 126/64 12/17/16 17:43 126/64 General Appearance: no apparent distress, alert, patient on isolation, isolation precautions Neck: supple Cardiovascular: normal rate, regular rhythm Respiratory/Chest: crackles/rales Abdomen: normal bowel sounds, non tender, soft Extremities: no swelling Intake and Output 12/17/16 12/18/16 19:00 07:00 Intake Total 975 ml 610 ml Output Total 2045 ml 1175 ml Balance -1070 ml -565 ml Free Water 200 ml 150 ml IV Total 315 ml Tube Feeding 360 ml 360 ml Other 100 ml 100 ml Output Urine Total 2045 ml 1175 ml # Bowel Movements 1 Laboratory Tests Test 12/18/16 06:00 12/18/16 07:57 White Blood Count 9.2 K/UL (4.8-10.8) Red Blood Count 2.76 M/UL (4.70-6.10) L Hemoglobin 8.3 G/DL (14.2-18.0) L Hematocrit 25.7 % (42.0-52.0) L Mean Corpuscular Volume 93 FL (80-99) Mean Corpuscular Hemoglobin 30.2 PG (27.0-31.0) Mean Corpuscular Hemoglobin Concent 32.5 G/DL (32.0-36.0) Red Cell Distribution Width 15.4 % (11.6-14.8) H Platelet Count 63 K/UL (150-450) L Mean Platelet Volume 9.8 FL (6.5-10.1) Neutrophils (%) (Auto) % (45.0-75.0) Lymphocytes (%) (Auto) % (20.0-45.0) Monocytes (%) (Auto) % (1.0-10.0) Eosinophils (%) (Auto) % (0.0-3.0) Basophils (%) (Auto) % (0.0-2.0) Differential Total Cells Counted 100 Neutrophils % (Manual) 77 % (45-75) H Lymphocytes % (Manual) 15 % (20-45) L Monocytes % (Manual) 7 % (1-10) Eosinophils % (Manual) 1 % (0-3) Basophils % (Manual) 0 % (0-2) Band Neutrophils 0 % (0-8) Platelet Estimate Decreased L Platelet Morphology Normal Hypochromasia 1+ Anisocytosis 1+ Sodium Level 144 mEQ/L (135-145) Potassium Level 3.6 mEQ/L (3.4-4.9) Chloride Level 103 mEQ/L (98-107) Carbon Dioxide Level 25 mEQ/L (20-30) Anion Gap 16 (5-15) H Blood Urea Nitrogen 48 mg/dL (7-23) H Creatinine 2.9 mg/dL (0.7-1.2) H Estimat Glomerular Filtration Rate 26.5 mL/min (>60) Glucose Level 95 mg/dL (74-106) Calcium Level 7.7 mg/dL (8.6-10.2) L Phosphorus Level 4.3 mg/dL (2.5-4.8) Magnesium Level 2.0 mg/dL (1.7-2.5) Total Bilirubin 0.4 mg/dL (0.0-1.2) Aspartate Amino Transf (AST/SGOT) 21 U/L (5-40) Alanine Aminotransferase (ALT/SGPT) 20 U/L (3-41) Alkaline Phosphatase 52 U/L (40-129) Troponin I < 0.30 ng/mL (<=0.30) Total Protein 5.8 g/dL (6.6-8.7) L Albumin 2.4 g/dL (3.5-5.2) L Globulin 3.4 g/dL Albumin/Globulin Ratio 0.7 (1.0-2.7) L Arterial Blood pH 7.500 (7.350-7.450) Arterial Blood Partial Pressure CO2 34.2 mmHg (35.0-45.0) L Arterial Blood Partial Pressure O2 86.0 mmHg (75.0-100.0) Arterial Blood HCO3 26.0 mmol/L (22.0-26.0) Arterial Blood Oxygen Saturation 96.0 % (92.0-98.0) Arterial Blood Base Excess 3 Adrian Test STEPHEN LONDON Dec 18, 2016 17:34
[2016-12-18] MEDS ORDERED: Metolazone 5mg tab ORAL ONE (18:00)
--- NOTE | 2016-12-18 18:39 | Internal Med Progress Note ---
Subjective Date of Service: Dec 18, 2016 Physician Name Ramya Wesley Attending Physician Wild Hawkins MD Current Medications Medications (Trade) Dose Ordered Sig/Melania Route PRN Reason Start Time Stop Time Status Last Admin Dose Admin Acetaminophen (Tylenol) 650 mg Q4H PRN ORAL Fever 12/10/16 16:45 01/09/17 16:44 12/13/16 06:09 Amlodipine Besylate (Norvasc) 10 mg DAILY NG 12/16/16 09:00 01/15/17 08:59 12/18/16 09:16 Clonidine HCl (Catapres) 0.1 mg EVERY 6 HOURS ORAL 12/15/16 12:00 01/14/17 11:59 12/18/16 18:06 Dextrose (Dextrose 50%) STAT PRN IV Hypoglycemia 12/11/16 00:45 01/10/17 00:44 Hydralazine HCl (Apresoline) 50 mg Q8HR NG 12/15/16 22:00 01/14/17 21:59 12/18/16 14:12 Levofloxacin (Levaquin 750mg/ D5W) 150 ml @ 100 mls/hr Q48H IVPB 12/11/16 16:00 12/20/16 15:59 12/17/16 16:09 Lorazepam (Ativan 2mg/ml 1ml) 1 mg Q4H PRN IV For Anxiety 12/13/16 15:45 12/20/16 15:44 12/18/16 12:35 Nitroglycerin 1 inch 1 inch TID@0600,1200,1800 TOPIC 12/12/16 06:00 01/11/17 05:59 12/18/16 18:07 Ondansetron HCl (Zofran) 4 mg Q6H PRN IVP Nausea & Vomiting 12/10/16 18:45 01/09/17 18:44 Pantoprazole (Protonix) 40 mg DAILY IVP 12/11/16 16:00 01/10/17 15:59 12/18/16 09:15 Piperacillin Sod/ Tazobactam Sod/ Dextrose (Zosyn/D5W) 55 ml @ 110 mls/hr Q8HR@0200,1000,1800 IV 12/12/16 18:00 12/20/16 17:59 12/18/16 18:06 Polyethylene Glycol (Miralax) 17 gm DAILYPRN PRN ORAL Constipation 12/11/16 00:45 01/10/17 00:44 Vitamin A/Vitamin D 1 applic 1 applic EVERY 12 HOURS TOPIC 12/10/16 21:00 01/09/17 20:59 12/18/16 09:16 Vitamin B Complex/ Vit C/Folic Acid (Nephrovite) 1 tab DAILY GT 12/12/16 09:00 01/11/17 08:59 12/18/16 09:15 Allergies: Coded Allergies: No Known Allergies (Unverified , 04/29/13) Subjective 66 YO M admitted with shortness of breath; now respiratory failure. Cover for Int Ochoa-Dr Hawkins. ICU. Intubated and sedated. Await thoracentesis Objective Last Vital Signs Date Time Temp Pulse Resp B/P Pulse Ox O2 Delivery O2 Flow Rate FiO2 12/18/16 18:07 126/61 12/18/16 18:00 98.6 82 12 100 Mechanical Ventilator 30 12/10/16 01:00 15.0 Laboratory Tests Test 12/18/16 06:00 12/18/16 07:57 White Blood Count 9.2 K/UL (4.8-10.8) Red Blood Count 2.76 M/UL (4.70-6.10) L Hemoglobin 8.3 G/DL (14.2-18.0) L Hematocrit 25.7 % (42.0-52.0) L Mean Corpuscular Volume 93 FL (80-99) Mean Corpuscular Hemoglobin 30.2 PG (27.0-31.0) Mean Corpuscular Hemoglobin Concent 32.5 G/DL (32.0-36.0) Red Cell Distribution Width 15.4 % (11.6-14.8) H Platelet Count 63 K/UL (150-450) L Mean Platelet Volume 9.8 FL (6.5-10.1) Neutrophils (%) (Auto) % (45.0-75.0) Lymphocytes (%) (Auto) % (20.0-45.0) Monocytes (%) (Auto) % (1.0-10.0) Eosinophils (%) (Auto) % (0.0-3.0) Basophils (%) (Auto) % (0.0-2.0) Differential Total Cells Counted 100 Neutrophils % (Manual) 77 % (45-75) H Lymphocytes % (Manual) 15 % (20-45) L Monocytes % (Manual) 7 % (1-10) Eosinophils % (Manual) 1 % (0-3) Basophils % (Manual) 0 % (0-2) Band Neutrophils 0 % (0-8) Platelet Estimate Decreased L Platelet Morphology Normal Hypochromasia 1+ Anisocytosis 1+ Sodium Level 144 mEQ/L (135-145) Potassium Level 3.6 mEQ/L (3.4-4.9) Chloride Level 103 mEQ/L (98-107) Carbon Dioxide Level 25 mEQ/L (20-30) Anion Gap 16 (5-15) H Blood Urea Nitrogen 48 mg/dL (7-23) H Creatinine 2.9 mg/dL (0.7-1.2) H Estimat Glomerular Filtration Rate 26.5 mL/min (>60) Glucose Level 95 mg/dL (74-106) Calcium Level 7.7 mg/dL (8.6-10.2) L Phosphorus Level 4.3 mg/dL (2.5-4.8) Magnesium Level 2.0 mg/dL (1.7-2.5) Total Bilirubin 0.4 mg/dL (0.0-1.2) Aspartate Amino Transf (AST/SGOT) 21 U/L (5-40) Alanine Aminotransferase (ALT/SGPT) 20 U/L (3-41) Alkaline Phosphatase 52 U/L (40-129) Troponin I < 0.30 ng/mL (<=0.30) Total Protein 5.8 g/dL (6.6-8.7) L Albumin 2.4 g/dL (3.5-5.2) L Globulin 3.4 g/dL Albumin/Globulin Ratio 0.7 (1.0-2.7) L Arterial Blood pH 7.500 (7.350-7.450) Arterial Blood Partial Pressure CO2 34.2 mmHg (35.0-45.0) L Arterial Blood Partial Pressure O2 86.0 mmHg (75.0-100.0) Arterial Blood HCO3 26.0 mmol/L (22.0-26.0) Arterial Blood Oxygen Saturation 96.0 % (92.0-98.0) Arterial Blood Base Excess 3 Adrian Test Intake and Output 12/17/16 12/18/16 19:00 07:00 Intake Total 975 ml 610 ml Output Total 2045 ml 1175 ml Balance -1070 ml -565 ml Free Water 200 ml 150 ml IV Total 315 ml Tube Feeding 360 ml 360 ml Other 100 ml 100 ml Output Urine Total 2045 ml 1175 ml # Bowel Movements 1 Objective General Appearance: WD/WN, moderate distress EENT: normal ENT inspection Neck: non-tender, normal alignment, supple Cardiovascular: normal peripheral pulses, normal rate, regular rhythm, no gallop/murmur, no JVD Respiratory/Chest: Mechanical vent; crackles/rales, rhonchi - bilaterally, expiratory wheezing Abdomen: normal bowel sounds, non tender, soft, no organomegaly, no mass Extremities: normal range of motion 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 See pulmonary note. (3) Renal failure Assessment & Plan: See nephrology note. (4) HTN (hypertension) (5) CAD (coronary artery disease) (6) CHF (congestive heart failure) Assessment & Plan: See cardiology note. Cont lasix. (7) Anemia (8) Uncontrolled hypertension Assessment & Plan: Start norvasc per cardiology (9) Pneumonia Assessment & Plan: Cont zosyn and levaquin-see ID note. (10) Pleural effusion Assessment & Plan: Bilateral. Await thoracentesis. See pulmonary note. Status: not improved RAMYA WESLEY Dec 18, 2016 18:39
[2016-12-18] MEDS ORDERED: NS 275ml ONE (21:19)
[2016-12-19] VITALS (24 sets, daily range): BP systolic 114–143; BP diastolic 35–68
[2016-12-19] MEDS: Piperacillin/Tazobactam 2.25 GM in D5W 55 ML IV SCH ×3 (02:22→18:25)
[2016-12-19] MEDS: HydrALAZINE 50mg tab NG SCH ×3 (05:50→22:31)
[2016-12-19] MEDS: Nitroglycerin 2% oint pkt TOPIC SCH ×3 (05:50→18:25)
[2016-12-19 06:06] LABS: MEAN CORPUSCULAR VOLUME 94 FL (80-99); MEAN PLATELET VOLUME 10.4 FL (6.5-10.1); PLATELET COUNT 79 K/UL (150-450); RED BLOOD COUNT 2.89 M/UL (4.70-6.10); RED CELL DISTRIBUTION WIDTH 15.6 % (11.6-14.8); WHITE BLOOD COUNT 7.8 K/UL (4.8-10.8)
[2016-12-19 06:55] LABS: ALBUMIN/GLOBULIN RATIO 0.4 (1.0-2.7); CALCIUM 7.9 mg/dL (8.6-10.2); CREATININE 2.9 mg/dL (0.7-1.2); GLOMERULAR FILTRATION RATE 26.5 mL/min (>60); MAGNESIUM 1.9 mg/dL (1.7-2.5); PHOSPHORUS 4.6 mg/dL (2.5-4.8); POTASSIUM 3.4 mEQ/L (3.4-4.9); TOTAL PROTEIN 6.1 g/dL (6.6-8.7)
[2016-12-19 08:51] LABS: ABG ALLEN TEST POSITIVE; ABG BASE EXCESS 6.5; ABG PCO2 40.3 mmHg (35.0-45.0)
[2016-12-19] MEDS: Pantoprazole Inj IVP SCH (09:21)
[2016-12-19] MEDS: Nephrovite tab GT SCH (09:22)
[2016-12-19] MEDS: Vitamin A&D Oint 2oz Tube TOPIC SCH ×2 (09:22→22:32)
[2016-12-19 09:42] LABS: ANISOCYTOSIS 1+; BAND NEUTROPHILS % (MANUAL) 1 % (0-8); BASOPHILS % (MANUAL) 0 % (0-2); EOSINOPHILS % (MANUAL) 1 % (0-3); HYPOCHROMASIA 1+; LYMPHOCYTES % (MANUAL) 11 % (20-45); NEUTROPHILS % (MANUAL) 76 % (45-75); PLATELET ESTIMATE ADEQUATE; PLATELET MORPHOLOGY NORMAL; TOTAL CELLS COUNTED 100
--- NOTE | 2016-12-19 10:36 | Diagnostic Imaging Report ---
Indication: DYSPNEA Technique: One view of the chest Comparison: 12/18/2016 Findings: Stable satisfactory positions of endotracheal and nasogastric tubes. Bilateral interstitial and alveolar parenchymal disease, sizable bilateral pleural effusions persist. The heart remains enlarged. Findings are unchanged Impression: Unchanged, over one day, findings as above.
--- NOTE | 2016-12-19 12:21 | General Progress Note ---
Assessment/Plan Status: unchanged Status Narrative Cr remains 2.9 Assessment/Plan -Renal insufficiency. ? Acute on Chronic Cr stable, and slow rising ! Urine output improved Other: -Abnormal mentation. -Respiratory failure, acute with hypoxia-/ Aspiration [place] -Congestive heart failure with pleural effusion, -Mitral regurgitation. -Cardiomyopathy. -History of amphetamine abuse. -History of paroxysmal episodes of atrial fibrillation per report. -Hepatitis C virus with cirrhosis. Plan: Optimize cardiac and pulmonary status- Keep BP in check- Monitor renal parameters- avoid nephrotoxics- per orders- UA 3+ protein Subjective ROS Limited/Unobtainable: Yes Allergies: Coded Allergies: No Known Allergies (Unverified , 04/29/13) Objective Last 24 Hour Vital Signs Date Time Temp Pulse Resp B/P Pulse Ox O2 Delivery O2 Flow Rate FiO2 12/19/16 11:48 132/63 12/19/16 11:48 132/63 12/19/16 11:00 64 22 132/63 100 Mechanical Ventilator 30 12/19/16 10:35 88 31 30 12/19/16 10:30 30 12/19/16 10:00 84 30 126/63 100 Mechanical Ventilator 30 12/19/16 09:21 77 126/65 12/19/16 09:03 100 12/19/16 09:01 77 12 30 12/19/16 09:00 30 12/19/16 09:00 82 14 125/64 100 Mechanical Ventilator 30 12/19/16 08:00 30 12/19/16 08:00 98.9 75 13 126/65 100 Mechanical Ventilator 30 12/19/16 08:00 78 12/19/16 07:00 80 14 132/64 100 Mechanical Ventilator 30 12/19/16 06:55 82 16 30 12/19/16 06:00 77 14 122/58 100 Mechanical Ventilator 30 12/19/16 05:50 142/72 12/19/16 05:50 142/72 12/19/16 05:50 142/72 12/19/16 05:00 80 14 141/67 100 Mechanical Ventilator 30 12/19/16 04:52 87 14 30 12/19/16 04:00 98.9 80 13 135/68 100 Mechanical Ventilator 30 12/19/16 04:00 76 12/19/16 04:00 30 12/19/16 03:03 75 12 30 12/19/16 03:00 77 13 135/68 100 Mechanical Ventilator 30 12/19/16 02:00 76 12 143/65 100 Mechanical Ventilator 30 12/19/16 01:00 74 12 131/68 100 Mechanical Ventilator 30 12/19/16 00:55 74 12 30 12/19/16 00:00 98.4 75 16 136/65 100 Mechanical Ventilator 30 12/19/16 00:00 30 12/19/16 00:00 81 12/18/16 23:34 130/64 12/18/16 23:23 78 12 30 12/18/16 23:00 80 12 129/64 100 Mechanical Ventilator 30 12/18/16 22:00 75 12 123/63 100 Mechanical Ventilator 30 12/18/16 21:31 130/71 12/18/16 21:00 79 20 30 12/18/16 21:00 79 16 130/70 100 Mechanical Ventilator 30 12/18/16 20:00 70 12/18/16 20:00 30 12/18/16 20:00 98.4 74 16 136/66 100 Mechanical Ventilator 30 12/18/16 19:00 72 12 133/66 100 Mechanical Ventilator 30 12/18/16 18:50 72 12 30 12/18/16 18:07 126/61 12/18/16 18:06 126/61 12/18/16 18:00 98.6 82 12 126/61 100 Mechanical Ventilator 30 12/18/16 17:00 74 12 125/64 100 Mechanical Ventilator 30 12/18/16 16:47 73 14 30 12/18/16 16:00 98.4 74 12 125/64 100 Mechanical Ventilator 30 12/18/16 16:00 75 12/18/16 16:00 30 12/18/16 15:00 76 14 121/50 100 Mechanical Ventilator 30 12/18/16 14:44 74 13 30 12/18/16 14:12 129/65 12/18/16 14:00 98.1 72 12 129/65 100 Mechanical Ventilator 30 12/18/16 13:00 71 12 130/63 100 Mechanical Ventilator 30 12/18/16 12:37 76 14 30 Intake and Output 12/18/12/19/16 19:00 07:00 Intake Total 360 ml 420 ml Output Total 1340 ml 1900 ml Balance -980 ml -1480 ml Tube Feeding 360 ml 360 ml Other 60 ml Output Urine Total 1340 ml 1900 ml Laboratory Tests 12/19/16 04:45: White Blood Count 7.8, Red Blood Count 2.89L, Hemoglobin 8.7L, Hematocrit 27.2L , Mean Corpuscular Volume 94, Mean Corpuscular Hemoglobin 30.0, Mean Corpuscular Hemoglobin Concent 32.0, Red Cell Distribution Width 15.6H, Platelet Count 79L, Mean Platelet Volume 10.4H, Neutrophils (%) (Auto) , Lymphocytes (%) (Auto) , Monocytes (%) (Auto) , Eosinophils (%) (Auto) , Basophils (%) (Auto) , Differential Total Cells Counted 100, Neutrophils % ( Manual) 76H, Lymphocytes % (Manual) 11L, Monocytes % (Manual) 11H, Eosinophils % (Manual) 1, Basophils % (Manual) 0, Band Neutrophils 1, Platelet Estimate Adequate, Platelet Morphology Normal, Hypochromasia 1+, Anisocytosis 1+, Sodium Level 146H, Potassium Level 3.4, Chloride Level 105, Carbon Dioxide Level 26, Anion Gap 15, Blood Urea Nitrogen 45H, Creatinine 2.9H, Estimat Glomerular Filtration Rate 26.5, Glucose Level 104, Calcium Level 7.9L, Phosphorus Level 4.6, Magnesium Level 1.9, Total Bilirubin 0.3, Aspartate Amino Transf (AST/SGOT ) 17, Alanine Aminotransferase (ALT/SGPT) 16, Alkaline Phosphatase 70, Total Protein 6.1L, Albumin 1.9L, Globulin 4.2, Albumin/Globulin Ratio 0.4L 12/19/16 08:40: Arterial Blood pH 7.490H, Arterial Blood Partial Pressure CO2 40.3, Arterial Blood Partial Pressure O2 102.9H, Arterial Blood HCO3 30.3H, Arterial Blood Oxygen Saturation 97.8, Arterial Blood Base Excess 6.5, Adrian Test Positive Height (Feet): 5 Height (Inches): 9.00 Weight (Pounds): 150 EENT: other - on vent Cardiovascular: normal rate Respiratory/Chest: decreased breath sounds Abdomen: distended Objective other PE not changed JUSTIN NESS Dec 19, 2016 12:21
--- NOTE | 2016-12-19 18:22 | Infectious Diseases Prog Note ---
Assessment/Plan Assessment/Plan A: The patient is a 66-year-old male with Pneumonia, SCx : Nl Daisy Chest x-ray showed bilateral large pleural effusion History of hepatitis C Low grade fever, SP BL Pleural effusion CRI ALOC VDRF SP intubation CHF. Renal insufficiency. Hypertension. CAD and VT. History of GI bleed. History of cirrhosis. History of spinal fusion PLAN: cont Zosyn and Levaquin. d# 9 / 10 Monitor CBC. Monitor BMP. Monitor chest x-ray thoracentesis Subjective Constitutional: Denies: anorexia, chills, drenching sweats, fatigue, fever, no symptoms, other Allergies: Coded Allergies: No Known Allergies (Unverified , 04/29/13) Subjective Objective Vital Signs Last 24 Hour Vital Signs Date Time Temp Pulse Resp B/P Pulse Ox O2 Delivery O2 Flow Rate FiO2 12/19/16 18:00 71 20 122/64 100 Mechanical Ventilator 30 12/19/16 17:04 83 18 30 12/19/16 17:00 70 18 128/64 100 Mechanical Ventilator 30 12/19/16 16:00 69 12/19/16 16:00 30 12/19/16 16:00 99.0 69 12 129/67 100 Mechanical Ventilator 30 12/19/16 15:27 71 12 30 12/19/16 15:00 70 12 124/61 100 Mechanical Ventilator 30 12/19/16 14:00 71 12 114/61 100 Mechanical Ventilator 30 12/19/16 13:56 98.7 12/19/16 13:02 71 12 30 12/19/16 13:00 72 22 126/65 100 Mechanical Ventilator 30 12/19/16 12:58 126/65 12/19/16 12:00 83 12/19/16 12:00 98.7 73 18 126/65 100 Mechanical Ventilator 30 12/19/16 11:48 132/63 12/19/16 11:48 132/63 12/19/16 11:00 64 22 132/63 100 Mechanical Ventilator 30 12/19/16 10:35 88 31 30 12/19/16 10:30 30 12/19/16 10:00 84 30 126/63 100 Mechanical Ventilator 30 12/19/16 09:21 77 126/65 12/19/16 09:03 100 12/19/16 09:01 77 12 30 12/19/16 09:00 30 12/19/16 09:00 82 14 125/64 100 Mechanical Ventilator 30 12/19/16 08:00 30 12/19/16 08:00 98.9 75 13 126/65 100 Mechanical Ventilator 30 12/19/16 08:00 78 12/19/16 07:00 80 14 132/64 100 Mechanical Ventilator 30 12/19/16 06:55 82 16 30 12/19/16 06:00 77 14 122/58 100 Mechanical Ventilator 30 12/19/16 05:50 142/72 12/19/16 05:50 142/72 12/19/16 05:50 142/72 12/19/16 05:00 80 14 141/67 100 Mechanical Ventilator 30 12/19/16 04:52 87 14 30 12/19/16 04:00 98.9 80 13 135/68 100 Mechanical Ventilator 30 12/19/16 04:00 76 12/19/16 04:00 30 12/19/16 03:03 75 12 30 12/19/16 03:00 77 13 135/68 100 Mechanical Ventilator 30 12/19/16 02:00 76 12 143/65 100 Mechanical Ventilator 30 12/19/16 01:00 74 12 131/68 100 Mechanical Ventilator 30 12/19/16 00:55 74 12 30 12/19/16 00:00 98.4 75 16 136/65 100 Mechanical Ventilator 30 12/19/16 00:00 30 12/19/16 00:00 81 12/18/16 23:34 130/64 12/18/16 23:23 78 12 30 12/18/16 23:00 80 12 129/64 100 Mechanical Ventilator 30 12/18/16 22:00 75 12 123/63 100 Mechanical Ventilator 30 12/18/16 21:31 130/71 12/18/16 21:00 79 20 30 12/18/16 21:00 79 16 130/70 100 Mechanical Ventilator 30 12/18/16 20:00 70 12/18/16 20:00 30 12/18/16 20:00 98.4 74 16 136/66 100 Mechanical Ventilator 30 12/18/16 19:00 72 12 133/66 100 Mechanical Ventilator 30 12/18/16 18:50 72 12 30 Height (Feet): 5 Height (Inches): 9.00 Weight (Pounds): 150 HEENT: atraumatic Respiratory/Chest: normal breath sounds Cardiovascular: regular rhythm Abdomen: no organomegaly Laboratory Tests Test 12/19/16 04:45 12/19/16 08:40 White Blood Count 7.8 K/UL (4.8-10.8) Red Blood Count 2.89 M/UL (4.70-6.10) L Hemoglobin 8.7 G/DL (14.2-18.0) L Hematocrit 27.2 % (42.0-52.0) L Mean Corpuscular Volume 94 FL (80-99) Mean Corpuscular Hemoglobin 30.0 PG (27.0-31.0) Mean Corpuscular Hemoglobin Concent 32.0 G/DL (32.0-36.0) Red Cell Distribution Width 15.6 % (11.6-14.8) H Platelet Count 79 K/UL (150-450) L Mean Platelet Volume 10.4 FL (6.5-10.1) H Neutrophils (%) (Auto) % (45.0-75.0) Lymphocytes (%) (Auto) % (20.0-45.0) Monocytes (%) (Auto) % (1.0-10.0) Eosinophils (%) (Auto) % (0.0-3.0) Basophils (%) (Auto) % (0.0-2.0) Differential Total Cells Counted 100 Neutrophils % (Manual) 76 % (45-75) H Lymphocytes % (Manual) 11 % (20-45) L Monocytes % (Manual) 11 % (1-10) H Eosinophils % (Manual) 1 % (0-3) Basophils % (Manual) 0 % (0-2) Band Neutrophils 1 % (0-8) Platelet Estimate Adequate Platelet Morphology Normal Hypochromasia 1+ Anisocytosis 1+ Sodium Level 146 mEQ/L (135-145) H Potassium Level 3.4 mEQ/L (3.4-4.9) Chloride Level 105 mEQ/L (98-107) Carbon Dioxide Level 26 mEQ/L (20-30) Anion Gap 15 (5-15) Blood Urea Nitrogen 45 mg/dL (7-23) H Creatinine 2.9 mg/dL (0.7-1.2) H Estimat Glomerular Filtration Rate 26.5 mL/min (>60) Glucose Level 104 mg/dL (74-106) Calcium Level 7.9 mg/dL (8.6-10.2) L Phosphorus Level 4.6 mg/dL (2.5-4.8) Magnesium Level 1.9 mg/dL (1.7-2.5) Total Bilirubin 0.3 mg/dL (0.0-1.2) Aspartate Amino Transf (AST/SGOT) 17 U/L (5-40) Alanine Aminotransferase (ALT/SGPT) 16 U/L (3-41) Alkaline Phosphatase 70 U/L (40-129) Total Protein 6.1 g/dL (6.6-8.7) L Albumin 1.9 g/dL (3.5-5.2) L Globulin 4.2 g/dL Albumin/Globulin Ratio 0.4 (1.0-2.7) L Arterial Blood pH 7.490 (7.350-7.450) Arterial Blood Partial Pressure CO2 40.3 mmHg (35.0-45.0) Arterial Blood Partial Pressure O2 102.9 mmHg (75.0-100.0) H Arterial Blood HCO3 30.3 mmol/L (22.0-26.0) H Arterial Blood Oxygen Saturation 97.8 % (92.0-98.0) Arterial Blood Base Excess 6.5 Adrian Test Positive Current Medications Medications (Trade) Dose Ordered Sig/Melania Route PRN Reason Start Time Stop Time Status Last Admin Dose Admin Acetaminophen (Tylenol) 650 mg Q4H PRN ORAL Fever 12/10/16 16:45 01/09/17 16:44 12/19/16 12:57 Amlodipine Besylate (Norvasc) 10 mg DAILY NG 12/16/16 09:00 01/15/17 08:59 12/19/16 09:21 Clonidine HCl (Catapres) 0.1 mg EVERY 6 HOURS ORAL 12/15/16 12:00 01/14/17 11:59 12/19/16 11:48 Dextrose (Dextrose 50%) STAT PRN IV Hypoglycemia 12/11/16 00:45 01/10/17 00:44 Hydralazine HCl (Apresoline) 50 mg Q8HR NG 12/15/16 22:00 01/14/17 21:59 12/19/16 12:58 Levofloxacin (Levaquin 750mg/ D5W) 150 ml @ 100 mls/hr Q48H IVPB 12/11/16 16:00 12/20/16 15:59 12/19/16 16:13 Lorazepam (Ativan 2mg/ml 1ml) 1 mg Q4H PRN IV For Anxiety 12/13/16 15:45 12/20/16 15:44 12/18/16 21:40 Nitroglycerin 1 inch 1 inch TID@0600,1200,1800 TOPIC 12/12/16 06:00 01/11/17 05:59 12/19/16 11:48 Ondansetron HCl (Zofran) 4 mg Q6H PRN IVP Nausea & Vomiting 12/10/16 18:45 01/09/17 18:44 Pantoprazole (Protonix) 40 mg DAILY IVP 12/11/16 16:00 01/10/17 15:59 12/19/16 09:21 Piperacillin Sod/ Tazobactam Sod/ Dextrose (Zosyn/D5W) 55 ml @ 110 mls/hr Q8HR@0200,1000,1800 IV 12/12/16 18:00 12/20/16 17:59 12/19/16 10:13 Polyethylene Glycol (Miralax) 17 gm DAILYPRN PRN ORAL Constipation 12/11/16 00:45 01/10/17 00:44 Vitamin A/Vitamin D 1 applic 1 applic EVERY 12 HOURS TOPIC 12/10/16 21:00 01/09/17 20:59 12/19/16 09:22 Vitamin B Complex/ Vit C/Folic Acid (Nephrovite) 1 tab DAILY GT 12/12/16 09:00 01/11/17 08:59 12/19/16 09:22 ERWIN KIMBROUGH M.D. Dec 19, 2016 18:22
--- NOTE | 2016-12-19 18:25 | Internal Med Progress Note ---
Subjective Date of Service: Dec 19, 2016 Physician Name Ramya Perkins Attending Physician Wild Hawkins MD Current Medications Medications (Trade) Dose Ordered Sig/Melania Route PRN Reason Start Time Stop Time Status Last Admin Dose Admin Acetaminophen (Tylenol) 650 mg Q4H PRN ORAL Fever 12/10/16 16:45 01/09/17 16:44 12/19/16 12:57 Amlodipine Besylate (Norvasc) 10 mg DAILY NG 12/16/16 09:00 01/15/17 08:59 12/19/16 09:21 Clonidine HCl (Catapres) 0.1 mg EVERY 6 HOURS ORAL 12/15/16 12:00 01/14/17 11:59 12/19/16 11:48 Dextrose (Dextrose 50%) STAT PRN IV Hypoglycemia 12/11/16 00:45 01/10/17 00:44 Hydralazine HCl (Apresoline) 50 mg Q8HR NG 12/15/16 22:00 01/14/17 21:59 12/19/16 12:58 Levofloxacin (Levaquin 750mg/ D5W) 150 ml @ 100 mls/hr Q48H IVPB 12/11/16 16:00 12/20/16 15:59 12/19/16 16:13 Lorazepam (Ativan 2mg/ml 1ml) 1 mg Q4H PRN IV For Anxiety 12/13/16 15:45 12/20/16 15:44 12/18/16 21:40 Nitroglycerin 1 inch 1 inch TID@0600,1200,1800 TOPIC 12/12/16 06:00 01/11/17 05:59 12/19/16 11:48 Ondansetron HCl (Zofran) 4 mg Q6H PRN IVP Nausea & Vomiting 12/10/16 18:45 01/09/17 18:44 Pantoprazole (Protonix) 40 mg DAILY IVP 12/11/16 16:00 01/10/17 15:59 12/19/16 09:21 Piperacillin Sod/ Tazobactam Sod/ Dextrose (Zosyn/D5W) 55 ml @ 110 mls/hr Q8HR@0200,1000,1800 IV 12/12/16 18:00 12/20/16 17:59 12/19/16 10:13 Polyethylene Glycol (Miralax) 17 gm DAILYPRN PRN ORAL Constipation 12/11/16 00:45 01/10/17 00:44 Vitamin A/Vitamin D 1 applic 1 applic EVERY 12 HOURS TOPIC 12/10/16 21:00 01/09/17 20:59 12/19/16 09:22 Vitamin B Complex/ Vit C/Folic Acid (Nephrovite) 1 tab DAILY GT 12/12/16 09:00 01/11/17 08:59 12/19/16 09:22 Allergies: Coded Allergies: No Known Allergies (Unverified , 04/29/13) ROS Limited/Unobtainable: Yes Subjective 66 YO M admitted with shortness of breath; now respiratory failure. Cover for Int Med-Dr Hawkins. ICU. Intubated and sedated. Await thoracentesis Objective Last Vital Signs Date Time Temp Pulse Resp B/P Pulse Ox O2 Delivery O2 Flow Rate FiO2 12/19/16 18:00 71 20 122/64 100 Mechanical Ventilator 30 12/19/16 16:00 99.0 Laboratory Tests Test 12/19/16 04:45 12/19/16 08:40 White Blood Count 7.8 K/UL (4.8-10.8) Red Blood Count 2.89 M/UL (4.70-6.10) L Hemoglobin 8.7 G/DL (14.2-18.0) L Hematocrit 27.2 % (42.0-52.0) L Mean Corpuscular Volume 94 FL (80-99) Mean Corpuscular Hemoglobin 30.0 PG (27.0-31.0) Mean Corpuscular Hemoglobin Concent 32.0 G/DL (32.0-36.0) Red Cell Distribution Width 15.6 % (11.6-14.8) H Platelet Count 79 K/UL (150-450) L Mean Platelet Volume 10.4 FL (6.5-10.1) H Neutrophils (%) (Auto) % (45.0-75.0) Lymphocytes (%) (Auto) % (20.0-45.0) Monocytes (%) (Auto) % (1.0-10.0) Eosinophils (%) (Auto) % (0.0-3.0) Basophils (%) (Auto) % (0.0-2.0) Differential Total Cells Counted 100 Neutrophils % (Manual) 76 % (45-75) H Lymphocytes % (Manual) 11 % (20-45) L Monocytes % (Manual) 11 % (1-10) H Eosinophils % (Manual) 1 % (0-3) Basophils % (Manual) 0 % (0-2) Band Neutrophils 1 % (0-8) Platelet Estimate Adequate Platelet Morphology Normal Hypochromasia 1+ Anisocytosis 1+ Sodium Level 146 mEQ/L (135-145) H Potassium Level 3.4 mEQ/L (3.4-4.9) Chloride Level 105 mEQ/L (98-107) Carbon Dioxide Level 26 mEQ/L (20-30) Anion Gap 15 (5-15) Blood Urea Nitrogen 45 mg/dL (7-23) H Creatinine 2.9 mg/dL (0.7-1.2) H Estimat Glomerular Filtration Rate 26.5 mL/min (>60) Glucose Level 104 mg/dL (74-106) Calcium Level 7.9 mg/dL (8.6-10.2) L Phosphorus Level 4.6 mg/dL (2.5-4.8) Magnesium Level 1.9 mg/dL (1.7-2.5) Total Bilirubin 0.3 mg/dL (0.0-1.2) Aspartate Amino Transf (AST/SGOT) 17 U/L (5-40) Alanine Aminotransferase (ALT/SGPT) 16 U/L (3-41) Alkaline Phosphatase 70 U/L (40-129) Total Protein 6.1 g/dL (6.6-8.7) L Albumin 1.9 g/dL (3.5-5.2) L Globulin 4.2 g/dL Albumin/Globulin Ratio 0.4 (1.0-2.7) L Arterial Blood pH 7.490 (7.350-7.450) Arterial Blood Partial Pressure CO2 40.3 mmHg (35.0-45.0) Arterial Blood Partial Pressure O2 102.9 mmHg (75.0-100.0) H Arterial Blood HCO3 30.3 mmol/L (22.0-26.0) H Arterial Blood Oxygen Saturation 97.8 % (92.0-98.0) Arterial Blood Base Excess 6.5 Adrian Test Positive Intake and Output 12/18/16 12/19/16 19:00 07:00 Intake Total 360 ml 420 ml Output Total 1340 ml 1900 ml Balance -980 ml -1480 ml Tube Feeding 360 ml 360 ml Other 60 ml Output Urine Total 1340 ml 1900 ml Objective General Appearance: WD/WN, moderate distress EENT: normal ENT inspection Neck: non-tender, normal alignment, supple Cardiovascular: normal peripheral pulses, normal rate, regular rhythm, no gallop/murmur, no JVD Respiratory/Chest: Mechanical vent; crackles/rales, rhonchi - bilaterally, expiratory wheezing Abdomen: normal bowel sounds, non tender, soft, no organomegaly, no mass Extremities: normal range of motion Neurologic: recycler II-XII grossly normal, no motor/sensory deficits Skin: normal pigmentation, warm/dry Assessment/Plan Problem List: (1) SOB (shortness of breath) (2) Respiratory failure Assessment & Plan: Intubated; failed weaning trial. See pulmonary note. (3) Renal failure Assessment & Plan: See nephrology note. (4) HTN (hypertension) (5) CAD (coronary artery disease) (6) CHF (congestive heart failure) Assessment & Plan: See cardiology note. Cont lasix. (7) Anemia (8) Uncontrolled hypertension Assessment & Plan: Start norvasc per cardiology (9) Pneumonia Assessment & Plan: Cont zosyn and levaquin-see ID note. (10) Pleural effusion Assessment & Plan: Bilateral. Await thoracentesis. See pulmonary note. Status: unchanged MARYJANERAMYA Dec 19, 2016 18:25
--- NOTE | 2016-12-19 20:13 | Cardiology Progress Note ---
Assessment/Plan Assessment/Plan 1. Abnormal mentation due to respiratory acidosis . 2. Respiratory acidosis. 3. Congestive heart failure with pleural effusion, 4. Mitral regurgitation. 5. Cardiomyopathy. 6. History of amphetamine abuse. 7. History of paroxysmal episodes of atrial fibrillation per report. 8. Renal insufficiency. 9. Hepatitis C virus with cirrhosis vent support wean as possible anotehr diuretics zoroxolyna dn lasix today 12/18/16 after load reduction hold acei in light of renal insuf start hydralazine and nitrate tele noted ekg noted tele reviewed ekg reviewed cr elevated bu stab el yest to today despite neg fluid satus cxr looks still quite abn Subjective Cardiovascular: Denies: chest pain, lightheadedness Respiratory: Denies: shortness of breath Gastrointestinal/Abdominal: Denies: abdominal pain Genitourinary: Denies: burning Subjective on ramona vent Objective Last 24 Hour Vital Signs Date Time Temp Pulse Resp B/P Pulse Ox O2 Delivery O2 Flow Rate FiO2 12/19/16 18:48 73 13 30 12/19/16 18:25 122/64 12/19/16 18:25 122/64 12/19/16 18:00 71 20 122/64 100 Mechanical Ventilator 30 12/19/16 17:04 83 18 30 12/19/16 17:00 70 18 128/64 100 Mechanical Ventilator 30 12/19/16 16:00 69 12/19/16 16:00 30 12/19/16 16:00 99.0 69 12 129/67 100 Mechanical Ventilator 30 12/19/16 15:27 71 12 30 12/19/16 15:00 70 12 124/61 100 Mechanical Ventilator 30 12/19/16 14:00 71 12 114/61 100 Mechanical Ventilator 30 12/19/16 13:56 98.7 12/19/16 13:02 71 12 30 12/19/16 13:00 72 22 126/65 100 Mechanical Ventilator 30 12/19/16 12:58 126/65 12/19/16 12:00 83 12/19/16 12:00 98.7 73 18 126/65 100 Mechanical Ventilator 30 12/19/16 11:48 132/63 12/19/16 11:48 132/63 12/19/16 11:00 64 22 132/63 100 Mechanical Ventilator 30 12/19/16 10:35 88 31 30 12/19/16 10:30 30 2/3/17 10:00 84 30 126/63 100 Mechanical Ventilator 30 12/19/16 09:21 77 126/65 12/19/16 09:03 100 12/19/16 09:01 77 12 30 12/19/16 09:00 30 12/19/16 09:00 82 14 125/64 100 Mechanical Ventilator 30 12/19/16 08:00 30 12/19/16 08:00 98.9 75 13 126/65 100 Mechanical Ventilator 30 12/19/16 08:00 78 12/19/16 07:00 80 14 132/64 100 Mechanical Ventilator 30 12/19/16 06:55 82 16 30 12/19/16 06:00 77 14 122/58 100 Mechanical Ventilator 30 12/19/16 05:50 142/72 12/19/16 05:50 142/72 12/19/16 05:50 142/72 12/19/16 05:00 80 14 141/67 100 Mechanical Ventilator 30 12/19/16 04:52 87 14 30 12/19/16 04:00 98.9 80 13 135/68 100 Mechanical Ventilator 30 12/19/16 04:00 76 12/19/16 04:00 30 12/19/16 03:03 75 12 30 12/19/16 03:00 77 13 135/68 100 Mechanical Ventilator 30 12/19/16 02:00 76 12 143/65 100 Mechanical Ventilator 30 12/19/16 01:00 74 12 131/68 100 Mechanical Ventilator 30 12/19/16 00:55 74 12 30 12/19/16 00:00 98.4 75 16 136/65 100 Mechanical Ventilator 30 12/19/16 00:00 30 12/19/16 00:00 81 12/18/16 23:34 130/64 12/18/16 23:23 78 12 30 12/18/16 23:00 80 12 129/64 100 Mechanical Ventilator 30 12/18/16 22:00 75 12 123/63 100 Mechanical Ventilator 30 12/18/16 21:31 130/71 12/18/16 21:00 79 20 30 12/18/16 21:00 79 16 130/70 100 Mechanical Ventilator 30 General Appearance: on vent, patient on isolation Neck: supple Cardiovascular: normal rate, regular rhythm Respiratory/Chest: rhonchi - bilaterally Abdomen: normal bowel sounds, non tender, soft Extremities: no swelling Intake and Output 12/18/16 12/19/16 19:00 07:00 Intake Total 360 ml 420 ml Output Total 1340 ml 1900 ml Balance -980 ml -1480 ml Tube Feeding 360 ml 360 ml Other 60 ml Output Urine Total 1340 ml 1900 ml Laboratory Tests Test 12/19/16 04:45 12/19/16 08:40 White Blood Count 7.8 K/UL (4.8-10.8) Red Blood Count 2.89 M/UL (4.70-6.10) L Hemoglobin 8.7 G/DL (14.2-18.0) L Hematocrit 27.2 % (42.0-52.0) L Mean Corpuscular Volume 94 FL (80-99) Mean Corpuscular Hemoglobin 30.0 PG (27.0-31.0) Mean Corpuscular Hemoglobin Concent 32.0 G/DL (32.0-36.0) Red Cell Distribution Width 15.6 % (11.6-14.8) H Platelet Count 79 K/UL (150-450) L Mean Platelet Volume 10.4 FL (6.5-10.1) H Neutrophils (%) (Auto) % (45.0-75.0) Lymphocytes (%) (Auto) % (20.0-45.0) Monocytes (%) (Auto) % (1.0-10.0) Eosinophils (%) (Auto) % (0.0-3.0) Basophils (%) (Auto) % (0.0-2.0) Differential Total Cells Counted 100 Neutrophils % (Manual) 76 % (45-75) H Lymphocytes % (Manual) 11 % (20-45) L Monocytes % (Manual) 11 % (1-10) H Eosinophils % (Manual) 1 % (0-3) Basophils % (Manual) 0 % (0-2) Band Neutrophils 1 % (0-8) Platelet Estimate Adequate Platelet Morphology Normal Hypochromasia 1+ Anisocytosis 1+ Sodium Level 146 mEQ/L (135-145) H Potassium Level 3.4 mEQ/L (3.4-4.9) Chloride Level 105 mEQ/L (98-107) Carbon Dioxide Level 26 mEQ/L (20-30) Anion Gap 15 (5-15) Blood Urea Nitrogen 45 mg/dL (7-23) H Creatinine 2.9 mg/dL (0.7-1.2) H Estimat Glomerular Filtration Rate 26.5 mL/min (>60) Glucose Level 104 mg/dL (74-106) Calcium Level 7.9 mg/dL (8.6-10.2) L Phosphorus Level 4.6 mg/dL (2.5-4.8) Magnesium Level 1.9 mg/dL (1.7-2.5) Total Bilirubin 0.3 mg/dL (0.0-1.2) Aspartate Amino Transf (AST/SGOT) 17 U/L (5-40) Alanine Aminotransferase (ALT/SGPT) 16 U/L (3-41) Alkaline Phosphatase 70 U/L (40-129) Total Protein 6.1 g/dL (6.6-8.7) L Albumin 1.9 g/dL (3.5-5.2) L Globulin 4.2 g/dL Albumin/Globulin Ratio 0.4 (1.0-2.7) L Arterial Blood pH 7.490 (7.350-7.450) Arterial Blood Partial Pressure CO2 40.3 mmHg (35.0-45.0) Arterial Blood Partial Pressure O2 102.9 mmHg (75.0-100.0) H Arterial Blood HCO3 30.3 mmol/L (22.0-26.0) H Arterial Blood Oxygen Saturation 97.8 % (92.0-98.0) Arterial Blood Base Excess 6.5 Adrian Test Positive STEPHEN LONDON Dec 19, 2016 20:13
[2016-12-19] MEDS ORDERED: Metolazone 5mg tab ORAL ONE (20:30)
[2016-12-19] MEDS ORDERED: Bumetanide 2.5mg/10ml Inj IVP ONE (21:00)
[2016-12-19] MEDS: LORazepam Inj 2mg/ml 1ml IV PRN (22:49)
[2016-12-20] VITALS (24 sets, daily range): BP systolic 113–135; BP diastolic 58–78
[2016-12-20] MEDS: Piperacillin/Tazobactam 2.25 GM in D5W 55 ML IV SCH ×2 (01:57→09:01)
[2016-12-20] MEDS: LORazepam Inj 2mg/ml 1ml IV PRN (04:52)
[2016-12-20 06:07] LABS: BASOPHILS % (AUTO) 0.4 % (0.0-2.0); EOSINOPHILS % (AUTO) 0.9 % (0.0-3.0); LYMPHOCYTES % (AUTO) 9.4 % (20.0-45.0); MEAN CORPUSCULAR HEMOGLOBIN 29.8 PG (27.0-31.0); MEAN CORPUSCULAR HGB CONC 31.9 G/DL (32.0-36.0); MEAN CORPUSCULAR VOLUME 94 FL (80-99); MEAN PLATELET VOLUME 8.9 FL (6.5-10.1); MONOCYTES % (AUTO) 7.6 % (1.0-10.0); NEUTROPHILS % (AUTO) 81.7 % (45.0-75.0); PLATELET COUNT 109 K/UL (150-450); RED BLOOD COUNT 2.86 M/UL (4.70-6.10); RED CELL DISTRIBUTION WIDTH 15.5 % (11.6-14.8); WHITE BLOOD COUNT 7.7 K/UL (4.8-10.8)
[2016-12-20] MEDS: HydrALAZINE 50mg tab NG SCH ×3 (06:12→21:34)
[2016-12-20] MEDS: Nitroglycerin 2% oint pkt TOPIC SCH ×3 (06:13→18:03)
[2016-12-20 06:24] LABS: CALCIUM 7.7 mg/dL (8.6-10.2); CREATININE 2.9 mg/dL (0.7-1.2); GLOMERULAR FILTRATION RATE 26.5 mL/min (>60); POTASSIUM 3.1 mEQ/L (3.4-4.9)
--- NOTE | 2016-12-20 08:32 | Infectious Diseases Prog Note ---
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 Monitor chest x-ray thoracentesis vent support, wean as tolerated Subjective Allergies: Coded Allergies: No Known Allergies (Unverified , 04/29/13) Subjective remains afebrile on vent Objective Vital Signs Last 24 Hour Vital Signs Date Time Temp Pulse Resp B/P Pulse Ox O2 Delivery O2 Flow Rate FiO2 12/20/16 07:00 77 24 123/67 98 Mechanical Ventilator 30 12/20/16 06:51 86 17 30 12/20/16 06:13 125/68 12/20/16 06:13 125/68 12/20/16 06:12 125/68 12/20/16 06:00 77 24 123/67 98 Mechanical Ventilator 30 12/20/16 05:00 88 24 120/65 98 Mechanical Ventilator 30 12/20/16 04:34 107 30 30 12/20/16 04:00 99.6 91 24 118/65 98 Mechanical Ventilator 30 12/20/16 04:00 30 12/20/16 04:00 91 12/20/16 03:27 83 25 30 12/20/16 03:00 81 21 126/68 96 Mechanical Ventilator 30 12/20/16 02:00 79 19 122/68 99 Mechanical Ventilator 30 12/20/16 01:06 83 26 30 12/20/16 01:00 30 12/20/16 01:00 77 20 117/63 100 Mechanical Ventilator 30 12/20/16 00:24 119/58 12/20/16 00:00 89 12/20/16 00:00 99.2 89 20 120/78 100 Mechanical Ventilator 30 2 23:20 71 12 30 2//17 23:00 71 21 136/67 100 Mechanical Ventilator 30 12/19/16 22:31 142/69 2/01/30 22:00 68 20 140/35 100 Mechanical Ventilator 30 2 21:10 69 12 30 2// 21:00 70 20 133/67 100 Mechanical Ventilator 30 12/19/16 20:00 30 12/19/16 20:00 70 12/19/ 20:00 99.6 69 20 127/66 100 Mechanical Ventilator 30 12/19/16 20:00 69 20 127/66 100 Mechanical Ventilator 30 12/19/16 19:00 70 22 120/61 100 Mechanical Ventilator 30 12/19/16 18:48 73 13 30 12/19/16 18:25 122/64 2// 18:25 122/64 12/19/ 18:00 71 20 122/64 100 Mechanical Ventilator 30 12/19/16 17:04 83 18 30 2 17:00 70 18 128/64 100 Mechanical Ventilator 30 12/19/16 16:00 69 12/19/ 16:00 30 12/19/16 16:00 99.0 69 12 129/67 100 Mechanical Ventilator 30 12/19/16 15:27 71 12 30 2 15:00 70 12 124/61 100 Mechanical Ventilator 30 12/19/16 14:00 71 12 114/61 100 Mechanical Ventilator 30 12/19/16 13:56 98.7 12/19/ 13:02 71 12 30 12/19/16 13:00 72 22 126/65 100 Mechanical Ventilator 30 12/19/16 12:58 126/65 2// 12:00 83 2// 12:00 98.7 73 18 126/65 100 Mechanical Ventilator 30 12/19/16 11:48 132/63 2/3/17 11:48 132/63 2//17 11:00 64 22 132/63 100 Mechanical Ventilator 30 12/19/16 10:35 88 31 30 12/19/16 10:30 30 12/19/17 10:00 84 30 126/63 100 Mechanical Ventilator 30 12/19/16 09:21 77 126/65 2/ 09:03 100 12/19/16 09:01 77 12 30 12/19/16 09:00 30 12/19/16 09:00 82 14 125/64 100 Mechanical Ventilator 30 Height (Feet): 5 Height (Inches): 9.00 Weight (Pounds): 150 General Appearance: no acute distress Respiratory/Chest: no respiratory distress Cardiovascular: normal rate, regular rhythm Abdomen: normal bowel sounds, soft, non tender, non distended Laboratory Tests Test 12/19/16 08:40 12/20/16 05:00 Arterial Blood pH 7.490 (7.350-7.450) Arterial Blood Partial Pressure CO2 40.3 mmHg (35.0-45.0) Arterial Blood Partial Pressure O2 102.9 mmHg (75.0-100.0) H Arterial Blood HCO3 30.3 mmol/L (22.0-26.0) H Arterial Blood Oxygen Saturation 97.8 % (92.0-98.0) Arterial Blood Base Excess 6.5 Adrian Test Positive White Blood Count 7.7 K/UL (4.8-10.8) Red Blood Count 2.86 M/UL (4.70-6.10) L Hemoglobin 8.5 G/DL (14.2-18.0) L Hematocrit 26.8 % (42.0-52.0) L Mean Corpuscular Volume 94 FL (80-99) Mean Corpuscular Hemoglobin 29.8 PG (27.0-31.0) Mean Corpuscular Hemoglobin Concent 31.9 G/DL (32.0-36.0) L Red Cell Distribution Width 15.5 % (11.6-14.8) H Platelet Count 109 K/UL (150-450) L Mean Platelet Volume 8.9 FL (6.5-10.1) Neutrophils (%) (Auto) 81.7 % (45.0-75.0) H Lymphocytes (%) (Auto) 9.4 % (20.0-45.0) L Monocytes (%) (Auto) 7.6 % (1.0-10.0) Eosinophils (%) (Auto) 0.9 % (0.0-3.0) Basophils (%) (Auto) 0.4 % (0.0-2.0) Sodium Level 145 mEQ/L (135-145) Potassium Level 3.1 mEQ/L (3.4-4.9) L Chloride Level 103 mEQ/L (98-107) Carbon Dioxide Level 29 mEQ/L (20-30) Anion Gap 13 (5-15) Blood Urea Nitrogen 50 mg/dL (7-23) H Creatinine 2.9 mg/dL (0.7-1.2) H Estimat Glomerular Filtration Rate 26.5 mL/min (>60) Glucose Level 125 mg/dL (74-106) H Calcium Level 7.7 mg/dL (8.6-10.2) L Current Medications Medications (Trade) Dose Ordered Sig/Melania Route PRN Reason Start Time Stop Time Status Last Admin Dose Admin Acetaminophen (Tylenol) 650 mg Q4H PRN ORAL Fever 12/10/16 16:45 01/09/17 16:44 12/19/16 12:57 Amlodipine Besylate (Norvasc) 10 mg DAILY NG 12/16/16 09:00 01/15/17 08:59 12/19/16 09:21 Clonidine HCl (Catapres) 0.1 mg EVERY 6 HOURS ORAL 12/15/16 12:00 01/14/17 11:59 12/20/16 06:13 Dextrose (Dextrose 50%) STAT PRN IV Hypoglycemia 12/11/16 00:45 01/10/17 00:44 Hydralazine HCl (Apresoline) 50 mg Q8HR NG 12/15/16 22:00 01/14/17 21:59 12/20/16 06:12 Levofloxacin (Levaquin 750mg/ D5W) 150 ml @ 100 mls/hr Q48H IVPB 12/11/16 16:00 12/20/16 15:59 12/19/16 16:13 Lorazepam (Ativan 2mg/ml 1ml) 1 mg Q4H PRN IV For Anxiety 12/13/16 15:45 12/20/16 15:44 12/20/16 04:52 Nitroglycerin 1 inch 1 inch TID@0600,1200,1800 TOPIC 12/12/16 06:00 01/11/17 05:59 12/20/16 06:13 Ondansetron HCl (Zofran) 4 mg Q6H PRN IVP Nausea & Vomiting 12/10/16 18:45 01/09/17 18:44 Pantoprazole (Protonix) 40 mg DAILY IVP 12/11/16 16:00 01/10/17 15:59 12/19/16 09:21 Piperacillin Sod/ Tazobactam Sod/ Dextrose (Zosyn/D5W) 55 ml @ 110 mls/hr Q8HR@0200,1000,1800 IV 12/12/16 18:00 12/20/16 17:59 12/20/16 01:57 Polyethylene Glycol (Miralax) 17 gm DAILYPRN PRN ORAL Constipation 12/11/16 00:45 01/10/17 00:44 Vitamin A/Vitamin D 1 applic 1 applic EVERY 12 HOURS TOPIC 12/10/16 21:00 01/09/17 20:59 12/19/16 22:32 Vitamin B Complex/ Vit C/Folic Acid (Nephrovite) 1 tab DAILY GT 12/12/16 09:00 01/11/17 08:59 12/19/16 09:22 DICK GARBER Dec 20, 2016 08:32
[2016-12-20] MEDS: Nephrovite tab GT SCH (09:01)
[2016-12-20] MEDS: Pantoprazole Inj IVP SCH (09:02)
[2016-12-20] MEDS: Vitamin A&D Oint 2oz Tube TOPIC SCH ×2 (09:02→20:46)
--- NOTE | 2016-12-20 09:44 | General Progress Note ---
Assessment/Plan Status: unchanged Status Narrative Cr 2.9 Assessment/Plan -Renal insufficiency. ? Acute on Chronic Cr stable, and slow rising ! Urine output improved Other: -Abnormal mentation. -Respiratory failure, acute with hypoxia-/ Aspiration [place] -Congestive heart failure with pleural effusion, -Mitral regurgitation. -Cardiomyopathy. -History of amphetamine abuse. -History of paroxysmal episodes of atrial fibrillation per report. -Hepatitis C virus with cirrhosis. Plan: K supplement Optimize cardiac and pulmonary status- Keep BP in check- Monitor renal parameters- avoid nephrotoxics- per orders- UA 3+ protein Subjective ROS Limited/Unobtainable: Yes Allergies: Coded Allergies: No Known Allergies (Unverified , 04/29/13) Objective Last 24 Hour Vital Signs Date Time Temp Pulse Resp B/P Pulse Ox O2 Delivery O2 Flow Rate FiO2 12/20/16 09:02 77 123/65 12/20/16 09:00 77 14 30 12/20/16 09:00 98 12/20/16 08:00 30 12/20/16 08:00 98.6 75 18 122/68 98 Mechanical Ventilator 30 12/20/16 07:00 77 24 123/67 98 Mechanical Ventilator 30 12/20/16 06:51 86 17 30 12/20/16 06:13 125/68 12/20/16 06:13 125/68 12/20/16 06:12 125/68 12/20/16 06:00 77 24 123/67 98 Mechanical Ventilator 30 12/20/16 05:00 88 24 120/65 98 Mechanical Ventilator 30 12/20/16 04:34 107 30 30 12/20/16 04:00 99.6 91 24 118/65 98 Mechanical Ventilator 30 12/20/16 04:00 30 12/20/16 04:00 91 12/20/16 03:27 83 25 30 12/20/16 03:00 81 21 126/68 96 Mechanical Ventilator 30 12/20/16 02:00 79 19 122/68 99 Mechanical Ventilator 30 12/20/16 01:06 83 26 30 12/20/16 01:00 30 12/20/16 01:00 77 20 117/63 100 Mechanical Ventilator 30 12/20/16 00:24 119/58 12/20/16 00:00 89 12/20/16 00:00 99.2 89 20 120/78 100 Mechanical Ventilator 30 2/3/17 23:20 71 12 30 2/17 23:00 71 21 136/67 100 Mechanical Ventilator 30 12/19/ 22:31 142/69 2//17 22:00 68 20 140/35 100 Mechanical Ventilator 30 12/19/16 21:10 69 12 30 2/17 21:00 70 20 133/67 100 Mechanical Ventilator 30 12/19/ 20:00 30 12/19/ 20:00 70 12/19/17 20:00 99.6 69 20 127/66 100 Mechanical Ventilator 30 12/19/17 20:00 69 20 127/66 100 Mechanical Ventilator 30 12/19/ 19:00 70 22 120/61 100 Mechanical Ventilator 30 12/19/16 18:48 73 13 30 12/19/ 18:25 122/64 12/19/ 18:25 122/64 12/19/ 18:00 71 20 122/64 100 Mechanical Ventilator 30 12/19/16 17:04 83 18 30 2/ 17:00 70 18 128/64 100 Mechanical Ventilator 30 12/19/16 16:00 69 12/19/ 16:00 30 12/19/16 16:00 99.0 69 12 129/67 100 Mechanical Ventilator 30 12/19/16 15:27 71 12 30 12/19/ 15:00 70 12 124/61 100 Mechanical Ventilator 30 12/19/16 14:00 71 12 114/61 100 Mechanical Ventilator 30 12/19/16 13:56 98.7 2// 13:02 71 12 30 12/19/16 13:00 72 22 126/65 100 Mechanical Ventilator 30 12/19/16 12:58 126/65 12/19/ 12:00 83 12/19/ 12:00 98.7 73 18 126/65 100 Mechanical Ventilator 30 12/19/ 11:48 132/63 2/3/17 11:48 132/63 2//17 11:00 64 22 132/63 100 Mechanical Ventilator 30 12/19/ 10:35 88 31 30 2/ 10:30 30 12/19/17 10:00 84 30 126/63 100 Mechanical Ventilator 30 Intake and Output 3/17 17 19:00 07:00 Intake Total 460 ml 610 ml Output Total 1070 ml 1670 ml Balance -610 ml -1060 ml Free Water 100 ml 150 ml Tube Feeding 360 ml 460 ml Output Urine Total 1070 ml 1670 ml Stool Total 0 ml Laboratory Tests 12/20/16 05:00: White Blood Count 7.7, Red Blood Count 2.86L, Hemoglobin 8.5L, Hematocrit 26.8L , Mean Corpuscular Volume 94, Mean Corpuscular Hemoglobin 29.8, Mean Corpuscular Hemoglobin Concent 31.9L, Red Cell Distribution Width 15.5H, Platelet Count 109L, Mean Platelet Volume 8.9, Neutrophils (%) (Auto) 81.7H, Lymphocytes (%) (Auto) 9.4L, Monocytes (%) (Auto) 7.6, Eosinophils (%) (Auto) 0.9, Basophils (%) (Auto) 0.4, Sodium Level 145, Potassium Level 3.1L, Chloride Level 103, Carbon Dioxide Level 29, Anion Gap 13, Blood Urea Nitrogen 50H, Creatinine 2.9H, Estimat Glomerular Filtration Rate 26.5, Glucose Level 125H, Calcium Level 7.7L Height (Feet): 5 Height (Inches): 9.00 Weight (Pounds): 150 General Appearance: no apparent distress Objective other PE not changed JUSTIN NESS Dec 20, 2016 09:44
[2016-12-20] MEDS ORDERED: D5W 275ml ONE (10:52)
[2016-12-20] MEDS ORDERED: Tubing IV Secondary IV ONE ×2 (10:52→10:54)
[2016-12-20] MEDS ORDERED: NS 275ml ONE ×2 (10:52→10:54)
--- NOTE | 2016-12-20 15:03 | Pulmonolgy Critical Care Note ---
Critical Care - Asmt/Plan Assessment/Plan: ASSESSMENT acute respiratory failrue requiring intubation aspiration pneumonia/pneumonitis bilateral pleural effusion ATN (acute tubular necrosis) on CRI Hepatitis Cwith cirrhosis hx of CAD (coronary artery disease) moderate pulmonary HTN severe MR multiple decub - POA (not grossly infected) hx of amphetamine use PLAN OF CARE Respiratory: vent care, pulmonary toilet, weaning protocol, CXR and ABG in am, try to wean abx, ID follows , need thoracentesis , awaiting for consent Cardiac: cardio follows, ECHO with EF 55% and RVSP of 50 c/w moderate pulmonary HTN, + evidence of severe MR , diuretics slowly as per cardio ( last dose 2/3 Bumex and Metolazone) Renal: nephro follows, avoid nephrotoxic, Gastrointestinal: continue feedings/current rate, strict aspiration precautions Hematologic: monitor H/H, transfuse if hgb<8.0 Neurologic: PRN Morphine Critical Care - Objective Last 24 Hour Vital Signs Date Time Temp Pulse Resp B/P Pulse Ox O2 Delivery O2 Flow Rate FiO2 12/20/16 14:36 126/61 12/20/16 14:00 73 16 126/61 100 Mechanical Ventilator 30 12/20/16 13:20 73 14 30 12/20/16 13:00 72 16 120/61 100 Mechanical Ventilator 30 12/20/16 12:00 30 12/20/16 12:00 98.4 80 18 123/59 100 Mechanical Ventilator 30 12/20/16 12:00 80 12/20/16 11:51 124/67 12/20/16 11:51 124/67 12/20/16 11:00 72 12 30 12/20/16 11:00 72 16 124/67 98 Mechanical Ventilator 30 12/20/16 10:00 69 16 126/67 98 Mechanical Ventilator 30 12/20/16 09:02 77 123/65 12/20/16 09:00 77 14 30 12/20/16 09:00 98 12/20/16 09:00 72 16 123/65 98 Mechanical Ventilator 30 12/20/16 08:00 30 12/20/16 08:00 89 12/20/16 08:00 98.6 75 18 122/68 98 Mechanical Ventilator 30 12/20/16 07:00 77 24 123/67 98 Mechanical Ventilator 30 12/20/16 06:51 86 17 30 12/20/16 06:13 125/68 12/20/16 06:13 125/68 12/20/16 06:12 125/68 12/20/16 06:00 77 24 123/67 98 Mechanical Ventilator 30 12/20/16 05:00 88 24 120/65 98 Mechanical Ventilator 30 12/20/16 04:34 107 30 30 12/20/16 04:00 99.6 91 24 118/65 98 Mechanical Ventilator 30 12/20/16 04:00 30 12/20/16 04:00 91 12/20/16 03:27 83 25 30 12/20/16 03:00 81 21 126/68 96 Mechanical Ventilator 30 12/20/16 02:00 79 19 122/68 99 Mechanical Ventilator 30 12/20/16 01:06 83 26 30 12/20/16 01:00 30 12/20/16 01:00 77 20 117/63 100 Mechanical Ventilator 30 12/20/16 00:24 119/58 12/20/16 00:00 89 12/20/16 00:00 99.2 89 20 120/78 100 Mechanical Ventilator 30 12/19/16 23:20 71 12 30 12/19/16 23:00 71 21 136/67 100 Mechanical Ventilator 30 12/19/16 22:31 142/69 12/19/16 22:00 68 20 140/35 100 Mechanical Ventilator 30 12/19/16 21:10 69 12 30 12/19/16 21:00 70 20 133/67 100 Mechanical Ventilator 30 12/19/16 20:00 30 12/19/16 20:00 70 12/19/16 20:00 99.6 69 20 127/66 100 Mechanical Ventilator 30 12/19/16 20:00 69 20 127/66 100 Mechanical Ventilator 30 12/19/16 19:00 70 22 120/61 100 Mechanical Ventilator 30 12/19/16 18:48 73 13 30 12/19/16 18:25 122/64 12/19/16 18:25 122/64 12/19/16 18:00 71 20 122/64 100 Mechanical Ventilator 30 12/19/16 17:04 83 18 30 12/19/16 17:00 70 18 128/64 100 Mechanical Ventilator 30 12/19/16 16:00 69 12/19/16 16:00 30 12/19/16 16:00 99.0 69 12 129/67 100 Mechanical Ventilator 30 12/19/16 15:27 71 12 30 12/19/16 15:00 70 12 124/61 100 Mechanical Ventilator 30 Status: sedated Condition: critical HEENT: other - OP with ET in palce, intact, OP tube with TF Heart: HR/BP stable Abdomen: soft, non-tender Extremities: other - SCD on, trace edema BLE, heel protectors on Decubiti: other - mutliple decub Accucheck: 128 Critical Care - Subjective ROS Limited/Unobtainable: Yes Interval Events: afebrile, no leukocytosis on SIMV mode, ABG stable on PS 12 no signs of distress Condition: critical IV Access: peripheral FI02: 30 Vent Support Breath Rate: 12 Vent Support Mode: IMV/SIMV Vent Tidal Volume: 600 Sputum Amount: Moderate PEEP: 0.0 PIP: 19 Tube Feeding Amount: 45 I&O: Intake and Output 12/19/16 12/20/16 19:00 07:00 Intake Total 460 ml 610 ml Output Total 1070 ml 1670 ml Balance -610 ml -1060 ml Free Water 100 ml 150 ml Tube Feeding 360 ml 460 ml Output Urine Total 1070 ml 1670 ml Stool Total 0 ml CXR: 2/3 Stable satisfactory positions of endotracheal and nasogastric tubes. Bilateral interstitial and alveolar parenchymal disease, sizable bilateral pleural effusions persist. The heart remains enlarged. ET-Tube: 7.5 ET Position: 21 J[address] (JoãoShanell beaulieu NP Dec 20, 2016 15:03
--- NOTE | 2016-12-20 16:54 | Cardiology Progress Note ---
Assessment/Plan Assessment/Plan 1. Abnormal mentation due to respiratory acidosis . 2. Respiratory acidosis. 3. Congestive heart failure with pleural effusion, 4. Mitral regurgitation. 5. Cardiomyopathy. 6. History of amphetamine abuse. 7. History of paroxysmal episodes of atrial fibrillation per report. 8. Renal insufficiency. 9. Hepatitis C virus with cirrhosis vent support wean as possible on after load reduction: held acei in light of renal insuf on hydralazine and nitrate tele noted ekg noted cr elevated bu stable yest still despite neg fluid balance more diuretic tioday d/w rn Subjective ROS Limited/Unobtainable: Yes Subjective on ramona vent sleeping Objective Last 24 Hour Vital Signs Date Time Temp Pulse Resp B/P Pulse Ox O2 Delivery O2 Flow Rate FiO2 12/20/16 16:00 30 12/20/16 16:00 98.0 79 18 119/58 100 Mechanical Ventilator 30 12/20/16 15:25 79 14 30 12/20/16 15:00 73 16 120/60 100 Mechanical Ventilator 30 12/20/16 14:36 126/61 12/20/16 14:00 73 16 126/61 100 Mechanical Ventilator 30 12/20/16 13:20 73 14 30 12/20/16 13:00 72 16 120/61 100 Mechanical Ventilator 30 12/20/16 12:00 30 12/20/16 12:00 98.4 80 18 123/59 100 Mechanical Ventilator 30 12/20/16 12:00 80 12/20/16 11:51 124/67 12/20/16 11:51 124/67 12/20/16 11:00 72 12 30 12/20/16 11:00 72 16 124/67 98 Mechanical Ventilator 30 12/20/16 10:00 69 16 126/67 98 Mechanical Ventilator 30 12/20/16 09:02 77 123/65 12/20/16 09:00 77 14 30 12/20/16 09:00 98 12/20/16 09:00 72 16 123/65 98 Mechanical Ventilator 30 12/20/16 08:00 30 12/20/16 08:00 89 12/20/16 08:00 98.6 75 18 122/68 98 Mechanical Ventilator 30 12/20/16 07:00 77 24 123/67 98 Mechanical Ventilator 30 12/20/16 06:51 86 17 30 12/20/16 06:13 125/68 12/20/16 06:13 125/68 12/20/16 06:12 125/68 12/20/16 06:00 77 24 123/67 98 Mechanical Ventilator 30 12/20/16 05:00 88 24 120/65 98 Mechanical Ventilator 30 12/20/16 04:34 107 30 30 12/20/16 04:00 99.6 91 24 118/65 98 Mechanical Ventilator 30 12/20/16 04:00 30 12/20/16 04:00 91 12/20/16 03:27 83 25 30 12/20/16 03:00 81 21 126/68 96 Mechanical Ventilator 30 12/20/16 02:00 79 19 122/68 99 Mechanical Ventilator 30 12/20/16 01:06 83 26 30 12/20/16 01:00 30 12/20/16 01:00 77 20 117/63 100 Mechanical Ventilator 30 12/20/16 00:24 119/58 12/20/16 00:00 89 12/20/16 00:00 99.2 89 20 120/78 100 Mechanical Ventilator 30 12/19/16 23:20 71 12 30 12/19/16 23:00 71 21 136/67 100 Mechanical Ventilator 30 12/19/16 22:31 142/69 12/19/16 22:00 68 20 140/35 100 Mechanical Ventilator 30 12/19/16 21:10 69 12 30 12/19/16 21:00 70 20 133/67 100 Mechanical Ventilator 30 12/19/16 20:00 30 12/19/16 20:00 70 12/19/16 20:00 99.6 69 20 127/66 100 Mechanical Ventilator 30 12/19/16 20:00 69 20 127/66 100 Mechanical Ventilator 30 12/19/16 19:00 70 22 120/61 100 Mechanical Ventilator 30 12/19/16 18:48 73 13 30 12/19/16 18:25 122/64 12/19/16 18:25 122/64 12/19/16 18:00 71 20 122/64 100 Mechanical Ventilator 30 12/19/16 17:04 83 18 30 12/19/16 17:00 70 18 128/64 100 Mechanical Ventilator 30 General Appearance: no apparent distress, on vent, patient on isolation Neck: supple Cardiovascular: normal rate, regular rhythm Respiratory/Chest: lungs clear Abdomen: normal bowel sounds, non tender, soft Extremities: no swelling Intake and Output 12/19/16 12/20/16 19:00 07:00 Intake Total 460 ml 610 ml Output Total 1070 ml 1670 ml Balance -610 ml -1060 ml Free Water 100 ml 150 ml Tube Feeding 360 ml 460 ml Output Urine Total 1070 ml 1670 ml Stool Total 0 ml Laboratory Tests Test 12/20/16 05:00 White Blood Count 7.7 K/UL (4.8-10.8) Red Blood Count 2.86 M/UL (4.70-6.10) L Hemoglobin 8.5 G/DL (14.2-18.0) L Hematocrit 26.8 % (42.0-52.0) L Mean Corpuscular Volume 94 FL (80-99) Mean Corpuscular Hemoglobin 29.8 PG (27.0-31.0) Mean Corpuscular Hemoglobin Concent 31.9 G/DL (32.0-36.0) L Red Cell Distribution Width 15.5 % (11.6-14.8) H Platelet Count 109 K/UL (150-450) L Mean Platelet Volume 8.9 FL (6.5-10.1) Neutrophils (%) (Auto) 81.7 % (45.0-75.0) H Lymphocytes (%) (Auto) 9.4 % (20.0-45.0) L Monocytes (%) (Auto) 7.6 % (1.0-10.0) Eosinophils (%) (Auto) 0.9 % (0.0-3.0) Basophils (%) (Auto) 0.4 % (0.0-2.0) Sodium Level 145 mEQ/L (135-145) Potassium Level 3.1 mEQ/L (3.4-4.9) L Chloride Level 103 mEQ/L (98-107) Carbon Dioxide Level 29 mEQ/L (20-30) Anion Gap 13 (5-15) Blood Urea Nitrogen 50 mg/dL (7-23) H Creatinine 2.9 mg/dL (0.7-1.2) H Estimat Glomerular Filtration Rate 26.5 mL/min (>60) Glucose Level 125 mg/dL (74-106) H Calcium Level 7.7 mg/dL (8.6-10.2) L STEPHEN LONDON Dec 20, 2016 16:54
[2016-12-20] MEDS ORDERED: Metolazone 5mg tab ORAL ONE (17:30)
--- NOTE | 2016-12-20 17:47 | Internal Med Progress Note ---
Subjective Date of Service: Dec 20, 2016 Physician Name Reed Wesley Attending Physician Wild Hawkins MD Current Medications Medications (Trade) Dose Ordered Sig/Melania Route PRN Reason Start Time Stop Time Status Last Admin Dose Admin Acetaminophen (Tylenol) 650 mg Q4H PRN ORAL Fever 12/10/16 16:45 01/09/17 16:44 12/19/16 12:57 Amlodipine Besylate (Norvasc) 10 mg DAILY NG 12/16/16 09:00 01/15/17 08:59 12/20/16 09:02 Bumetanide (Bumex) 2 mg ONCE ONCE IVP 12/20/16 18:15 12/20/16 18:16 Clonidine HCl (Catapres) 0.1 mg EVERY 6 HOURS ORAL 12/15/16 12:00 01/14/17 11:59 12/20/16 11:51 Dextrose (Dextrose 50%) STAT PRN IV Hypoglycemia 12/11/16 00:45 01/10/17 00:44 Hydralazine HCl (Apresoline) 50 mg Q8HR NG 12/15/16 22:00 01/14/17 21:59 12/20/16 14:36 Nitroglycerin 1 inch 1 inch TID@0600,1200,1800 TOPIC 12/12/16 06:00 01/11/17 05:59 12/20/16 11:51 Ondansetron HCl (Zofran) 4 mg Q6H PRN IVP Nausea & Vomiting 12/10/16 18:45 01/09/17 18:44 Pantoprazole (Protonix) 40 mg DAILY IVP 12/11/16 16:00 01/10/17 15:59 12/20/16 09:02 Piperacillin Sod/ Tazobactam Sod/ Dextrose (Zosyn/D5W) 55 ml @ 110 mls/hr Q8HR@0200,1000,1800 IV 12/12/16 18:00 12/20/16 17:59 12/20/16 09:01 Polyethylene Glycol (Miralax) 17 gm DAILYPRN PRN ORAL Constipation 12/11/16 00:45 01/10/17 00:44 Vitamin A/Vitamin D (A & D Oint) 1 applic EVERY 12 HOURS TOPIC 12/10/16 21:00 01/09/17 20:59 12/20/16 09:02 Vitamin B Complex/ Vit C/Folic Acid (Nephrovite) 1 tab DAILY GT 12/12/16 09:00 01/11/17 08:59 12/20/16 09:01 Allergies: Coded Allergies: No Known Allergies (Unverified , 04/29/13) ROS Limited/Unobtainable: Yes Subjective 66 YO M admitted with shortness of breath; now respiratory failure. Cover for Int Med-Dr Hawkins. ICU. Intubated and sedated. Await thoracentesis Objective Last Vital Signs Date Time Temp Pulse Resp B/P Pulse Ox O2 Delivery O2 Flow Rate FiO2 12/20/16 17:00 77 16 113/61 100 Mechanical Ventilator 30 12/20/16 16:00 98.0 Laboratory Tests Test 12/20/16 05:00 White Blood Count 7.7 K/UL (4.8-10.8) Red Blood Count 2.86 M/UL (4.70-6.10) L Hemoglobin 8.5 G/DL (14.2-18.0) L Hematocrit 26.8 % (42.0-52.0) L Mean Corpuscular Volume 94 FL (80-99) Mean Corpuscular Hemoglobin 29.8 PG (27.0-31.0) Mean Corpuscular Hemoglobin Concent 31.9 G/DL (32.0-36.0) L Red Cell Distribution Width 15.5 % (11.6-14.8) H Platelet Count 109 K/UL (150-450) L Mean Platelet Volume 8.9 FL (6.5-10.1) Neutrophils (%) (Auto) 81.7 % (45.0-75.0) H Lymphocytes (%) (Auto) 9.4 % (20.0-45.0) L Monocytes (%) (Auto) 7.6 % (1.0-10.0) Eosinophils (%) (Auto) 0.9 % (0.0-3.0) Basophils (%) (Auto) 0.4 % (0.0-2.0) Sodium Level 145 mEQ/L (135-145) Potassium Level 3.1 mEQ/L (3.4-4.9) L Chloride Level 103 mEQ/L (98-107) Carbon Dioxide Level 29 mEQ/L (20-30) Anion Gap 13 (5-15) Blood Urea Nitrogen 50 mg/dL (7-23) H Creatinine 2.9 mg/dL (0.7-1.2) H Estimat Glomerular Filtration Rate 26.5 mL/min (>60) Glucose Level 125 mg/dL (74-106) H Calcium Level 7.7 mg/dL (8.6-10.2) L Intake and Output 12/19/16 12/20/16 19:00 07:00 Intake Total 460 ml 610 ml Output Total 1070 ml 1670 ml Balance -610 ml -1060 ml Free Water 100 ml 150 ml Tube Feeding 360 ml 460 ml Output Urine Total 1070 ml 1670 ml Stool Total 0 ml Objective General Appearance: WD/WN, moderate distress EENT: normal ENT inspection Neck: non-tender, normal alignment, supple Cardiovascular: normal peripheral pulses, normal rate, regular rhythm, no gallop/murmur, no JVD Respiratory/Chest: Mechanical vent; crackles/rales, rhonchi - bilaterally, expiratory wheezing Abdomen: normal bowel sounds, non tender, soft, no organomegaly, no mass Extremities: normal range of motion 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 See pulmonary note. (3) Renal failure Assessment & Plan: See nephrology note. (4) HTN (hypertension) (5) CAD (coronary artery disease) (6) CHF (congestive heart failure) Assessment & Plan: See cardiology note. Cont lasix. (7) Anemia (8) Uncontrolled hypertension Assessment & Plan: Start norvasc per cardiology (9) Pneumonia Assessment & Plan: Cont zosyn and levaquin-see ID note. (10) Pleural effusion Assessment & Plan: Bilateral. Await thoracentesis. See pulmonary note. Status: not improved REED WESLEY Dec 20, 2016 17:47
[2016-12-20] MEDS ORDERED: Bumetanide 2.5mg/10ml Inj IVP ONE (18:15)
[2016-12-20] MEDS ORDERED: DuoNeb 0.5-3(2.5)mg/3ml neb HHN SCH (19:00)
[2016-12-21] VITALS (24 sets, daily range): BP systolic 106–143; BP diastolic 58–68
[2016-12-21 05:06] LABS: BASOPHILS % (AUTO) 1.3 % (0.0-2.0); EOSINOPHILS % (AUTO) 1.1 % (0.0-3.0); LYMPHOCYTES % (AUTO) 9.4 % (20.0-45.0); MEAN CORPUSCULAR HEMOGLOBIN 30.4 PG (27.0-31.0); MEAN CORPUSCULAR HGB CONC 32.9 G/DL (32.0-36.0); MEAN CORPUSCULAR VOLUME 92 FL (80-99); MEAN PLATELET VOLUME 9.7 FL (6.5-10.1); MONOCYTES % (AUTO) 8.9 % (1.0-10.0); NEUTROPHILS % (AUTO) 79.4 % (45.0-75.0); PLATELET COUNT 234 K/UL (150-450); RED BLOOD COUNT 2.85 M/UL (4.70-6.10); WHITE BLOOD COUNT 8.9 K/UL (4.8-10.8)
[2016-12-21 05:34] LABS: ALBUMIN/GLOBULIN RATIO 0.4 (1.0-2.7); CALCIUM 7.8 mg/dL (8.6-10.2); CREATININE 2.7 mg/dL (0.7-1.2); CRP QUANT 5.7 mg/dL (< 0.5); GLOMERULAR FILTRATION RATE 28.8 mL/min (>60); MAGNESIUM 2.2 mg/dL (1.7-2.5); PHOSPHORUS 4.1 mg/dL (2.5-4.8); TOTAL PROTEIN 6.9 g/dL (6.6-8.7); URIC ACID 8.2 mg/dL (3.0-7.5)
[2016-12-21 05:56] LABS: POTASSIUM 6.1 mEQ/L (3.4-4.9)
[2016-12-21] MEDS: HydrALAZINE 50mg tab NG SCH ×3 (06:15→20:40)
[2016-12-21] MEDS: Nitroglycerin 2% oint pkt TOPIC SCH ×3 (06:15→18:26)
[2016-12-21 07:59] LABS: ABG BASE EXCESS 5.7
[2016-12-21] MEDS: Nephrovite tab GT SCH (09:00)
[2016-12-21 09:34] LABS: CALCIUM 7.7 mg/dL (8.6-10.2); CREATININE 2.6 mg/dL (0.7-1.2); GLOMERULAR FILTRATION RATE 30.2 mL/min (>60); POTASSIUM 3.5 mEQ/L (3.4-4.9)
[2016-12-21] MEDS: Pantoprazole Inj IVP SCH (09:36)
[2016-12-21] MEDS: Vitamin A&D Oint 2oz Tube TOPIC SCH ×2 (09:37→20:39)
--- NOTE | 2016-12-21 10:04 | Diagnostic Imaging Report ---
Clinical history: Acute dyspnea. Technique: Portable AP chest radiograph was obtained. Comparison: 12/19/16. Findings: Aeration at the right lung base appears mildly improved. There is otherwise no significant interval change in the interval, allowing for differences in technique and positioning. Impression: 1. Endotracheal and enteric tubes are in appropriate position. 2. Cardiomegaly with mild interstitial edema and small effusions, stable. Improved aeration at the right lung base.
--- NOTE | 2016-12-21 10:51 | General Progress Note ---
Assessment/Plan Status: unchanged Assessment/Plan -Renal insufficiency. ? Acute on Chronic Cr stable, and slow rising ! Urine output improved Other: -Abnormal mentation. -Respiratory failure, acute with hypoxia-/ Aspiration [place] -Congestive heart failure with pleural effusion, -Mitral regurgitation. -Cardiomyopathy. -History of amphetamine abuse. -History of paroxysmal episodes of atrial fibrillation per report. -Hepatitis C virus with cirrhosis. Plan: K supplement as needed Optimize cardiac and pulmonary status- Keep BP in check- Monitor renal parameters- avoid nephrotoxics- per orders- UA 3+ protein Subjective ROS Limited/Unobtainable: Yes Allergies: Coded Allergies: No Known Allergies (Unverified , 04/29/13) Objective Last 24 Hour Vital Signs Date Time Temp Pulse Resp B/P Pulse Ox O2 Delivery O2 Flow Rate FiO2 12/21/16 10:35 98.0 12/21/16 10:00 68 17 125/66 100 Mechanical Ventilator 30 12/21/16 09:37 74 120/66 12/21/16 09:00 72 17 120/66 100 Mechanical Ventilator 30 12/21/16 08:50 74 12 30 12/21/16 08:50 98 12/21/16 08:00 69 12/21/16 08:00 98.0 12/21/16 08:00 75 17 117/58 100 Mechanical Ventilator 30 12/21/16 07:02 71 12 30 12/21/16 07:00 72 21 119/61 100 Mechanical Ventilator 30 12/21/16 06:15 137/65 12/21/16 06:15 137/65 12/21/16 06:15 137/65 12/21/16 06:00 71 21 137/65 100 Mechanical Ventilator 30 12/21/16 05:00 78 18 143/68 100 Mechanical Ventilator 30 12/21/16 04:55 79 16 30 12/21/16 04:00 76 12/21/16 04:00 30 12/21/16 04:00 97.8 74 21 130/68 100 Mechanical Ventilator 30 12/21/16 03:10 75 12 30 12/21/16 03:00 73 16 126/65 100 Mechanical Ventilator 30 12/21/16 02:00 74 12 125/65 100 Mechanical Ventilator 30 12/21/16 01:03 74 12 30 12/21/16 01:00 76 16 128/65 100 Mechanical Ventilator 30 12/21/16 00:00 30 12/21/16 00:00 84 12/21/16 00:00 97.9 74 16 129/62 100 Mechanical Ventilator 30 12/20/16 23:46 135/63 12/20/16 23:00 79 16 135/63 100 Mechanical Ventilator 30 12/20/16 22:46 79 18 30 12/20/16 22:00 78 16 116/62 100 Mechanical Ventilator 30 12/20/16 21:34 127/73 12/20/16 21:00 80 16 127/73 100 Mechanical Ventilator 30 12/20/16 20:48 72 12 30 12/20/16 20:00 30 12/20/16 20:00 74 12/20/16 20:00 97.7 74 16 135/70 100 Mechanical Ventilator 30 12/20/16 19:30 77 17 30 12/20/16 19:00 78 16 126/63 100 Mechanical Ventilator 30 12/20/16 18:03 123/63 12/20/16 18:03 123/63 12/20/16 18:00 88 16 123/63 100 Mechanical Ventilator 30 12/20/16 17:00 77 16 113/61 100 Mechanical Ventilator 30 12/20/16 17:00 76 12 30 12/20/16 16:00 30 12/20/16 16:00 78 12/20/16 16:00 98.0 79 18 119/58 100 Mechanical Ventilator 30 12/20/16 15:25 79 14 30 12/20/16 15:00 73 16 120/60 100 Mechanical Ventilator 30 12/20/16 14:36 126/61 12/20/16 14:00 73 16 126/61 100 Mechanical Ventilator 30 12/20/16 13:20 73 14 30 12/20/16 13:00 72 16 120/61 100 Mechanical Ventilator 30 12/20/16 12:00 30 12/20/16 12:00 98.4 80 18 123/59 100 Mechanical Ventilator 30 12/20/16 12:00 80 12/20/16 11:51 124/67 12/20/16 11:51 124/67 12/20/16 11:00 72 12 30 12/20/16 11:00 72 16 124/67 98 Mechanical Ventilator 30 Intake and Output 12/20/16 12/21/16 19:00 07:00 Intake Total 880 ml 660 ml Output Total 975 ml 1560 ml Balance -95 ml -900 ml Free Water 300 ml IV Total 55 ml Tube Feeding 525 ml 540 ml Other 120 ml Output Urine Total 975 ml 1560 ml Laboratory Tests 12/21/16 03:50: White Blood Count 8.9, Red Blood Count 2.85L, Hemoglobin 8.7L, Hematocrit 26.3L , Mean Corpuscular Volume 92, Mean Corpuscular Hemoglobin 30.4, Mean Corpuscular Hemoglobin Concent 32.9, Red Cell Distribution Width 16.0H, Platelet Count 234#, Mean Platelet Volume 9.7, Neutrophils (%) (Auto) 79.4H, Lymphocytes (%) (Auto) 9.4L, Monocytes (%) (Auto) 8.9, Eosinophils (%) (Auto) 1.1, Basophils (%) (Auto) 1.3, Sodium Level 141, Potassium Level 6.1#*H, Chloride Level 100, Carbon Dioxide Level 29, Anion Gap 12, Blood Urea Nitrogen 53H, Creatinine 2.7H, Estimat Glomerular Filtration Rate 28.8, Glucose Level 125H, Uric Acid 8.2H, Calcium Level 7.8L, Phosphorus Level 4.1, Magnesium Level 2.2, Total Bilirubin 0.4, Aspartate Amino Transf (AST/SGOT) 84H, Alanine Aminotransferase (ALT/SGPT) 5, Alkaline Phosphatase 34L, C-Reactive Protein, Quantitative 5.7H, Pro-B-Type Natriuretic Peptide 8616H, Total Protein 6.9, Albumin 2.2L, Globulin 4.7, Albumin/Globulin Ratio 0.4L 12/21/16 07:47: Arterial Blood pH 7.460H, Arterial Blood Partial Pressure CO2 44.0, Arterial Blood Partial Pressure O2 100.0, Arterial Blood HCO3 30.2H, Arterial Blood Oxygen Saturation 98.0, Arterial Blood Base Excess 5.7, Adrian Test 12/21/16 08:40: Sodium Level 144, Potassium Level 3.5, Chloride Level 101, Carbon Dioxide Level 30, Anion Gap 13, Blood Urea Nitrogen 53H, Creatinine 2.6H, Estimat Glomerular Filtration Rate 30.2, Glucose Level 139H, Calcium Level 7.7L Height (Feet): 5 Height (Inches): 9.00 Weight (Pounds): 150 General Appearance: no apparent distress Objective other PE not changed JUSTIN NESSb 5, 2017 10:51
--- NOTE | 2016-12-21 13:53 | Pulmonolgy Critical Care Note ---
Critical Care - Asmt/Plan Assessment/Plan: ASSESSMENT acute respiratory failure requiring intubation aspiration pneumonia/pneumonitis bilateral pleural effusion ATN (acute tubular necrosis) on CRI Hepatitis C with cirrhosis hx of CAD (coronary artery disease) moderate pulmonary HTN severe MR multiple decub - POA (not grossly infected) hx of amphetamine use PLAN OF CARE Respiratory: vent care, pulmonary toilet, weaning protocol, ABG this am on SIMV 12 stable, CXR and ABG in am, abx, ID follows , need thoracentesis , awaiting for consent Cardiac: cardio follows, ECHO with EF 55% and RVSP of 50 c/w moderate pulmonary HTN, + evidence of severe MR , diuretics slowly as per cardio Renal: nephro follows, avoid nephrotoxic, Gastrointestinal: continue feedings/current rate, strict aspiration precautions Hematologic: monitor H/H, transfuse if hgb<8.0 Neurologic: PRN Morphine case discussed and evaluated by supervising physician Critical Care - Objective Last 24 Hour Vital Signs Date Time Temp Pulse Resp B/P Pulse Ox O2 Delivery O2 Flow Rate FiO2 12/21/16 13:00 72 17 121/66 100 Mechanical Ventilator 30 12/21/16 12:40 111/59 12/21/16 12:40 111/59 12/21/16 12:35 75 12 30 12/21/16 12:00 98.3 67 17 106/65 100 Mechanical Ventilator 30 12/21/16 12:00 30 12/21/16 11:00 67 17 128/67 100 Mechanical Ventilator 30 12/21/16 10:45 30 12/21/16 10:45 68 12 30 12/21/16 10:35 98.0 12/21/16 10:00 68 17 125/66 100 Mechanical Ventilator 30 12/21/16 09:37 74 120/66 12/21/16 09:00 30 12/21/16 09:00 72 17 120/66 100 Mechanical Ventilator 30 12/21/16 08:50 74 12 30 12/21/16 08:50 98 12/21/16 08:00 30 12/21/16 08:00 69 12/21/16 08:00 98.0 12/21/16 08:00 75 17 117/58 100 Mechanical Ventilator 30 12/21/16 07:02 71 12 30 12/21/16 07:00 72 21 119/61 100 Mechanical Ventilator 30 12/21/16 06:15 137/65 12/21/16 06:15 137/65 12/21/16 06:15 137/65 12/21/16 06:00 71 21 137/65 100 Mechanical Ventilator 30 12/21/16 05:00 78 18 143/68 100 Mechanical Ventilator 30 12/21/16 04:55 79 16 30 12/21/16 04:00 76 12/21/16 04:00 30 12/21/16 04:00 97.8 74 21 130/68 100 Mechanical Ventilator 30 12/21/16 03:10 75 12 30 12/21/16 03:00 73 16 126/65 100 Mechanical Ventilator 30 12/21/16 02:00 74 12 125/65 100 Mechanical Ventilator 30 12/21/16 01:03 74 12 30 12/21/16 01:00 76 16 128/65 100 Mechanical Ventilator 30 12/21/16 00:00 30 12/21/16 00:00 84 12/21/16 00:00 97.9 74 16 129/62 100 Mechanical Ventilator 30 12/20/16 23:46 135/63 12/20/16 23:00 79 16 135/63 100 Mechanical Ventilator 30 12/20/16 22:46 79 18 30 12/20/16 22:00 78 16 116/62 100 Mechanical Ventilator 30 12/20/16 21:34 127/73 12/20/16 21:00 80 16 127/73 100 Mechanical Ventilator 30 12/20/16 20:48 72 12 30 12/20/16 20:00 30 12/20/16 20:00 74 12/20/16 20:00 97.7 74 16 135/70 100 Mechanical Ventilator 30 12/20/16 19:30 77 17 30 12/20/16 19:00 78 16 126/63 100 Mechanical Ventilator 30 12/20/16 18:03 123/63 12/20/16 18:03 123/63 12/20/16 18:00 88 16 123/63 100 Mechanical Ventilator 30 12/20/16 17:00 77 16 113/61 100 Mechanical Ventilator 30 12/20/16 17:00 76 12 30 12/20/16 16:00 30 12/20/16 16:00 78 12/20/16 16:00 98.0 79 18 119/58 100 Mechanical Ventilator 30 12/20/16 15:25 79 14 30 12/20/16 15:00 73 16 120/60 100 Mechanical Ventilator 30 12/20/16 14:36 126/61 12/20/16 14:00 73 16 126/61 100 Mechanical Ventilator 30 Objective: Status: sedated Condition: critical HEENT: OP with ET in place, intact, OP tube with TF Heart: HR/BP stable Abdomen: soft, non-tender Extremities: other - SCD on, trace edema BLE, heel protectors on Decubiti: multiple decub Accucheck: 128 Critical Care - Subjective ROS Limited/Unobtainable: Yes Interval Events: on weaning protocol ABG on PS 12 stable no signs of respiratory distress afebrile, no leucocytosis Condition: critical IV Access: peripheral EKG Rhythm: Sinus Rhythm FI02: 30 Vent Support Breath Rate: 12 Vent Support Mode: IMV/SIMV Vent Tidal Volume: 600 Sputum Amount: Small PEEP: 0.0 PIP: 25 Tube Feeding Amount: 45 I&O: Intake and Output 12/20/16 12/21/16 19:00 07:00 Intake Total 880 ml 660 ml Output Total 975 ml 1560 ml Balance -95 ml -900 ml Free Water 300 ml IV Total 55 ml Tube Feeding 525 ml 540 ml Other 120 ml Output Urine Total 975 ml 1560 ml ET-Tube: 7.5 ET Position: 22 [address] ([facility]),Shanell PETERSON Dec 21, 2016 13:53
[2016-12-21] MEDS ORDERED: DuoNeb 0.5-3(2.5)mg/3ml neb HHN PRN (14:00)
--- NOTE | 2016-12-21 14:09 | Cardiology Progress Note ---
Assessment/Plan Assessment/Plan 1. Abnormal mentation due to respiratory acidosis . 2. Respiratory acidosis. 3. Congestive heart failure with pleural effusion, 4. Mitral regurgitation. 5. Cardiomyopathy. 6. History of amphetamine abuse. 7. History of paroxysmal episodes of atrial fibrillation per report. 8. Renal insufficiency. 9. Hepatitis C virus with cirrhosis vent support wean as possible on after load reduction: held acei in light of renal insuf on hydralazine and nitrate tele noted ekg noted cr imporoved despite neg fluid balance more diuretic tioday d/w rn Subjective ROS Limited/Unobtainable: Yes Subjective on ramona vent sleeping Objective Last 24 Hour Vital Signs Date Time Temp Pulse Resp B/P Pulse Ox O2 Delivery O2 Flow Rate FiO2 12/21/16 13:00 72 17 121/66 100 Mechanical Ventilator 30 12/21/16 12:40 111/59 12/21/16 12:40 111/59 12/21/16 12:35 75 12 30 12/21/16 12:00 98.3 67 17 106/65 100 Mechanical Ventilator 30 12/21/16 12:00 30 12/21/16 11:00 67 17 128/67 100 Mechanical Ventilator 30 12/21/16 10:45 30 12/21/16 10:45 68 12 30 12/21/16 10:35 98.0 12/21/16 10:00 68 17 125/66 100 Mechanical Ventilator 30 12/21/16 09:37 74 120/66 12/21/16 09:00 30 12/21/16 09:00 72 17 120/66 100 Mechanical Ventilator 30 12/21/16 08:50 74 12 30 12/21/16 08:50 98 12/21/16 08:00 30 12/21/16 08:00 69 12/21/16 08:00 98.0 12/21/16 08:00 75 17 117/58 100 Mechanical Ventilator 30 12/21/16 07:02 71 12 30 12/21/16 07:00 72 21 119/61 100 Mechanical Ventilator 30 12/21/16 06:15 137/65 12/21/16 06:15 137/65 12/21/16 06:15 137/65 12/21/16 06:00 71 21 137/65 100 Mechanical Ventilator 30 12/21/16 05:00 78 18 143/68 100 Mechanical Ventilator 30 12/21/16 04:55 79 16 30 12/21/16 04:00 76 12/21/16 04:00 30 12/21/16 04:00 97.8 74 21 130/68 100 Mechanical Ventilator 30 12/21/16 03:10 75 12 30 12/21/16 03:00 73 16 126/65 100 Mechanical Ventilator 30 12/21/16 02:00 74 12 125/65 100 Mechanical Ventilator 30 12/21/16 01:03 74 12 30 12/21/16 01:00 76 16 128/65 100 Mechanical Ventilator 30 12/21/16 00:00 30 12/21/16 00:00 84 12/21/16 00:00 97.9 74 16 129/62 100 Mechanical Ventilator 12/20/16 23:46 135/63 12/20/16 23:00 79 16 135/63 100 Mechanical Ventilator 30 12/20/16 22:46 79 18 30 12/20/16 22:00 78 16 116/62 100 Mechanical Ventilator 12/20/16 21:34 127/73 12/20/16 21:00 80 16 127/73 100 Mechanical Ventilator 30 12/20/16 20:48 72 12 30 12/20/16 20:00 30 12/20/16 20:00 74 12/20/16 20:00 97.7 74 16 135/70 100 Mechanical Ventilator 12/20/16 19:30 77 17 30 12/20/16 19:00 78 16 126/63 100 Mechanical Ventilator 30 12/20/16 18:03 123/63 12/20/16 18:03 123/63 12/20/16 18:00 88 16 123/63 100 Mechanical Ventilator 30 12/20/16 17:00 77 16 113/61 100 Mechanical Ventilator 30 12/20/16 17:00 76 12 30 12/20/16 16:00 30 12/20/16 16:00 78 12/20/16 16:00 98.0 79 18 119/58 100 Mechanical Ventilator 30 12/20/16 15:25 79 14 30 12/20/16 15:00 73 16 120/60 100 Mechanical Ventilator 30 12/20/16 14:36 126/61 General Appearance: on vent, patient on isolation Neck: no JVD Cardiovascular: normal rate, regular rhythm Respiratory/Chest: lungs clear, normal breath sounds Abdomen: normal bowel sounds, non tender, soft Extremities: no swelling Intake and Output 12/20/16 12/21/16 19:00 07:00 Intake Total 880 ml 660 ml Output Total 975 ml 1560 ml Balance -95 ml -900 ml Free Water 300 ml IV Total 55 ml Tube Feeding 525 ml 540 ml Other 120 ml Output Urine Total 975 ml 1560 ml Laboratory Tests Test 12/21/16 03:50 12/21/16 07:47 12/21/16 08:40 White Blood Count 8.9 K/UL (4.8-10.8) Red Blood Count 2.85 M/UL (4.70-6.10) L Hemoglobin 8.7 G/DL (14.2-18.0) L Hematocrit 26.3 % (42.0-52.0) L Mean Corpuscular Volume 92 FL (80-99) Mean Corpuscular Hemoglobin 30.4 PG (27.0-31.0) Mean Corpuscular Hemoglobin Concent 32.9 G/DL (32.0-36.0) Red Cell Distribution Width 16.0 % (11.6-14.8) H Platelet Count 234 K/UL (150-450) # Mean Platelet Volume 9.7 FL (6.5-10.1) Neutrophils (%) (Auto) 79.4 % (45.0-75.0) H Lymphocytes (%) (Auto) 9.4 % (20.0-45.0) L Monocytes (%) (Auto) 8.9 % (1.0-10.0) Eosinophils (%) (Auto) 1.1 % (0.0-3.0) Basophils (%) (Auto) 1.3 % (0.0-2.0) Sodium Level 141 mEQ/L (135-145) 144 mEQ/L (135-145) Potassium Level 6.1 mEQ/L (3.4-4.9) #*H 3.5 mEQ/L (3.4-4.9) Chloride Level 100 mEQ/L (98-107) 101 mEQ/L (98-107) Carbon Dioxide Level 29 mEQ/L (20-30) 30 mEQ/L (20-30) Anion Gap 12 (5-15) 13 (5-15) Blood Urea Nitrogen 53 mg/dL (7-23) H 53 mg/dL (7-23) H Creatinine 2.7 mg/dL (0.7-1.2) H 2.6 mg/dL (0.7-1.2) H Estimat Glomerular Filtration Rate 28.8 mL/min (>60) 30.2 mL/min (>60) Glucose Level 125 mg/dL (74-106) H 139 mg/dL (74-106) H Uric Acid 8.2 mg/dL (3.0-7.5) H Calcium Level 7.8 mg/dL (8.6-10.2) L 7.7 mg/dL (8.6-10.2) L Phosphorus Level 4.1 mg/dL (2.5-4.8) Magnesium Level 2.2 mg/dL (1.7-2.5) Total Bilirubin 0.4 mg/dL (0.0-1.2) Aspartate Amino Transf (AST/SGOT) 84 U/L (5-40) H Alanine Aminotransferase (ALT/SGPT) 5 U/L (3-41) Alkaline Phosphatase 34 U/L (40-129) L C-Reactive Protein, Quantitative 5.7 mg/dL (< 0.5) H Pro-B-Type Natriuretic Peptide 8616 pg/mL (0-125) H Total Protein 6.9 g/dL (6.6-8.7) Albumin 2.2 g/dL (3.5-5.2) L Globulin 4.7 g/dL Albumin/Globulin Ratio 0.4 (1.0-2.7) L Arterial Blood pH 7.460 (7.350-7.450) Arterial Blood Partial Pressure CO2 44.0 mmHg (35.0-45.0) Arterial Blood Partial Pressure O2 100.0 mmHg (75.0-100.0) Arterial Blood HCO3 30.2 mmol/L (22.0-26.0) H Arterial Blood Oxygen Saturation 98.0 % (92.0-98.0) Arterial Blood Base Excess 5.7 Adrian Test STEPHEN LONDON Dec 21, 2016 14:09
[2016-12-21] MEDS: Bumetanide 2.5mg/10ml Inj IVP SCH (16:20)
[2016-12-21] MEDS: Metolazone 5mg tab ORAL SCH (16:21)
--- NOTE | 2016-12-21 16:33 | Cardiology Report ---
APPROVED REPORT EKG Measurement Heart [id number] Normal sinus rhythm Left ventricular hypertrophy with repolarization abnormality Prolonged QT Abnormal ECG
--- NOTE | 2016-12-21 17:09 | Infectious Diseases Prog Note ---
Assessment/Plan Assessment/Plan ASSESSMENT: 66-year-old male with: Aspiration PNA / pneumonitis - SCx NRF SP Rx CXR 12/21: mild interstitial edema and small effusions, stable. 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 Monitor chest x-ray vent support, wean as tolerated Subjective Allergies: Coded Allergies: No Known Allergies (Unverified , 04/29/13) Subjective remains afebrile on vent Objective Vital Signs Last 24 Hour Vital Signs Date Time Temp Pulse Resp B/P Pulse Ox O2 Delivery O2 Flow Rate FiO2 12/21/16 17:00 70 13 125/60 100 Mechanical Ventilator 30 12/21/16 16:45 69 12 30 12/21/16 16:00 98.1 72 14 122/65 100 Mechanical Ventilator 30 12/21/16 16:00 30 12/21/16 16:00 74 12/21/16 15:00 72 14 122/65 100 Mechanical Ventilator 30 12/21/16 14:38 72 14 30 12/21/16 14:14 129/67 12/21/16 14:00 68 12 129/67 100 Mechanical Ventilator 30 12/21/16 13:00 72 17 121/66 100 Mechanical Ventilator 30 12/21/16 12:40 111/59 12/21/16 12:40 111/59 12/21/16 12:35 75 12 30 12/21/16 12:00 98.3 67 17 106/65 100 Mechanical Ventilator 30 12/21/16 12:00 30 12/21/16 12:00 71 12/21/16 11:00 67 17 128/67 100 Mechanical Ventilator 30 12/21/16 10:45 30 12/21/16 10:45 68 12 30 12/21/16 10:35 98.0 12/21/16 10:00 68 17 125/66 100 Mechanical Ventilator 30 12/21/16 09:37 74 120/66 12/21/16 09:00 30 12/21/16 09:00 72 17 120/66 100 Mechanical Ventilator 30 12/21/16 08:50 74 12 30 12/21/16 08:50 98 12/21/16 08:00 30 12/21/16 08:00 69 12/21/16 08:00 98.0 12/21/16 08:00 75 17 117/58 100 Mechanical Ventilator 30 12/21/16 07:02 71 12 30 12/21/16 07:00 72 21 119/61 100 Mechanical Ventilator 30 12/21/16 06:15 137/65 12/21/16 06:15 137/65 12/21/16 06:15 137/65 12/21/16 06:00 71 21 137/65 100 Mechanical Ventilator 30 12/21/16 05:00 78 18 143/68 100 Mechanical Ventilator 30 12/21/16 04:55 79 16 30 12/21/16 04:00 76 12/21/16 04:00 30 12/21/16 04:00 97.8 74 21 130/68 100 Mechanical Ventilator 30 12/21/16 03:10 75 12 30 12/21/16 03:00 73 16 126/65 100 Mechanical Ventilator 30 12/21/16 02:00 74 12 125/65 100 Mechanical Ventilator 30 12/21/16 01:03 74 12 30 12/21/16 01:00 76 16 128/65 100 Mechanical Ventilator 30 12/21/16 00:00 30 12/21/16 00:00 84 12/21/16 00:00 97.9 74 16 129/62 100 Mechanical Ventilator 30 12/20/16 23:46 135/63 12/20/16 23:00 79 16 135/63 100 Mechanical Ventilator 30 12/20/16 22:46 79 18 30 12/20/16 22:00 78 16 116/62 100 Mechanical Ventilator 30 12/20/16 21:34 127/73 12/20/16 21:00 80 16 127/73 100 Mechanical Ventilator 30 12/20/16 20:48 72 12 30 12/20/16 20:00 30 12/20/16 20:00 74 12/20/16 20:00 97.7 74 16 135/70 100 Mechanical Ventilator 30 12/20/16 19:30 77 17 30 12/20/16 19:00 78 16 126/63 100 Mechanical Ventilator 30 12/20/16 18:03 123/63 12/20/16 18:03 123/63 12/20/16 18:00 88 16 123/63 100 Mechanical Ventilator 30 Height (Feet): 5 Height (Inches): 9.00 Weight (Pounds): 150 General Appearance: other - intubated Respiratory/Chest: decreased breath sounds Cardiovascular: normal rate, regular rhythm Abdomen: normal bowel sounds, soft, non tender, non distended Laboratory Tests Test 12/21/16 03:50 12/21/16 07:47 12/21/16 08:40 White Blood Count 8.9 K/UL (4.8-10.8) Red Blood Count 2.85 M/UL (4.70-6.10) L Hemoglobin 8.7 G/DL (14.2-18.0) L Hematocrit 26.3 % (42.0-52.0) L Mean Corpuscular Volume 92 FL (80-99) Mean Corpuscular Hemoglobin 30.4 PG (27.0-31.0) Mean Corpuscular Hemoglobin Concent 32.9 G/DL (32.0-36.0) Red Cell Distribution Width 16.0 % (11.6-14.8) H Platelet Count 234 K/UL (150-450) # Mean Platelet Volume 9.7 FL (6.5-10.1) Neutrophils (%) (Auto) 79.4 % (45.0-75.0) H Lymphocytes (%) (Auto) 9.4 % (20.0-45.0) L Monocytes (%) (Auto) 8.9 % (1.0-10.0) Eosinophils (%) (Auto) 1.1 % (0.0-3.0) Basophils (%) (Auto) 1.3 % (0.0-2.0) Sodium Level 141 mEQ/L (135-145) 144 mEQ/L (135-145) Potassium Level 6.1 mEQ/L (3.4-4.9) #*H 3.5 mEQ/L (3.4-4.9) Chloride Level 100 mEQ/L (98-107) 101 mEQ/L (98-107) Carbon Dioxide Level 29 mEQ/L (20-30) 30 mEQ/L (20-30) Anion Gap 12 (5-15) 13 (5-15) Blood Urea Nitrogen 53 mg/dL (7-23) H 53 mg/dL (7-23) H Creatinine 2.7 mg/dL (0.7-1.2) H 2.6 mg/dL (0.7-1.2) H Estimat Glomerular Filtration Rate 28.8 mL/min (>60) 30.2 mL/min (>60) Glucose Level 125 mg/dL (74-106) H 139 mg/dL (74-106) H Uric Acid 8.2 mg/dL (3.0-7.5) H Calcium Level 7.8 mg/dL (8.6-10.2) L 7.7 mg/dL (8.6-10.2) L Phosphorus Level 4.1 mg/dL (2.5-4.8) Magnesium Level 2.2 mg/dL (1.7-2.5) Total Bilirubin 0.4 mg/dL (0.0-1.2) Aspartate Amino Transf (AST/SGOT) 84 U/L (5-40) H Alanine Aminotransferase (ALT/SGPT) 5 U/L (3-41) Alkaline Phosphatase 34 U/L (40-129) L C-Reactive Protein, Quantitative 5.7 mg/dL (< 0.5) H Pro-B-Type Natriuretic Peptide 8616 pg/mL (0-125) H Total Protein 6.9 g/dL (6.6-8.7) Albumin 2.2 g/dL (3.5-5.2) L Globulin 4.7 g/dL Albumin/Globulin Ratio 0.4 (1.0-2.7) L Arterial Blood pH 7.460 (7.350-7.450) Arterial Blood Partial Pressure CO2 44.0 mmHg (35.0-45.0) Arterial Blood Partial Pressure O2 100.0 mmHg (75.0-100.0) Arterial Blood HCO3 30.2 mmol/L (22.0-26.0) H Arterial Blood Oxygen Saturation 98.0 % (92.0-98.0) Arterial Blood Base Excess 5.7 Adrian Test Current Medications Medications (Trade) Dose Ordered Sig/Melania Route PRN Reason Start Time Stop Time Status Last Admin Dose Admin Acetaminophen (Tylenol) 650 mg Q4H PRN ORAL Fever 12/10/16 16:45 01/09/17 16:44 12/21/16 09:36 Albuterol/ Ipratropium (DuoNeb 0.5-3(2.5)mg/3ml) 3 ml Q4H PRN HHN Shortness of Breath 12/21/16 14:00 12/26/16 13:59 Amlodipine Besylate (Norvasc) 10 mg DAILY NG 12/16/16 09:00 01/15/17 08:59 12/21/16 09:37 Bumetanide (Bumex) 2 mg DAILY IVP 12/21/16 14:15 01/20/17 14:14 12/21/16 16:20 Clonidine HCl (Catapres) 0.1 mg EVERY 6 HOURS ORAL 12/15/16 12:00 01/14/17 11:59 12/21/16 12:40 Dextrose (Dextrose 50%) STAT PRN IV Hypoglycemia 12/11/16 00:45 01/10/17 00:44 Hydralazine HCl (Apresoline) 50 mg Q8HR NG 12/15/16 22:00 01/14/17 21:59 12/21/16 14:14 Lorazepam (Ativan 2mg/ml 1ml) 1 mg Q4H PRN IV For Anxiety 12/21/16 14:00 12/28/16 13:59 Metolazone (Zaroxolyn) 5 mg DAILY ORAL 12/21/16 14:15 01/20/17 14:14 12/21/16 16:21 Nitroglycerin (Nitro-Bid) 1 inch TID@0600,1200,1800 TOPIC 12/12/16 06:00 01/11/17 05:59 12/21/16 12:40 Ondansetron HCl (Zofran) 4 mg Q6H PRN IVP Nausea & Vomiting 12/10/16 18:45 01/09/17 18:44 Pantoprazole (Protonix) 40 mg DAILY IVP 12/11/16 16:00 01/10/17 15:59 12/21/16 09:36 Polyethylene Glycol (Miralax) 17 gm DAILYPRN PRN ORAL Constipation 12/11/16 00:45 01/10/17 00:44 Vitamin A/Vitamin D (A & D Oint) 1 applic EVERY 12 HOURS TOPIC 12/10/16 21:00 01/09/17 20:59 12/21/16 09:37 Vitamin B Complex/ Vit C/Folic Acid (Nephrovite) 1 tab DAILY GT 12/12/16 09:00 01/11/17 08:59 12/21/16 09:00 DICK GARBER Dec 21, 2016 17:09
--- NOTE | 2016-12-21 18:24 | Internal Med Progress Note ---
Subjective Date of Service: Dec 21, 2016 Physician Name Ramya Wesley Attending Physician Wild Hawkins MD Current Medications Medications (Trade) Dose Ordered Sig/Melania Route PRN Reason Start Time Stop Time Status Last Admin Dose Admin Acetaminophen (Tylenol) 650 mg Q4H PRN ORAL Fever 12/10/16 16:45 01/09/17 16:44 12/21/16 09:36 Albuterol/ Ipratropium (DuoNeb 0.5-3(2.5)mg/3ml) 3 ml Q4H PRN HHN Shortness of Breath 12/21/16 14:00 12/26/16 13:59 Amlodipine Besylate (Norvasc) 10 mg DAILY NG 12/16/16 09:00 01/15/17 08:59 12/21/16 09:37 Bumetanide (Bumex) 2 mg DAILY IVP 12/21/16 14:15 01/20/17 14:14 12/21/16 16:20 Clonidine HCl (Catapres) 0.1 mg EVERY 6 HOURS ORAL 12/15/16 12:00 01/14/17 11:59 12/21/16 12:40 Dextrose (Dextrose 50%) STAT PRN IV Hypoglycemia 12/11/16 00:45 01/10/17 00:44 Hydralazine HCl (Apresoline) 50 mg Q8HR NG 12/15/16 22:00 01/14/17 21:59 12/21/16 14:14 Lorazepam (Ativan 2mg/ml 1ml) 1 mg Q4H PRN IV For Anxiety 12/21/16 14:00 12/28/16 13:59 Metolazone (Zaroxolyn) 5 mg DAILY ORAL 12/21/16 14:15 01/20/17 14:14 12/21/16 16:21 Nitroglycerin (Nitro-Bid) 1 inch TID@0600,1200,1800 TOPIC 12/12/16 06:00 01/11/17 05:59 12/21/16 12:40 Ondansetron HCl (Zofran) 4 mg Q6H PRN IVP Nausea & Vomiting 12/10/16 18:45 01/09/17 18:44 Pantoprazole (Protonix) 40 mg DAILY IVP 12/11/16 16:00 01/10/17 15:59 12/21/16 09:36 Polyethylene Glycol (Miralax) 17 gm DAILYPRN PRN ORAL Constipation 12/11/16 00:45 01/10/17 00:44 Vitamin A/Vitamin D (A & D Oint) 1 applic EVERY 12 HOURS TOPIC 12/10/16 21:00 01/09/17 20:59 12/21/16 09:37 Vitamin B Complex/ Vit C/Folic Acid (Nephrovite) 1 tab DAILY GT 12/12/16 09:00 01/11/17 08:59 12/21/16 09:00 Allergies: Coded Allergies: No Known Allergies (Unverified , 04/29/13) ROS Limited/Unobtainable: Yes Subjective 66 YO M admitted with shortness of breath; now respiratory failure. Cover for Int Med-Dr Hawkins. ICU. Intubated and sedated. Await thoracentesis Objective Last Vital Signs Date Time Temp Pulse Resp B/P Pulse Ox O2 Delivery O2 Flow Rate FiO2 12/21/16 17:00 70 13 125/60 100 Mechanical Ventilator 30 12/21/16 16:00 98.1 Laboratory Tests Test 12/21/16 03:50 12/21/16 07:47 12/21/16 08:40 White Blood Count 8.9 K/UL (4.8-10.8) Red Blood Count 2.85 M/UL (4.70-6.10) L Hemoglobin 8.7 G/DL (14.2-18.0) L Hematocrit 26.3 % (42.0-52.0) L Mean Corpuscular Volume 92 FL (80-99) Mean Corpuscular Hemoglobin 30.4 PG (27.0-31.0) Mean Corpuscular Hemoglobin Concent 32.9 G/DL (32.0-36.0) Red Cell Distribution Width 16.0 % (11.6-14.8) H Platelet Count 234 K/UL (150-450) # Mean Platelet Volume 9.7 FL (6.5-10.1) Neutrophils (%) (Auto) 79.4 % (45.0-75.0) H Lymphocytes (%) (Auto) 9.4 % (20.0-45.0) L Monocytes (%) (Auto) 8.9 % (1.0-10.0) Eosinophils (%) (Auto) 1.1 % (0.0-3.0) Basophils (%) (Auto) 1.3 % (0.0-2.0) Sodium Level 141 mEQ/L (135-145) 144 mEQ/L (135-145) Potassium Level 6.1 mEQ/L (3.4-4.9) #*H 3.5 mEQ/L (3.4-4.9) Chloride Level 100 mEQ/L (98-107) 101 mEQ/L (98-107) Carbon Dioxide Level 29 mEQ/L (20-30) 30 mEQ/L (20-30) Anion Gap 12 (5-15) 13 (5-15) Blood Urea Nitrogen 53 mg/dL (7-23) H 53 mg/dL (7-23) H Creatinine 2.7 mg/dL (0.7-1.2) H 2.6 mg/dL (0.7-1.2) H Estimat Glomerular Filtration Rate 28.8 mL/min (>60) 30.2 mL/min (>60) Glucose Level 125 mg/dL (74-106) H 139 mg/dL (74-106) H Uric Acid 8.2 mg/dL (3.0-7.5) H Calcium Level 7.8 mg/dL (8.6-10.2) L 7.7 mg/dL (8.6-10.2) L Phosphorus Level 4.1 mg/dL (2.5-4.8) Magnesium Level 2.2 mg/dL (1.7-2.5) Total Bilirubin 0.4 mg/dL (0.0-1.2) Aspartate Amino Transf (AST/SGOT) 84 U/L (5-40) H Alanine Aminotransferase (ALT/SGPT) 5 U/L (3-41) Alkaline Phosphatase 34 U/L (40-129) L C-Reactive Protein, Quantitative 5.7 mg/dL (< 0.5) H Pro-B-Type Natriuretic Peptide 8616 pg/mL (0-125) H Total Protein 6.9 g/dL (6.6-8.7) Albumin 2.2 g/dL (3.5-5.2) L Globulin 4.7 g/dL Albumin/Globulin Ratio 0.4 (1.0-2.7) L Arterial Blood pH 7.460 (7.350-7.450) Arterial Blood Partial Pressure CO2 44.0 mmHg (35.0-45.0) Arterial Blood Partial Pressure O2 100.0 mmHg (75.0-100.0) Arterial Blood HCO3 30.2 mmol/L (22.0-26.0) H Arterial Blood Oxygen Saturation 98.0 % (92.0-98.0) Arterial Blood Base Excess 5.7 Adrian Test Intake and Output 12/20/16 12/21/16 19:00 07:00 Intake Total 880 ml 660 ml Output Total 975 ml 1560 ml Balance -95 ml -900 ml Free Water 300 ml IV Total 55 ml Tube Feeding 525 ml 540 ml Other 120 ml Output Urine Total 975 ml 1560 ml Objective General Appearance: WD/WN, moderate distress EENT: normal ENT inspection Neck: non-tender, normal alignment, supple Cardiovascular: normal peripheral pulses, normal rate, regular rhythm, no gallop/murmur, no JVD Respiratory/Chest: Mechanical vent; crackles/rales, rhonchi - bilaterally, expiratory wheezing Abdomen: normal bowel sounds, non tender, soft, no organomegaly, no mass Extremities: normal range of motion 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 See pulmonary note. (3) Renal failure Assessment & Plan: See nephrology note. (4) HTN (hypertension) (5) CAD (coronary artery disease) (6) CHF (congestive heart failure) Assessment & Plan: See cardiology note. Cont lasix. (7) Anemia (8) Uncontrolled hypertension Assessment & Plan: Start norvasc per cardiology (9) Pneumonia Assessment & Plan: D/C antibiotics per ID-see ID note. (10) Pleural effusion Assessment & Plan: Bilateral. Await thoracentesis. See pulmonary note. Status: not improved RAMYA WESLEY Dec 21, 2016 18:24
[2016-12-21] MEDS: LORazepam Inj 2mg/ml 1ml IV PRN (22:38)
[2016-12-22] VITALS (24 sets, daily range): BP systolic 110–136; BP diastolic 56–81
[2016-12-22] MEDS: HydrALAZINE 50mg tab NG SCH ×3 (06:03→21:51)
[2016-12-22] MEDS: Nitroglycerin 2% oint pkt TOPIC SCH ×3 (06:03→18:10)
[2016-12-22 07:03] LABS: ALBUMIN/GLOBULIN RATIO 0.4 (1.0-2.7); CALCIUM 7.9 mg/dL (8.6-10.2); CREATININE 2.6 mg/dL (0.7-1.2); GLOMERULAR FILTRATION RATE 30.2 mL/min (>60); MAGNESIUM 2.3 mg/dL (1.7-2.5); PHOSPHORUS 3.6 mg/dL (2.5-4.8); POTASSIUM 3.4 mEQ/L (3.4-4.9); TOTAL PROTEIN 6.5 g/dL (6.6-8.7); URIC ACID 9.2 mg/dL (3.0-7.5)
[2016-12-22 07:12] LABS: BASOPHILS % (AUTO) 0.4 % (0.0-2.0); EOSINOPHILS % (AUTO) 1.3 % (0.0-3.0); LYMPHOCYTES % (AUTO) 12.8 % (20.0-45.0); MEAN CORPUSCULAR HEMOGLOBIN 29.2 PG (27.0-31.0); MEAN CORPUSCULAR HGB CONC 31.2 G/DL (32.0-36.0); MEAN CORPUSCULAR VOLUME 94 FL (80-99); MEAN PLATELET VOLUME 7.5 FL (6.5-10.1); NEUTROPHILS % (AUTO) 77.5 % (45.0-75.0); PLATELET COUNT 184 K/UL (150-450); RED BLOOD COUNT 3.02 M/UL (4.70-6.10); RED CELL DISTRIBUTION WIDTH 15.3 % (11.6-14.8); WHITE BLOOD COUNT 8.1 K/UL (4.8-10.8)
[2016-12-22] MEDS: Nephrovite tab GT SCH (08:10)
[2016-12-22] MEDS: Metolazone 5mg tab ORAL SCH (08:10)
[2016-12-22] MEDS: Vitamin A&D Oint 2oz Tube TOPIC SCH ×2 (08:11→21:50)
[2016-12-22] MEDS: Pantoprazole Inj IVP SCH (08:11)
[2016-12-22] MEDS: Bumetanide 2.5mg/10ml Inj IVP SCH (08:11)
[2016-12-22] MEDS ORDERED: Acetaminophen 650mg/20.3ml ORAL PRN (09:00)
[2016-12-22 09:37] LABS: ABG ALLEN TEST POSITIVE; ABG PCO2 39.5 mmHg (35.0-45.0)
--- NOTE | 2016-12-22 10:23 | Pulmonolgy Critical Care Note ---
Critical Care - Asmt/Plan Problems: (1) Aspiration pneumonia (2) Respiratory failure (3) Pleural effusion (4) ATN (acute tubular necrosis) (5) Hepatitis C (6) CAD (coronary artery disease) Respiratory: monitor respiratory rate, adjust FIO2, CXR Cardiac: continue to monitor HR/BP Renal: F/U I&O, keep IV fluid, increase IV fluid, check electrolytes Infectious Disease: check cultures, continue antibiotics Gastrointestinal: continue feedings/current rate Endocrine: monitor blood sugar, continue sliding scale insulin Hematologic: monitor H/H, transfuse if hgb<8.5 Neurologic: keep patient comfortable Prophylaxis: Protonix Disposition: keep in ICU Notes Reviewed: community dietitian, cardio, renal Discussed with: nurses, consultants, corrections caseworkermarketing finance manager - Objective Last 24 Hour Vital Signs Date Time Temp Pulse Resp B/P Pulse Ox O2 Delivery O2 Flow Rate FiO2 12/22/16 09:16 75 16 30 12/22/16 09:00 79 12 118/57 100 Mechanical Ventilator 30 12/22/16 08:00 98.0 77 16 112/56 100 Mechanical Ventilator 30 12/22/16 08:00 30 12/22/16 08:00 78 12/22/16 07:10 99 12/22/16 07:06 97 27 30 12/22/16 07:00 91 16 118/57 100 Mechanical Ventilator 30 12/22/16 06:03 130/60 12/22/16 06:03 130/60 12/22/16 06:03 130/60 12/22/16 06:00 72 16 130/60 100 Mechanical Ventilator 30 12/22/16 05:00 82 16 123/57 100 Mechanical Ventilator 30 12/22/16 04:46 85 17 30 12/22/16 04:00 69 12/22/16 04:00 30 12/22/16 04:00 98.1 83 17 122/61 100 Mechanical Ventilator 30 12/22/16 03:30 87 17 30 12/22/16 03:00 70 15 129/65 100 Mechanical Ventilator 30 12/22/16 02:00 76 16 124/60 100 Mechanical Ventilator 30 12/22/16 01:00 75 16 130/66 100 Mechanical Ventilator 30 12/22/16 00:45 82 12 30 12/22/16 00:00 30 12/22/16 00:00 97.9 70 12 123/59 100 Mechanical Ventilator 30 12/22/16 00:00 74 12/21/16 23:49 124/59 12/21/16 23:30 69 12 30 12/21/16 23:00 74 12 117/65 100 Mechanical Ventilator 30 12/21/16 22:00 82 12 125/62 100 Mechanical Ventilator 30 12/21/16 21:30 73 12 30 12/21/16 21:00 72 12 127/62 100 Mechanical Ventilator 30 12/21/16 20:40 131/62 12/21/16 20:00 30 12/21/16 20:00 75 12/21/16 20:00 98.4 74 14 131/62 100 Mechanical Ventilator 30 12/21/16 19:30 86 25 30 12/21/16 19:00 71 12 128/62 100 Mechanical Ventilator 30 12/21/16 18:26 124/63 12/21/16 18:26 124/63 12/21/16 18:00 76 12 124/63 100 Mechanical Ventilator 30 12/21/16 17:00 70 13 125/60 100 Mechanical Ventilator 30 12/21/16 16:45 69 12 30 12/21/16 16:00 98.1 72 14 122/65 100 Mechanical Ventilator 30 12/21/16 16:00 30 12/21/16 16:00 74 12/21/16 15:00 72 14 122/65 100 Mechanical Ventilator 30 12/21/16 14:38 72 14 30 12/21/16 14:14 129/67 12/21/16 14:00 68 12 129/67 100 Mechanical Ventilator 30 12/21/16 13:00 72 17 121/66 100 Mechanical Ventilator 30 12/21/16 12:40 111/59 12/21/16 12:40 111/59 12/21/16 12:35 75 12 30 12/21/16 12:00 98.3 67 17 106/65 100 Mechanical Ventilator 30 12/21/16 12:00 30 12/21/16 12:00 71 12/21/16 11:00 67 17 128/67 100 Mechanical Ventilator 30 12/21/16 10:45 30 12/21/16 10:45 68 12 30 12/21/16 10:35 98.0 Status: awake Condition: critical, grave HEENT: atraumatic, normocephalic Lungs: clear, chest wall tender Heart: HR/BP stable, HR/BP unstable Abdomen: soft, non-tender, active bowel sounds Extremities: no C/C/E, edema Decubiti: location Accucheck: 128 Critical Care - Subjective ROS Limited/Unobtainable: No ICU Day: 12 Intubation Day: 12 Interval Events: weaning, on SIMV FI02: 30 Vent Support Breath Rate: 6 Vent Support Mode: IMV/SIMV Vent Tidal Volume: 600 Sputum Amount: Moderate PEEP: 0.0 PIP: 18 Tube Feeding Amount: 45 I&O: Intake and Output 12/21/16 12/22/16 19:00 07:00 Intake Total 980 ml 700 ml Output Total 1395 ml 1415 ml Balance -415 ml -715 ml Free Water 350 ml 100 ml Tube Feeding 630 ml 540 ml Other 60 ml Output Urine Total 1395 ml 1415 ml CXR: bilateral effusion ET-Tube: 7.5 ET Position: 22 Labs: Laboratory Tests Test 12/22/16 05:10 12/22/16 09:25 White Blood Count 8.1 K/UL (4.8-10.8) Red Blood Count 3.02 M/UL (4.70-6.10) L Hemoglobin 8.8 G/DL (14.2-18.0) L Hematocrit 28.3 % (42.0-52.0) L Mean Corpuscular Volume 94 FL (80-99) Mean Corpuscular Hemoglobin 29.2 PG (27.0-31.0) Mean Corpuscular Hemoglobin Concent 31.2 G/DL (32.0-36.0) L Red Cell Distribution Width 15.3 % (11.6-14.8) H Platelet Count 184 K/UL (150-450) Mean Platelet Volume 7.5 FL (6.5-10.1) Neutrophils (%) (Auto) 77.5 % (45.0-75.0) H Lymphocytes (%) (Auto) 12.8 % (20.0-45.0) L Monocytes (%) (Auto) 8.0 % (1.0-10.0) Eosinophils (%) (Auto) 1.3 % (0.0-3.0) Basophils (%) (Auto) 0.4 % (0.0-2.0) Sodium Level 146 mEQ/L (135-145) H Potassium Level 3.4 mEQ/L (3.4-4.9) Chloride Level 104 mEQ/L (98-107) Carbon Dioxide Level 29 mEQ/L (20-30) Anion Gap 13 (5-15) Blood Urea Nitrogen 59 mg/dL (7-23) H Creatinine 2.6 mg/dL (0.7-1.2) H Estimat Glomerular Filtration Rate 30.2 mL/min (>60) Glucose Level 103 mg/dL (74-106) Uric Acid 9.2 mg/dL (3.0-7.5) H Calcium Level 7.9 mg/dL (8.6-10.2) L Phosphorus Level 3.6 mg/dL (2.5-4.8) Magnesium Level 2.3 mg/dL (1.7-2.5) Total Bilirubin 0.3 mg/dL (0.0-1.2) Aspartate Amino Transf (AST/SGOT) 21 U/L (5-40) Alanine Aminotransferase (ALT/SGPT) 13 U/L (3-41) Alkaline Phosphatase 54 U/L (40-129) C-Reactive Protein, Quantitative 4.0 mg/dL (< 0.5) H Pro-B-Type Natriuretic Peptide 6902 pg/mL (0-125) H Total Protein 6.5 g/dL (6.6-8.7) L Albumin 2.1 g/dL (3.5-5.2) L Globulin 4.4 g/dL Albumin/Globulin Ratio 0.4 (1.0-2.7) L Arterial Blood pH 7.495 (7.350-7.450) Arterial Blood Partial Pressure CO2 39.5 mmHg (35.0-45.0) Arterial Blood Partial Pressure O2 136.4 mmHg (75.0-100.0) H Arterial Blood HCO3 29.8 mmol/L (22.0-26.0) H Arterial Blood Oxygen Saturation 98.3 % (92.0-98.0) H Arterial Blood Base Excess 6.0 Adrian Test Positive YAMILET DIOR Dec 22, 2016 10:23
--- NOTE | 2016-12-22 11:00 | General Progress Note ---
Assessment/Plan Status: unchanged Status Narrative Cr stable Assessment/Plan -Renal insufficiency. ? Acute on Chronic Cr stable, and slow rising ! Urine output improved Other: -Abnormal mentation. -Respiratory failure, acute with hypoxia-/ Aspiration [place] -Congestive heart failure with pleural effusion, -Mitral regurgitation. -Cardiomyopathy. -History of amphetamine abuse. -History of paroxysmal episodes of atrial fibrillation per report. -Hepatitis C virus with cirrhosis. Plan: K supplement as needed Optimize cardiac and pulmonary status- Keep BP in check- Monitor renal parameters- avoid nephrotoxics- per orders- UA 3+ protein Subjective ROS Limited/Unobtainable: Yes Allergies: Coded Allergies: No Known Allergies (Unverified , 04/29/13) Objective Last 24 Hour Vital Signs Date Time Temp Pulse Resp B/P Pulse Ox O2 Delivery O2 Flow Rate FiO2 12/22/16 10:00 80 20 110/56 100 Mechanical Ventilator 30 12/22/16 09:30 80 110/56 12/22/16 09:16 75 16 30 12/22/16 09:00 79 12 118/57 100 Mechanical Ventilator 30 12/22/16 08:00 98.0 77 16 112/56 100 Mechanical Ventilator 30 12/22/16 08:00 30 12/22/16 08:00 78 12/22/16 07:10 99 12/22/16 07:06 97 27 30 12/22/16 07:00 91 16 118/57 100 Mechanical Ventilator 30 12/22/16 06:03 130/60 12/22/16 06:03 130/60 12/22/16 06:03 130/60 12/22/16 06:00 72 16 130/60 100 Mechanical Ventilator 30 12/22/16 05:00 82 16 123/57 100 Mechanical Ventilator 30 12/22/16 04:46 85 17 30 12/22/16 04:00 69 12/22/16 04:00 30 12/22/16 04:00 98.1 83 17 122/61 100 Mechanical Ventilator 30 12/22/16 03:30 87 17 30 12/22/16 03:00 70 15 129/65 100 Mechanical Ventilator 30 12/22/16 02:00 76 16 124/60 100 Mechanical Ventilator 30 12/22/16 01:00 75 16 130/66 100 Mechanical Ventilator 30 12/22/16 00:45 82 12 30 12/22/16 00:00 30 12/22/16 00:00 97.9 70 12 123/59 100 Mechanical Ventilator 30 12/22/16 00:00 74 12/21/16 23:49 124/59 12/21/16 23:30 69 12 30 12/21/16 23:00 74 12 117/65 100 Mechanical Ventilator 30 12/21/16 22:00 82 12 125/62 100 Mechanical Ventilator 30 12/21/16 21:30 73 12 30 12/21/16 21:00 72 12 127/62 100 Mechanical Ventilator 30 12/21/16 20:40 131/62 12/21/16 20:00 30 12/21/16 20:00 75 12/21/16 20:00 98.4 74 14 131/62 100 Mechanical Ventilator 30 12/21/16 19:30 86 25 30 12/21/16 19:00 71 12 128/62 100 Mechanical Ventilator 30 12/21/16 18:26 124/63 12/21/16 18:26 124/63 12/21/16 18:00 76 12 124/63 100 Mechanical Ventilator 30 12/21/16 17:00 70 13 125/60 100 Mechanical Ventilator 30 12/21/16 16:45 69 12 30 12/21/16 16:00 98.1 72 14 122/65 100 Mechanical Ventilator 30 12/21/16 16:00 30 12/21/16 16:00 74 12/21/16 15:00 72 14 122/65 100 Mechanical Ventilator 30 12/21/16 14:38 72 14 30 12/21/16 14:14 129/67 12/21/16 14:00 68 12 129/67 100 Mechanical Ventilator 30 12/21/16 13:00 72 17 121/66 100 Mechanical Ventilator 30 12/21/16 12:40 111/59 12/21/16 12:40 111/59 12/21/16 12:35 75 12 30 12/21/16 12:00 98.3 67 17 106/65 100 Mechanical Ventilator 30 12/21/16 12:00 30 12/21/16 12:00 71 12/21/16 11:00 67 17 128/67 100 Mechanical Ventilator 30 Intake and Output 12/21/16 12/22/16 19:00 07:00 Intake Total 980 ml 700 ml Output Total 1395 ml 1415 ml Balance -415 ml -715 ml Free Water 350 ml 100 ml Tube Feeding 630 ml 540 ml Other 60 ml Output Urine Total 1395 ml 1415 ml Laboratory Tests 12/22/16 05:10: White Blood Count 8.1, Red Blood Count 3.02L, Hemoglobin 8.8L, Hematocrit 28.3L , Mean Corpuscular Volume 94, Mean Corpuscular Hemoglobin 29.2, Mean Corpuscular Hemoglobin Concent 31.2L, Red Cell Distribution Width 15.3H, Platelet Count 184, Mean Platelet Volume 7.5, Neutrophils (%) (Auto) 77.5H, Lymphocytes (%) (Auto) 12.8L, Monocytes (%) (Auto) 8.0, Eosinophils (%) (Auto) 1.3, Basophils (%) (Auto) 0.4, Sodium Level 146H, Potassium Level 3.4, Chloride Level 104, Carbon Dioxide Level 29, Anion Gap 13, Blood Urea Nitrogen 59H, Creatinine 2.6H, Estimat Glomerular Filtration Rate 30.2, Glucose Level 103, Uric Acid 9.2H, Calcium Level 7.9L, Phosphorus Level 3.6, Magnesium Level 2.3, Total Bilirubin 0.3, Aspartate Amino Transf (AST/SGOT) 21, Alanine Aminotransferase (ALT/SGPT) 13, Alkaline Phosphatase 54, C-Reactive Protein, Quantitative 4.0H, Pro-B-Type Natriuretic Peptide 6902H, Total Protein 6.5L, Albumin 2.1L, Globulin 4.4, Albumin/Globulin Ratio 0.4L 12/22/16 09:25: Arterial Blood pH 7.495H, Arterial Blood Partial Pressure CO2 39.5, Arterial Blood Partial Pressure O2 136.4H, Arterial Blood HCO3 29.8H, Arterial Blood Oxygen Saturation 98.3H, Arterial Blood Base Excess 6.0, Adrian Test Positive Height (Feet): 5 Height (Inches): 9.00 Weight (Pounds): 150 General Appearance: no apparent distress Objective other PE not changed JUSTIN NESS Dec 22, 2016 11:00
[2016-12-22] MEDS: LORazepam Inj 2mg/ml 1ml IV PRN (13:22)
--- NOTE | 2016-12-22 14:18 | Infectious Diseases Prog Note ---
Assessment/Plan Assessment/Plan ASSESSMENT: 66-year-old male with: Aspiration PNA / pneumonitis - SCx NRF SP Rx CXR 12/21: mild interstitial edema and small effusions, stable. 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 Monitor chest x-ray vent support, wean as tolerated Subjective Allergies: Coded Allergies: No Known Allergies (Unverified , 04/29/13) Subjective remains afebrile on vent Objective Vital Signs Last 24 Hour Vital Signs Date Time Temp Pulse Resp B/P Pulse Ox O2 Delivery O2 Flow Rate FiO2 12/22/16 13:00 78 20 116/60 100 Mechanical Ventilator 30 12/22/16 12:36 75 17 30 12/22/16 12:00 98.1 78 15 119/59 100 Mechanical Ventilator 30 12/22/16 12:00 30 12/22/16 12:00 76 12/22/16 11:51 123/62 12/22/16 11:51 123/62 12/22/16 11:16 74 20 30 12/22/16 11:00 74 20 123/62 100 Mechanical Ventilator 30 12/22/16 10:00 80 20 110/56 100 Mechanical Ventilator 30 12/22/16 09:30 80 110/56 12/22/16 09:16 75 16 30 12/22/16 09:00 79 12 118/57 100 Mechanical Ventilator 30 12/22/16 08:00 98.0 77 16 112/56 100 Mechanical Ventilator 30 12/22/16 08:00 30 12/22/16 08:00 78 12/22/16 07:10 99 12/22/16 07:06 97 27 30 12/22/16 07:00 91 16 118/57 100 Mechanical Ventilator 30 12/22/16 06:03 130/60 2/6/17 06:03 130/60 12/22/16 06:03 130/60 12/22/16 06:00 72 16 130/60 100 Mechanical Ventilator 30 12/22/16 05:00 82 16 123/57 100 Mechanical Ventilator 30 12/22/16 04:46 85 17 30 12/22/16 04:00 69 12/22/16 04:00 30 12/22/16 04:00 98.1 83 17 122/61 100 Mechanical Ventilator 30 12/22/16 03:30 87 17 30 12/22/16 03:00 70 15 129/65 100 Mechanical Ventilator 30 12/22/16 02:00 76 16 124/60 100 Mechanical Ventilator 30 12/22/16 01:00 75 16 130/66 100 Mechanical Ventilator 30 12/22/16 00:45 82 12 30 12/22/16 00:00 30 12/22/16 00:00 97.9 70 12 123/59 100 Mechanical Ventilator 30 12/22/16 00:00 74 12/21/16 23:49 124/59 12/21/16 23:30 69 12 30 12/21/16 23:00 74 12 117/65 100 Mechanical Ventilator 30 12/21/16 22:00 82 12 125/62 100 Mechanical Ventilator 30 12/21/16 21:30 73 12 30 12/21/16 21:00 72 12 127/62 100 Mechanical Ventilator 30 12/21/16 20:40 131/62 12/21/16 20:00 30 12/21/16 20:00 75 12/21/16 20:00 98.4 74 14 131/62 100 Mechanical Ventilator 30 12/21/16 19:30 86 25 30 12/21/16 19:00 71 12 128/62 100 Mechanical Ventilator 30 12/21/16 18:26 124/63 12/21/16 18:26 124/63 12/21/16 18:00 76 12 124/63 100 Mechanical Ventilator 30 12/21/16 17:00 70 13 125/60 100 Mechanical Ventilator 30 12/21/16 16:45 69 12 30 12/21/16 16:00 98.1 72 14 122/65 100 Mechanical Ventilator 30 12/21/16 16:00 30 12/21/16 16:00 74 12/21/16 15:00 72 14 122/65 100 Mechanical Ventilator 30 12/21/16 14:38 72 14 30 Height (Feet): 5 Height (Inches): 9.00 Weight (Pounds): 150 General Appearance: other - intubated Respiratory/Chest: decreased breath sounds Cardiovascular: normal rate, regular rhythm Abdomen: normal bowel sounds, soft, non tender, non distended Laboratory Tests Test 12/22/16 05:10 12/22/16 09:25 White Blood Count 8.1 K/UL (4.8-10.8) Red Blood Count 3.02 M/UL (4.70-6.10) L Hemoglobin 8.8 G/DL (14.2-18.0) L Hematocrit 28.3 % (42.0-52.0) L Mean Corpuscular Volume 94 FL (80-99) Mean Corpuscular Hemoglobin 29.2 PG (27.0-31.0) Mean Corpuscular Hemoglobin Concent 31.2 G/DL (32.0-36.0) L Red Cell Distribution Width 15.3 % (11.6-14.8) H Platelet Count 184 K/UL (150-450) Mean Platelet Volume 7.5 FL (6.5-10.1) Neutrophils (%) (Auto) 77.5 % (45.0-75.0) H Lymphocytes (%) (Auto) 12.8 % (20.0-45.0) L Monocytes (%) (Auto) 8.0 % (1.0-10.0) Eosinophils (%) (Auto) 1.3 % (0.0-3.0) Basophils (%) (Auto) 0.4 % (0.0-2.0) Sodium Level 146 mEQ/L (135-145) H Potassium Level 3.4 mEQ/L (3.4-4.9) Chloride Level 104 mEQ/L (98-107) Carbon Dioxide Level 29 mEQ/L (20-30) Anion Gap 13 (5-15) Blood Urea Nitrogen 59 mg/dL (7-23) H Creatinine 2.6 mg/dL (0.7-1.2) H Estimat Glomerular Filtration Rate 30.2 mL/min (>60) Glucose Level 103 mg/dL (74-106) Uric Acid 9.2 mg/dL (3.0-7.5) H Calcium Level 7.9 mg/dL (8.6-10.2) L Phosphorus Level 3.6 mg/dL (2.5-4.8) Magnesium Level 2.3 mg/dL (1.7-2.5) Total Bilirubin 0.3 mg/dL (0.0-1.2) Aspartate Amino Transf (AST/SGOT) 21 U/L (5-40) Alanine Aminotransferase (ALT/SGPT) 13 U/L (3-41) Alkaline Phosphatase 54 U/L (40-129) C-Reactive Protein, Quantitative 4.0 mg/dL (< 0.5) H Pro-B-Type Natriuretic Peptide 6902 pg/mL (0-125) H Total Protein 6.5 g/dL (6.6-8.7) L Albumin 2.1 g/dL (3.5-5.2) L Globulin 4.4 g/dL Albumin/Globulin Ratio 0.4 (1.0-2.7) L Arterial Blood pH 7.495 (7.350-7.450) Arterial Blood Partial Pressure CO2 39.5 mmHg (35.0-45.0) Arterial Blood Partial Pressure O2 136.4 mmHg (75.0-100.0) H Arterial Blood HCO3 29.8 mmol/L (22.0-26.0) H Arterial Blood Oxygen Saturation 98.3 % (92.0-98.0) H Arterial Blood Base Excess 6.0 Adrian Test Positive Current Medications Medications (Trade) Dose Ordered Sig/Melania Route PRN Reason Start Time Stop Time Status Last Admin Dose Admin Acetaminophen (Tylenol) 650 mg Q4H PRN ORAL Fever 12/22/16 09:00 01/21/17 08:59 Albuterol/ Ipratropium (DuoNeb 0.5-3(2.5)mg/3ml) 3 ml Q4H PRN HHN Shortness of Breath 12/21/16 14:00 12/26/16 13:59 Amlodipine Besylate (Norvasc) 10 mg DAILY NG 12/16/16 09:00 01/15/17 08:59 12/21/16 09:37 Bumetanide (Bumex) 2 mg DAILY IVP 12/21/16 14:15 01/20/17 14:14 12/22/16 08:11 Clonidine HCl (Catapres) 0.1 mg EVERY 6 HOURS ORAL 12/15/16 12:00 01/14/17 11:59 12/22/16 06:03 Dextrose (Dextrose 50%) STAT PRN IV Hypoglycemia 12/11/16 00:45 01/10/17 00:44 Hydralazine HCl (Apresoline) 50 mg Q8HR NG 12/15/16 22:00 01/14/17 21:59 12/22/16 06:03 Lorazepam (Ativan 2mg/ml 1ml) 1 mg Q4H PRN IV For Anxiety 12/21/16 14:00 12/28/16 13:59 12/22/16 13:22 Metolazone (Zaroxolyn) 5 mg DAILY ORAL 12/21/16 14:15 01/20/17 14:14 12/22/16 08:10 Nitroglycerin (Nitro-Bid) 1 inch TID@0600,1200,1800 TOPIC 12/12/16 06:00 01/11/17 05:59 12/22/16 11:51 Ondansetron HCl (Zofran) 4 mg Q6H PRN IVP Nausea & Vomiting 12/10/16 18:45 01/09/17 18:44 Pantoprazole (Protonix) 40 mg DAILY IVP 12/11/16 16:00 01/10/17 15:59 12/22/16 08:11 Polyethylene Glycol (Miralax) 17 gm DAILYPRN PRN ORAL Constipation 12/11/16 00:45 01/10/17 00:44 Vitamin A/Vitamin D (A & D Oint) 1 applic EVERY 12 HOURS TOPIC 12/10/16 21:00 01/09/17 20:59 12/22/16 08:11 Vitamin B Complex/ Vit C/Folic Acid (Nephrovite) 1 tab DAILY GT 12/12/16 09:00 01/11/17 08:59 12/22/16 08:10 DICK GARBER Dec 22, 2016 14:18
--- NOTE | 2016-12-22 19:58 | Internal Med Progress Note ---
Subjective Date of Service: Dec 22, 2016 Physician Name Ramya Wesley Attending Physician Wild Hawkins MD Current Medications Medications (Trade) Dose Ordered Sig/Melania Route PRN Reason Start Time Stop Time Status Last Admin Dose Admin Acetaminophen (Tylenol) 650 mg Q4H PRN ORAL Fever 12/22/16 09:00 01/21/17 08:59 Albuterol/ Ipratropium (DuoNeb 0.5-3(2.5)mg/3ml) 3 ml Q4H PRN HHN Shortness of Breath 12/21/16 14:00 12/26/16 13:59 Amlodipine Besylate (Norvasc) 10 mg DAILY NG 12/16/16 09:00 01/15/17 08:59 12/21/16 09:37 Bumetanide (Bumex) 2 mg DAILY IVP 12/21/16 14:15 01/20/17 14:14 12/22/16 08:11 Clonidine HCl (Catapres) 0.1 mg EVERY 6 HOURS ORAL 12/15/16 12:00 01/14/17 11:59 12/22/16 18:09 Dextrose (Dextrose 50%) STAT PRN IV Hypoglycemia 12/11/16 00:45 01/10/17 00:44 Hydralazine HCl (Apresoline) 50 mg Q8HR NG 12/15/16 22:00 01/14/17 21:59 12/22/16 06:03 Lorazepam (Ativan 2mg/ml 1ml) 1 mg Q4H PRN IV For Anxiety 12/21/16 14:00 12/28/16 13:59 12/22/16 13:22 Metolazone (Zaroxolyn) 5 mg DAILY ORAL 12/21/16 14:15 01/20/17 14:14 12/22/16 08:10 Nitroglycerin (Nitro-Bid) 1 inch TID@0600,1200,1800 TOPIC 12/12/16 06:00 01/11/17 05:59 12/22/16 18:10 Ondansetron HCl (Zofran) 4 mg Q6H PRN IVP Nausea & Vomiting 12/10/16 18:45 01/09/17 18:44 Pantoprazole (Protonix) 40 mg DAILY IVP 12/11/16 16:00 01/10/17 15:59 2/6/17 08:11 Polyethylene Glycol (Miralax) 17 gm DAILYPRN PRN ORAL Constipation 12/11/16 00:45 01/10/17 00:44 Vitamin A/Vitamin D (A & D Oint) 1 applic EVERY 12 HOURS TOPIC 12/10/16 21:00 01/09/17 20:59 12/22/16 08:11 Vitamin B Complex/ Vit C/Folic Acid (Nephrovite) 1 tab DAILY GT 12/12/16 09:00 01/11/17 08:59 12/22/16 08:10 Allergies: Coded Allergies: No Known Allergies (Unverified , 04/29/13) ROS Limited/Unobtainable: Yes Subjective 66 YO M admitted with shortness of breath; now respiratory failure. Cover for Int Med-Dr Hawkins. ICU. Intubated and sedated. Await thoracentesis Objective Last Vital Signs Date Time Temp Pulse Resp B/P Pulse Ox O2 Delivery O2 Flow Rate FiO2 12/22/16 19:07 77 10 30 12/22/16 18:10 128/72 12/22/16 18:00 100 Mechanical Ventilator 12/22/16 16:00 98.2 Laboratory Tests Test 12/22/16 05:10 12/22/16 09:25 12/22/16 15:30 White Blood Count 8.1 K/UL (4.8-10.8) Red Blood Count 3.02 M/UL (4.70-6.10) L Hemoglobin 8.8 G/DL (14.2-18.0) L Hematocrit 28.3 % (42.0-52.0) L Mean Corpuscular Volume 94 FL (80-99) Mean Corpuscular Hemoglobin 29.2 PG (27.0-31.0) Mean Corpuscular Hemoglobin Concent 31.2 G/DL (32.0-36.0) L Red Cell Distribution Width 15.3 % (11.6-14.8) H Platelet Count 184 K/UL (150-450) Mean Platelet Volume 7.5 FL (6.5-10.1) Neutrophils (%) (Auto) 77.5 % (45.0-75.0) H Lymphocytes (%) (Auto) 12.8 % (20.0-45.0) L Monocytes (%) (Auto) 8.0 % (1.0-10.0) Eosinophils (%) (Auto) 1.3 % (0.0-3.0) Basophils (%) (Auto) 0.4 % (0.0-2.0) Sodium Level 146 mEQ/L (135-145) H Potassium Level 3.4 mEQ/L (3.4-4.9) Chloride Level 104 mEQ/L (98-107) Carbon Dioxide Level 29 mEQ/L (20-30) Anion Gap 13 (5-15) Blood Urea Nitrogen 59 mg/dL (7-23) H Creatinine 2.6 mg/dL (0.7-1.2) H Estimat Glomerular Filtration Rate 30.2 mL/min (>60) Glucose Level 103 mg/dL (74-106) Uric Acid 9.2 mg/dL (3.0-7.5) H Calcium Level 7.9 mg/dL (8.6-10.2) L Phosphorus Level 3.6 mg/dL (2.5-4.8) Magnesium Level 2.3 mg/dL (1.7-2.5) Total Bilirubin 0.3 mg/dL (0.0-1.2) Aspartate Amino Transf (AST/SGOT) 21 U/L (5-40) Alanine Aminotransferase (ALT/SGPT) 13 U/L (3-41) Alkaline Phosphatase 54 U/L (40-129) C-Reactive Protein, Quantitative 4.0 mg/dL (< 0.5) H Pro-B-Type Natriuretic Peptide 6902 pg/mL (0-125) H Total Protein 6.5 g/dL (6.6-8.7) L Albumin 2.1 g/dL (3.5-5.2) L Globulin 4.4 g/dL Albumin/Globulin Ratio 0.4 (1.0-2.7) L Arterial Blood pH 7.495 (7.350-7.450) Arterial Blood Partial Pressure CO2 39.5 mmHg (35.0-45.0) Arterial Blood Partial Pressure O2 136.4 mmHg (75.0-100.0) H Arterial Blood HCO3 29.8 mmol/L (22.0-26.0) H Arterial Blood Oxygen Saturation 98.3 % (92.0-98.0) H Arterial Blood Base Excess 6.0 Adrian Test Positive Body Fluid Source Pending Body Fluid Volume Pending Body Fluid Appearance Pending Body Fluid RBC Pending Body Fluid Total Nucleated Cells Pending Body Fluid Polynuclear WBCs (%) Pending Body Fluid Mononuclear WBCs (%) Pending Body Fluid Mesothelial Cells (%) Pending Body Fluid Total Protein Pending Body Fluid Albumin Pending Intake and Output 12/21/16 12/22/16 19:00 07:00 Intake Total 980 ml 700 ml Output Total 1395 ml 1415 ml Balance -415 ml -715 ml Free Water 350 ml 100 ml Tube Feeding 630 ml 540 ml Other 60 ml Output Urine Total 1395 ml 1415 ml Objective General Appearance: WD/WN, moderate distress EENT: normal ENT inspection Neck: non-tender, normal alignment, supple Cardiovascular: normal peripheral pulses, normal rate, regular rhythm, no gallop/murmur, no JVD Respiratory/Chest: Mechanical vent; crackles/rales, rhonchi - bilaterally, expiratory wheezing Abdomen: normal bowel sounds, non tender, soft, no organomegaly, no mass Extremities: normal range of motion Neurologic: platinum smith II-XII grossly normal, no motor/sensory deficits Skin: normal pigmentation, warm/dry Assessment/Plan Problem List: (1) SOB (shortness of breath) (2) Respiratory failure Assessment & Plan: Intubated; failed weaning trial. See pulmonary note. (3) Renal failure Assessment & Plan: See nephrology note. (4) HTN (hypertension) (5) CAD (coronary artery disease) (6) CHF (congestive heart failure) Assessment & Plan: See cardiology note. Cont lasix. (7) Anemia (8) Uncontrolled hypertension Assessment & Plan: Start norvasc per cardiology (9) Pneumonia Assessment & Plan: D/C antibiotics per ID-see ID note. (10) Pleural effusion Assessment & Plan: Bilateral. Await thoracentesis. See pulmonary note. Status: not improved RAMYA WESLEY Dec 22, 2016 19:58
--- NOTE | 2016-12-22 20:10 | Cardiology Progress Note ---
Assessment/Plan Assessment/Plan 1. Abnormal mentation due to respiratory acidosis . 2. Respiratory acidosis. 3. Congestive heart failure with pleural effusion, 4. Mitral regurgitation. 5. Cardiomyopathy. 6. History of amphetamine abuse. 7. History of paroxysmal episodes of atrial fibrillation per report. 8. Renal insufficiency. 9. Hepatitis C virus with cirrhosis vent support wean as possible hydralazine and nitrate tele noted ekg noted cr stable despite neg fluid balance diuretics Subjective ROS Limited/Unobtainable: Yes Subjective on ramona vent sleeping Objective Last 24 Hour Vital Signs Date Time Temp Pulse Resp B/P Pulse Ox O2 Delivery O2 Flow Rate FiO2 12/22/16 19:07 77 10 30 12/22/16 18:10 128/72 12/22/16 18:09 128/72 12/22/16 18:00 79 21 128/72 100 Mechanical Ventilator 30 12/22/16 17:21 84 22 30 12/22/16 17:20 87 20 30 12/22/16 17:00 76 22 129/75 100 Mechanical Ventilator 30 12/22/16 16:00 98.2 76 18 119/68 100 Mechanical Ventilator 30 12/22/16 16:00 30 12/22/16 16:00 76 12/22/16 15:11 87 20 30 12/22/16 15:00 79 20 116/81 100 Mechanical Ventilator 30 12/22/16 14:00 79 20 113/57 100 Mechanical Ventilator 30 12/22/16 14:00 113/57 12/22/16 13:00 78 20 116/60 100 Mechanical Ventilator 30 12/22/16 12:36 75 17 30 12/22/16 12:00 98.1 78 15 119/59 100 Mechanical Ventilator 30 12/22/16 12:00 30 12/22/16 12:00 76 12/22/16 11:51 123/62 12/22/16 11:51 123/62 12/22/16 11:16 74 20 30 12/22/16 11:00 74 20 123/62 100 Mechanical Ventilator 30 12/22/16 10:00 80 20 110/56 100 Mechanical Ventilator 30 12/22/16 09:30 80 110/56 12/22/16 09:16 75 16 30 12/22/16 09:00 79 12 118/57 100 Mechanical Ventilator 30 12/22/16 08:00 98.0 77 16 112/56 100 Mechanical Ventilator 30 12/22/16 08:00 30 12/22/16 08:00 78 12/22/16 07:10 99 12/22/16 07:06 97 27 30 12/22/16 07:00 91 16 118/57 100 Mechanical Ventilator 30 12/22/16 06:03 130/60 12/22/16 06:03 130/60 12/22/16 06:03 130/60 12/22/16 06:00 72 16 130/60 100 Mechanical Ventilator 30 12/22/16 05:00 82 16 123/57 100 Mechanical Ventilator 30 12/22/16 04:46 85 17 30 12/22/16 04:00 69 12/22/16 04:00 30 12/22/16 04:00 98.1 83 17 122/61 100 Mechanical Ventilator 30 12/22/16 03:30 87 17 30 12/22/16 03:00 70 15 129/65 100 Mechanical Ventilator 30 12/22/16 02:00 76 16 124/60 100 Mechanical Ventilator 30 12/22/16 01:00 75 16 130/66 100 Mechanical Ventilator 30 12/22/16 00:45 82 12 30 12/22/16 00:00 30 12/22/16 00:00 97.9 70 12 123/59 100 Mechanical Ventilator 12/22/16 00:00 74 12/21/16 23:49 124/59 12/21/16 23:30 69 12 30 12/21/16 23:00 74 12 117/65 100 Mechanical Ventilator 30 12/21/16 22:00 82 12 125/62 100 Mechanical Ventilator 12/21/16 21:30 73 12 30 12/21/16 21:00 72 12 127/62 100 Mechanical Ventilator 30 12/21/16 20:40 131/62 General Appearance: no apparent distress, on vent, patient on isolation Cardiovascular: normal rate, regular rhythm Respiratory/Chest: lungs clear, normal breath sounds Abdomen: normal bowel sounds, non tender, soft Extremities: non-tender, no swelling Intake and Output 12/21/16 12/22/16 19:00 07:00 Intake Total 980 ml 700 ml Output Total 1395 ml 1415 ml Balance -415 ml -715 ml Free Water 350 ml 100 ml Tube Feeding 630 ml 540 ml Other 60 ml Output Urine Total 1395 ml 1415 ml Laboratory Tests Test 12/22/16 05:10 2/6/17 09:25 12/22/16 15:30 White Blood Count 8.1 K/UL (4.8-10.8) Red Blood Count 3.02 M/UL (4.70-6.10) L Hemoglobin 8.8 G/DL (14.2-18.0) L Hematocrit 28.3 % (42.0-52.0) L Mean Corpuscular Volume 94 FL (80-99) Mean Corpuscular Hemoglobin 29.2 PG (27.0-31.0) Mean Corpuscular Hemoglobin Concent 31.2 G/DL (32.0-36.0) L Red Cell Distribution Width 15.3 % (11.6-14.8) H Platelet Count 184 K/UL (150-450) Mean Platelet Volume 7.5 FL (6.5-10.1) Neutrophils (%) (Auto) 77.5 % (45.0-75.0) H Lymphocytes (%) (Auto) 12.8 % (20.0-45.0) L Monocytes (%) (Auto) 8.0 % (1.0-10.0) Eosinophils (%) (Auto) 1.3 % (0.0-3.0) Basophils (%) (Auto) 0.4 % (0.0-2.0) Sodium Level 146 mEQ/L (135-145) H Potassium Level 3.4 mEQ/L (3.4-4.9) Chloride Level 104 mEQ/L (98-107) Carbon Dioxide Level 29 mEQ/L (20-30) Anion Gap 13 (5-15) Blood Urea Nitrogen 59 mg/dL (7-23) H Creatinine 2.6 mg/dL (0.7-1.2) H Estimat Glomerular Filtration Rate 30.2 mL/min (>60) Glucose Level 103 mg/dL (74-106) Uric Acid 9.2 mg/dL (3.0-7.5) H Calcium Level 7.9 mg/dL (8.6-10.2) L Phosphorus Level 3.6 mg/dL (2.5-4.8) Magnesium Level 2.3 mg/dL (1.7-2.5) Total Bilirubin 0.3 mg/dL (0.0-1.2) Aspartate Amino Transf (AST/SGOT) 21 U/L (5-40) Alanine Aminotransferase (ALT/SGPT) 13 U/L (3-41) Alkaline Phosphatase 54 U/L (40-129) C-Reactive Protein, Quantitative 4.0 mg/dL (< 0.5) H Pro-B-Type Natriuretic Peptide 6902 pg/mL (0-125) H Total Protein 6.5 g/dL (6.6-8.7) L Albumin 2.1 g/dL (3.5-5.2) L Globulin 4.4 g/dL Albumin/Globulin Ratio 0.4 (1.0-2.7) L Arterial Blood pH 7.495 (7.350-7.450) Arterial Blood Partial Pressure CO2 39.5 mmHg (35.0-45.0) Arterial Blood Partial Pressure O2 136.4 mmHg (75.0-100.0) H Arterial Blood HCO3 29.8 mmol/L (22.0-26.0) H Arterial Blood Oxygen Saturation 98.3 % (92.0-98.0) H Arterial Blood Base Excess 6.0 Adrian Test Positive Body Fluid Source Pending Body Fluid Volume Pending Body Fluid Appearance Pending Body Fluid RBC Pending Body Fluid Total Nucleated Cells Pending Body Fluid Polynuclear WBCs (%) Pending Body Fluid Mononuclear WBCs (%) Pending Body Fluid Mesothelial Cells (%) Pending Body Fluid Total Protein Pending Body Fluid Albumin Pending STEPHEN LONDON Dec 22, 2016 20:10
[2016-12-22 20:52] LABS: APPEARANCE, BODY FLUID HAZY; BD FL SOURCE THORACENTESIS; BD FL VOLUME 27 mL; BODY FLUID NUCLEATED CELLS 155 /CUMM
[2016-12-22 20:53] LABS: BODY FLUID RBC 1515 /CUMM; MONONUCLEAR WBC 82 %; POLYMORPHONUCLEAR WBC 16 %
[2016-12-23] VITALS (24 sets, daily range): BP systolic 97–134; BP diastolic 51–76
[2016-12-23] MEDS: LORazepam Inj 2mg/ml 1ml IV PRN ×2 (00:01→05:22)
[2016-12-23] MEDS: HydrALAZINE 50mg tab NG SCH ×3 (05:21→22:28)
[2016-12-23] MEDS: Nitroglycerin 2% oint pkt TOPIC SCH ×3 (05:21→18:29)
[2016-12-23 05:49] LABS: BASOPHILS % (AUTO) 2.6 % (0.0-2.0); LYMPHOCYTES % (AUTO) 6.6 % (20.0-45.0); MEAN CORPUSCULAR HEMOGLOBIN 29.8 PG (27.0-31.0); MEAN CORPUSCULAR HGB CONC 31.6 G/DL (32.0-36.0); MEAN CORPUSCULAR VOLUME 94 FL (80-99); MEAN PLATELET VOLUME 7.2 FL (6.5-10.1); MONOCYTES % (AUTO) 9.2 % (1.0-10.0); NEUTROPHILS % (AUTO) 80.7 % (45.0-75.0); PLATELET COUNT 233 K/UL (150-450); RED BLOOD COUNT 2.81 M/UL (4.70-6.10); RED CELL DISTRIBUTION WIDTH 14.9 % (11.6-14.8)
[2016-12-23 05:57] LABS: INR 1.1 (0.9-1.1); PROTHROMBIN TIME 11.1 SEC (9.30-11.50)
[2016-12-23 06:23] LABS: ALBUMIN/GLOBULIN RATIO 0.4 (1.0-2.7); CALCIUM 8.3 mg/dL (8.6-10.2); CREATININE 2.5 mg/dL (0.7-1.2); GLOMERULAR FILTRATION RATE 31.5 mL/min (>60); MAGNESIUM 2.4 mg/dL (1.7-2.5); PHOSPHORUS 3.5 mg/dL (2.5-4.8); POTASSIUM 3.4 mEQ/L (3.4-4.9); TOTAL PROTEIN 6.7 g/dL (6.6-8.7)
--- NOTE | 2016-12-23 09:10 | Diagnostic Imaging Report ---
Indications: Pleural effusion Technique: Ultrasound used to localize optimal puncture site. Sterile prepping and draping right chest. Local anesthesia with 1% lidocaine. Under real-time ultrasound guidance, puncture pleural space using thoracentesis needle. Stylet removed. Catheter placed to vacuum bottle suction. Total 1100 milliliters of fluid aspirated. Patient tolerated procedure well, without immediate complication. Findings: Followup sonography demonstrates near-complete resolution of pleural fluid. Impression: Successful ultrasound-guided thoracentesis, yielding 1100 milliliters of fluid
--- NOTE | 2016-12-23 09:10 | Diagnostic Imaging Report ---
Indication: DYSPNEA, status post thoracentesis Technique: One view of the chest Comparison: 8 hours earlier Findings: Near complete resolution of previously demonstrated right-sided pleural effusion, postthoracentesis. Some residual. No gross pneumothorax. Left-sided pleural fluid persists. Heart remains large. Stable satisfactory positions of endotracheal and nasogastric tubes Impression: Improved right-sided pleural effusion, postthoracentesis. No radiographically evident complication
--- NOTE | 2016-12-23 09:10 | Diagnostic Imaging Report ---
Indication: SOB Technique: One view of the chest Comparison: 12/21/2016 Findings: Bilateral pleural effusions, retrocardiac consolidation persists, unchanged. Stable satisfactory positions of endotracheal and nasogastric tubes. The heart remains borderline enlarged. Findings are unchanged Impression: Unchanged, over one day, findings as above.
--- NOTE | 2016-12-23 09:24 | Pulmonolgy Critical Care Note ---
Critical Care - Asmt/Plan Problems: (1) Aspiration pneumonia (2) Respiratory failure (3) Pleural effusion (4) ATN (acute tubular necrosis) (5) Hepatitis C (6) CAD (coronary artery disease) Respiratory: monitor respiratory rate, adjust FIO2, CXR Cardiac: continue to monitor HR/BP Renal: F/U I&O, keep IV fluid, check electrolytes Infectious Disease: check cultures, continue antibiotics Gastrointestinal: continue feedings/current rate Endocrine: monitor blood sugar, check TSH, continue sliding scale insulin Hematologic: monitor H/H, transfuse if hgb<8.5 Neurologic: PRN Ativan, PRN Morphine, keep patient comfortable Affect: PRN ativan Prophylaxis: Protonix, Heparin Time Spent (Minutes): 40 Notes Reviewed: overhead cleaner maintainer, cardio, renal Discussed with: nurses, consultants, classification case managerchiropractic practice manager - Objective Last 24 Hour Vital Signs Date Time Temp Pulse Resp B/P Pulse Ox O2 Delivery O2 Flow Rate FiO2 12/23/16 09:18 99 30 30 12/23/16 09:17 99 12/23/16 09:00 102 35 124/74 99 Mechanical Ventilator 30 12/23/16 08:00 97.9 94 30 125/73 99 Mechanical Ventilator 30 12/23/16 08:00 95 12/23/16 08:00 30 12/23/16 07:03 96 26 131/65 99 Mechanical Ventilator 30 12/23/16 06:54 92 31 30 12/23/16 06:00 92 26 113/65 99 Mechanical Ventilator 30 12/23/16 06:00 113/65 12/23/16 05:21 122/64 12/23/16 05:21 122/64 12/23/16 05:15 89 23 30 12/23/16 05:00 95 26 122/64 99 Mechanical Ventilator 30 12/23/16 04:00 87 12/23/16 04:00 30 12/23/16 04:00 98.0 86 26 108/64 99 Mechanical Ventilator 30 12/23/16 03:16 86 16 30 12/23/16 03:00 95 26 120/69 99 Mechanical Ventilator 30 12/23/16 02:00 95 26 114/63 99 Mechanical Ventilator 30 12/23/16 01:13 90 17 30 12/23/16 01:00 96 26 112/65 99 Mechanical Ventilator 30 12/23/16 00:00 97.5 90 26 106/68 99 Mechanical Ventilator 40 12/23/16 00:00 30 12/23/16 00:00 94 12/22/16 23:59 108/65 12/22/16 23:20 94 28 30 12/22/16 23:00 94 26 119/62 99 Mechanical Ventilator 30 12/22/16 22:00 73 15 128/72 100 Mechanical Ventilator 30 12/22/16 21:51 131/68 12/22/16 21:17 75 15 30 12/22/16 21:00 76 19 131/68 100 Mechanical Ventilator 30 12/22/16 20:30 73 12/22/16 20:00 97.8 74 20 129/70 100 Mechanical Ventilator 30 12/22/16 20:00 30 12/22/16 19:07 77 10 30 12/22/16 19:00 74 21 136/73 100 Mechanical Ventilator 30 12/22/16 18:10 128/72 12/22/16 18:09 128/72 12/22/16 18:00 79 21 128/72 100 Mechanical Ventilator 30 12/22/16 17:21 84 22 30 12/22/16 17:20 87 20 30 12/22/16 17:00 76 22 129/75 100 Mechanical Ventilator 30 12/22/16 16:00 98.2 76 18 119/68 100 Mechanical Ventilator 30 12/22/16 16:00 30 12/22/16 16:00 76 12/22/16 15:11 87 20 30 12/22/16 15:00 79 20 116/81 100 Mechanical Ventilator 30 12/22/16 14:00 79 20 113/57 100 Mechanical Ventilator 30 12/22/16 14:00 113/57 12/22/16 13:00 78 20 116/60 100 Mechanical Ventilator 30 12/22/16 12:36 75 17 30 12/22/16 12:00 98.1 78 15 119/59 100 Mechanical Ventilator 30 12/22/16 12:00 30 12/22/16 12:00 76 12/22/16 11:51 123/62 12/22/16 11:51 123/62 12/22/16 11:16 74 20 30 12/22/16 11:00 74 20 123/62 100 Mechanical Ventilator 30 12/22/16 10:00 80 20 110/56 100 Mechanical Ventilator 30 12/22/16 09:30 80 110/56 Status: awake Condition: critical HEENT: atraumatic, normocephalic Lungs: clear Heart: HR/BP stable, HR/BP unstable Abdomen: soft, non-tender Extremities: no C/C/E, edema Accucheck: 128 Critical Care - Subjective ROS Limited/Unobtainable: No ICU Day: 13 Intubation Day: 13 Condition: critical EKG Rhythm: Sinus Tachycardia FI02: 30 Vent Support Breath Rate: 10 Vent Support Mode: CPAP Vent Tidal Volume: 600 Sputum Amount: Large PEEP: 0.0 PIP: 19 Tube Feeding Amount: 45 I&O: Intake and Output 12/22/16 12/23/16 19:00 07:00 Intake Total 640 ml 695 ml Output Total 1950 ml 980 ml Balance -1310 ml -285 ml Free Water 50 ml 200 ml Tube Feeding 540 ml 495 ml Other 50 ml Output Urine Total 1450 ml 980 ml Other 500 ml # Bowel Movements 23 11 CXR: clear, Et in good position ET-Tube: 7.5 ET Position: 22 Labs: Laboratory Tests Test 12/22/16 09:25 12/22/16 15:30 12/23/16 04:20 Arterial Blood pH 7.495 (7.350-7.450) Arterial Blood Partial Pressure CO2 39.5 mmHg (35.0-45.0) Arterial Blood Partial Pressure O2 136.4 mmHg (75.0-100.0) H Arterial Blood HCO3 29.8 mmol/L (22.0-26.0) H Arterial Blood Oxygen Saturation 98.3 % (92.0-98.0) H Arterial Blood Base Excess 6.0 Adrian Test Positive Body Fluid Source Thoracentesis Body Fluid Volume 27 mL Body Fluid Appearance Hazy Body Fluid RBC 1515 /CUMM Body Fluid Total Nucleated Cells 155 /CUMM Body Fluid Polynuclear WBCs (%) 16 % Body Fluid Mononuclear WBCs (%) 82 % Body Fluid Mesothelial Cells (%) 2 % Body Fluid Total Protein Pending Body Fluid Albumin Pending White Blood Count 9.0 K/UL (4.8-10.8) Red Blood Count 2.81 M/UL (4.70-6.10) L Hemoglobin 8.4 G/DL (14.2-18.0) L Hematocrit 26.5 % (42.0-52.0) L Mean Corpuscular Volume 94 FL (80-99) Mean Corpuscular Hemoglobin 29.8 PG (27.0-31.0) Mean Corpuscular Hemoglobin Concent 31.6 G/DL (32.0-36.0) L Red Cell Distribution Width 14.9 % (11.6-14.8) H Platelet Count 233 K/UL (150-450) Mean Platelet Volume 7.2 FL (6.5-10.1) Neutrophils (%) (Auto) 80.7 % (45.0-75.0) H Lymphocytes (%) (Auto) 6.6 % (20.0-45.0) L Monocytes (%) (Auto) 9.2 % (1.0-10.0) Eosinophils (%) (Auto) 1.0 % (0.0-3.0) Basophils (%) (Auto) 2.6 % (0.0-2.0) H Prothrombin Time 11.1 SEC (9.30-11.50) Prothromb Time International Ratio 1.1 (0.9-1.1) Activated Partial Thromboplast Time 34 SEC (23-33) H Sodium Level 145 mEQ/L (135-145) Potassium Level 3.4 mEQ/L (3.4-4.9) Chloride Level 104 mEQ/L (98-107) Carbon Dioxide Level 28 mEQ/L (20-30) Anion Gap 13 (5-15) Blood Urea Nitrogen 59 mg/dL (7-23) H Creatinine 2.5 mg/dL (0.7-1.2) H Estimat Glomerular Filtration Rate 31.5 mL/min (>60) Glucose Level 118 mg/dL (74-106) H Calcium Level 8.3 mg/dL (8.6-10.2) L Phosphorus Level 3.5 mg/dL (2.5-4.8) Magnesium Level 2.4 mg/dL (1.7-2.5) Total Bilirubin 0.4 mg/dL (0.0-1.2) Aspartate Amino Transf (AST/SGOT) 34 U/L (5-40) Alanine Aminotransferase (ALT/SGPT) 20 U/L (3-41) Alkaline Phosphatase 65 U/L (40-129) Total Protein 6.7 g/dL (6.6-8.7) Albumin 2.0 g/dL (3.5-5.2) L Globulin 4.7 g/dL Albumin/Globulin Ratio 0.4 (1.0-2.7) L YAMILET DIOR Dec 23, 2016 09:24
[2016-12-23 09:25] LABS: ABG ALLEN TEST POSITIVE; ABG BASE EXCESS 6.1; ABG PCO2 49.3 mmHg (35.0-45.0)
[2016-12-23] MEDS: Bumetanide 2.5mg/10ml Inj IVP SCH ×3 (09:30→18:41)
--- NOTE | 2016-12-23 09:37 | Cardiology Progress Note ---
Assessment/Plan Assessment/Plan 1. Abnormal mentation due to respiratory acidosis . 2. Respiratory acidosis. 3. Congestive heart failure with pleural effusion, 4. Mitral regurgitation. 5. Cardiomyopathy. 6. History of amphetamine abuse. 7. History of paroxysmal episodes of atrial fibrillation per report. 8. Renal insufficiency. 9. Hepatitis C virus with cirrhosis vent support wean as possible hydralazine and nitrate tele noted ekg noted cr slightly better despite neg fluid balance diuretics tob econtineued s/p toracentesi cxr persoanlly reviwed Subjective Cardiovascular: Denies: chest pain, lightheadedness, palpitations Respiratory: Denies: shortness of breath Gastrointestinal/Abdominal: Denies: abdominal pain Subjective on ramona vent awake and resoponsive Objective Last 24 Hour Vital Signs Date Time Temp Pulse Resp B/P Pulse Ox O2 Delivery O2 Flow Rate FiO2 12/23/16 09:18 99 30 30 12/23/16 09:17 99 12/23/16 09:00 102 35 124/74 99 Mechanical Ventilator 30 12/23/16 08:00 97.9 94 30 125/73 99 Mechanical Ventilator 30 12/23/16 08:00 95 12/23/16 08:00 30 12/23/16 07:03 96 26 131/65 99 Mechanical Ventilator 30 12/23/16 06:54 92 31 30 12/23/16 06:00 92 26 113/65 99 Mechanical Ventilator 30 12/23/16 06:00 113/65 12/23/16 05:21 122/64 12/23/16 05:21 122/64 12/23/16 05:15 89 23 30 12/23/16 05:00 95 26 122/64 99 Mechanical Ventilator 30 12/23/16 04:00 87 12/23/16 04:00 30 12/23/16 04:00 98.0 86 26 108/64 99 Mechanical Ventilator 30 12/23/16 03:16 86 16 30 12/23/16 03:00 95 26 120/69 99 Mechanical Ventilator 30 12/23/16 02:00 95 26 114/63 99 Mechanical Ventilator 30 12/23/16 01:13 90 17 30 12/23/16 01:00 96 26 112/65 99 Mechanical Ventilator 30 12/23/16 00:00 97.5 90 26 106/68 99 Mechanical Ventilator 40 12/23/16 00:00 30 12/23/16 00:00 94 12/22/16 23:59 108/65 12/22/16 23:20 94 28 30 12/22/16 23:00 94 26 119/62 99 Mechanical Ventilator 30 12/22/16 22:00 73 15 128/72 100 Mechanical Ventilator 30 12/22/16 21:51 131/68 12/22/16 21:17 75 15 30 12/22/16 21:00 76 19 131/68 100 Mechanical Ventilator 30 12/22/16 20:30 73 12/22/16 20:00 97.8 74 20 129/70 100 Mechanical Ventilator 30 12/22/16 20:00 30 12/22/16 19:07 77 10 30 12/22/16 19:00 74 21 136/73 100 Mechanical Ventilator 30 12/22/16 18:10 128/72 12/22/16 18:09 128/72 12/22/16 18:00 79 21 128/72 100 Mechanical Ventilator 30 12/22/16 17:21 84 22 30 12/22/16 17:20 87 20 30 12/22/16 17:00 76 22 129/75 100 Mechanical Ventilator 30 12/22/16 16:00 98.2 76 18 119/68 100 Mechanical Ventilator 30 12/22/16 16:00 30 12/22/16 16:00 76 12/22/16 15:11 87 20 30 12/22/16 15:00 79 20 116/81 100 Mechanical Ventilator 30 12/22/16 14:00 79 20 113/57 100 Mechanical Ventilator 30 12/22/16 14:00 113/57 12/22/16 13:00 78 20 116/60 100 Mechanical Ventilator 30 12/22/16 12:36 75 17 30 12/22/16 12:00 98.1 78 15 119/59 100 Mechanical Ventilator 30 12/22/16 12:00 30 12/22/16 12:00 76 12/22/16 11:51 123/62 12/22/16 11:51 123/62 12/22/16 11:16 74 20 30 12/22/16 11:00 74 20 123/62 100 Mechanical Ventilator 30 12/22/16 10:00 80 20 110/56 100 Mechanical Ventilator 30 General Appearance: no apparent distress, alert, on vent, patient on isolation Cardiovascular: normal rate, regular rhythm Respiratory/Chest: lungs clear Abdomen: normal bowel sounds, non tender, soft Extremities: moderate edema Intake and Output 12/22/16 12/23/16 19:00 07:00 Intake Total 640 ml 695 ml Output Total 1950 ml 980 ml Balance -1310 ml -285 ml Free Water 50 ml 200 ml Tube Feeding 540 ml 495 ml Other 50 ml Output Urine Total 1450 ml 980 ml Other 500 ml # Bowel Movements 23 11 Laboratory Tests Test 12/22/16 15:30 12/23/16 04:20 12/23/16 09:15 Body Fluid Source Thoracentesis Body Fluid Volume 27 mL Body Fluid Appearance Hazy Body Fluid RBC 1515 /CUMM Body Fluid Total Nucleated Cells 155 /CUMM Body Fluid Polynuclear WBCs (%) 16 % Body Fluid Mononuclear WBCs (%) 82 % Body Fluid Mesothelial Cells (%) 2 % Body Fluid Total Protein Pending Body Fluid Albumin Pending White Blood Count 9.0 K/UL (4.8-10.8) Red Blood Count 2.81 M/UL (4.70-6.10) L Hemoglobin 8.4 G/DL (14.2-18.0) L Hematocrit 26.5 % (42.0-52.0) L Mean Corpuscular Volume 94 FL (80-99) Mean Corpuscular Hemoglobin 29.8 PG (27.0-31.0) Mean Corpuscular Hemoglobin Concent 31.6 G/DL (32.0-36.0) L Red Cell Distribution Width 14.9 % (11.6-14.8) H Platelet Count 233 K/UL (150-450) Mean Platelet Volume 7.2 FL (6.5-10.1) Neutrophils (%) (Auto) 80.7 % (45.0-75.0) H Lymphocytes (%) (Auto) 6.6 % (20.0-45.0) L Monocytes (%) (Auto) 9.2 % (1.0-10.0) Eosinophils (%) (Auto) 1.0 % (0.0-3.0) Basophils (%) (Auto) 2.6 % (0.0-2.0) H Prothrombin Time 11.1 SEC (9.30-11.50) Prothromb Time International Ratio 1.1 (0.9-1.1) Activated Partial Thromboplast Time 34 SEC (23-33) H Sodium Level 145 mEQ/L (135-145) Potassium Level 3.4 mEQ/L (3.4-4.9) Chloride Level 104 mEQ/L (98-107) Carbon Dioxide Level 28 mEQ/L (20-30) Anion Gap 13 (5-15) Blood Urea Nitrogen 59 mg/dL (7-23) H Creatinine 2.5 mg/dL (0.7-1.2) H Estimat Glomerular Filtration Rate 31.5 mL/min (>60) Glucose Level 118 mg/dL (74-106) H Calcium Level 8.3 mg/dL (8.6-10.2) L Phosphorus Level 3.5 mg/dL (2.5-4.8) Magnesium Level 2.4 mg/dL (1.7-2.5) Total Bilirubin 0.4 mg/dL (0.0-1.2) Aspartate Amino Transf (AST/SGOT) 34 U/L (5-40) Alanine Aminotransferase (ALT/SGPT) 20 U/L (3-41) Alkaline Phosphatase 65 U/L (40-129) Total Protein 6.7 g/dL (6.6-8.7) Albumin 2.0 g/dL (3.5-5.2) L Globulin 4.7 g/dL Albumin/Globulin Ratio 0.4 (1.0-2.7) L Arterial Blood pH 7.425 (7.350-7.450) Arterial Blood Partial Pressure CO2 49.3 mmHg (35.0-45.0) H Arterial Blood Partial Pressure O2 110.0 mmHg (75.0-100.0) H Arterial Blood HCO3 31.6 mmol/L (22.0-26.0) H Arterial Blood Oxygen Saturation 97.7 % (92.0-98.0) Arterial Blood Base Excess 6.1 Adrian Test Positive STEPHEN LONDON Dec 23, 2016 09:37
[2016-12-23] MEDS: Pantoprazole Inj IVP SCH (09:39)
[2016-12-23] MEDS: Vitamin A&D Oint 2oz Tube TOPIC SCH ×2 (09:39→20:39)
[2016-12-23] MEDS: Metolazone 5mg tab ORAL SCH (09:39)
[2016-12-23] MEDS: Nephrovite tab GT SCH (09:39)
[2016-12-23] MEDS ORDERED: LORazepam Inj 2mg/ml 1ml IV PRN (11:15)
[2016-12-23] MEDS ORDERED: Haloperidol 5mg/ml Inj IVPB PRN (11:15)
[2016-12-23] MEDS ORDERED: Haloperidol Lactate 5 MG in D5W 55 ML IVPB PRN (11:30)
--- NOTE | 2016-12-23 13:53 | General Progress Note ---
Assessment/Plan Status: unchanged Assessment/Plan -Renal insufficiency. ? Acute on Chronic Cr stable, and slow rising ! Urine output improved Other: -Abnormal mentation. -Respiratory failure, acute with hypoxia-/ Aspiration [place] -Congestive heart failure with pleural effusion, -Mitral regurgitation. -Cardiomyopathy. -History of amphetamine abuse. -History of paroxysmal episodes of atrial fibrillation per report. -Hepatitis C virus with cirrhosis. Plan: K supplement as needed Optimize cardiac and pulmonary status- Keep BP in check- Monitor renal parameters- avoid nephrotoxics- per orders- UA 3+ protein Subjective ROS Limited/Unobtainable: No Constitutional: Reports: other - extubated- agitated at times Allergies: Coded Allergies: No Known Allergies (Unverified , 04/29/13) Objective Last 24 Hour Vital Signs Date Time Temp Pulse Resp B/P Pulse Ox O2 Delivery O2 Flow Rate FiO2 12/23/16 12:34 131/73 12/23/16 12:34 131/73 12/23/16 12:00 87 30 130/76 100 Nasal Cannula 3.0 12/23/16 12:00 86 12/23/16 11:00 90 26 128/73 100 Nasal Cannula 4.0 12/23/16 10:00 90 20 129/73 99 Nasal Cannula 4.0 12/23/16 09:58 Nasal Cannula 3.0 32 12/23/16 09:58 100 Nasal Cannula 3.0 32 12/23/16 09:50 Nasal Cannula 3.0 32 12/23/16 09:39 99 124/74 12/23/16 09:18 99 30 30 12/23/16 09:17 99 12/23/16 09:00 102 35 124/74 99 Mechanical Ventilator 30 12/23/16 08:00 97.9 94 30 125/73 99 Mechanical Ventilator 30 12/23/16 08:00 95 12/23/16 08:00 30 12/23/16 07:03 96 26 131/65 99 Mechanical Ventilator 30 12/23/16 06:54 92 31 30 12/23/16 06:00 92 26 113/65 99 Mechanical Ventilator 30 12/23/16 06:00 113/65 12/23/16 05:21 122/64 12/23/16 05:21 122/64 12/23/16 05:15 89 23 30 12/23/16 05:00 95 26 122/64 99 Mechanical Ventilator 30 12/23/16 04:00 87 12/23/16 04:00 30 12/23/16 04:00 98.0 86 26 108/64 99 Mechanical Ventilator 30 12/23/16 03:16 86 16 30 12/23/16 03:00 95 26 120/69 99 Mechanical Ventilator 30 12/23/16 02:00 95 26 114/63 99 Mechanical Ventilator 30 12/23/16 01:13 90 17 30 12/23/16 01:00 96 26 112/65 99 Mechanical Ventilator 30 12/23/16 00:00 97.5 90 26 106/68 99 Mechanical Ventilator 40 12/23/16 00:00 30 12/23/16 00:00 94 12/22/16 23:59 108/65 12/22/16 23:20 94 28 30 12/22/16 23:00 94 26 119/62 99 Mechanical Ventilator 30 12/22/16 22:00 73 15 128/72 100 Mechanical Ventilator 30 12/22/16 21:51 131/68 12/22/16 21:17 75 15 30 12/22/16 21:00 76 19 131/68 100 Mechanical Ventilator 30 12/22/16 20:30 73 12/22/16 20:00 97.8 74 20 129/70 100 Mechanical Ventilator 30 12/22/16 20:00 30 12/22/16 19:07 77 10 30 12/22/16 19:00 74 21 136/73 100 Mechanical Ventilator 30 12/22/16 18:10 128/72 12/22/16 18:09 128/72 12/22/16 18:00 79 21 128/72 100 Mechanical Ventilator 30 12/22/16 17:21 84 22 30 12/22/16 17:20 87 20 30 12/22/16 17:00 76 22 129/75 100 Mechanical Ventilator 30 12/22/16 16:00 98.2 76 18 119/68 100 Mechanical Ventilator 30 12/22/16 16:00 30 12/22/16 16:00 76 12/22/16 15:11 87 20 30 12/22/16 15:00 79 20 116/81 100 Mechanical Ventilator 30 12/22/16 14:00 79 20 113/57 100 Mechanical Ventilator 30 12/22/16 14:00 113/57 Intake and Output 12/22/16 12/23/16 19:00 07:00 Intake Total 640 ml 695 ml Output Total 1950 ml 980 ml Balance -1310 ml -285 ml Free Water 50 ml 200 ml Tube Feeding 540 ml 495 ml Other 50 ml Output Urine Total 1450 ml 980 ml Other 500 ml # Bowel Movements 23 11 Laboratory Tests 12/22/16 15:30: Body Fluid Source Thoracentesis, Body Fluid Volume 27, Body Fluid Appearance Hazy, Body Fluid RBC 1515, Body Fluid Total Nucleated Cells 155, Body Fluid Polynuclear WBCs (%) 16, Body Fluid Mononuclear WBCs (%) 82, Body Fluid Mesothelial Cells (%) 2, Body Fluid Total Protein [Pending], Body Fluid Albumin [Pending] 12/23/16 04:20: White Blood Count 9.0, Red Blood Count 2.81L, Hemoglobin 8.4L, Hematocrit 26.5L , Mean Corpuscular Volume 94, Mean Corpuscular Hemoglobin 29.8, Mean Corpuscular Hemoglobin Concent 31.6L, Red Cell Distribution Width 14.9H, Platelet Count 233, Mean Platelet Volume 7.2, Neutrophils (%) (Auto) 80.7H, Lymphocytes (%) (Auto) 6.6L, Monocytes (%) (Auto) 9.2, Eosinophils (%) (Auto) 1.0, Basophils (%) (Auto) 2.6H, Prothrombin Time 11.1, Prothromb Time International Ratio 1.1, Activated Partial Thromboplast Time 34H, Sodium Level 145, Potassium Level 3.4, Chloride Level 104, Carbon Dioxide Level 28, Anion Gap 13, Blood Urea Nitrogen 59H, Creatinine 2.5H, Estimat Glomerular Filtration Rate 31.5, Glucose Level 118H, Calcium Level 8.3L, Phosphorus Level 3.5, Magnesium Level 2.4, Total Bilirubin 0.4, Aspartate Amino Transf (AST/SGOT) 34, Alanine Aminotransferase (ALT/SGPT) 20, Alkaline Phosphatase 65, Total Protein 6.7, Albumin 2.0L, Globulin 4.7, Albumin/Globulin Ratio 0.4L 12/23/16 09:15: Arterial Blood pH 7.425, Arterial Blood Partial Pressure CO2 49.3H, Arterial Blood Partial Pressure O2 110.0H, Arterial Blood HCO3 31.6H, Arterial Blood Oxygen Saturation 97.7, Arterial Blood Base Excess 6.1, Adrian Test Positive Height (Feet): 5 Height (Inches): 9.00 Weight (Pounds): 150 General Appearance: agitated Cardiovascular: tachycardia Respiratory/Chest: decreased breath sounds Abdomen: soft Objective other PE not changed JUSTIN NESS Dec 23, 2016 13:53
[2016-12-23] MEDS ORDERED: NS 275ml ONE (14:51)
--- NOTE | 2016-12-23 15:27 | Infectious Diseases Prog Note ---
Assessment/Plan Assessment/Plan ASSESSMENT: 66-year-old male with: Aspiration PNA / pneumonitis - SCx NRF SP Rx CXR 12/21: mild interstitial edema and small effusions, stable. 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 Monitor chest x-ray Subjective Allergies: Coded Allergies: No Known Allergies (Unverified , 04/29/13) Subjective remains afebrile SP thoracentesis extubated Objective Vital Signs Last 24 Hour Vital Signs Date Time Temp Pulse Resp B/P Pulse Ox O2 Delivery O2 Flow Rate FiO2 12/23/16 15:00 76 31 128/63 100 Nasal Cannula 3.0 12/23/16 14:00 80 30 122/68 100 Nasal Cannula 3.0 12/23/16 14:00 122/68 12/23/16 13:00 97.8 86 30 134/73 100 Nasal Cannula 3.0 12/23/16 12:34 131/73 12/23/16 12:34 131/73 12/23/16 12:00 87 30 130/76 100 Nasal Cannula 3.0 12/23/16 12:00 86 12/23/16 11:00 90 26 128/73 100 Nasal Cannula 4.0 12/23/16 10:00 90 20 129/73 99 Nasal Cannula 4.0 12/23/16 09:58 Nasal Cannula 3.0 32 12/23/16 09:58 100 Nasal Cannula 3.0 32 12/23/16 09:50 Nasal Cannula 3.0 32 12/23/16 09:39 99 124/74 12/23/16 09:18 99 30 30 12/23/16 09:17 99 12/23/16 09:00 102 35 124/74 99 Mechanical Ventilator 30 12/23/16 08:00 97.9 94 30 125/73 99 Mechanical Ventilator 30 12/23/16 08:00 95 12/23/16 08:00 30 12/23/16 07:03 96 26 131/65 99 Mechanical Ventilator 30 12/23/16 06:54 92 31 30 12/23/16 06:00 92 26 113/65 99 Mechanical Ventilator 30 12/23/16 06:00 113/65 12/23/16 05:21 122/64 12/23/16 05:21 122/64 12/23/16 05:15 89 23 30 12/23/16 05:00 95 26 122/64 99 Mechanical Ventilator 30 12/23/16 04:00 87 12/23/16 04:00 30 12/23/16 04:00 98.0 86 26 108/64 99 Mechanical Ventilator 30 12/23/16 03:16 86 16 30 12/23/16 03:00 95 26 120/69 99 Mechanical Ventilator 30 12/23/16 02:00 95 26 114/63 99 Mechanical Ventilator 30 12/23/16 01:13 90 17 30 12/23/16 01:00 96 26 112/65 99 Mechanical Ventilator 30 12/23/16 00:00 97.5 90 26 106/68 99 Mechanical Ventilator 40 12/23/16 00:00 30 12/23/16 00:00 94 12/22/16 23:59 108/65 12/22/16 23:20 94 28 30 12/22/16 23:00 94 26 119/62 99 Mechanical Ventilator 30 12/22/16 22:00 73 15 128/72 100 Mechanical Ventilator 30 12/22/16 21:51 131/68 12/22/16 21:17 75 15 30 12/22/16 21:00 76 19 131/68 100 Mechanical Ventilator 30 12/22/16 20:30 73 12/22/16 20:00 97.8 74 20 129/70 100 Mechanical Ventilator 30 12/22/16 20:00 30 12/22/16 19:07 77 10 30 12/22/16 19:00 74 21 136/73 100 Mechanical Ventilator 30 12/22/16 18:10 128/72 12/22/16 18:09 128/72 12/22/16 18:00 79 21 128/72 100 Mechanical Ventilator 30 12/22/16 17:21 84 22 30 12/22/16 17:20 87 20 30 12/22/16 17:00 76 22 129/75 100 Mechanical Ventilator 30 12/22/16 16:00 98.2 76 18 119/68 100 Mechanical Ventilator 30 12/22/16 16:00 30 12/22/16 16:00 76 Height (Feet): 5 Height (Inches): 9.00 Weight (Pounds): 150 General Appearance: no acute distress Respiratory/Chest: no respiratory distress Cardiovascular: normal rate, regular rhythm Abdomen: normal bowel sounds, soft, non tender, non distended Laboratory Tests Test 12/22/16 15:30 12/23/16 04:20 12/23/16 09:15 Body Fluid Source Thoracentesis Body Fluid Volume 27 mL Body Fluid Appearance Hazy Body Fluid RBC 1515 /CUMM Body Fluid Total Nucleated Cells 155 /CUMM Body Fluid Polynuclear WBCs (%) 16 % Body Fluid Mononuclear WBCs (%) 82 % Body Fluid Mesothelial Cells (%) 2 % Body Fluid Total Protein Pending Body Fluid Albumin Pending White Blood Count 9.0 K/UL (4.8-10.8) Red Blood Count 2.81 M/UL (4.70-6.10) L Hemoglobin 8.4 G/DL (14.2-18.0) L Hematocrit 26.5 % (42.0-52.0) L Mean Corpuscular Volume 94 FL (80-99) Mean Corpuscular Hemoglobin 29.8 PG (27.0-31.0) Mean Corpuscular Hemoglobin Concent 31.6 G/DL (32.0-36.0) L Red Cell Distribution Width 14.9 % (11.6-14.8) H Platelet Count 233 K/UL (150-450) Mean Platelet Volume 7.2 FL (6.5-10.1) Neutrophils (%) (Auto) 80.7 % (45.0-75.0) H Lymphocytes (%) (Auto) 6.6 % (20.0-45.0) L Monocytes (%) (Auto) 9.2 % (1.0-10.0) Eosinophils (%) (Auto) 1.0 % (0.0-3.0) Basophils (%) (Auto) 2.6 % (0.0-2.0) H Prothrombin Time 11.1 SEC (9.30-11.50) Prothromb Time International Ratio 1.1 (0.9-1.1) Activated Partial Thromboplast Time 34 SEC (23-33) H Sodium Level 145 mEQ/L (135-145) Potassium Level 3.4 mEQ/L (3.4-4.9) Chloride Level 104 mEQ/L (98-107) Carbon Dioxide Level 28 mEQ/L (20-30) Anion Gap 13 (5-15) Blood Urea Nitrogen 59 mg/dL (7-23) H Creatinine 2.5 mg/dL (0.7-1.2) H Estimat Glomerular Filtration Rate 31.5 mL/min (>60) Glucose Level 118 mg/dL (74-106) H Calcium Level 8.3 mg/dL (8.6-10.2) L Phosphorus Level 3.5 mg/dL (2.5-4.8) Magnesium Level 2.4 mg/dL (1.7-2.5) Total Bilirubin 0.4 mg/dL (0.0-1.2) Aspartate Amino Transf (AST/SGOT) 34 U/L (5-40) Alanine Aminotransferase (ALT/SGPT) 20 U/L (3-41) Alkaline Phosphatase 65 U/L (40-129) Total Protein 6.7 g/dL (6.6-8.7) Albumin 2.0 g/dL (3.5-5.2) L Globulin 4.7 g/dL Albumin/Globulin Ratio 0.4 (1.0-2.7) L Arterial Blood pH 7.425 (7.350-7.450) Arterial Blood Partial Pressure CO2 49.3 mmHg (35.0-45.0) H Arterial Blood Partial Pressure O2 110.0 mmHg (75.0-100.0) H Arterial Blood HCO3 31.6 mmol/L (22.0-26.0) H Arterial Blood Oxygen Saturation 97.7 % (92.0-98.0) Arterial Blood Base Excess 6.1 Adrian Test Positive Current Medications Medications (Trade) Dose Ordered Sig/Melania Route PRN Reason Start Time Stop Time Status Last Admin Dose Admin Acetaminophen (Tylenol) 650 mg Q4H PRN ORAL Fever 12/22/16 09:00 01/21/17 08:59 Albuterol/ Ipratropium (DuoNeb 0.5-3(2.5)mg/3ml) 3 ml Q4H PRN HHN Shortness of Breath 12/21/16 14:00 12/26/16 13:59 Amlodipine Besylate (Norvasc) 10 mg DAILY NG 12/16/16 09:00 01/15/17 08:59 12/23/16 09:39 Bumetanide (Bumex) 2 mg BID@0930,1830 IVP 12/23/16 10:00 01/22/17 09:59 12/23/16 11:30 Clonidine HCl (Catapres) 0.1 mg EVERY 6 HOURS ORAL 12/15/16 12:00 01/14/17 11:59 12/23/16 12:34 Dextrose (Dextrose 50%) STAT PRN IV Hypoglycemia 12/11/16 00:45 01/10/17 00:44 Haloperidol Lactate/Dextrose (Haldol/D5W) 56 ml @ 112 mls/hr Q4H PRN IVPB AGITATION 12/23/16 11:30 01/22/17 11:29 Hydralazine HCl (Apresoline) 50 mg Q8HR NG 12/15/16 22:00 01/14/17 21:59 12/23/16 05:21 Lorazepam (Ativan 2mg/ml 1ml) 1 mg Q4H PRN IV For Anxiety 12/21/16 14:00 12/28/16 13:59 12/23/16 05:22 Lorazepam 0.5 mg 0.5 mg Q4H PRN IV For Anxiety 12/23/16 11:15 12/30/16 11:14 12/23/16 11:31 Metolazone (Zaroxolyn) 5 mg DAILY ORAL 12/21/16 14:15 01/20/17 14:14 12/23/16 09:39 Nitroglycerin (Nitro-Bid) 1 inch TID@0600,1200,1800 TOPIC 12/12/16 06:00 01/11/17 05:59 12/23/16 12:34 Ondansetron HCl (Zofran) 4 mg Q6H PRN IVP Nausea & Vomiting 12/10/16 18:45 01/09/17 18:44 Pantoprazole (Protonix) 40 mg DAILY IVP 12/11/16 16:00 01/10/17 15:59 12/23/16 09:39 Polyethylene Glycol (Miralax) 17 gm DAILYPRN PRN ORAL Constipation 12/11/16 00:45 01/10/17 00:44 Vitamin A/Vitamin D (A & D Oint) 1 applic EVERY 12 HOURS TOPIC 12/10/16 21:00 01/09/17 20:59 12/23/16 09:39 Vitamin B Complex/ Vit C/Folic Acid (Nephrovite) 1 tab DAILY GT 12/12/16 09:00 01/11/17 08:59 12/23/16 09:39 DICK GARBER Dec 23, 2016 15:27
--- NOTE | 2016-12-23 18:55 | Internal Med Progress Note ---
Subjective Date of Service: Dec 23, 2016 Physician Name Ramya Wesley Attending Physician Wild Hawkins MD Current Medications Medications (Trade) Dose Ordered Sig/Melania Route PRN Reason Start Time Stop Time Status Last Admin Dose Admin Acetaminophen (Tylenol) 650 mg Q4H PRN ORAL Fever 12/22/16 09:00 01/21/17 08:59 Albuterol/ Ipratropium (DuoNeb 0.5-3(2.5)mg/3ml) 3 ml Q4H PRN HHN Shortness of Breath 12/21/16 14:00 12/26/16 13:59 Amlodipine Besylate (Norvasc) 10 mg DAILY NG 12/16/16 09:00 01/15/17 08:59 12/23/16 09:39 Bumetanide (Bumex) 2 mg BID@0930,1830 IVP 12/23/16 10:00 01/22/17 09:59 12/23/16 18:41 Clonidine HCl (Catapres) 0.1 mg EVERY 6 HOURS ORAL 12/15/16 12:00 01/14/17 11:59 12/23/16 18:30 Dextrose (Dextrose 50%) STAT PRN IV Hypoglycemia 12/11/16 00:45 01/10/17 00:44 Haloperidol Lactate/Dextrose (Haldol/D5W) 56 ml @ 112 mls/hr Q4H PRN IVPB AGITATION 12/23/16 11:30 01/22/17 11:29 Hydralazine HCl (Apresoline) 50 mg Q8HR NG 12/15/16 22:00 01/14/17 21:59 12/23/16 05:21 Lorazepam (Ativan 2mg/ml 1ml) 1 mg Q4H PRN IV For Anxiety 12/21/16 14:00 12/28/16 13:59 12/23/16 05:22 Lorazepam 0.5 mg 0.5 mg Q4H PRN IV For Anxiety 12/23/16 11:15 12/30/16 11:14 12/23/16 11:31 Metolazone (Zaroxolyn) 5 mg DAILY ORAL 12/21/16 14:15 01/20/17 14:14 12/23/16 09:39 Nitroglycerin (Nitro-Bid) 1 inch TID@0600,1200,1800 TOPIC 12/12/16 06:00 01/11/17 05:59 12/23/16 18:29 Ondansetron HCl (Zofran) 4 mg Q6H PRN IVP Nausea & Vomiting 12/10/16 18:45 01/09/17 18:44 Pantoprazole (Protonix) 40 mg DAILY IVP 12/11/16 16:00 01/10/17 15:59 12/23/16 09:39 Polyethylene Glycol (Miralax) 17 gm DAILYPRN PRN ORAL Constipation 12/11/16 00:45 01/10/17 00:44 Vitamin A/Vitamin D (A & D Oint) 1 applic EVERY 12 HOURS TOPIC 12/10/16 21:00 01/09/17 20:59 12/23/16 09:39 Vitamin B Complex/ Vit C/Folic Acid (Nephrovite) 1 tab DAILY GT 12/12/16 09:00 01/11/17 08:59 12/23/16 09:39 Allergies: Coded Allergies: No Known Allergies (Unverified , 04/29/13) Subjective 66 YO M admitted with shortness of breath; now respiratory failure. Cover for Int Med-Dr Hawkins. ICU. Currently extubated and tolerating nasal canula.. Await thoracentesis Objective Last Vital Signs Date Time Temp Pulse Resp B/P Pulse Ox O2 Delivery O2 Flow Rate FiO2 12/23/16 18:50 100 Nasal Cannula 3.0 32 12/23/16 18:49 71 24 12/23/16 18:30 117/65 12/23/16 16:00 96.8 Laboratory Tests Test 12/23/16 04:20 12/23/16 09:15 White Blood Count 9.0 K/UL (4.8-10.8) Red Blood Count 2.81 M/UL (4.70-6.10) L Hemoglobin 8.4 G/DL (14.2-18.0) L Hematocrit 26.5 % (42.0-52.0) L Mean Corpuscular Volume 94 FL (80-99) Mean Corpuscular Hemoglobin 29.8 PG (27.0-31.0) Mean Corpuscular Hemoglobin Concent 31.6 G/DL (32.0-36.0) L Red Cell Distribution Width 14.9 % (11.6-14.8) H Platelet Count 233 K/UL (150-450) Mean Platelet Volume 7.2 FL (6.5-10.1) Neutrophils (%) (Auto) 80.7 % (45.0-75.0) H Lymphocytes (%) (Auto) 6.6 % (20.0-45.0) L Monocytes (%) (Auto) 9.2 % (1.0-10.0) Eosinophils (%) (Auto) 1.0 % (0.0-3.0) Basophils (%) (Auto) 2.6 % (0.0-2.0) H Prothrombin Time 11.1 SEC (9.30-11.50) Prothromb Time International Ratio 1.1 (0.9-1.1) Activated Partial Thromboplast Time 34 SEC (23-33) H Sodium Level 145 mEQ/L (135-145) Potassium Level 3.4 mEQ/L (3.4-4.9) Chloride Level 104 mEQ/L (98-107) Carbon Dioxide Level 28 mEQ/L (20-30) Anion Gap 13 (5-15) Blood Urea Nitrogen 59 mg/dL (7-23) H Creatinine 2.5 mg/dL (0.7-1.2) H Estimat Glomerular Filtration Rate 31.5 mL/min (>60) Glucose Level 118 mg/dL (74-106) H Calcium Level 8.3 mg/dL (8.6-10.2) L Phosphorus Level 3.5 mg/dL (2.5-4.8) Magnesium Level 2.4 mg/dL (1.7-2.5) Total Bilirubin 0.4 mg/dL (0.0-1.2) Aspartate Amino Transf (AST/SGOT) 34 U/L (5-40) Alanine Aminotransferase (ALT/SGPT) 20 U/L (3-41) Alkaline Phosphatase 65 U/L (40-129) Total Protein 6.7 g/dL (6.6-8.7) Albumin 2.0 g/dL (3.5-5.2) L Globulin 4.7 g/dL Albumin/Globulin Ratio 0.4 (1.0-2.7) L Arterial Blood pH 7.425 (7.350-7.450) Arterial Blood Partial Pressure CO2 49.3 mmHg (35.0-45.0) H Arterial Blood Partial Pressure O2 110.0 mmHg (75.0-100.0) H Arterial Blood HCO3 31.6 mmol/L (22.0-26.0) H Arterial Blood Oxygen Saturation 97.7 % (92.0-98.0) Arterial Blood Base Excess 6.1 Adrian Test Positive Intake and Output 12/22/16 12/23/16 19:00 07:00 Intake Total 640 ml 695 ml Output Total 1950 ml 980 ml Balance -1310 ml -285 ml Free Water 50 ml 200 ml Tube Feeding 540 ml 495 ml Other 50 ml Output Urine Total 1450 ml 980 ml Other 500 ml # Bowel Movements 23 11 Objective General Appearance: WD/WN, moderate distress EENT: normal ENT inspection Neck: non-tender, normal alignment, supple Cardiovascular: normal peripheral pulses, normal rate, regular rhythm, no gallop/murmur, no JVD Respiratory/Chest: Nasal canula; crackles/rales, rhonchi - bilaterally, expiratory wheezing Abdomen: normal bowel sounds, non tender, soft, no organomegaly, no mass Extremities: normal range of motion 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 See pulmonary note. (3) Renal failure Assessment & Plan: See nephrology note. (4) HTN (hypertension) (5) CAD (coronary artery disease) (6) CHF (congestive heart failure) Assessment & Plan: See cardiology note. Cont lasix. (7) Anemia (8) Uncontrolled hypertension Assessment & Plan: Start norvasc per cardiology (9) Pneumonia Assessment & Plan: D/C antibiotics per ID-see ID note. (10) Pleural effusion Assessment & Plan: Bilateral. Await thoracentesis. See pulmonary note. Status: progressing RAMYA WESLEY Dec 23, 2016 18:55
[2016-12-24] VITALS (19 sets, daily range): BP systolic 103–136; BP diastolic 53–77
[2016-12-24] MEDS: HydrALAZINE 50mg tab NG SCH ×3 (05:23→22:12)
[2016-12-24] MEDS: Nitroglycerin 2% oint pkt TOPIC SCH ×3 (05:24→18:05)
[2016-12-24 06:03] LABS: MEAN CORPUSCULAR HGB CONC 30.8 G/DL (32.0-36.0); MEAN CORPUSCULAR VOLUME 97 FL (80-99); MEAN PLATELET VOLUME 6.8 FL (6.5-10.1); PLATELET COUNT 234 K/UL (150-450); RED BLOOD COUNT 2.32 M/UL (4.70-6.10); RED CELL DISTRIBUTION WIDTH 15.4 % (11.6-14.8); WHITE BLOOD COUNT 8.3 K/UL (4.8-10.8)
[2016-12-24 06:19] LABS: ALBUMIN/GLOBULIN RATIO 0.4 (1.0-2.7); CALCIUM 8.3 mg/dL (8.6-10.2); CREATININE 2.4 mg/dL (0.7-1.2); GLOMERULAR FILTRATION RATE 33.1 mL/min (>60); MAGNESIUM 2.4 mg/dL (1.7-2.5); PHOSPHORUS 3.6 mg/dL (2.5-4.8); POTASSIUM 3.8 mEQ/L (3.4-4.9); TOTAL PROTEIN 6.7 g/dL (6.6-8.7)
[2016-12-24 07:45] LABS: BASOPHILS % (AUTO) 0.6 % (0.0-2.0); EOSINOPHILS % (AUTO) 3.2 % (0.0-3.0); LYMPHOCYTES % (AUTO) 18.7 % (20.0-45.0); MEAN CORPUSCULAR HEMOGLOBIN 29.6 PG (27.0-31.0); MEAN CORPUSCULAR HGB CONC 31.8 G/DL (32.0-36.0); MEAN CORPUSCULAR VOLUME 93 FL (80-99); MEAN PLATELET VOLUME 6.3 FL (6.5-10.1); MONOCYTES % (AUTO) 7.3 % (1.0-10.0); NEUTROPHILS % (AUTO) 70.2 % (45.0-75.0); PLATELET COUNT 283 K/UL (150-450); RED BLOOD COUNT 2.91 M/UL (4.70-6.10); WHITE BLOOD COUNT 7.7 K/UL (4.8-10.8)
[2016-12-24 08:05] LABS: ALBUMIN/GLOBULIN RATIO 0.5 (1.0-2.7); CALCIUM 8.7 mg/dL (8.6-10.2); CREATININE 2.3 mg/dL (0.7-1.2); GLOMERULAR FILTRATION RATE 34.8 mL/min (>60); MAGNESIUM 2.4 mg/dL (1.7-2.5); PHOSPHORUS 3.7 mg/dL (2.5-4.8); POTASSIUM 3.9 mEQ/L (3.4-4.9)
[2016-12-24] MEDS: Vitamin A&D Oint 2oz Tube TOPIC SCH ×2 (08:52→22:13)
[2016-12-24] MEDS: Pantoprazole Inj IVP SCH (09:00)
[2016-12-24] MEDS: Nephrovite tab GT SCH (09:44)
[2016-12-24] MEDS: Metolazone 5mg tab ORAL SCH (09:44)
[2016-12-24] MEDS: Bumetanide 2.5mg/10ml Inj IVP SCH (09:45)
[2016-12-24] MEDS: LORazepam Inj 2mg/ml 1ml IV PRN (09:53)
[2016-12-24 10:04] LABS: ANISOCYTOSIS 1+; BAND NEUTROPHILS % (MANUAL) 1 % (0-8); BASOPHILS % (MANUAL) 0 % (0-2); EOSINOPHILS % (MANUAL) 1 % (0-3); HYPOCHROMASIA 1+; LYMPHOCYTES % (MANUAL) 12 % (20-45); NEUTROPHILS % (MANUAL) 82 % (45-75); PLATELET ESTIMATE ADEQUATE; PLATELET MORPHOLOGY NORMAL; TOTAL CELLS COUNTED 100
--- NOTE | 2016-12-24 10:28 | Pulmonolgy Critical Care Note ---
Critical Care - Asmt/Plan Problems: (1) Aspiration pneumonia (2) Respiratory failure (3) Pleural effusion (4) ATN (acute tubular necrosis) (5) Hepatitis C (6) CAD (coronary artery disease) Respiratory: monitor respiratory rate, adjust FIO2 Cardiac: continue to monitor HR/BP Renal: F/U I&O, check electrolytes Infectious Disease: continue antibiotics, other - monitor pt off of ABX Gastrointestinal: continue feedings/current rate Endocrine: monitor blood sugar Hematologic: monitor H/H Neurologic: PRN Ativan Affect: PRN ativan Prophylaxis: Protonix Disposition: transfer to Time Spent (Minutes): 40 Notes Reviewed: dental coordinator, cardio, renal Discussed with: nurses, consultants, casework managercasework manager - Objective Last 24 Hour Vital Signs Date Time Temp Pulse Resp B/P Pulse Ox O2 Delivery O2 Flow Rate FiO2 12/24/16 10:00 85 20 125/71 100 Room Air 12/24/16 09:44 92 125/67 12/24/16 09:00 81 20 117/60 100 Room Air 12/24/16 08:00 98.1 85 24 123/56 100 Room Air 12/24/16 08:00 85 12/24/16 07:20 Nasal Cannula 3.0 32 12/24/16 07:20 100 Nasal Cannula 3.0 32 12/24/16 07:20 84 24 Nasal Cannula 3.0 32 12/24/16 07:00 84 24 118/62 100 Nasal Cannula 3.0 12/24/16 06:00 89 24 107/58 100 Nasal Cannula 3.0 12/24/16 05:24 104/58 12/24/16 05:24 104/58 12/24/16 05:23 104/58 12/24/16 05:00 85 24 104/58 100 Nasal Cannula 3.0 12/24/16 04:00 81 12/24/16 04:00 98.0 81 24 114/56 100 Nasal Cannula 3.0 12/24/16 03:00 81 24 105/55 100 Nasal Cannula 3.0 12/24/16 02:00 85 24 107/58 100 Nasal Cannula 3.0 12/24/16 01:00 80 24 106/55 100 Nasal Cannula 3.0 12/24/16 00:00 97.4 80 24 103/53 100 Nasal Cannula 3.0 12/24/16 00:00 85 12/23/16 23:43 105/59 12/23/16 23:00 74 24 109/56 100 Nasal Cannula 3.0 12/23/16 22:28 113/66 12/23/16 22:00 73 24 113/66 100 Nasal Cannula 3.0 12/23/16 21:00 70 24 125/65 100 Nasal Cannula 3.0 12/23/16 20:00 72 12/23/16 20:00 97.4 72 27 123/67 100 Nasal Cannula 3.0 12/23/16 19:00 73 27 123/66 100 Nasal Cannula 3.0 12/23/16 18:50 100 Nasal Cannula 3.0 32 12/23/16 18:50 Nasal Cannula 3.0 32 12/23/16 18:49 71 24 Nasal Cannula 3.0 32 12/23/16 18:30 117/65 12/23/16 18:29 117/65 12/23/16 18:00 78 26 117/65 100 Nasal Cannula 3.0 12/23/16 17:00 73 28 128/70 100 Nasal Cannula 3.0 12/23/16 16:00 96.8 75 26 128/69 100 Nasal Cannula 3.0 12/23/16 16:00 75 12/23/16 15:00 76 31 128/63 100 Nasal Cannula 3.0 12/23/16 14:00 80 30 122/68 100 Nasal Cannula 3.0 12/23/16 14:00 122/68 12/23/16 13:00 97.8 86 30 134/73 100 Nasal Cannula 3.0 12/23/16 12:34 131/73 12/23/16 12:34 131/73 12/23/16 12:00 87 30 130/76 100 Nasal Cannula 3.0 12/23/16 12:00 86 12/23/16 11:00 90 26 128/73 100 Nasal Cannula 4.0 Status: awake Condition: critical HEENT: atraumatic Neck: full ROM Heart: HR/BP stable Abdomen: soft, non-tender Extremities: no C/C/E, edema Decubiti: location Accucheck: 128 Critical Care - Subjective ROS Limited/Unobtainable: No ICU Day: 14 Intubation Day: extybated yesterday Condition: critical EKG Rhythm: Sinus Rhythm FI02: 32 Vent Support Breath Rate: 10 Vent Support Mode: CPAP Vent Tidal Volume: 600 Sputum Amount: None PEEP: 0.0 PIP: 19 Tube Feeding Amount: 45 I&O: Intake and Output 12/23/16 12/24/16 19:00 07:00 Intake Total 305 ml 550 ml Output Total 1305 ml 1365 ml Balance -1000 ml -815 ml Intake Oral 170 ml 550 ml Tube Feeding 135 ml Output Urine Total 1305 ml 1365 ml CXR: L mid zone infiltrate ET-Tube: 7.5 ET Position: 22 Labs: Laboratory Tests Test 12/24/16 04:15 12/24/16 07:30 White Blood Count 8.3 K/UL (4.8-10.8) 7.7 K/UL (4.8-10.8) Red Blood Count 2.32 M/UL (4.70-6.10) L 2.91 M/UL (4.70-6.10) L Hemoglobin 7.0 G/DL (14.2-18.0) L 8.6 G/DL (14.2-18.0) L Hematocrit 22.5 % (42.0-52.0) L 27.2 % (42.0-52.0) L Mean Corpuscular Volume 97 FL (80-99) 93 FL (80-99) Mean Corpuscular Hemoglobin 30.0 PG (27.0-31.0) 29.6 PG (27.0-31.0) Mean Corpuscular Hemoglobin Concent 30.8 G/DL (32.0-36.0) L 31.8 G/DL (32.0-36.0) L Red Cell Distribution Width 15.4 % (11.6-14.8) H 15.0 % (11.6-14.8) H Platelet Count 234 K/UL (150-450) 283 K/UL (150-450) Mean Platelet Volume 6.8 FL (6.5-10.1) 6.3 FL (6.5-10.1) L Neutrophils (%) (Auto) % (45.0-75.0) 70.2 % (45.0-75.0) Lymphocytes (%) (Auto) % (20.0-45.0) 18.7 % (20.0-45.0) L Monocytes (%) (Auto) % (1.0-10.0) 7.3 % (1.0-10.0) Eosinophils (%) (Auto) % (0.0-3.0) 3.2 % (0.0-3.0) H Basophils (%) (Auto) % (0.0-2.0) 0.6 % (0.0-2.0) Differential Total Cells Counted 100 Neutrophils % (Manual) 82 % (45-75) H Lymphocytes % (Manual) 12 % (20-45) L Monocytes % (Manual) 4 % (1-10) Eosinophils % (Manual) 1 % (0-3) Basophils % (Manual) 0 % (0-2) Band Neutrophils 1 % (0-8) Nucleated Red Blood Cells /100 WBC Platelet Estimate Adequate Platelet Morphology Normal Hypochromasia 1+ Anisocytosis 1+ Sodium Level 147 mEQ/L (135-145) H 144 mEQ/L (135-145) Potassium Level 3.8 mEQ/L (3.4-4.9) 3.9 mEQ/L (3.4-4.9) Chloride Level 105 mEQ/L (98-107) 101 mEQ/L (98-107) Carbon Dioxide Level 25 mEQ/L (20-30) 32 mEQ/L (20-30) H Anion Gap 17 (5-15) H 11 (5-15) Blood Urea Nitrogen 59 mg/dL (7-23) H 62 mg/dL (7-23) H Creatinine 2.4 mg/dL (0.7-1.2) H 2.3 mg/dL (0.7-1.2) H Estimat Glomerular Filtration Rate 33.1 mL/min (>60) 34.8 mL/min (>60) Glucose Level 92 mg/dL (74-106) 87 mg/dL (74-106) Calcium Level 8.3 mg/dL (8.6-10.2) L 8.7 mg/dL (8.6-10.2) Phosphorus Level 3.6 mg/dL (2.5-4.8) 3.7 mg/dL (2.5-4.8) Magnesium Level 2.4 mg/dL (1.7-2.5) 2.4 mg/dL (1.7-2.5) Total Bilirubin 0.4 mg/dL (0.0-1.2) 0.4 mg/dL (0.0-1.2) Aspartate Amino Transf (AST/SGOT) 36 U/L (5-40) 29 U/L (5-40) Alanine Aminotransferase (ALT/SGPT) 20 U/L (3-41) 15 U/L (3-41) Alkaline Phosphatase 64 U/L (40-129) 66 U/L (40-129) Total Protein 6.7 g/dL (6.6-8.7) 7.0 g/dL (6.6-8.7) Albumin 2.0 g/dL (3.5-5.2) L 2.4 g/dL (3.5-5.2) L Globulin 4.7 g/dL 4.6 g/dL Albumin/Globulin Ratio 0.4 (1.0-2.7) L 0.5 (1.0-2.7) L YAMILET DIOR Dec 24, 2016 10:27
--- NOTE | 2016-12-24 11:07 | General Progress Note ---
Assessment/Plan Status: stable Status Narrative remains extubated the second day Assessment/Plan -Renal insufficiency. ? Acute on Chronic Cr stable, and slow rising ! Urine output improved Other: -Abnormal mentation. -Respiratory failure, acute with hypoxia-/ Aspiration [place] -Congestive heart failure with pleural effusion, -Mitral regurgitation. -Cardiomyopathy. -History of amphetamine abuse. -History of paroxysmal episodes of atrial fibrillation per report. -Hepatitis C virus with cirrhosis. Plan: K supplement as needed Optimize cardiac and pulmonary status- Keep BP in check- Monitor renal parameters- avoid nephrotoxics- per orders- UA 3+ protein out of ICU? Subjective ROS Limited/Unobtainable: No Constitutional: Reports: malaise Allergies: Coded Allergies: No Known Allergies (Unverified , 04/29/13) Objective Last 24 Hour Vital Signs Date Time Temp Pulse Resp B/P Pulse Ox O2 Delivery O2 Flow Rate FiO2 12/24/16 10:00 85 20 125/71 100 Room Air 12/24/16 09:44 92 125/67 12/24/16 09:00 81 20 117/60 100 Room Air 12/24/16 08:00 98.1 85 24 123/56 100 Room Air 12/24/16 08:00 85 12/24/16 07:20 Nasal Cannula 3.0 32 12/24/16 07:20 100 Nasal Cannula 3.0 32 12/24/16 07:20 84 24 Nasal Cannula 3.0 32 12/24/16 07:00 84 24 118/62 100 Nasal Cannula 3.0 12/24/16 06:00 89 24 107/58 100 Nasal Cannula 3.0 12/24/16 05:24 104/58 12/24/16 05:24 104/58 12/24/16 05:23 104/58 12/24/16 05:00 85 24 104/58 100 Nasal Cannula 3.0 12/24/16 04:00 81 12/24/16 04:00 98.0 81 24 114/56 100 Nasal Cannula 3.0 12/24/16 03:00 81 24 105/55 100 Nasal Cannula 3.0 12/24/16 02:00 85 24 107/58 100 Nasal Cannula 3.0 12/24/16 01:00 80 24 106/55 100 Nasal Cannula 3.0 12/24/16 00:00 97.4 80 24 103/53 100 Nasal Cannula 3.0 12/24/16 00:00 85 12/23/16 23:43 105/59 12/23/16 23:00 74 24 109/56 100 Nasal Cannula 3.0 12/23/16 22:28 113/66 12/23/16 22:00 73 24 113/66 100 Nasal Cannula 3.0 12/23/16 21:00 70 24 125/65 100 Nasal Cannula 3.0 12/23/16 20:00 72 12/23/16 20:00 97.4 72 27 123/67 100 Nasal Cannula 3.0 12/23/16 19:00 73 27 123/66 100 Nasal Cannula 3.0 12/23/16 18:50 100 Nasal Cannula 3.0 32 12/23/16 18:50 Nasal Cannula 3.0 32 12/23/16 18:49 71 24 Nasal Cannula 3.0 32 12/23/16 18:30 117/65 12/23/16 18:29 117/65 12/23/16 18:00 78 26 117/65 100 Nasal Cannula 3.0 12/23/16 17:00 73 28 128/70 100 Nasal Cannula 3.0 12/23/16 16:00 96.8 75 26 128/69 100 Nasal Cannula 3.0 12/23/16 16:00 75 12/23/16 15:00 76 31 128/63 100 Nasal Cannula 3.0 12/23/16 14:00 80 30 122/68 100 Nasal Cannula 3.0 12/23/16 14:00 122/68 12/23/16 13:00 97.8 86 30 134/73 100 Nasal Cannula 3.0 12/23/16 12:34 131/73 12/23/16 12:34 131/73 12/23/16 12:00 87 30 130/76 100 Nasal Cannula 3.0 12/23/16 12:00 86 Intake and Output 12/23/16 12/24/16 19:00 07:00 Intake Total 305 ml 550 ml Output Total 1305 ml 1365 ml Balance -1000 ml -815 ml Intake Oral 170 ml 550 ml Tube Feeding 135 ml Output Urine Total 1305 ml 1365 ml Laboratory Tests 12/24/16 04:15: White Blood Count 8.3, Red Blood Count 2.32L, Hemoglobin 7.0L, Hematocrit 22.5L , Mean Corpuscular Volume 97, Mean Corpuscular Hemoglobin 30.0, Mean Corpuscular Hemoglobin Concent 30.8L, Red Cell Distribution Width 15.4H, Platelet Count 234, Mean Platelet Volume 6.8, Neutrophils (%) (Auto) , Lymphocytes (%) (Auto) , Monocytes (%) (Auto) , Eosinophils (%) (Auto) , Basophils (%) (Auto) , Differential Total Cells Counted 100, Neutrophils % ( Manual) 82H, Lymphocytes % (Manual) 12L, Monocytes % (Manual) 4, Eosinophils % ( Manual) 1, Basophils % (Manual) 0, Band Neutrophils 1, Nucleated Red Blood Cells , Platelet Estimate Adequate, Platelet Morphology Normal, Hypochromasia 1+ , Anisocytosis 1+, Sodium Level 147H, Potassium Level 3.8, Chloride Level 105, Carbon Dioxide Level 25, Anion Gap 17H, Blood Urea Nitrogen 59H, Creatinine 2.4H , Estimat Glomerular Filtration Rate 33.1, Glucose Level 92, Calcium Level 8.3L , Phosphorus Level 3.6, Magnesium Level 2.4, Total Bilirubin 0.4, Aspartate Amino Transf (AST/SGOT) 36, Alanine Aminotransferase (ALT/SGPT) 20, Alkaline Phosphatase 64, Total Protein 6.7, Albumin 2.0L, Globulin 4.7, Albumin/Globulin Ratio 0.4L 12/24/16 07:30: White Blood Count 7.7, Red Blood Count 2.91L, Hemoglobin 8.6L, Hematocrit 27.2L , Mean Corpuscular Volume 93, Mean Corpuscular Hemoglobin 29.6, Mean Corpuscular Hemoglobin Concent 31.8L, Red Cell Distribution Width 15.0H, Platelet Count 283, Mean Platelet Volume 6.3L, Neutrophils (%) (Auto) 70.2, Lymphocytes (%) (Auto) 18.7L, Monocytes (%) (Auto) 7.3, Eosinophils (%) (Auto) 3.2H, Basophils (%) (Auto) 0.6, Sodium Level 144, Potassium Level 3.9, Chloride Level 101, Carbon Dioxide Level 32H, Anion Gap 11, Blood Urea Nitrogen 62H, Creatinine 2.3H, Estimat Glomerular Filtration Rate 34.8, Glucose Level 87, Calcium Level 8.7, Phosphorus Level 3.7, Magnesium Level 2.4, Total Bilirubin 0.4, Aspartate Amino Transf (AST/SGOT) 29, Alanine Aminotransferase (ALT/SGPT) 15, Alkaline Phosphatase 66, Total Protein 7.0, Albumin 2.4L, Globulin 4.6, Albumin/Globulin Ratio 0.5L Height (Feet): 5 Height (Inches): 9.00 Weight (Pounds): 150 General Appearance: no apparent distress Respiratory/Chest: decreased breath sounds Objective other PE not changed JUSTIN NESS Dec 24, 2016 11:07
[2016-12-24] MEDS ORDERED: Morphine Sulfate 2mg/ml Inj IVP PRN (11:15)
--- NOTE | 2016-12-24 11:32 | Internal Med Progress Note ---
Subjective Date of Service: Dec 24, 2016 Physician Name Reed Wesley Attending Physician Wild Hawkins MD Current Medications Medications (Trade) Dose Ordered Sig/Melania Route PRN Reason Start Time Stop Time Status Last Admin Dose Admin Acetaminophen (Tylenol) 650 mg Q4H PRN ORAL Fever 12/22/16 09:00 01/21/17 08:59 Albuterol/ Ipratropium (DuoNeb 0.5-3(2.5)mg/3ml) 3 ml Q4H PRN HHN Shortness of Breath 12/21/16 14:00 12/26/16 13:59 Amlodipine Besylate (Norvasc) 10 mg DAILY NG 12/16/16 09:00 01/15/17 08:59 12/24/16 09:44 Bumetanide (Bumex) 2 mg BID@0930,1830 IVP 12/23/16 10:00 01/22/17 09:59 12/24/16 09:45 Clonidine HCl (Catapres) 0.1 mg EVERY 6 HOURS ORAL 12/15/16 12:00 01/14/17 11:59 12/23/16 18:30 Dextrose (Dextrose 50%) STAT PRN IV Hypoglycemia 12/11/16 00:45 01/10/17 00:44 Haloperidol Lactate/Dextrose (Haldol/D5W) 56 ml @ 112 mls/hr Q4H PRN IVPB AGITATION 12/23/16 11:30 01/22/17 11:29 Hydralazine HCl (Apresoline) 50 mg Q8HR NG 12/15/16 22:00 01/14/17 21:59 12/24/16 05:23 Lorazepam 0.5 mg 0.5 mg Q4H PRN IV For Anxiety 12/23/16 11:15 12/30/16 11:14 12/23/16 11:31 Metolazone (Zaroxolyn) 5 mg DAILY ORAL 12/21/16 14:15 01/20/17 14:14 12/24/16 09:44 Morphine Sulfate (Morphine Sulfate) 2 mg Q4H PRN IVP Severe Pain (Pain Scale 7-10) 12/24/16 11:15 12/31/16 11:14 Nitroglycerin (Nitro-Bid) 1 inch TID@0600,1200,1800 TOPIC 12/12/16 06:00 01/11/17 05:59 12/24/16 05:24 Ondansetron HCl (Zofran) 4 mg Q6H PRN IVP Nausea & Vomiting 12/10/16 18:45 01/09/17 18:44 Pantoprazole (Protonix) 40 mg DAILY IVP 12/11/16 16:00 01/10/17 15:59 12/24/16 09:00 Polyethylene Glycol (Miralax) 17 gm DAILYPRN PRN ORAL Constipation 12/11/16 00:45 01/10/17 00:44 Vitamin A/Vitamin D (A & D Oint) 1 applic EVERY 12 HOURS TOPIC 12/10/16 21:00 01/09/17 20:59 12/24/16 08:52 Vitamin B Complex/ Vit C/Folic Acid (Nephrovite) 1 tab DAILY GT 12/12/16 09:00 01/11/17 08:59 12/24/16 09:44 Allergies: Coded Allergies: No Known Allergies (Unverified , 04/29/13) ROS Limited/Unobtainable: No Constitutional: Reports: no symptoms Cardiovascular: Reports: no symptoms Respiratory: Reports: shortness of breath Gastrointestinal/Abdominal: Reports: no symptoms Neurologic/Psychiatric: Reports: no symptoms Subjective 66 YO M admitted with shortness of breath; now respiratory failure. Cover for Int Med-Dr Hawkins. ICU. Currently extubated and tolerating nasal canula.. Await thoracentesis Objective Last Vital Signs Date Time Temp Pulse Resp B/P Pulse Ox O2 Delivery O2 Flow Rate FiO2 12/24/16 11:00 92 20 112/53 100 Room Air 12/24/16 08:00 98.1 12/24/16 07:20 3.0 32 Laboratory Tests Test 12/24/16 04:15 12/24/16 07:30 White Blood Count 8.3 K/UL (4.8-10.8) 7.7 K/UL (4.8-10.8) Red Blood Count 2.32 M/UL (4.70-6.10) L 2.91 M/UL (4.70-6.10) L Hemoglobin 7.0 G/DL (14.2-18.0) L 8.6 G/DL (14.2-18.0) L Hematocrit 22.5 % (42.0-52.0) L 27.2 % (42.0-52.0) L Mean Corpuscular Volume 97 FL (80-99) 93 FL (80-99) Mean Corpuscular Hemoglobin 30.0 PG (27.0-31.0) 29.6 PG (27.0-31.0) Mean Corpuscular Hemoglobin Concent 30.8 G/DL (32.0-36.0) L 31.8 G/DL (32.0-36.0) L Red Cell Distribution Width 15.4 % (11.6-14.8) H 15.0 % (11.6-14.8) H Platelet Count 234 K/UL (150-450) 283 K/UL (150-450) Mean Platelet Volume 6.8 FL (6.5-10.1) 6.3 FL (6.5-10.1) L Neutrophils (%) (Auto) % (45.0-75.0) 70.2 % (45.0-75.0) Lymphocytes (%) (Auto) % (20.0-45.0) 18.7 % (20.0-45.0) L Monocytes (%) (Auto) % (1.0-10.0) 7.3 % (1.0-10.0) Eosinophils (%) (Auto) % (0.0-3.0) 3.2 % (0.0-3.0) H Basophils (%) (Auto) % (0.0-2.0) 0.6 % (0.0-2.0) Differential Total Cells Counted 100 Neutrophils % (Manual) 82 % (45-75) H Lymphocytes % (Manual) 12 % (20-45) L Monocytes % (Manual) 4 % (1-10) Eosinophils % (Manual) 1 % (0-3) Basophils % (Manual) 0 % (0-2) Band Neutrophils 1 % (0-8) Nucleated Red Blood Cells /100 WBC Platelet Estimate Adequate Platelet Morphology Normal Hypochromasia 1+ Anisocytosis 1+ Sodium Level 147 mEQ/L (135-145) H 144 mEQ/L (135-145) Potassium Level 3.8 mEQ/L (3.4-4.9) 3.9 mEQ/L (3.4-4.9) Chloride Level 105 mEQ/L (98-107) 101 mEQ/L (98-107) Carbon Dioxide Level 25 mEQ/L (20-30) 32 mEQ/L (20-30) H Anion Gap 17 (5-15) H 11 (5-15) Blood Urea Nitrogen 59 mg/dL (7-23) H 62 mg/dL (7-23) H Creatinine 2.4 mg/dL (0.7-1.2) H 2.3 mg/dL (0.7-1.2) H Estimat Glomerular Filtration Rate 33.1 mL/min (>60) 34.8 mL/min (>60) Glucose Level 92 mg/dL (74-106) 87 mg/dL (74-106) Calcium Level 8.3 mg/dL (8.6-10.2) L 8.7 mg/dL (8.6-10.2) Phosphorus Level 3.6 mg/dL (2.5-4.8) 3.7 mg/dL (2.5-4.8) Magnesium Level 2.4 mg/dL (1.7-2.5) 2.4 mg/dL (1.7-2.5) Total Bilirubin 0.4 mg/dL (0.0-1.2) 0.4 mg/dL (0.0-1.2) Aspartate Amino Transf (AST/SGOT) 36 U/L (5-40) 29 U/L (5-40) Alanine Aminotransferase (ALT/SGPT) 20 U/L (3-41) 15 U/L (3-41) Alkaline Phosphatase 64 U/L (40-129) 66 U/L (40-129) Total Protein 6.7 g/dL (6.6-8.7) 7.0 g/dL (6.6-8.7) Albumin 2.0 g/dL (3.5-5.2) L 2.4 g/dL (3.5-5.2) L Globulin 4.7 g/dL 4.6 g/dL Albumin/Globulin Ratio 0.4 (1.0-2.7) L 0.5 (1.0-2.7) L Intake and Output 12/23/16 12/24/16 19:00 07:00 Intake Total 305 ml 550 ml Output Total 1305 ml 1365 ml Balance -1000 ml -815 ml Intake Oral 170 ml 550 ml Tube Feeding 135 ml Output Urine Total 1305 ml 1365 ml Objective General Appearance: WD/WN, moderate distress EENT: normal ENT inspection Neck: non-tender, normal alignment, supple Cardiovascular: normal peripheral pulses, normal rate, regular rhythm, no gallop/murmur, no JVD Respiratory/Chest: Nasal canula; crackles/rales, rhonchi - bilaterally, expiratory wheezing Abdomen: normal bowel sounds, non tender, soft, no organomegaly, no mass Extremities: normal range of motion Neurologic: product consultant II-XII grossly normal, no motor/sensory deficits Skin: normal pigmentation, warm/dry Assessment/Plan Problem List: (1) SOB (shortness of breath) (2) Respiratory failure Assessment & Plan: Extubated; tolerating nasal canula. See pulmonary note. (3) Renal failure Assessment & Plan: See nephrology note. (4) HTN (hypertension) (5) CAD (coronary artery disease) (6) CHF (congestive heart failure) Assessment & Plan: See cardiology note. Cont lasix. (7) Anemia (8) Uncontrolled hypertension Assessment & Plan: Start norvasc per cardiology (9) Pneumonia Assessment & Plan: D/C antibiotics per ID-see ID note. (10) Pleural effusion Assessment & Plan: Bilateral. Await thoracentesis. See pulmonary note. Status: progressing Assessment/Plan Transfer to Med/Surg REED WESLEY Dec 24, 2016 11:32
--- NOTE | 2016-12-24 11:39 | Diagnostic Imaging Report ---
Indications: DYSPNEA Technique: Portal AP chest Findings: Comparison: 12/22/2016 Cardiomegaly, bibasal pleural effusions, left retrocardiac opacification, subsegmental atelectasis right lung base persist, unchanged. Endotracheal and nasogastric tubes have been removed. No new abnormality identified. IMPRESSION: Endotracheal and nasogastric extubation No other change from 2 days prior
[2016-12-24 11:47] LABS: COMMENT,BODY FLUID PATHOLOGIST COMMENT
--- NOTE | 2016-12-24 15:02 | Infectious Diseases Prog Note ---
Assessment/Plan Assessment/Plan ASSESSMENT: 66-year-old male with: Aspiration PNA / pneumonitis - SCx NRF SP Rx CXR 12/21: mild interstitial edema and small effusions, stable. 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 Monitor chest x-ray Subjective Allergies: Coded Allergies: No Known Allergies (Unverified , 04/29/13) Subjective remains afebrile. comfortable Objective Vital Signs Last 24 Hour Vital Signs Date Time Temp Pulse Resp B/P Pulse Ox O2 Delivery O2 Flow Rate FiO2 12/24/16 14:00 118/60 12/24/16 14:00 90 20 118/60 100 Room Air 12/24/16 13:00 92 20 123/64 100 Room Air 12/24/16 12:20 117/62 12/24/16 12:01 97.9 88 20 118/62 100 Room Air 12/24/16 12:00 112/58 12/24/16 12:00 88 12/24/16 11:00 92 20 112/53 100 Room Air 12/24/16 10:00 85 20 125/71 100 Room Air 12/24/16 09:44 92 125/67 12/24/16 09:00 81 20 117/60 100 Room Air 12/24/16 08:00 98.1 85 24 123/56 100 Room Air 12/24/16 08:00 85 12/24/16 07:20 Nasal Cannula 3.0 32 12/24/16 07:20 100 Nasal Cannula 3.0 32 12/24/16 07:20 84 24 Nasal Cannula 3.0 32 12/24/16 07:00 84 24 118/62 100 Nasal Cannula 3.0 12/24/16 06:00 89 24 107/58 100 Nasal Cannula 3.0 12/24/16 05:24 104/58 12/24/16 05:24 104/58 12/24/16 05:23 104/58 12/24/16 05:00 85 24 104/58 100 Nasal Cannula 3.0 12/24/16 04:00 81 12/24/16 04:00 98.0 81 24 114/56 100 Nasal Cannula 3.0 12/24/16 03:00 81 24 105/55 100 Nasal Cannula 3.0 12/24/16 02:00 85 24 107/58 100 Nasal Cannula 3.0 12/24/16 01:00 80 24 106/55 100 Nasal Cannula 3.0 12/24/16 00:00 97.4 80 24 103/53 100 Nasal Cannula 3.0 12/24/16 00:00 85 12/23/16 23:43 105/59 12/23/16 23:00 74 24 109/56 100 Nasal Cannula 3.0 12/23/16 22:28 113/66 12/23/16 22:00 73 24 113/66 100 Nasal Cannula 3.0 12/23/16 21:00 70 24 125/65 100 Nasal Cannula 3.0 12/23/16 20:00 72 12/23/16 20:00 97.4 72 27 123/67 100 Nasal Cannula 3.0 12/23/16 19:00 73 27 123/66 100 Nasal Cannula 3.0 12/23/16 18:50 100 Nasal Cannula 3.0 32 12/23/16 18:50 Nasal Cannula 3.0 32 12/23/16 18:49 71 24 Nasal Cannula 3.0 32 12/23/16 18:30 117/65 12/23/16 18:29 117/65 12/23/16 18:00 78 26 117/65 100 Nasal Cannula 3.0 12/23/16 17:00 73 28 128/70 100 Nasal Cannula 3.0 12/23/16 16:00 96.8 75 26 128/69 100 Nasal Cannula 3.0 12/23/16 16:00 75 Height (Feet): 5 Height (Inches): 9.00 Weight (Pounds): 150 General Appearance: no acute distress Respiratory/Chest: no respiratory distress Cardiovascular: normal rate, regular rhythm Abdomen: normal bowel sounds, soft, non tender, non distended Laboratory Tests Test 12/24/16 04:15 12/24/16 07:30 White Blood Count 8.3 K/UL (4.8-10.8) 7.7 K/UL (4.8-10.8) Red Blood Count 2.32 M/UL (4.70-6.10) L 2.91 M/UL (4.70-6.10) L Hemoglobin 7.0 G/DL (14.2-18.0) L 8.6 G/DL (14.2-18.0) L Hematocrit 22.5 % (42.0-52.0) L 27.2 % (42.0-52.0) L Mean Corpuscular Volume 97 FL (80-99) 93 FL (80-99) Mean Corpuscular Hemoglobin 30.0 PG (27.0-31.0) 29.6 PG (27.0-31.0) Mean Corpuscular Hemoglobin Concent 30.8 G/DL (32.0-36.0) L 31.8 G/DL (32.0-36.0) L Red Cell Distribution Width 15.4 % (11.6-14.8) H 15.0 % (11.6-14.8) H Platelet Count 234 K/UL (150-450) 283 K/UL (150-450) Mean Platelet Volume 6.8 FL (6.5-10.1) 6.3 FL (6.5-10.1) L Neutrophils (%) (Auto) % (45.0-75.0) 70.2 % (45.0-75.0) Lymphocytes (%) (Auto) % (20.0-45.0) 18.7 % (20.0-45.0) L Monocytes (%) (Auto) % (1.0-10.0) 7.3 % (1.0-10.0) Eosinophils (%) (Auto) % (0.0-3.0) 3.2 % (0.0-3.0) H Basophils (%) (Auto) % (0.0-2.0) 0.6 % (0.0-2.0) Differential Total Cells Counted 100 Neutrophils % (Manual) 82 % (45-75) H Lymphocytes % (Manual) 12 % (20-45) L Monocytes % (Manual) 4 % (1-10) Eosinophils % (Manual) 1 % (0-3) Basophils % (Manual) 0 % (0-2) Band Neutrophils 1 % (0-8) Nucleated Red Blood Cells /100 WBC Platelet Estimate Adequate Platelet Morphology Normal Hypochromasia 1+ Anisocytosis 1+ Sodium Level 147 mEQ/L (135-145) H 144 mEQ/L (135-145) Potassium Level 3.8 mEQ/L (3.4-4.9) 3.9 mEQ/L (3.4-4.9) Chloride Level 105 mEQ/L (98-107) 101 mEQ/L (98-107) Carbon Dioxide Level 25 mEQ/L (20-30) 32 mEQ/L (20-30) H Anion Gap 17 (5-15) H 11 (5-15) Blood Urea Nitrogen 59 mg/dL (7-23) H 62 mg/dL (7-23) H Creatinine 2.4 mg/dL (0.7-1.2) H 2.3 mg/dL (0.7-1.2) H Estimat Glomerular Filtration Rate 33.1 mL/min (>60) 34.8 mL/min (>60) Glucose Level 92 mg/dL (74-106) 87 mg/dL (74-106) Calcium Level 8.3 mg/dL (8.6-10.2) L 8.7 mg/dL (8.6-10.2) Phosphorus Level 3.6 mg/dL (2.5-4.8) 3.7 mg/dL (2.5-4.8) Magnesium Level 2.4 mg/dL (1.7-2.5) 2.4 mg/dL (1.7-2.5) Total Bilirubin 0.4 mg/dL (0.0-1.2) 0.4 mg/dL (0.0-1.2) Aspartate Amino Transf (AST/SGOT) 36 U/L (5-40) 29 U/L (5-40) Alanine Aminotransferase (ALT/SGPT) 20 U/L (3-41) 15 U/L (3-41) Alkaline Phosphatase 64 U/L (40-129) 66 U/L (40-129) Total Protein 6.7 g/dL (6.6-8.7) 7.0 g/dL (6.6-8.7) Albumin 2.0 g/dL (3.5-5.2) L 2.4 g/dL (3.5-5.2) L Globulin 4.7 g/dL 4.6 g/dL Albumin/Globulin Ratio 0.4 (1.0-2.7) L 0.5 (1.0-2.7) L Current Medications Medications (Trade) Dose Ordered Sig/Melania Route PRN Reason Start Time Stop Time Status Last Admin Dose Admin Acetaminophen (Tylenol) 650 mg Q4H PRN ORAL Fever 12/22/16 09:00 01/21/17 08:59 Albuterol/ Ipratropium (DuoNeb 0.5-3(2.5)mg/3ml) 3 ml Q4H PRN HHN Shortness of Breath 12/21/16 14:00 12/26/16 13:59 Amlodipine Besylate (Norvasc) 10 mg DAILY NG 12/16/16 09:00 01/15/17 08:59 12/24/16 09:44 Bumetanide (Bumex) 2 mg BID@0930,1830 IVP 12/23/16 10:00 01/22/17 09:59 12/24/16 09:45 Clonidine HCl (Catapres) 0.1 mg EVERY 6 HOURS ORAL 12/15/16 12:00 01/14/17 11:59 12/23/16 18:30 Dextrose (Dextrose 50%) STAT PRN IV Hypoglycemia 12/11/16 00:45 01/10/17 00:44 Haloperidol Lactate/Dextrose (Haldol/D5W) 56 ml @ 112 mls/hr Q4H PRN IVPB AGITATION 12/23/16 11:30 01/22/17 11:29 Hydralazine HCl (Apresoline) 50 mg Q8HR NG 12/15/16 22:00 01/14/17 21:59 12/24/16 14:00 Lorazepam 0.5 mg 0.5 mg Q4H PRN IV For Anxiety 12/23/16 11:15 12/30/16 11:14 12/23/16 11:31 Metolazone (Zaroxolyn) 5 mg DAILY ORAL 12/21/16 14:15 01/20/17 14:14 12/24/16 09:44 Morphine Sulfate (Morphine Sulfate) 2 mg Q4H PRN IVP Severe Pain (Pain Scale 7-10) 12/24/16 11:15 12/31/16 11:14 Nitroglycerin (Nitro-Bid) 1 inch TID@0600,1200,1800 TOPIC 12/12/16 06:00 01/11/17 05:59 12/24/16 12:20 Ondansetron HCl (Zofran) 4 mg Q6H PRN IVP Nausea & Vomiting 12/10/16 18:45 01/09/17 18:44 Pantoprazole (Protonix) 40 mg DAILY IVP 12/11/16 16:00 01/10/17 15:59 12/24/16 09:00 Polyethylene Glycol (Miralax) 17 gm DAILYPRN PRN ORAL Constipation 12/11/16 00:45 01/10/17 00:44 Vitamin A/Vitamin D (A & D Oint) 1 applic EVERY 12 HOURS TOPIC 12/10/16 21:00 01/09/17 20:59 12/24/16 08:52 Vitamin B Complex/ Vit C/Folic Acid (Nephrovite) 1 tab DAILY GT 12/12/16 09:00 01/11/17 08:59 12/24/16 09:44 DICK GARBER Dec 24, 2016 15:02
[2016-12-24] MEDS ORDERED: Haloperidol Lactate 5 MG in D5W 55 ML IVPB PRN (15:30)
[2016-12-24] MEDS ORDERED: DuoNeb 0.5-3(2.5)mg/3ml neb HHN PRN (16:00)
--- NOTE | 2016-12-24 16:08 | Wound Care Consultation ---
Wound Assessment Wound Assessment #1: Wound Number: #1 Wound Present on Admission: Yes New Wound: No Status Change of Wound: No Wound Location Body Site Modif: mid Wound Location Body Site: sacral Wound Type: pressure ulcer Gómez Test: Does not Gómez Pressure Ulcer Stage: IV/unstageable Wound Thickness: Full Thickness Wound Length: 4.0 Wound Width: 3.0 Wound Depth: utd Percent of Wound [place]/Red: 40 Percent of Wound Bed Yellow/Wh: 60 - yellow dry scab. Wound Drainage Description: Serosanguineous Wound Drainage Amount: Moderate Wound Drainage Odor: None/Absent Tissue Surrounding Wound: Macerated Wound General Appearance: Reddened, Draining, Necrotic Wound Assessment #2: Wound Present on Admission: Yes New Wound: No Status Change of Wound: No Wound Location Body Site Modif: right Wound Location Body Site: heel Wound Type: pressure ulcer Gómez Test: Does not Gómez Pressure Ulcer Stage: deep tissue injury Wound Thickness: Full Thickness Wound Length: 3.0 Wound Width: 3.0 Wound Depth: UTD Percent of Wound Purple/Maroon: 100 Wound Drainage Amount: None Wound Drainage Odor: None/Absent Tissue Surrounding Wound: Intact Wound Assessment #3: Wound Number: #3 Wound Present on Admission: Yes New Wound: No Status Change of Wound: No Wound Location Body Site Modif: right, medial, dorsal Wound Location Body Site: foot Wound Type: scab Gómez Test: Does not Gómez Wound Thickness: Full Thickness Wound Length: 0.5 Wound Width: 1.5 Wound Depth: UTD Percent of Wound Black/Brown: 100 - adhered scab Wound Drainage Amount: None Tissue Surrounding Wound: Intact Wound General Appearance: Clean/Dry Wound Assessment #4: Wound Number: #4 Wound Present on Admission: Yes New Wound: No Status Change of Wound: No Wound Location Body Site Modif: left Wound Location Body Site: heel Wound Type: pressure ulcer Gómez Test: Does not Gómez Pressure Ulcer Stage: deep tissue injury Wound Thickness: Full Thickness Wound Length: 2.5 Wound Width: 2.5 Wound Depth: utd Percent of Wound Purple/Maroon: 100 Wound Drainage Amount: None Wound Drainage Odor: None/Absent Tissue Surrounding Wound: Intact Wound Assessment #5: Wound Number: #5 Wound Present on Admission: Yes New Wound: No Status Change of Wound: No Wound Location Body Site Modif: left, dorsal Wound Location Body Site: foot Wound Type: other - open wound etiology unknown. Gómez Test: Does not Gómez Wound Thickness: Full Thickness Wound Length: 5.0 Wound Width: 3.5 Wound Depth: 0.3 Percent of Wound [place]/Red: 100 Wound Drainage Description: Serosanguineous Wound Drainage Amount: Scant Wound Drainage Odor: None/Absent Tissue Surrounding Wound: Intact Wound General Appearance: Reddened - with epithelial closure to surroudnig tissue noted decrease in wound size. Wound Assessment #6: Wound Number: #6 Wound Present on Admission: Yes New Wound: No Status Change of Wound: No Wound Location Body Site Modif: right Wound Location Body Site: knee Wound Type: pressure ulcer - resolving Gómez Test: Does not Gómez Pressure Ulcer Stage: IV/unstageable Wound Thickness: Full Thickness Wound Length: 0.4 Wound Width: 0.3 Wound Depth: utd Percent of Wound Bed Yellow/Wh: 100 - dry yellow scab Wound Drainage Amount: None Wound Drainage Odor: None/Absent Tissue Surrounding Wound: Intact Wound General Appearance: Clean/Dry Wound Comment #1 mid sacral pressure ulcer stage IV/Unstageable. #2 Right heel deep tissue injury. #3 Right medial dorsal foot dry scab. #4 Left heel deep tissue injury. #5 Left dorsal foot open wound etiology unknown. #6 Right knee resolving stage IV/Unstageable with adhered dry scab. #7 Right 5th metatarsal head deep tissue injury RESOLVED. #8 Right lateral dorsal foot dry scab - RESOLVED. #9 Left knee scar tissue intact. Upon reassessment noted good progress to all admitted wounds. no further deterioration present. no foul odor, no s/s of infection present to wounds. Tolerated reassessment and treatment well.Patient was repositioned to offload affected wound sites. Denies any pain to wound sites at this time. Recommendation. -Continue local wound care as previously ordered. -Turn and reposition. -Offload affected wound sites. -Heel protectors. -Keep clean and dry. -Optimize nutrition. -Low air loss with AP. -Assess and notify MD if any further changes of condition in skin are noted. SWETA FIGUEROA Dec 24, 2016 16:07
--- NOTE | 2016-12-24 16:17 | Diagnostic Imaging Report ---
APPROVED REPORT CPT Code: 16400 Present Symptoms Comments: Swelling RIGHT UPPER EXTREMITY: Venous imaging reveals patency of the internal jugular, subclavian, axillary and brachial veins. The cephalic and basilic veins are also patent. Doppler indicates normal spontaneous flow within these venous segments.
[2016-12-24] MEDS ORDERED: LORazepam Inj 2mg/ml 1ml IV PRN (17:00)
[2016-12-24] MEDS ORDERED: Miralax 17gm pkt ORAL PRN (17:00)
[2016-12-24] MEDS ORDERED: Acetaminophen 650mg/20.3ml ORAL PRN (17:00)
[2016-12-24] MEDS: Morphine Sulfate 2mg/ml Inj IVP PRN (18:04)
[2016-12-24] MEDS ORDERED: Bumetanide 2.5mg/10ml Inj IVP SCH (18:30)
--- NOTE | 2016-12-24 21:07 | Cardiology Progress Note ---
Assessment/Plan Assessment/Plan 1. Abnormal mentation due to respiratory acidosis . 2. Respiratory acidosis. 3. Congestive heart failure with pleural effusion, 4. Mitral regurgitation. 5. Cardiomyopathy. 6. History of amphetamine abuse. 7. History of paroxysmal episodes of atrial fibrillation per report. 8. Renal insufficiency. 9. Hepatitis C virus with cirrhosis vent support wean as possible hydralazine and nitrate tele noted ekg noted cr slightly better despite neg fluid balance diuretics tob econtineued swtich to po as of tomorrow Subjective Cardiovascular: Denies: chest pain, lightheadedness Respiratory: Denies: shortness of breath Gastrointestinal/Abdominal: Denies: abdominal pain Genitourinary: Denies: burning Subjective extubated on med surg floor Objective Last 24 Hour Vital Signs Date Time Temp Pulse Resp B/P Pulse Ox O2 Delivery O2 Flow Rate FiO2 12/24/16 20:12 97 Room Air 21 12/24/16 20:12 86 22 Room Air 21 12/24/16 20:12 Room Air 12/24/16 19:17 93 119/66 12/24/16 18:05 121/66 12/24/16 18:00 121/66 12/24/16 16:00 97.9 88 18 121/66 97 Room Air 12/24/16 14:00 118/60 12/24/16 14:00 90 20 118/60 100 Room Air 12/24/16 13:00 92 20 123/64 100 Room Air 12/24/16 12:20 117/62 12/24/16 12:01 97.9 88 20 118/62 100 Room Air 12/24/16 12:00 112/58 12/24/16 12:00 88 12/24/16 11:00 92 20 112/53 100 Room Air 12/24/16 10:00 85 20 125/71 100 Room Air 12/24/16 09:44 92 125/67 12/24/16 09:00 81 20 117/60 100 Room Air 12/24/16 08:00 98.1 85 24 123/56 100 Room Air 12/24/16 08:00 85 12/24/16 07:20 Nasal Cannula 3.0 32 12/24/16 07:20 100 Nasal Cannula 3.0 32 12/24/16 07:20 84 24 Nasal Cannula 3.0 32 12/24/16 07:00 84 24 118/62 100 Nasal Cannula 3.0 12/24/16 06:00 89 24 107/58 100 Nasal Cannula 3.0 12/24/16 05:24 104/58 12/24/16 05:24 104/58 12/24/16 05:23 104/58 12/24/16 05:00 85 24 104/58 100 Nasal Cannula 3.0 12/24/16 04:00 81 12/24/16 04:00 98.0 81 24 114/56 100 Nasal Cannula 3.0 12/24/16 03:00 81 24 105/55 100 Nasal Cannula 3.0 12/24/16 02:00 85 24 107/58 100 Nasal Cannula 3.0 12/24/16 01:00 80 24 106/55 100 Nasal Cannula 3.0 12/24/16 00:00 97.4 80 24 103/53 100 Nasal Cannula 3.0 12/24/16 00:00 85 12/23/16 23:43 105/59 12/23/16 23:00 74 24 109/56 100 Nasal Cannula 3.0 12/23/16 22:28 113/66 12/23/16 22:00 73 24 113/66 100 Nasal Cannula 3.0 General Appearance: no apparent distress, alert Neck: no JVD Cardiovascular: normal rate, regular rhythm Respiratory/Chest: lungs clear, no respiratory distress Abdomen: normal bowel sounds, non tender, soft Extremities: no swelling Intake and Output 12/23/16 12/24/16 19:00 07:00 Intake Total 305 ml 550 ml Output Total 1305 ml 1365 ml Balance -1000 ml -815 ml Intake Oral 170 ml 550 ml Tube Feeding 135 ml Output Urine Total 1305 ml 1365 ml Laboratory Tests Test 12/24/16 04:15 12/24/16 07:30 White Blood Count 8.3 K/UL (4.8-10.8) 7.7 K/UL (4.8-10.8) Red Blood Count 2.32 M/UL (4.70-6.10) L 2.91 M/UL (4.70-6.10) L Hemoglobin 7.0 G/DL (14.2-18.0) L 8.6 G/DL (14.2-18.0) L Hematocrit 22.5 % (42.0-52.0) L 27.2 % (42.0-52.0) L Mean Corpuscular Volume 97 FL (80-99) 93 FL (80-99) Mean Corpuscular Hemoglobin 30.0 PG (27.0-31.0) 29.6 PG (27.0-31.0) Mean Corpuscular Hemoglobin Concent 30.8 G/DL (32.0-36.0) L 31.8 G/DL (32.0-36.0) L Red Cell Distribution Width 15.4 % (11.6-14.8) H 15.0 % (11.6-14.8) H Platelet Count 234 K/UL (150-450) 283 K/UL (150-450) Mean Platelet Volume 6.8 FL (6.5-10.1) 6.3 FL (6.5-10.1) L Neutrophils (%) (Auto) % (45.0-75.0) 70.2 % (45.0-75.0) Lymphocytes (%) (Auto) % (20.0-45.0) 18.7 % (20.0-45.0) L Monocytes (%) (Auto) % (1.0-10.0) 7.3 % (1.0-10.0) Eosinophils (%) (Auto) % (0.0-3.0) 3.2 % (0.0-3.0) H Basophils (%) (Auto) % (0.0-2.0) 0.6 % (0.0-2.0) Differential Total Cells Counted 100 Neutrophils % (Manual) 82 % (45-75) H Lymphocytes % (Manual) 12 % (20-45) L Monocytes % (Manual) 4 % (1-10) Eosinophils % (Manual) 1 % (0-3) Basophils % (Manual) 0 % (0-2) Band Neutrophils 1 % (0-8) Nucleated Red Blood Cells /100 WBC Platelet Estimate Adequate Platelet Morphology Normal Hypochromasia 1+ Anisocytosis 1+ Sodium Level 147 mEQ/L (135-145) H 144 mEQ/L (135-145) Potassium Level 3.8 mEQ/L (3.4-4.9) 3.9 mEQ/L (3.4-4.9) Chloride Level 105 mEQ/L (98-107) 101 mEQ/L (98-107) Carbon Dioxide Level 25 mEQ/L (20-30) 32 mEQ/L (20-30) H Anion Gap 17 (5-15) H 11 (5-15) Blood Urea Nitrogen 59 mg/dL (7-23) H 62 mg/dL (7-23) H Creatinine 2.4 mg/dL (0.7-1.2) H 2.3 mg/dL (0.7-1.2) H Estimat Glomerular Filtration Rate 33.1 mL/min (>60) 34.8 mL/min (>60) Glucose Level 92 mg/dL (74-106) 87 mg/dL (74-106) Calcium Level 8.3 mg/dL (8.6-10.2) L 8.7 mg/dL (8.6-10.2) Phosphorus Level 3.6 mg/dL (2.5-4.8) 3.7 mg/dL (2.5-4.8) Magnesium Level 2.4 mg/dL (1.7-2.5) 2.4 mg/dL (1.7-2.5) Total Bilirubin 0.4 mg/dL (0.0-1.2) 0.4 mg/dL (0.0-1.2) Aspartate Amino Transf (AST/SGOT) 36 U/L (5-40) 29 U/L (5-40) Alanine Aminotransferase (ALT/SGPT) 20 U/L (3-41) 15 U/L (3-41) Alkaline Phosphatase 64 U/L (40-129) 66 U/L (40-129) Total Protein 6.7 g/dL (6.6-8.7) 7.0 g/dL (6.6-8.7) Albumin 2.0 g/dL (3.5-5.2) L 2.4 g/dL (3.5-5.2) L Globulin 4.7 g/dL 4.6 g/dL Albumin/Globulin Ratio 0.4 (1.0-2.7) L 0.5 (1.0-2.7) L STEPHEN LONDON Dec 24, 2016 21:07
[2016-12-25] VITALS: BP 122/67
[2016-12-25 04:00] VITALS: BP 127/100
[2016-12-25] MEDS: HydrALAZINE 50mg tab NG SCH ×3 (06:00→21:41)
[2016-12-25] MEDS: Nitroglycerin 2% oint pkt TOPIC SCH ×3 (06:00→19:31)
[2016-12-25] MEDS ORDERED: Metolazone 5mg tab NG SCH (09:00)
[2016-12-25 09:16] LABS: BASOPHILS % (AUTO) 2.4 % (0.0-2.0); EOSINOPHILS % (AUTO) 2.9 % (0.0-3.0); LYMPHOCYTES % (AUTO) 19.2 % (20.0-45.0); MEAN CORPUSCULAR HEMOGLOBIN 28.9 PG (27.0-31.0); MEAN CORPUSCULAR HGB CONC 30.9 G/DL (32.0-36.0); MEAN CORPUSCULAR VOLUME 93 FL (80-99); MEAN PLATELET VOLUME 6.6 FL (6.5-10.1); MONOCYTES % (AUTO) 11.9 % (1.0-10.0); NEUTROPHILS % (AUTO) 63.8 % (45.0-75.0); PLATELET COUNT 320 K/UL (150-450); RED BLOOD COUNT 3.09 M/UL (4.70-6.10); RED CELL DISTRIBUTION WIDTH 14.6 % (11.6-14.8); WHITE BLOOD COUNT 5.9 K/UL (4.8-10.8)
[2016-12-25 09:28] LABS: CALCIUM 8.8 mg/dL (8.6-10.2); CREATININE 2.5 mg/dL (0.7-1.2); GLOMERULAR FILTRATION RATE 31.5 mL/min (>60); POTASSIUM 3.7 mEQ/L (3.4-4.9)
[2016-12-25] MEDS: Nephrovite tab GT SCH (09:30)
[2016-12-25] MEDS: Furosemide 80mg tab ORAL SCH ×2 (09:30→21:41)
[2016-12-25] MEDS: Pantoprazole Inj IVP SCH (09:31)
[2016-12-25] MEDS: Vitamin A&D Oint 2oz Tube TOPIC SCH ×2 (09:31→21:00)
[2016-12-25] MEDS: Morphine Sulfate 2mg/ml Inj IVP PRN (09:50)
--- NOTE | 2016-12-25 10:52 | General Progress Note ---
Assessment/Plan Status: unchanged Status Narrative Cr slightly higher 2.5 Assessment/Plan -Renal insufficiency. ? Acute on Chronic Cr stable, and slow rising ! Urine output improved Other: -Abnormal mentation. -Respiratory failure, acute with hypoxia-/ Aspiration [place] -Congestive heart failure with pleural effusion, -Mitral regurgitation. -Cardiomyopathy. -History of amphetamine abuse. -History of paroxysmal episodes of atrial fibrillation per report. -Hepatitis C virus with cirrhosis. Plan: K supplement as needed Optimize cardiac and pulmonary status- Keep BP in check- Monitor renal parameters- avoid nephrotoxics- per orders- UA 3+ protein DC planning? Subjective ROS Limited/Unobtainable: No Constitutional: Reports: malaise, weakness Allergies: Coded Allergies: No Known Allergies (Unverified , 04/29/13) Objective Last 24 Hour Vital Signs Date Time Temp Pulse Resp B/P Pulse Ox O2 Delivery O2 Flow Rate FiO2 12/25/16 10:20 97.4 12/25/16 09:30 105 127/100 12/25/16 07:05 Room Air 12/25/16 07:05 96 Room Air 21 12/25/16 07:05 105 20 Room Air 21 12/25/16 06:00 127/100 12/25/16 06:00 127/100 12/25/16 06:00 127/100 12/25/16 04:00 97.4 101 21 127/100 99 Room Air 12/25/16 00:00 122/67 12/25/16 00:00 96.9 99 18 122/67 Room Air 12/24/16 22:12 136/74 12/24/16 22:01 89 136/74 12/24/16 20:12 97 Room Air 21 12/24/16 20:12 86 22 Room Air 21 12/24/16 20:12 Room Air 12/24/16 20:00 97.7 91 18 133/77 97 Room Air 12/24/16 19:17 93 119/66 12/24/16 18:05 121/66 12/24/16 18:00 121/66 12/24/16 16:00 97.9 88 18 121/66 97 Room Air 12/24/16 14:00 118/60 12/24/16 14:00 90 20 118/60 100 Room Air 12/24/16 13:00 92 20 123/64 100 Room Air 12/24/16 12:20 117/62 12/24/16 12:01 97.9 88 20 118/62 100 Room Air 12/24/16 12:00 112/58 12/24/16 12:00 88 12/24/16 11:00 92 20 112/53 100 Room Air Intake and Output 12/24/16 12/25/16 19:00 07:00 Intake Total 0 ml 480 ml Output Total 310 ml 1450 ml Balance -310 ml -970 ml Intake Oral 0 ml 480 ml Output Urine Total 310 ml 1450 ml Laboratory Tests 12/25/16 08:20: White Blood Count 5.9, Red Blood Count 3.09L, Hemoglobin 8.9L, Hematocrit 28.9L , Mean Corpuscular Volume 93, Mean Corpuscular Hemoglobin 28.9, Mean Corpuscular Hemoglobin Concent 30.9L, Red Cell Distribution Width 14.6, Platelet Count 320, Mean Platelet Volume 6.6, Neutrophils (%) (Auto) 63.8, Lymphocytes (%) (Auto) 19.2L, Monocytes (%) (Auto) 11.9H, Eosinophils (%) (Auto ) 2.9, Basophils (%) (Auto) 2.4H, Sodium Level 141, Potassium Level 3.7, Chloride Level 97L, Carbon Dioxide Level 30, Anion Gap 14, Blood Urea Nitrogen 63H, Creatinine 2.5H, Estimat Glomerular Filtration Rate 31.5, Glucose Level 130H, Calcium Level 8.8 Height (Feet): 5 Height (Inches): 9.00 Weight (Pounds): 150 Cardiovascular: tachycardia Respiratory/Chest: decreased breath sounds Abdomen: distended Objective other PE not changed JUSTIN NESS Dec 25, 2016 10:52
[2016-12-25 12:01] VITALS: BP 147/80
[2016-12-25 16:00] VITALS: BP 120/69
--- NOTE | 2016-12-25 18:11 | Infectious Diseases Prog Note ---
Assessment/Plan Assessment/Plan ASSESSMENT: 66-year-old male with: Aspiration PNA / pneumonitis - SCx NRF SP Rx CXR 12/21: mild interstitial edema and small effusions, stable. 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 Monitor chest x-ray Subjective Allergies: Coded Allergies: No Known Allergies (Unverified , 04/29/13) Subjective remains afebrile. comfortable Objective Vital Signs Last 24 Hour Vital Signs Date Time Temp Pulse Resp B/P Pulse Ox O2 Delivery O2 Flow Rate FiO2 12/25/16 16:00 98.6 96 18 120/69 97 Room Air 12/25/16 13:58 147/80 12/25/16 12:01 98.1 101 19 147/80 97 Room Air 12/25/16 11:53 142/80 12/25/16 11:53 142/80 12/25/16 10:20 97.4 12/25/16 09:30 105 127/100 12/25/16 07:05 Room Air 12/25/16 07:05 96 Room Air 12/25/16 07:05 105 20 Room Air 21 12/25/16 06:00 127/100 12/25/16 06:00 127/100 12/25/16 06:00 127/100 12/25/16 04:00 97.4 101 21 127/100 99 Room Air 12/25/16 00:00 122/67 12/25/16 00:00 96.9 99 18 122/67 Room Air 12/24/16 22:12 136/74 12/24/16 22:01 89 136/74 12/24/16 20:12 97 Room Air 21 12/24/16 20:12 86 22 Room Air 21 12/24/16 20:12 Room Air 12/24/16 20:00 97.7 91 18 133/77 97 Room Air 12/24/16 19:17 93 119/66 Height (Feet): 5 Height (Inches): 9.00 Weight (Pounds): 150 General Appearance: no acute distress Respiratory/Chest: no respiratory distress Cardiovascular: normal rate, regular rhythm Abdomen: normal bowel sounds, soft, non tender, non distended Laboratory Tests Test 12/25/16 08:20 White Blood Count 5.9 K/UL (4.8-10.8) Red Blood Count 3.09 M/UL (4.70-6.10) L Hemoglobin 8.9 G/DL (14.2-18.0) L Hematocrit 28.9 % (42.0-52.0) L Mean Corpuscular Volume 93 FL (80-99) Mean Corpuscular Hemoglobin 28.9 PG (27.0-31.0) Mean Corpuscular Hemoglobin Concent 30.9 G/DL (32.0-36.0) L Red Cell Distribution Width 14.6 % (11.6-14.8) Platelet Count 320 K/UL (150-450) Mean Platelet Volume 6.6 FL (6.5-10.1) Neutrophils (%) (Auto) 63.8 % (45.0-75.0) Lymphocytes (%) (Auto) 19.2 % (20.0-45.0) L Monocytes (%) (Auto) 11.9 % (1.0-10.0) H Eosinophils (%) (Auto) 2.9 % (0.0-3.0) Basophils (%) (Auto) 2.4 % (0.0-2.0) H Sodium Level 141 mEQ/L (135-145) Potassium Level 3.7 mEQ/L (3.4-4.9) Chloride Level 97 mEQ/L (98-107) L Carbon Dioxide Level 30 mEQ/L (20-30) Anion Gap 14 (5-15) Blood Urea Nitrogen 63 mg/dL (7-23) H Creatinine 2.5 mg/dL (0.7-1.2) H Estimat Glomerular Filtration Rate 31.5 mL/min (>60) Glucose Level 130 mg/dL (74-106) H Calcium Level 8.8 mg/dL (8.6-10.2) Current Medications Medications (Trade) Dose Ordered Sig/Melania Route PRN Reason Start Time Stop Time Status Last Admin Dose Admin Acetaminophen (Tylenol) 650 mg Q4H PRN ORAL Fever 12/24/16 17:00 01/23/17 16:59 Albuterol/ Ipratropium (DuoNeb 0.5-3(2.5)mg/3ml) 3 ml Q4H PRN HHN Shortness of Breath 12/24/16 16:00 12/29/16 15:59 Amlodipine Besylate (Norvasc) 10 mg DAILY NG 12/25/16 09:00 01/24/17 08:59 12/25/16 09:30 Clonidine HCl (Catapres) 0.1 mg EVERY 6 HOURS ORAL 12/24/16 18:00 01/23/17 17:59 12/25/16 11:53 Dextrose (Dextrose 50%) STAT PRN IV Hypoglycemia 12/24/16 17:00 01/23/17 16:59 Furosemide (Lasix) 80 mg EVERY 12 HOURS ORAL 12/25/16 09:00 01/24/17 08:59 12/25/16 09:30 Haloperidol Lactate/Dextrose (Haldol/D5W) 56 ml @ 112 mls/hr Q4H PRN IVPB AGITATION 12/24/16 15:30 01/23/17 15:29 Hydralazine HCl (Apresoline) 50 mg Q8HR NG 12/24/16 22:00 01/23/17 21:59 12/25/16 13:58 Lorazepam (Ativan 2mg/ml 1ml) 0.5 mg Q4H PRN IV For Anxiety 12/24/16 17:00 12/31/16 16:59 Morphine Sulfate (Morphine Sulfate) 2 mg Q4H PRN IVP Severe Pain (Pain Scale 7-10) 12/24/16 17:00 12/31/16 16:59 12/25/16 09:50 Nitroglycerin (Nitro-Bid) 1 inch TID@0600,1200,1800 TOPIC 12/24/16 18:00 01/23/17 17:59 12/25/16 11:53 Ondansetron HCl (Zofran) 4 mg Q6H PRN IVP Nausea & Vomiting 12/24/16 17:00 01/23/17 16:59 Pantoprazole (Protonix) 40 mg DAILY IVP 12/25/16 09:00 01/24/17 08:59 12/25/16 09:31 Polyethylene Glycol (Miralax) 17 gm DAILYPRN PRN ORAL Constipation 12/24/16 17:00 01/23/17 16:59 Vitamin A/Vitamin D (A & D Oint) 1 applic EVERY 12 HOURS TOPIC 12/24/16 21:00 01/23/17 20:59 12/25/16 09:31 Vitamin B Complex/ Vit C/Folic Acid (Nephrovite) 1 tab DAILY GT 12/25/16 09:00 01/24/17 08:59 12/25/16 09:30 DICK GARBER Dec 25, 2016 18:11
[2016-12-25 20:10] VITALS: BP 128/71
--- NOTE | 2016-12-25 23:29 | Pulmonology Progress Note ---
Assessment/Plan Problems: (1) Acute respiratory failure with hypoxia (2) Aspiration pneumonia (3) Pulmonary edema (4) At high risk for aspiration (5) ATN (acute tubular necrosis) (6) Hepatitis C Assessment/Plan PLAN OF CARE Respiratory: vent care, pulmonary toilet, weaning protocol, ABG this am on SIMV 12 stable, CXR and ABG in am, abx, ID follows , need thoracentesis , awaiting for consent Cardiac: cardio follows, ECHO with EF 55% and RVSP of 50 c/w moderate pulmonary HTN, + evidence of severe MR , diuretics slowly as per cardio Renal: nephro follows, avoid nephrotoxic, Gastrointestinal: continue feedings/current rate, strict aspiration precautions Hematologic: monitor H/H, transfuse if hgb<8.0 Neurologic: PRN Morphine Subjective ROS Limited/Unobtainable: No Constitutional: Reports: anorexia, fatigue Respiratory: Reports: dyspnea at rest, pleuritic pain, productive cough, shortness of breath, sputum, wheezing Gastrointestinal/Abdominal: Reports: bloating, nausea, vomiting Allergies: Coded Allergies: No Known Allergies (Unverified , 04/29/13) Objective Last 24 Hour Vital Signs Date Time Temp Pulse Resp B/P Pulse Ox O2 Delivery O2 Flow Rate FiO2 12/25/16 21:41 128/71 12/25/16 20:10 98.8 90 18 128/71 96 Room Air 12/25/16 19:45 Room Air 12/25/16 19:45 87 22 Room Air 12/25/16 19:45 96 Room Air 12/25/16 19:31 120/69 12/25/16 18:00 120/69 12/25/16 16:00 98.6 96 18 120/69 97 Room Air 12/25/16 13:58 147/80 12/25/16 12:01 98.1 101 19 147/80 97 Room Air 12/25/16 11:53 142/80 12/25/16 11:53 142/80 12/25/16 10:20 97.4 12/25/16 09:30 105 127/100 12/25/16 07:05 Room Air 12/25/16 07:05 96 Room Air 21 12/25/16 07:05 105 20 Room Air 21 12/25/16 06:00 127/100 12/25/16 06:00 127/100 12/25/16 06:00 127/100 12/25/16 04:00 97.4 101 21 127/100 99 Room Air 12/25/16 00:00 122/67 12/25/16 00:00 96.9 99 18 122/67 Room Air Intake and Output 12/24/16 12/25/16 19:00 07:00 Intake Total 0 ml 480 ml Output Total 310 ml 1450 ml Balance -310 ml -970 ml Intake Oral 0 ml 480 ml Output Urine Total 310 ml 1450 ml General Appearance: no acute distress HEENT: normocephalic, atraumatic, anicteric, PERRL Respiratory/Chest: chest wall non-tender, decreased breath sounds, accessory muscle use, crackles/rales, rhonchi, expiratory wheezing, pleural rub Cardiovascular: normal peripheral pulses, normal rate, regular rhythm, no JVD Abdomen: hypoactive bowel sounds, distended, guarding, tender, rebound tenderness, mass, hepatomegaly Genitourinary: normal external genitalia Extremities: no cyanosis Skin: rash, lesions Neurologic/Psychiatric: private duty aide 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 grossly normal, no motor/sensory deficits Laboratory Tests 12/25/16 08:20: White Blood Count 5.9, Red Blood Count 3.09L, Hemoglobin 8.9L, Hematocrit 28.9L , Mean Corpuscular Volume 93, Mean Corpuscular Hemoglobin 28.9, Mean Corpuscular Hemoglobin Concent 30.9L, Red Cell Distribution Width 14.6, Platelet Count 320, Mean Platelet Volume 6.6, Neutrophils (%) (Auto) 63.8, Lymphocytes (%) (Auto) 19.2L, Monocytes (%) (Auto) 11.9H, Eosinophils (%) (Auto ) 2.9, Basophils (%) (Auto) 2.4H, Sodium Level 141, Potassium Level 3.7, Chloride Level 97L, Carbon Dioxide Level 30, Anion Gap 14, Blood Urea Nitrogen 63H, Creatinine 2.5H, Estimat Glomerular Filtration Rate 31.5, Glucose Level 130H, Calcium Level 8.8 Current Medications Medications (Trade) Dose Ordered Sig/Melania Route PRN Reason Start Time Stop Time Status Last Admin Dose Admin Acetaminophen (Tylenol) 650 mg Q4H PRN ORAL Fever 12/24/16 17:00 01/23/17 16:59 Albuterol/ Ipratropium (DuoNeb 0.5-3(2.5)mg/3ml) 3 ml Q4H PRN HHN Shortness of Breath 12/24/16 16:00 12/29/16 15:59 Amlodipine Besylate (Norvasc) 10 mg DAILY NG 12/25/16 09:00 01/24/17 08:59 12/25/16 09:30 Clonidine HCl (Catapres) 0.1 mg EVERY 6 HOURS ORAL 12/24/16 18:00 01/23/17 17:59 12/25/16 11:53 Dextrose (Dextrose 50%) STAT PRN IV Hypoglycemia 12/24/16 17:00 01/23/17 16:59 Furosemide (Lasix) 80 mg EVERY 12 HOURS ORAL 12/25/16 09:00 01/24/17 08:59 12/25/16 21:41 Haloperidol Lactate/Dextrose (Haldol/D5W) 56 ml @ 112 mls/hr Q4H PRN IVPB AGITATION 12/24/16 15:30 01/23/17 15:29 Hydralazine HCl (Apresoline) 50 mg Q8HR NG 12/24/16 22:00 01/23/17 21:59 12/25/16 21:41 Lorazepam (Ativan 2mg/ml 1ml) 0.5 mg Q4H PRN IV For Anxiety 12/24/16 17:00 12/31/16 16:59 Morphine Sulfate (Morphine Sulfate) 2 mg Q4H PRN IVP Severe Pain (Pain Scale 7-10) 12/24/16 17:00 12/31/16 16:59 12/25/16 09:50 Nitroglycerin (Nitro-Bid) 1 inch TID@0600,1200,1800 TOPIC 12/24/16 18:00 01/23/17 17:59 12/25/16 19:31 Ondansetron HCl (Zofran) 4 mg Q6H PRN IVP Nausea & Vomiting 12/24/16 17:00 01/23/17 16:59 Pantoprazole (Protonix) 40 mg DAILY IVP 12/25/16 09:00 01/24/17 08:59 12/25/16 09:31 Polyethylene Glycol (Miralax) 17 gm DAILYPRN PRN ORAL Constipation 12/24/16 17:00 01/23/17 16:59 Vitamin A/Vitamin D (A & D Oint) 1 applic EVERY 12 HOURS TOPIC 12/24/16 21:00 01/23/17 20:59 12/25/16 21:00 Vitamin B Complex/ Vit C/Folic Acid (Nephrovite) 1 tab DAILY GT 12/25/16 09:00 01/24/17 08:59 12/25/16 09:30 YAMILET DIOR Dec 25, 2016 23:28
--- NOTE | 2016-12-25 23:44 | Internal Med Progress Note ---
Subjective Physician Name Wild Hawkins Attending Physician Wild Hawkins MD Current Medications Medications (Trade) Dose Ordered Sig/Melania Route PRN Reason Start Time Stop Time Status Last Admin Dose Admin Acetaminophen (Tylenol) 650 mg Q4H PRN ORAL Fever 12/24/16 17:00 01/23/17 16:59 Albuterol/ Ipratropium (DuoNeb 0.5-3(2.5)mg/3ml) 3 ml Q4H PRN HHN Shortness of Breath 12/24/16 16:00 12/29/16 15:59 Amlodipine Besylate (Norvasc) 10 mg DAILY NG 12/25/16 09:00 01/24/17 08:59 12/25/16 09:30 Clonidine HCl (Catapres) 0.1 mg EVERY 6 HOURS ORAL 12/24/16 18:00 01/23/17 17:59 12/25/16 11:53 Dextrose (Dextrose 50%) STAT PRN IV Hypoglycemia 12/24/16 17:00 01/23/17 16:59 Furosemide (Lasix) 80 mg EVERY 12 HOURS ORAL 12/25/16 09:00 01/24/17 08:59 12/25/16 21:41 Haloperidol Lactate/Dextrose (Haldol/D5W) 56 ml @ 112 mls/hr Q4H PRN IVPB AGITATION 12/24/16 15:30 01/23/17 15:29 Hydralazine HCl (Apresoline) 50 mg Q8HR NG 12/24/16 22:00 01/23/17 21:59 12/25/16 21:41 Lorazepam (Ativan 2mg/ml 1ml) 0.5 mg Q4H PRN IV For Anxiety 12/24/16 17:00 12/31/16 16:59 Morphine Sulfate (Morphine Sulfate) 2 mg Q4H PRN IVP Severe Pain (Pain Scale 7-10) 12/24/16 17:00 12/31/16 16:59 12/25/16 09:50 Nitroglycerin (Nitro-Bid) 1 inch TID@0600,1200,1800 TOPIC 12/24/16 18:00 01/23/17 17:59 12/25/16 19:31 Ondansetron HCl (Zofran) 4 mg Q6H PRN IVP Nausea & Vomiting 12/24/16 17:00 01/23/17 16:59 Pantoprazole (Protonix) 40 mg DAILY IVP 12/25/16 09:00 01/24/17 08:59 12/25/16 09:31 Polyethylene Glycol (Miralax) 17 gm DAILYPRN PRN ORAL Constipation 12/24/16 17:00 01/23/17 16:59 Vitamin A/Vitamin D (A & D Oint) 1 applic EVERY 12 HOURS TOPIC 12/24/16 21:00 01/23/17 20:59 12/25/16 21:00 Vitamin B Complex/ Vit C/Folic Acid (Nephrovite) 1 tab DAILY GT 12/25/16 09:00 01/24/17 08:59 12/25/16 09:30 Allergies: Coded Allergies: No Known Allergies (Unverified , 04/29/13) Subjective awake, alert, responsive, NAD Objective Last Vital Signs Date Time Temp Pulse Resp B/P Pulse Ox O2 Delivery O2 Flow Rate FiO2 12/25/16 21:41 128/71 12/25/16 20:10 98.8 90 18 96 Room Air 12/25/16 19:45 21 12/24/16 07:20 3.0 Laboratory Tests Test 12/25/16 08:20 White Blood Count 5.9 K/UL (4.8-10.8) Red Blood Count 3.09 M/UL (4.70-6.10) L Hemoglobin 8.9 G/DL (14.2-18.0) L Hematocrit 28.9 % (42.0-52.0) L Mean Corpuscular Volume 93 FL (80-99) Mean Corpuscular Hemoglobin 28.9 PG (27.0-31.0) Mean Corpuscular Hemoglobin Concent 30.9 G/DL (32.0-36.0) L Red Cell Distribution Width 14.6 % (11.6-14.8) Platelet Count 320 K/UL (150-450) Mean Platelet Volume 6.6 FL (6.5-10.1) Neutrophils (%) (Auto) 63.8 % (45.0-75.0) Lymphocytes (%) (Auto) 19.2 % (20.0-45.0) L Monocytes (%) (Auto) 11.9 % (1.0-10.0) H Eosinophils (%) (Auto) 2.9 % (0.0-3.0) Basophils (%) (Auto) 2.4 % (0.0-2.0) H Sodium Level 141 mEQ/L (135-145) Potassium Level 3.7 mEQ/L (3.4-4.9) Chloride Level 97 mEQ/L (98-107) L Carbon Dioxide Level 30 mEQ/L (20-30) Anion Gap 14 (5-15) Blood Urea Nitrogen 63 mg/dL (7-23) H Creatinine 2.5 mg/dL (0.7-1.2) H Estimat Glomerular Filtration Rate 31.5 mL/min (>60) Glucose Level 130 mg/dL (74-106) H Calcium Level 8.8 mg/dL (8.6-10.2) Intake and Output 12/24/16 12/25/16 19:00 07:00 Intake Total 0 ml 480 ml Output Total 310 ml 1450 ml Balance -310 ml -970 ml Intake Oral 0 ml 480 ml Output Urine Total 310 ml 1450 ml Objective General Appearance: awake, alert, NAD EENT: normal ENT inspection, poor dentition Neck: non-tender, normal alignment, supple, Cardiovascular: normal peripheral pulses, normal rate, regular rhythm, no Murmur Respiratory/Chest: ventilatory breath sound, No wheezes Abdomen: normal bowel sounds, non tender, soft, : [place] Cath Extremities: normal range of motion, No edema, bilateral feet dressing Neurologic: side trimmer II-XII grossly normal, Moves all extremities Skin: normal pigmentation, warm/dry Assessment/Plan Assessment/Plan (1) Acute Respiratory failure (2) YVONNE on CKD (3) Hypernatremia. (4) HTN (hypertension) (5) CAD (coronary artery disease) (6) CHF (congestive heart failure) Assessment & Plan: See cardiology note. Cont lasix. (7) Anemia (8) Uncontrolled hypertension (9) Pneumonia Assessment & Plan: Cont Zosyn and Levaquin- (10) Pleural effusion Status: Plan: Abx: Off Monitor Labs and Cultures. wound care PT Mobility Wild Hawkins MD Dec 25, 2016 23:44
[2016-12-26 06:37] VITALS: BP 144/81
[2016-12-26] MEDS: HydrALAZINE 50mg tab NG SCH ×3 (07:09→21:06)
[2016-12-26] MEDS: Nitroglycerin 2% oint pkt TOPIC SCH ×4 (07:10→18:39)
[2016-12-26 08:00] VITALS: BP 125/78
[2016-12-26] MEDS: Pantoprazole Inj IVP SCH (09:47)
[2016-12-26] MEDS: Nephrovite tab GT SCH (09:47)
[2016-12-26] MEDS: Furosemide 80mg tab ORAL SCH ×2 (09:47→21:06)
[2016-12-26] MEDS: Vitamin A&D Oint 2oz Tube TOPIC SCH ×2 (09:48→21:00)
[2016-12-26 12:00] VITALS: BP 107/68
--- NOTE | 2016-12-26 14:53 | General Progress Note ---
Assessment/Plan Status: unchanged Assessment/Plan -Renal insufficiency. ? Acute on Chronic Cr stable, and slow rising ! Urine output improved Other: -Abnormal mentation. -Respiratory failure, acute with hypoxia-/ Aspiration [place] -Congestive heart failure with pleural effusion, -Mitral regurgitation. -Cardiomyopathy. -History of amphetamine abuse. -History of paroxysmal episodes of atrial fibrillation per report. -Hepatitis C virus with cirrhosis. Plan: no labs today- Optimize cardiac and pulmonary status- Keep BP in check- Monitor renal parameters- avoid nephrotoxics- per orders- UA 3+ protein DC planning? Subjective ROS Limited/Unobtainable: No Constitutional: Reports: malaise, weakness Allergies: Coded Allergies: No Known Allergies (Unverified , 04/29/13) Objective Last 24 Hour Vital Signs Date Time Temp Pulse Resp B/P Pulse Ox O2 Delivery O2 Flow Rate FiO2 12/26/16 12:55 107/68 12/26/16 12:00 107/68 12/26/16 12:00 97.7 109 20 107/68 97 Room Air 12/26/16 09:47 112 125/78 12/26/16 08:00 98.2 112 19 125/78 97 Room Air 12/26/16 07:10 144/81 12/26/16 07:10 144/81 12/26/16 07:09 144/81 12/26/16 06:37 97.6 109 18 144/81 100 Room Air 12/26/16 00:00 121/74 12/25/16 21:41 128/71 12/25/16 20:10 98.8 90 18 128/71 96 Room Air 12/25/16 19:45 Room Air 12/25/16 19:45 87 22 Room Air 21 12/25/16 19:45 96 Room Air 21 12/25/16 19:31 120/69 12/25/16 18:00 120/69 12/25/16 16:00 98.6 96 18 120/69 97 Room Air Intake and Output 12/25/16 12/26/16 19:00 07:00 Intake Total 680 ml 810 ml Output Total 550 ml 1850 ml Balance 130 ml -1040 ml Intake Oral 680 ml 810 ml Output Urine Total 550 ml 1850 ml # Bowel Movements 1 Height (Feet): 5 Height (Inches): 9.00 Weight (Pounds): 150 General Appearance: no apparent distress Cardiovascular: tachycardia Respiratory/Chest: decreased breath sounds Abdomen: distended Objective other PE not changed JUSTIN NESS Dec 26, 2016 14:53
[2016-12-26 16:00] VITALS: BP 114/73
--- NOTE | 2016-12-26 16:01 | Infectious Diseases Prog Note ---
Assessment/Plan Assessment/Plan ASSESSMENT: 66-year-old male with: Aspiration PNA / pneumonitis - SCx NRF SP Rx CXR 12/21: mild interstitial edema and small effusions, stable. 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 Monitor chest x-ray Subjective Allergies: Coded Allergies: No Known Allergies (Unverified , 04/29/13) Subjective remains afebrile. comfortable Objective Vital Signs Last 24 Hour Vital Signs Date Time Temp Pulse Resp B/P Pulse Ox O2 Delivery O2 Flow Rate FiO2 12/26/16 12:55 107/68 12/26/16 12:00 107/68 12/26/16 12:00 97.7 109 20 107/68 97 Room Air 12/26/16 09:47 112 125/78 12/26/16 08:00 98.2 112 19 125/78 97 Room Air 12/26/16 07:10 144/81 12/26/16 07:10 144/81 12/26/16 07:09 144/81 12/26/16 06:37 97.6 109 18 144/81 100 Room Air 12/26/16 00:00 121/74 12/25/16 21:41 128/71 12/25/16 20:10 98.8 90 18 128/71 96 Room Air 12/25/16 19:45 Room Air 12/25/16 19:45 87 22 Room Air 21 12/25/16 19:45 96 Room Air 21 12/25/16 19:31 120/69 12/25/16 18:00 120/69 Height (Feet): 5 Height (Inches): 9.00 Weight (Pounds): 150 General Appearance: no acute distress Respiratory/Chest: no respiratory distress Cardiovascular: normal rate, regular rhythm Abdomen: normal bowel sounds, soft, non tender, non distended Current Medications Medications (Trade) Dose Ordered Sig/Melania Route PRN Reason Start Time Stop Time Status Last Admin Dose Admin Acetaminophen (Tylenol) 650 mg Q4H PRN ORAL Fever 12/24/16 17:00 01/23/17 16:59 Albuterol/ Ipratropium (DuoNeb 0.5-3(2.5)mg/3ml) 3 ml Q4H PRN HHN Shortness of Breath 12/24/16 16:00 12/29/16 15:59 Amlodipine Besylate (Norvasc) 10 mg DAILY NG 12/25/16 09:00 01/24/17 08:59 12/26/16 09:47 Clonidine HCl (Catapres) 0.1 mg EVERY 6 HOURS ORAL 12/24/16 18:00 01/23/17 17:59 12/26/16 07:10 Dextrose (Dextrose 50%) STAT PRN IV Hypoglycemia 12/24/16 17:00 01/23/17 16:59 Furosemide (Lasix) 80 mg EVERY 12 HOURS ORAL 12/25/16 09:00 01/24/17 08:59 12/26/16 09:47 Haloperidol Lactate/Dextrose (Haldol/D5W) 56 ml @ 112 mls/hr Q4H PRN IVPB AGITATION 12/24/16 15:30 01/23/17 15:29 Hydralazine HCl (Apresoline) 50 mg Q8HR NG 12/24/16 22:00 01/23/17 21:59 12/26/16 07:09 Lorazepam (Ativan 2mg/ml 1ml) 0.5 mg Q4H PRN IV For Anxiety 12/24/16 17:00 12/31/16 16:59 Morphine Sulfate (Morphine Sulfate) 2 mg Q4H PRN IVP Severe Pain (Pain Scale 7-10) 12/24/16 17:00 12/31/16 16:59 12/25/16 09:50 Nitroglycerin (Nitro-Bid) 1 inch TID@0600,1200,1800 TOPIC 12/24/16 18:00 01/23/17 17:59 12/26/16 07:10 Ondansetron HCl (Zofran) 4 mg Q6H PRN IVP Nausea & Vomiting 12/24/16 17:00 01/23/17 16:59 Pantoprazole (Protonix) 40 mg DAILY IVP 12/25/16 09:00 01/24/17 08:59 12/26/16 09:47 Polyethylene Glycol (Miralax) 17 gm DAILYPRN PRN ORAL Constipation 12/24/16 17:00 01/23/17 16:59 Vitamin A/Vitamin D (A & D Oint) 1 applic EVERY 12 HOURS TOPIC 12/24/16 21:00 01/23/17 20:59 12/26/16 09:48 Vitamin B Complex/ Vit C/Folic Acid (Nephrovite) 1 tab DAILY GT 12/25/16 09:00 01/24/17 08:59 12/26/16 09:47 DICK GARBER Dec 26, 2016 16:01
[2016-12-26 19:00] VITALS: BP 132/70
--- NOTE | 2016-12-26 20:35 | Internal Med Progress Note ---
Subjective Physician Name Wild Hawkins Attending Physician Wild Hawkins MD Current Medications Medications (Trade) Dose Ordered Sig/Melania Route PRN Reason Start Time Stop Time Status Last Admin Dose Admin Acetaminophen (Tylenol) 650 mg Q4H PRN ORAL Fever 12/24/16 17:00 01/23/17 16:59 Albuterol/ Ipratropium (DuoNeb 0.5-3(2.5)mg/3ml) 3 ml Q4H PRN HHN Shortness of Breath 12/24/16 16:00 12/29/16 15:59 Amlodipine Besylate (Norvasc) 10 mg DAILY NG 12/25/16 09:00 01/24/17 08:59 12/26/16 09:47 Clonidine HCl (Catapres) 0.1 mg EVERY 6 HOURS ORAL 12/24/16 18:00 01/23/17 17:59 12/26/16 07:10 Dextrose (Dextrose 50%) STAT PRN IV Hypoglycemia 12/24/16 17:00 01/23/17 16:59 Furosemide (Lasix) 80 mg EVERY 12 HOURS ORAL 12/25/16 09:00 01/24/17 08:59 12/26/16 09:47 Haloperidol Lactate/Dextrose (Haldol/D5W) 56 ml @ 112 mls/hr Q4H PRN IVPB AGITATION 12/24/16 15:30 01/23/17 15:29 Hydralazine HCl (Apresoline) 50 mg Q8HR NG 12/24/16 22:00 01/23/17 21:59 12/26/16 07:09 Lorazepam (Ativan 2mg/ml 1ml) 0.5 mg Q4H PRN IV For Anxiety 12/24/16 17:00 12/31/16 16:59 Morphine Sulfate (Morphine Sulfate) 2 mg Q4H PRN IVP Severe Pain (Pain Scale 7-10) 12/24/16 17:00 12/31/16 16:59 12/25/16 09:50 Nitroglycerin (Nitro-Bid) 1 inch TID@0600,1200,1800 TOPIC 12/24/16 18:00 01/23/17 17:59 12/26/16 07:10 Ondansetron HCl (Zofran) 4 mg Q6H PRN IVP Nausea & Vomiting 12/24/16 17:00 01/23/17 16:59 Pantoprazole (Protonix) 40 mg DAILY IVP 12/25/16 09:00 01/24/17 08:59 12/26/16 09:47 Polyethylene Glycol (Miralax) 17 gm DAILYPRN PRN ORAL Constipation 12/24/16 17:00 01/23/17 16:59 Vitamin A/Vitamin D (A & D Oint) 1 applic EVERY 12 HOURS TOPIC 12/24/16 21:00 01/23/17 20:59 12/26/16 09:48 Vitamin B Complex/ Vit C/Folic Acid (Nephrovite) 1 tab DAILY GT 12/25/16 09:00 01/24/17 08:59 12/26/16 09:47 Allergies: Coded Allergies: No Known Allergies (Unverified , 04/29/13) Subjective awake, alert, responsive, NAD Objective Last Vital Signs Date Time Temp Pulse Resp B/P Pulse Ox O2 Delivery O2 Flow Rate FiO2 12/26/16 19:00 94 Room Air 21 12/26/16 19:00 92 18 12/26/16 18:00 114/73 12/26/16 16:00 98.4 12/24/16 07:20 3.0 Intake and Output 12/25/16 12/26/16 19:00 07:00 Intake Total 680 ml 810 ml Output Total 550 ml 1850 ml Balance 130 ml -1040 ml Intake Oral 680 ml 810 ml Output Urine Total 550 ml 1850 ml # Bowel Movements 1 Objective General Appearance: awake, alert, NAD EENT: normal ENT inspection, poor dentition Neck: non-tender, normal alignment, supple, Cardiovascular: normal peripheral pulses, normal rate, regular rhythm, no Murmur Respiratory/Chest: ventilatory breath sound, No wheezes Abdomen: normal bowel sounds, non tender, soft, : [place] Cath Extremities: normal range of motion, No edema, bilateral feet dressing 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 (4) HTN (hypertension) (5) CAD (coronary artery disease) (6) CHF (congestive heart failure) Assessment & Plan: See cardiology note. Cont lasix. (7) Anemia (8) Uncontrolled hypertension (9) Pneumonia Assessment & Plan: Cont Zosyn and Levaquin- (10) Pleural effusion Status: Plan: Abx: observed Off Monitor Labs and Cultures. wound care PT Mobility DC planning [place]F in [place] MD Dec 26, 2016 20:35
[2016-12-26] MEDS ORDERED: NS 275ml ONE (21:19)
--- NOTE | 2016-12-27 00:03 | Pulmonology Progress Note ---
Assessment/Plan Problems: (1) Acute respiratory failure with hypoxia (2) Aspiration pneumonia (3) Pulmonary edema (4) At high risk for aspiration (5) ATN (acute tubular necrosis) (6) Hepatitis C Assessment/Plan PLAN OF CARE Respiratory: vent care, pulmonary toilet, weaning protocol, ABG this am on SIMV 12 stable, CXR and ABG in am, abx, ID follows , need thoracentesis , awaiting for consent Cardiac: cardio follows, ECHO with EF 55% and RVSP of 50 c/w moderate pulmonary HTN, + evidence of severe MR , diuretics slowly as per cardio Renal: nephro follows, avoid nephrotoxic, Gastrointestinal: continue feedings/current rate, strict aspiration precautions Hematologic: monitor H/H, transfuse if hgb<8.0 Neurologic: PRN Morphine Subjective ROS Limited/Unobtainable: Yes Constitutional: Reports: anorexia, fatigue Respiratory: Reports: dyspnea at rest, dyspnea on exertion, pleuritic pain, productive cough, shortness of breath, sputum, wheezing Neurologic: Reports: confusion, weakness Allergies: Coded Allergies: No Known Allergies (Unverified , 04/29/13) Objective Last 24 Hour Vital Signs Date Time Temp Pulse Resp B/P Pulse Ox O2 Delivery O2 Flow Rate FiO2 12/26/16 21:06 114/73 12/26/16 19:00 98.1 98 20 132/70 99 Room Air 12/26/16 19:00 94 Room Air 21 12/26/16 19:00 92 18 Room Air 21 12/26/16 19:00 Room Air 12/26/16 18:00 114/73 12/26/16 18:00 114/73 12/26/16 16:00 98.4 100 20 114/73 98 Room Air 12/26/16 12:55 107/68 12/26/16 12:00 107/68 12/26/16 12:00 97.7 109 20 107/68 97 Room Air 12/26/16 09:47 112 125/78 12/26/16 08:00 98.2 112 19 125/78 97 Room Air 12/26/16 07:10 144/81 12/26/16 07:10 144/81 12/26/16 07:09 144/81 12/26/16 06:37 97.6 109 18 144/81 100 Room Air Intake and Output 12/26/16 12/27/16 18:59 06:59 Intake Total 940 ml 240 ml Output Total 600 ml 600 ml Balance 340 ml -360 ml Intake Oral 940 ml 240 ml Output Urine Total 600 ml 600 ml General Appearance: no acute distress HEENT: normocephalic, atraumatic, PERRL Respiratory/Chest: chest wall non-tender, decreased breath sounds, accessory muscle use, crackles/rales, rhonchi Cardiovascular: normal peripheral pulses, normal rate, regular rhythm, no gallop/murmur, no JVD Abdomen: hypoactive bowel sounds, distended, guarding, tender, rebound tenderness, mass, hepatomegaly Genitourinary: normal external genitalia Extremities: no cyanosis Skin: no rash, no lesions Neurologic/Psychiatric: abnormal CN, unresponsiveness Current Medications Medications (Trade) Dose Ordered Sig/Melania Route PRN Reason Start Time Stop Time Status Last Admin Dose Admin Acetaminophen (Tylenol) 650 mg Q4H PRN ORAL Fever 12/24/16 17:00 01/23/17 16:59 Albuterol/ Ipratropium (DuoNeb 0.5-3(2.5)mg/3ml) 3 ml Q4H PRN HHN Shortness of Breath 12/24/16 16:00 12/29/16 15:59 Amlodipine Besylate (Norvasc) 10 mg DAILY NG 12/25/16 09:00 01/24/17 08:59 12/26/16 09:47 Clonidine HCl (Catapres) 0.1 mg EVERY 6 HOURS ORAL 12/24/16 18:00 01/23/17 17:59 12/26/16 07:10 Dextrose (Dextrose 50%) STAT PRN IV Hypoglycemia 12/24/16 17:00 01/23/17 16:59 Furosemide (Lasix) 80 mg EVERY 12 HOURS ORAL 12/25/16 09:00 01/24/17 08:59 12/26/16 21:06 Haloperidol Lactate/Dextrose (Haldol/D5W) 56 ml @ 112 mls/hr Q4H PRN IVPB AGITATION 12/24/16 15:30 01/23/17 15:29 Hydralazine HCl (Apresoline) 50 mg Q8HR NG 12/24/16 22:00 01/23/17 21:59 12/26/16 21:06 Lorazepam (Ativan 2mg/ml 1ml) 0.5 mg Q4H PRN IV For Anxiety 12/24/16 17:00 12/31/16 16:59 Morphine Sulfate (Morphine Sulfate) 2 mg Q4H PRN IVP Severe Pain (Pain Scale 7-10) 12/24/16 17:00 12/31/16 16:59 12/25/16 09:50 Nitroglycerin (Nitro-Bid) 1 inch TID@0600,1200,1800 TOPIC 12/24/16 18:00 01/23/17 17:59 12/26/16 07:10 Ondansetron HCl (Zofran) 4 mg Q6H PRN IVP Nausea & Vomiting 12/24/16 17:00 01/23/17 16:59 Pantoprazole (Protonix) 40 mg DAILY IVP 12/25/16 09:00 01/24/17 08:59 12/26/16 09:47 Polyethylene Glycol (Miralax) 17 gm DAILYPRN PRN ORAL Constipation 12/24/16 17:00 01/23/17 16:59 Vitamin A/Vitamin D (A & D Oint) 1 applic EVERY 12 HOURS TOPIC 12/24/16 21:00 01/23/17 20:59 12/26/16 09:48 Vitamin B Complex/ Vit C/Folic Acid (Nephrovite) 1 tab DAILY GT 12/25/16 09:00 01/24/17 08:59 12/26/16 09:47 YAMILET DIOR Dec 27, 2016 00:03
[2016-12-27 00:15] VITALS: BP 122/71
[2016-12-27 04:09] VITALS: BP 114/73
[2016-12-27] MEDS: HydrALAZINE 50mg tab NG SCH ×2 (05:15→13:19)
[2016-12-27] MEDS: Nitroglycerin 2% oint pkt TOPIC SCH ×2 (05:17→12:00)
[2016-12-27 08:06] VITALS: BP 116/70
[2016-12-27] MEDS: Nephrovite tab GT SCH (08:31)
[2016-12-27] MEDS: Vitamin A&D Oint 2oz Tube TOPIC SCH (08:33)
[2016-12-27] MEDS: Furosemide 80mg tab ORAL SCH (08:33)
[2016-12-27] MEDS: Pantoprazole Inj IVP SCH (08:37)
[2016-12-27] MEDS: Morphine Sulfate 2mg/ml Inj IVP PRN (08:38)
--- NOTE | 2016-12-27 10:11 | General Progress Note ---
Assessment/Plan Status: unchanged Assessment/Plan -Renal insufficiency. ? Acute on Chronic Cr stable, and slow rising ! Urine output improved Other: -Abnormal mentation. -Respiratory failure, acute with hypoxia-/ Aspiration [place] -Congestive heart failure with pleural effusion, -Mitral regurgitation. -Cardiomyopathy. -History of amphetamine abuse. -History of paroxysmal episodes of atrial fibrillation per report. -Hepatitis C virus with cirrhosis. Plan: today's labs pending Optimize cardiac and pulmonary status- Keep BP in check- Monitor renal parameters- avoid nephrotoxics- per orders- UA 3+ protein DC planning? Subjective ROS Limited/Unobtainable: No Constitutional: Reports: malaise Allergies: Coded Allergies: No Known Allergies (Unverified , 04/29/13) Objective Last 24 Hour Vital Signs Date Time Temp Pulse Resp B/P Pulse Ox O2 Delivery O2 Flow Rate FiO2 12/27/16 09:08 98.0 12/27/16 08:31 84 116/70 12/27/16 08:15 Room Air 12/27/16 08:15 99 20 Room Air 12/27/16 08:15 100 Room Air 21 12/27/16 08:06 98.0 84 20 116/70 99 Room Air 12/27/16 05:18 114/73 12/27/16 05:17 114/73 12/27/16 05:15 114/73 12/27/16 04:09 98.4 86 20 114/73 99 Room Air 12/27/16 00:15 97.9 82 19 122/71 95 Room Air 12/27/16 00:00 122/71 12/26/16 21:06 114/73 12/26/16 19:00 98.1 98 20 132/70 99 Room Air 12/26/16 19:00 94 Room Air 21 12/26/16 19:00 92 18 Room Air 21 12/26/16 19:00 Room Air 12/26/16 18:00 114/73 12/26/16 18:00 114/73 12/26/16 16:00 98.4 100 20 114/73 98 Room Air 12/26/16 12:55 107/68 12/26/16 12:00 107/68 12/26/16 12:00 97.7 109 20 107/68 97 Room Air Intake and Output 12/26/16 12/27/16 19:00 07:00 Intake Total 1220 ml 480 ml Output Total 600 ml 1400 ml Balance 620 ml -920 ml Intake Oral 1220 ml 480 ml Output Urine Total 600 ml 1400 ml # Bowel Movements 1 Height (Feet): 5 Height (Inches): 9.00 Weight (Pounds): 150 General Appearance: no apparent distress Cardiovascular: normal rate Respiratory/Chest: decreased breath sounds Abdomen: distended Objective other PE not changed JUSTIN NESS Dec 27, 2016 10:11
[2016-12-27 11:22] VITALS: BP 115/68
--- NOTE | 2016-12-27 13:43 | Internal Med Progress Note ---
Subjective Physician Name Wild Hawkins Attending Physician Wild Hawkins MD Current Medications Medications (Trade) Dose Ordered Sig/Melania Route PRN Reason Start Time Stop Time Status Last Admin Dose Admin Acetaminophen (Tylenol) 650 mg Q4H PRN ORAL Fever 12/24/16 17:00 01/23/17 16:59 Albuterol/ Ipratropium (DuoNeb 0.5-3(2.5)mg/3ml) 3 ml Q4H PRN HHN Shortness of Breath 12/24/16 16:00 12/29/16 15:59 Amlodipine Besylate (Norvasc) 10 mg DAILY NG 12/25/16 09:00 01/24/17 08:59 12/27/16 08:31 Clonidine HCl (Catapres) 0.1 mg EVERY 8 HOURS ORAL 12/27/16 14:00 01/26/17 13:59 Dextrose (Dextrose 50%) STAT PRN IV Hypoglycemia 12/24/16 17:00 01/23/17 16:59 Furosemide (Lasix) 80 mg EVERY 12 HOURS ORAL 12/25/16 09:00 01/24/17 08:59 12/27/16 08:33 Haloperidol Lactate/Dextrose (Haldol/D5W) 56 ml @ 112 mls/hr Q4H PRN IVPB AGITATION 12/24/16 15:30 01/23/17 15:29 Hydralazine HCl (Apresoline) 50 mg Q8HR NG 12/24/16 22:00 01/23/17 21:59 12/27/16 05:15 Lorazepam (Ativan 2mg/ml 1ml) 0.5 mg Q4H PRN IV For Anxiety 12/24/16 17:00 12/31/16 16:59 Morphine Sulfate (Morphine Sulfate) 2 mg Q4H PRN IVP Severe Pain (Pain Scale 7-10) 12/24/16 17:00 12/31/16 16:59 12/27/16 08:38 Nitroglycerin (Nitro-Bid) 1 inch TID@0600,1200,1800 TOPIC 12/24/16 18:00 01/23/17 17:59 12/26/16 07:10 Ondansetron HCl (Zofran) 4 mg Q6H PRN IVP Nausea & Vomiting 12/24/16 17:00 01/23/17 16:59 Pantoprazole (Protonix) 40 mg DAILY ORAL 12/27/16 11:00 01/26/17 10:59 12/27/16 13:19 Polyethylene Glycol (Miralax) 17 gm DAILYPRN PRN ORAL Constipation 12/24/16 17:00 01/23/17 16:59 Vitamin A/Vitamin D (A & D Oint) 1 applic EVERY 12 HOURS TOPIC 12/24/16 21:00 01/23/17 20:59 12/27/16 08:33 Vitamin B Complex/ Vit C/Folic Acid (Nephrovite) 1 tab DAILY GT 12/25/16 09:00 01/24/17 08:59 12/27/16 08:31 Allergies: Coded Allergies: No Known Allergies (Unverified , 04/29/13) Subjective awake, alert, responsive, NAD, eating good Objective Last Vital Signs Date Time Temp Pulse Resp B/P Pulse Ox O2 Delivery O2 Flow Rate FiO2 12/27/16 13:20 115/68 12/27/16 11:22 97.8 98 20 98 Room Air 12/27/16 08:15 21 12/24/16 07:20 3.0 Intake and Output 12/26/16 12/27/16 19:00 07:00 Intake Total 1220 ml 480 ml Output Total 600 ml 1400 ml Balance 620 ml -920 ml Intake Oral 1220 ml 480 ml Output Urine Total 600 ml 1400 ml # Bowel Movements 1 Objective General Appearance: awake, alert, NAD EENT: normal ENT inspection, poor dentition Neck: non-tender, normal alignment, supple, Cardiovascular: normal peripheral pulses, normal rate, regular rhythm, no Murmur Respiratory/Chest: ventilatory breath sound, No wheezes Abdomen: normal bowel sounds, non tender, soft, : [place] Cath Extremities: normal range of motion, No edema, bilateral feet dressing Neurologic: inspector toys II-XII grossly normal, Moves all extremities Skin: normal pigmentation, warm/dry Assessment/Plan Assessment/Plan (1) Acute Respiratory failure (2) YVONNE on CKD (3) Hypernatremia. (4) HTN (hypertension) (5) CAD (coronary artery disease) (6) CHF (congestive heart failure). (7) Anemia (8) Uncontrolled hypertension (9) Pneumonia (10) Pleural effusion Status: Plan: Abx: observed Off Monitor Labs and Cultures. wound care PT Mobility DC planning to SNF today Wild Hawkins MD Dec 27, 2016 13:43
[2016-12-27] MEDS ORDERED: APRESOLINE50 MG NG (13:47)
[2016-12-27] MEDS ORDERED: FUROSEMIDE80 MG ORAL (13:47)
[2016-12-27] MEDS ORDERED: MIRALAX17 G2 ORAL (13:47)
[2016-12-27 16:00] VITALS: BP 119/60
--- NOTE | 2016-12-29 16:32 | Discharge Summary ---
Discharge Summary Hospital Course Date of Admission Dec 10, 2016 at 00:08 Date of Discharge Dec 27, 2016 at 18:00 Admitting Diagnosis chf HPI Kevon Escudero is a 66 year old male who was admitted on Dec 10, 2016 at 00:08 for Congestive Heart Failure Hospital Course dc summary dictated # [id number] Discharge Medications New Medications: Furosemide (Furosemide) 80 Mg Tablet 80 MG ORAL EVERY 12 HOURS for 30 Days, TAB Hydralazine HCl (Hydralazine HCl) 50 Mg Tablet 50 MG NG Q8HR for 30 Days, TAB Polyethylene Glycol 3350* (Miralax*) 17 Gm Powd.pack 17 GM ORAL DAILYPRN PRN, #30 PACK Continued Medications: Albuterol Sulfate* (Proair Hfa*) 8.5 Gm Hfa.aer.ad #9 Amlodipine Besylate* (Amlodipine Besylate*) 10 Mg Tablet 10 MG ORAL DAILY, TAB Carvedilol (Coreg) 6.25 Mg Tab 6.25 MG ORAL EVERY 12 HOURS, #60 TAB Hydrocodone/Acetaminophen 5-325* (Hydrocodone/Acetaminophen 5-325*) 1 Each Tablet 1 TAB ORAL Q6H PRN Isosorbide Dinitrate (Isordil*) 40 Mg Tablet 40 MG ORAL, #30 TAB 0 Refills Lorazepam* (Lorazepam*) 1 Mg Tablet 1 MG ORAL Q6HR PRN, TAB Potassium Chloride (Potassium Chloride) 10 Meq Tablet.er 10 MEQ PO DAILY Discontinued Medications: Furosemide* (Lasix*) 40 Mg Tablet 40 MG ORAL DAILY, TAB Discharge Condition Upon Discharge: stable Discharge Disposition Patient was discharged to SNF/Subacute Facility(03) Discharge Diagnoses: Javan (Cathy)Shanell NP Dec 29, 2016 16:32
--- NOTE | 2016-12-30 03:29 | Discharge Summary 2 SIG ---
DATE OF ADMISSION: 12/10/2016 DATE OF DISCHARGE: 12/27/2016 REASON FOR HOSPITALIZATION: 66-year-old male was brought in from alf facility with past medical history of cardiomyopathy, hepatitis, and toxic metabolic encephalopathy. The patient brought by pipelines superintendent with a chief complaint of severe respiratory distress. The patient was unable to provide any history . Workup in ED revealed: EKG with normal sinus rhythm. No acute changes. Troponin negative. Lab work revealed elevated proBNP. Chest x-ray revealed bilateral pleural effusion, no consolidation, no pneumothorax. The patient placed initially on Venturi mask ten liters/minute and transferred to telemetry for further management. ADMITTING DIAGNOSES: 1. Acute respiratory failure with hypoxia. 2. Congestive heart failure exacerbation. 3. Hypertensive urgency. 4. Pulmonary edema. 5. Acute on chronic kidney failure. 6. Anemia. HOSPITAL STAY: The patient was initially admitted to telemetry. However, the patient subsequently required intubation since his respiratory failure was worsening secondary to pulmonary edema. He required emergency oral intubation and transferred to ICU. The patient started on diuresis. Sprinkler Driver, sweet goods machine operator, account development executive, and ID were all involved in care of this patient. His cardiopulmonary status was eventually able to be optimized. Initially on ventilator support, ventilator care and pulmonary toilet provided. Diuresis and medical management of CHF maintained. Echocardiogram revealed ejection fraction of 55%, mild LVH, severe mitral regurgitation, and right ventricular systolic pressure of 60 consistent with moderate pulmonary hypertension. The patient has a known history of paroxysmal atrial fibrillation, however, was in sinus rhythm.Chest x-ray revealed bilateral pleural effusion. The patient subsequently undergone thoracentesis of the right pleural effusion which yielded 1,100 mL of the pleural fluid. Fluid culture was negative. Pathology revealed no evidence of malignant cells. Sprinkler Driver intensify diuresis. Blood pressure was managed with beta-michael , nitrates, and hydralazine, regimen was optimized. Blood pressure was stable after optimization of the regimen. No JEANNETTE/ARB due to kidney failure. Rubber Press Operator followed the patient. Urine output significantly improved after diuresis. Creatinine at baseline, no trend down. Recommended monitor closely renal parameters and electrolytes and avoid nephrotoxic. The patient initially on empiric antibiotics. Blood culture negative. Urine culture negative. Sputum culture negative. Leukocytosis resolved, afebrile. ID recommended to observe the patient off antibiotics and monitor. The patient was working with physical therapy for mobilization. The patient seen by the wound care nurse for sacral decubitus, stage IV and right knee decubitus stage IV, both present on admission. Continue wound care at the alf facility as recommended by wound care nurse. Venous duplex bilateral lower extremity negative. The patient has a history of hepatitis C with cirrhosis. LFTs stable. Hemoglobin and hematocrit stable, no trend down. Sodium down to 144. Prior to discharge cardiopulmonary status stable, no SOB, no chest pain. Leukocytosis resolved, afebrile, off antibiotics. DISCHARGE MEDICATIONS: See medication reconciliation list. DISCHARGE DIAGNOSES: 1. Acute hypoxemic respiratory failure requiring intubation. 2. Status post extubation. 3. Acute kidney injury on chronic kidney disease. 4. Hypernatremia, resolved. 5. Bilateral pleural effusion. 6. Status post right thoracentesis 1100 mL . 7. Aspiration pneumonia. 8. Moderate pulmonary hypertension. 9. Severe mitral regurgitation. 10. Hypertensive urgency, resolved. 11. Anemia, stable. 12. Coronary artery disease. 13. History of congestive heart failure. 14. History of amphetamine abuse. 15. History of paroxysmal atrial fibrillation. 16. Hepatitis C with cirrhosis, stable liver function test. 17. Right knee wound stage IV, present on admission. 18. Sacral decubitus wound stage IV, present on admission. DISCHARGE INSTRUCTIONS: The patient discharged to alf facility. FOLLOWUP: Follow up with medical doctor at the facility. Wild Hawkins M.D. I have been assigned to dictate discharge summary on this account and I was not involved in the patient's management. Shanell Edouard (Vanchtein) NKel DR: Roc JOB#: [id number] CC: [id number]
== END 2016-12-27 18:00 | DRG 207 ==
LOC: EDBD 23:00 → EMR 23:11 → 2E 12-10 00:08 → EDBEDREQ 12-10 00:44 → 2E 12-10 02:07 → ICU 12-10 16:03 → 4W 12-24 15:29
DX: J96.21 Acute and chronic respiratory failure with hypoxia (principal); N17.0 Acute kidney failure with tubular necrosis; J69.0 Pneumonitis due to inhalation of food and vomit; G93.41 Metabolic encephalopathy; I50.23 Acute on chronic systolic (congestive) heart failure; L89.154 Pressure ulcer of sacral region, stage 4; L89.894 Pressure ulcer of other site, stage 4; J90 Pleural effusion, not elsewhere classified; I42.9 Cardiomyopathy, unspecified; I13.0 Hypertensive heart and chronic kidney disease with heart failure and stage 1 through stage 4 chronic kidney disease, or unspecified chronic kidney disease; Z99.11 Dependence on respirator [ventilator] status; E87.0 Hyperosmolality and hypernatremia; I34.0 Nonrheumatic mitral (valve) insufficiency; B19.20 Unspecified viral hepatitis C without hepatic coma; K74.69 Other cirrhosis of liver; I25.10 Atherosclerotic heart disease of native coronary artery without angina pectoris; N18.3 Chronic kidney disease, stage 3 (moderate); I25.2 Old myocardial infarction; D69.6 Thrombocytopenia, unspecified
CPT/HCPCS: 36415; 36600; 71010; 76942; 80048; 80053; 80069; 81001; 82140; 82550; 82553; 82803; 82962; 82977; 83036; 83735; 83880; 84100; 84300; 84443; 84484; 84550; 85007; 85025; 85610; 85651; 85730; 86140; 87040; 87070; 87081; 87086; 87181; 87205; 88104; 89050; 89051; 93005; 93306; 93970; 93971; 94002; 94003; 94640; 94664; 94760; J7620; J8499